=== PATIENT | male | born 1940 | race Caucasian/White ===

== ENCOUNTER 2018-01-28 12:47 | Observation (INO) | payer MEDICARE, SELFPAY ==
[2018-01-28] VITALS (12 sets, daily range): BP systolic 104–139; BP diastolic 50–86; PULSE 34–127; RESP 14–20; TEMP 36.3–36.7; O2SAT 97–100; BMI 20.7; BMI 21.7; BMI 21.8
--- NOTE | 2018-01-28 12:59 | EKG12_ITS ---
Test Reason : CP Blood Pressure : / mmHG Vent. Rate : 122 BPM Atrial Rate : 133 BPM P-R Int : 000 ms QRS Dur : 140 ms QT Int : 362 ms P-R-T Axes : 000 -76 066 degrees QTc Int : 515 ms Atrial fibrillation Right bundle branch block Left anterior fascicular block Bifascicular block Abnormal ECG Confirmed by WILLIE ISRAEL, VINAY ([id number]), editor sound MARVA CHUN ([id number]) on 01/29/2018 2:22:51 PM Referred By: NATIVIDAD/DOMINGO Confirmed By:VINAY TAIPA MD
--- NOTE | 2018-01-28 12:59 | RAD_ITS ---
STUDY: X-RAY CHEST REASON FOR EXAM: Male, 77 years old. Increasing shortness of breath. TECHNIQUE: Single AP portable view of the chest. COMPARISON: Comparison is made with prior study dated December 08, 2016. FINDINGS: EKG electrodes are seen. Hyperinflation. The lungs are clear. There is no demonstrated pleural abnormality. Normal size heart. Normal mediastinum and maykel. Normal visualized pulmonary arteries. There is atherosclerotic tortuosity of the aortic arch and descending thoracic aorta. There are degenerative changes of the visualized thoracic spine. Normal visualized ribs, clavicles, and shoulders. There is no demonstrated abnormality of the visualized soft tissue structures of the upper abdomen. RAD/Chest 1 View (Portable) IMPRESSION: Hyperinflation. The lungs are clear. Electronically Signed: Binu Chaidez MD at 13:36 EST Tel [phone], Service support ,
--- NOTE | 2018-01-28 13:00 | ED.VISSUMM ---
- ER Visit Summary Date of Service: 01/28/18 Chief Complaint: Chest pain History of Present Illness: The patient is a 77 M presenting with chest pain that started last night. He has had intermittent chest pain since last night. He states last night it lasted several hours. Complains of a heaviness in his mid chest with no radiation. Associated with nausea, diaphoresis, shortness of breath. Today he states he had a near syncopal episode. He is a previous smoker. He has a history of leukemia currently on chemotherapy. He is on Coumadin for history of A. fib. Physical Examination: Vitals are stable. Patient is afebrile. Alert no acute distress. HEENT exam is unremarkable. Neck is supple. Lungs are clear and equal bilaterally. Heart is irregularly irregular Abdomen is soft nontender nondistended. Extremities are unremarkable. Skin is warm and dry. No focal neurologic deficit. Remainder of exam is unremarkable. Emergency Department Course and Treatment: EKG is A. fib rate of 122. Patient was given aspirin, Cardizem. Repeat heart rate is 79. CBC normal except for hemoglobin 11.8, platelets 148. Chemistries were unremarkable. INR is 2.7. Troponin is negative. Chest x-ray shows hyperinflation. On reevaluation, patient is chest pain-free. Discussed with Dr. Villalba for observation. Disposition: Observation Impression: Chest pain, A. fib with RVR This note was generated with [employer] dictation software. It may contain incorrect words, spelling, and punctuation that were not noted in review of the chart prior to signing ED Disposition - Plan for ED Patient: Chief Complaint: Chest Pain Referrals: Jay Junior MD [Primary Care Provider] -
[2018-01-28 13:23] LABS: Absolute Lymphocyte Count 1.43 X10^3/ul (0.83-4.51); Absolute Neutrophil Count 3.6 X10^3/uL (2.0-7.7); Basophil# 0.03 X10^3/uL; Basophil% 0.5 % (0-1); Eosinophil# 0.02 X10^3/uL; Eosinophils% 0.3 % (0-5); Hemoglobin 11.8 g/dl (13.0-16.5); Lymphocyte # 1.43 X10^3/ul (4.0); Lymphocyte % 23.3 % (19-41); Mean Corp Hgb Conc 31.9 g/gl (32-36); Mean Corpuscular Hgb 26.5 pg (27.0-32.0); Mean Corpuscular Volume 83.1 fL (80-94); Mean Platelet Vol. 11.4 fl (6.2-12.0); Monocyte# 0.99 X10^3/uL; Monocyte% 16.2 % (0-10); Neutrophil # 3.57 X10^3/uL (2.7-7.7); Neutrophil % 58.2 % (47-70); POSITIVE COUNT NO; POSITIVE DIFFERENTIAL NO; POSITIVE MORPHOLOGY NO; Platelet Count 148 K/mm3 (150-450); RBC Distribution Width CV 16.3 % (11.6-14.6); RBC Distribution Width SD 49.1 fl (35.1-43.9); Red Blood Count 4.45 M/mm3 (4.6-6.2); White Blood Count 6.1 K/mm3 (4.4-11.0)
[2018-01-28 13:29] LABS: International Normalized Ratio 2.7; Prothrombin Time (Protime)PT. 29.1 SECONDS (11.7-14.9)
[2018-01-28] MEDS: dilTIAZem 25 MG/5 ML Vial 10 MG IV BOLUS (13:30)
[2018-01-28] MEDS: Aspirin 81 MG TAB.CHEW 324 MG PO (13:30)
[2018-01-28 13:39] LABS: Anion Gap 6 (5-15); BUN 21 mg/dL (7-18); BUN/Creat Ratio 17.5 RATIO (10-20); Calcium,Total 8.4 mg/dL (8.5-10.1); Chloride 103 mmol/L (98-107); EST Glomerular Filtration Rate 63 mL/min (>60); Est Glom Filt Rate - Afr Amer 76 mL/min (>60); Estimated Creatinine Clearance 45.85 ml/min; Glucose 91 mg/dL (74-106); Potassium 3.5 mmol/L (3.5-5.1); Sodium Level 137 mmol/L (136-145)
--- NOTE | 2018-01-28 14:16 | NURSING ---
120 OBS ABHIJEET MCFADDEN
--- NOTE | 2018-01-28 14:27 | PCM.HP.STD ---
Problem List (1) Chronic atrial fibrillation Status: Chronic (2) Anxiety Status: Chronic (3) Benign prostatic hypertrophy Status: Chronic (4) Chronic lymphocytic leukemia Status: Chronic (5) Hypertension Status: Chronic History of Present Illness Date of Admission: 01/28/18 Chief Complaint: Chest pain, shortness of breath. The patient is a 77 year old M with past medical history as mentioned above presented to the emergency room because of chest pain or shortness of breath. Her symptoms started last night with chest pain, retrosternal chest pain, dull aching pain, 6-7 out of 10 in severity, not radiating, lasted for about a couple of hours, relieved by heating pad, no associated symptoms and without aggravating factors. This morning, he started complaining of shortness of breath at rest, associated with dizziness and palpitation as well as irregular heartbeats and he was about to pass out. This morning, he had no more chest pain. He mentioned that his heart was beating fast and irregular and he was about to pass out but he did not. In the emergency room, he was in A. fib with RVR with heart rate of around 127, received 1 dose of IV Cardizem and his heart rate came down to 80s, blood pressure was stable. His routine blood work was remarkable for hemoglobin of 11.8 g/dL, platelet count of 148,000. BMP was unremarkable. INR was 2.7. Troponin was 0.02. EKG revealed A. fib with RVR and right bundle branch block, no acute ischemic changes. Chest x-ray showed no acute infiltrate, effusion or consolidation. He is being admitted for chest pain for evaluation as well as A. fib with RVR and near syncope. Past Medical History Past Medical History (Chronic Problems): Chronic Problems Chronic atrial fibrillation (Chronic) Anxiety (Chronic) Benign prostatic hypertrophy (Chronic) Chronic lymphocytic leukemia (Chronic) Hypertension (Chronic) Allergies ondansetron [From Zofran (as hydrochloride)] Allergy (Verified 12/08/16 13:19) Unknown Home Medications: Ambulatory Orders Medication Instructions Recorded Finasteride [Proscar] 5 mg PO DAILY 12/08/16 Ibrutinib [Imbruvica] 420 mg PO DAILY 12/08/16 Sertraline HCl [Zoloft] 50 mg PO DAILY 12/08/16 Tamsulosin HCl [Flomax] 0.4 mg PO DAILY 12/08/16 Trazodone HCl 100 mg PO QHS 12/08/16 Zolpidem Tartrate [Ambien] 2.5 mg PO QHS 12/08/16 Metoprolol Tartrate [Lopressor 25 mg PO BID 01/28/18 (Beta Kiana)] Omeprazole 40 mg PO DAILY 01/28/18 Warfarin Sodium [Warfarin Sodium] 8 mg PO DAILY 01/28/18 Surgical History: no surgical history Psychiatric History: No pertinent psych hx Lives: Spouse/ Significant Other Smoking Status: Never smoker Alcohol: None Drugs: None - *Family History Maternal History Items: No pertinent history Paternal History Items: No pertinent history Review of Systems Constitutional: Reports: Weakness. Denies: Anorexia, Chills, Fever Eyes: Denies: Blurred vision, Double vision, Drainage, Redness HEENT: Reports: Head Aches. Denies: Difficulty Hearing, Ear Pain, Eye Pain, Nasal Congestion, Sore Throat Cardiovascular: Reports: Chest Pain, Light Headedness, Palpitations, - - Near syncope.. Denies: Edema, Heaviness, Orthopnea, Paroxysmal Noc. Dyspnea Respiratory: Reports: Shortness of Breath, Shortness of breath at rest. Denies: Cough, Pleuritic Pain, Sputum production, Wheezing Gastrointestinal: Denies: Abdominal Pain, Constipation, Diarrhea, Nausea, Vomiting Genitourinary: Denies: Dysuria, Frequency, Hematuria Musculoskeletal: Denies: Arm Pain, Back Pain, Foot Pain Skin: Denies: Dryness, Rash Neurological: Denies: Balance problems, Double vision, Change in Speech, Slurred speech, Headaches, Incoordination, Numbness Psychiatric: Reports: Anxiety, Depression Endocrine: Denies: Change in Body Habitus, Polydipsia VTE Information - Inpt Only VTE Present on Admission: No VTE Mechan Device Prophylaxis: None VTE Pharm Prophylaxis ordered?: No - Physical Exam General: Alert, Oriented x3, Cooperative, No apparent distress HEENT: Atraumatic, PERRLA, EOMI Oral: Moist Mucosa, No Gingival or Mucosal Lesions/ Ulcerations Neck: Supple, No JVD, Negative Carotid Bruits, Trachea Midline, Thyroid Normal Size and Texture Lungs: Clear to auscultation, No rhonchi, No wheeze, No rales, Diminished Cardiovascular: Regular rate, Normal S1, Normal S2, No murmurs, PMI Normal, Irregular Rate Abdomen: Bowel Sounds Present, Soft, Non Tender, Non-Distended, No Hepato-splenomegaly Extremities: No clubbing, No cyanosis, No edema Skin: No rashes, No breakdown Lymphatic: No Cervical, Supraclavicular, or Inguinal Adenopathy Neurological: Cranial nerves II-XII grossly intact, Motor Exam 5/5 strength throughout Psych/Mental Status: Normal Affect, Appropriate, Alert and oriented to time, place, person, mood and affect Vital Signs Temp Pulse Resp BP Pulse Ox 98 F 84 18 113/84 H 100 01/28/18 12:48 01/28/18 14:16 01/28/18 14:16 01/28/18 14:16 01/28/18 14:16 Oxygen Delivery Method Room Air Weight: 136 lb 7.458 oz Body Mass Index (BMI) 20.7 Laboratory Tests Past 24 Hrs 01/28/18 01/28/18 01/28/18 13:10 13:10 13:10 WBC 6.1 RBC 4.45 L Hgb 11.8 L Hct 37.0 L MCV 83.1 MCH 26.5 L MCHC 31.9 L RDW 16.3 H RDW Differential 49.1 H Plt Count 148 L MPV 11.4 Immature Gran % (Auto) 1.500 H Neut % (Auto) 58.2 Lymph % (Auto) 23.3 [place] % (Auto) 16.2 H Eos % (Auto) 0.3 Baso % (Auto) 0.5 Absolute Neuts (auto) 3.6 Absolute Lymphs (auto) 1.43 Total Counted Not Reportable PT 29.1 H INR 2.7 Sodium 137 Potassium 3.5 Chloride 103 Carbon Dioxide 28.0 Anion Gap 6 BUN 21 H Creatinine 1.20 Estim Creat Clear Calc 45.85 Est GFR (MDRD) Af Amer 76 Est GFR (MDRD) Non-Af 63 BUN/Creatinine Ratio 17.5 Glucose 91 Calcium 8.4 L Troponin I 0.02 Clinical Impression(s) from Imaging Studies Chest X-Ray 01/28/18 12:59 IMPRESSION: Hyperinflation. The lungs are clear. Electronically Signed: Binu Chaidez MD at 13:36 EST Tel [phone], Service support , Assessment/Plan This is a 77 years old male patient presented to the medicine because of chest pain, shortness of breath and near syncope, found to have A. fib with RVR and he is being admitted for evaluation. #1 chest pain: Atypical presentation. First troponin is negative. EKG revealed A. fib with RVR, RBBB, no acute ischemic changes. At this time, patient has no chest pain. Vital signs are stable. Chest x-ray showed no acute findings. Plan: Admit to PCU, cardiac monitoring, serial cardiac enzymes, repeat EKG tomorrow morning, nuclear stress test tomorrow morning if cardiac enzymes are negative. #2 A. fib with RVR: Upon arrival to ER, patient was in A. fib with RVR, heart rate was in 120s. He received 1 dose of IV Cardizem bolus. At this time, heart rate has been in the 80s, blood pressure stable. Plan: Continue metoprolol for rate control, continue Coumadin for anticoagulation, TSH, serum magnesium, 2D echocardiogram. #3 near syncope: Probably due to A. fib with RVR. At this time, patient is improving, no more symptoms. Plan: Cardiac enzymes, repeat EKG tomorrow morning, 2D echocardiogram, orthostatic vitals. #4 Hypertension: Blood pressure stable, continue metoprolol. #5 chronic lymphocytic leukemia: Stable, continue Imbruvica. #6 benign prostatic hypertrophy: 10 oh Proscar and Flomax. #7 anxiety/depression: Continue Zoloft, trazodone and Ambien. #8 DVT prophylaxis: INR is 2.7. This note was generated with [employer] dictation software. It may contain incorrect words, spelling, and punctuation that were not noted in checking the note before signing. Code Visit Inpatient E&M: 22325 Init Hosp L3
[2018-01-28] MEDS: 0.9% Normal Saline 1,000 ML 75 ML IV (14:30)
--- NOTE | 2018-01-28 14:36 | HP.PCM_ITS ---
Problem List (1) Chronic atrial fibrillation Status: Chronic (2) Anxiety Status: Chronic (3) Benign prostatic hypertrophy Status: Chronic (4) Chronic lymphocytic leukemia Status: Chronic (5) Hypertension Status: Chronic History of Present Illness Date of Admission: 01/28/18 Chief Complaint: Chest pain, shortness of breath. The patient is a 77 year old M with past medical history as mentioned above presented to the emergency room because of chest pain or shortness of breath. Her symptoms started last night with chest pain, retrosternal chest pain, dull aching pain, 6-7 out of 10 in severity, not radiating, lasted for about a couple of hours, relieved by heating pad, no associated symptoms and without aggravating factors. This morning, he started complaining of shortness of breath at rest, associated with dizziness and palpitation as well as irregular heartbeats and he was about to pass out. This morning, he had no more chest pain. He mentioned that his heart was beating fast and irregular and he was about to pass out but he did not. In the emergency room, he was in A. fib with RVR with heart rate of around 127, received 1 dose of IV Cardizem and his heart rate came down to 80s, blood pressure was stable. His routine blood work was remarkable for hemoglobin of 11.8 g/dL, platelet count of 148,000. BMP was unremarkable. INR was 2.7. Troponin was 0.02. EKG revealed A. fib with RVR and right bundle branch block, no acute ischemic changes. Chest x-ray showed no acute infiltrate, effusion or consolidation. He is being admitted for chest pain for evaluation as well as A. fib with RVR and near syncope. Past Medical History Past Medical History (Chronic Problems): Chronic Problems Chronic atrial fibrillation (Chronic) Anxiety (Chronic) Benign prostatic hypertrophy (Chronic) Chronic lymphocytic leukemia (Chronic) Hypertension (Chronic) Allergies ondansetron [From Zofran (as hydrochloride)] Allergy (Verified 12/08/16 13:19) Unknown Home Medications: Ambulatory Orders Medication Instructions Recorded Finasteride [Proscar] 5 mg PO DAILY 12/08/16 Ibrutinib [Imbruvica] 420 mg PO DAILY 12/08/16 Sertraline HCl [Zoloft] 50 mg PO DAILY 12/08/16 Tamsulosin HCl [Flomax] 0.4 mg PO DAILY 12/08/16 Trazodone HCl 100 mg PO QHS 12/08/16 Zolpidem Tartrate [Ambien] 2.5 mg PO QHS 12/08/16 Metoprolol Tartrate [Lopressor 25 mg PO BID 01/28/18 (Beta Kiana)] Omeprazole 40 mg PO DAILY 01/28/18 Warfarin Sodium [Warfarin Sodium] 8 mg PO DAILY 01/28/18 Surgical History: no surgical history Psychiatric History: No pertinent psych hx Lives: Spouse/ Significant Other Smoking Status: Never smoker Alcohol: None Drugs: None - *Family History Maternal History Items: No pertinent history Paternal History Items: No pertinent history Review of Systems Constitutional: Reports: Weakness. Denies: Anorexia, Chills, Fever Eyes: Denies: Blurred vision, Double vision, Drainage, Redness HEENT: Reports: Head Aches. Denies: Difficulty Hearing, Ear Pain, Eye Pain, Nasal Congestion, Sore Throat Cardiovascular: Reports: Chest Pain, Light Headedness, Palpitations, - - Near syncope.. Denies: Edema, Heaviness, Orthopnea, Paroxysmal Noc. Dyspnea Respiratory: Reports: Shortness of Breath, Shortness of breath at rest. Denies : Cough, Pleuritic Pain, Sputum production, Wheezing Gastrointestinal: Denies: Abdominal Pain, Constipation, Diarrhea, Nausea, Vomiting Genitourinary: Denies: Dysuria, Frequency, Hematuria Musculoskeletal: Denies: Arm Pain, Back Pain, Foot Pain Skin: Denies: Dryness, Rash Neurological: Denies: Balance problems, Double vision, Change in Speech, Slurred speech, Headaches, Incoordination, Numbness Psychiatric: Reports: Anxiety, Depression Endocrine: Denies: Change in Body Habitus, Polydipsia VTE Information - Inpt Only VTE Present on Admission: No VTE Mechan Device Prophylaxis: None VTE Pharm Prophylaxis ordered?: No - Physical Exam General: Alert, Oriented x3, Cooperative, No apparent distress HEENT: Atraumatic, PERRLA, EOMI Oral: Moist Mucosa, No Gingival or Mucosal Lesions/ Ulcerations Neck: Supple, No JVD, Negative Carotid Bruits, Trachea Midline, Thyroid Normal Size and Texture Lungs: Clear to auscultation, No rhonchi, No wheeze, No rales, Diminished Cardiovascular: Regular rate, Normal S1, Normal S2, No murmurs, PMI Normal, Irregular Rate Abdomen: Bowel Sounds Present, Soft, Non Tender, Non-Distended, No Hepato- splenomegaly Extremities: No clubbing, No cyanosis, No edema Skin: No rashes, No breakdown Lymphatic: No Cervical, Supraclavicular, or Inguinal Adenopathy Neurological: Cranial nerves II-XII grossly intact, Motor Exam 5/5 strength throughout Psych/Mental Status: Normal Affect, Appropriate, Alert and oriented to time, place, person, mood and affect Vital Signs Temp Pulse Resp BP Pulse Ox 98 F 84 18 113/84 H 100 01/28/18 12:48 01/28/18 14:16 01/28/18 14:16 01/28/18 14:16 01/28/18 14:16 Oxygen Delivery Method Room Air Weight: 136 lb 7.458 oz Body Mass Index (BMI) 20.7 Laboratory Tests Past 24 Hrs 01/28/18 01/28/18 01/28/18 13:10 13:10 13:10 WBC 6.1 RBC 4.45 L Hgb 11.8 L Hct 37.0 L MCV 83.1 MCH 26.5 L MCHC 31.9 L RDW 16.3 H RDW Differential 49.1 H Plt Count 148 L MPV 11.4 Immature Gran % (Auto) 1.500 H Neut % (Auto) 58.2 Lymph % (Auto) 23.3 [place] % (Auto) 16.2 H Eos % (Auto) 0.3 Baso % (Auto) 0.5 Absolute Neuts (auto) 3.6 Absolute Lymphs (auto) 1.43 Total Counted Not Reportable PT 29.1 H INR 2.7 Sodium 137 Potassium 3.5 Chloride 103 Carbon Dioxide 28.0 Anion Gap 6 BUN 21 H Creatinine 1.20 Estim Creat Clear Calc 45.85 Est GFR (MDRD) Af Amer 76 Est GFR (MDRD) Non-Af 63 BUN/Creatinine Ratio 17.5 Glucose 91 Calcium 8.4 L Troponin I 0.02 Clinical Impression(s) from Imaging Studies Chest X-Ray 01/28/18 12:59 IMPRESSION: Hyperinflation. The lungs are clear. Electronically Signed: Binu Chaidez MD at 13:36 EST Tel [phone], Service support , Assessment/Plan This is a 77 years old male patient presented to the medicine because of chest pain, shortness of breath and near syncope, found to have A. fib with RVR and he is being admitted for evaluation. #1 chest pain: Atypical presentation. First troponin is negative. EKG revealed A. fib with RVR, RBBB, no acute ischemic changes. At this time, patient has no chest pain. Vital signs are stable. Chest x-ray showed no acute findings. Plan: Admit to PCU, cardiac monitoring, serial cardiac enzymes , repeat EKG tomorrow morning, nuclear stress test tomorrow morning if cardiac enzymes are negative. #2 A. fib with RVR: Upon arrival to ER, patient was in A. fib with RVR, heart rate was in 120s. He received 1 dose of IV Cardizem bolus. At this time, heart rate has been in the 80s, blood pressure stable. Plan: Continue metoprolol for rate control, continue Coumadin for anticoagulation, TSH, serum magnesium, 2D echocardiogram. #3 near syncope: Probably due to A. fib with RVR. At this time, patient is improving, no more symptoms. Plan: Cardiac enzymes, repeat EKG tomorrow morning , 2D echocardiogram, orthostatic vitals. #4 Hypertension: Blood pressure stable, continue metoprolol. #5 chronic lymphocytic leukemia: Stable, continue Imbruvica. #6 benign prostatic hypertrophy: 10 oh Proscar and Flomax. #7 anxiety/depression: Continue Zoloft, trazodone and Ambien. #8 DVT prophylaxis: INR is 2.7. This note was generated with [employer] dictation software. It may contain incorrect words, spelling, and punctuation that were not noted in checking the note before signing. Code Visit Inpatient E&M: 22509 Init Hosp L3
--- NOTE | 2018-01-28 14:37 | ECHOD_ITS ---
Reason For Study: AFIB Procedure This was a 2D Doppler, Color Flow transthoracic echocardiogram. Exam performed portable in patient room. Left Ventricle Normal size and thickness. The estimated ejection fraction is 55 %. Stage 2 diastolic dysfunction. There is borderline global hypokinesis of the left ventricle. Right Ventricle Normal size and thickness. Normal systolic function. Atria The left atrium is moderately enlarged. Normal right atrium. Normal atrial septum. Mitral Valve Mild diffuse mitral valve thickening. Mild mitral valve prolapse, posterior leaflet. Moderate (2+) anteriorly directed mitral valve insufficiency. Tricuspid Valve Normal tricuspid valve. Trivial tricuspid valve insufficiency. Right ventricular systolic pressure estimated to be 31 mmHg. Aortic Valve Trisinus/trileaflet aortic valve. Mild diffuse aortic valve thickening. Mild (1+) aortic valve insufficiency. Pulmonic Valve Normal pulmonic valve. Great Vessels Normal aortic root. Normal arch. Normal inferior vena cava. Inferior vena cava collapse with sniff. Pericardium/Pleural No pericardial effusion. MMode/2D Measurements & Calculations LVIDd: 5.0 cm IVSd: 1.1 cm Ao root diam: 3.6 cm LVIDs: 3.4 cm LVPWd: 1.3 cm LA dimension: 3.4 cm RVDd: 3.6 cm FS: 30.7 % LAV(MOD-bp): 69.6 ml EDV(MOD-sp4): 155.6 ml EDV(MOD-sp2): 196.7 ml LAV(MOD-bp) Indexed: 39.3 ml/m2 ESV(MOD-sp4): 68.0 ml EF(MOD-sp2): 52.4 % LAV(MOD-sp2): 55.1 ml EF(MOD-sp4): 56.3 % LAV(MOD-sp4): 80.4 ml SV(MOD-sp4): 87.6 ml SV(MOD-sp2): 103.0 ml LA A4 area: 24.8 cm2 RA A4 area: 19.5 cm2 Doppler Measurements & Calculations MV E max dannie: 125.7 cm/sec Ao V2 max: 134.9 cm/sec AI max dannie: 358.1 cm/sec MV A max dannie: 86.9 cm/sec Ao max P.3 mmHg AI max P.4 mmHg MV E/A: 1.4 AI dec slope: 207.1 cm/sec2 AI P1/2t: 506.3 msec LV V1 max: 114.2 cm/sec PA V2 max: 100.9 cm/sec PI end-d dannie: 71.4 cm/sec LV V1 max P.2 mmHg TR max dannie: 220.7 cm/sec TR max P.7 mmHg Interpretation Summary The estimated ejection fraction is 55 %. There is borderline global hypokinesis of the left ventricle. Stage 2 diastolic dysfunction. The left atrium is moderately enlarged. Mild mitral valve prolapse, posterior leaflet Moderate (2+) anteriorly directed mitral valve insufficiency. Trivial tricuspid valve insufficiency. Right ventricular systolic pressure estimated to be 31 mmHg. Mild (1+) aortic valve insufficiency. Pt appears to be in NSR. There is no comparison study available. Ordering Physician: Everton Villalba Referring Physician: RUKHSANA JOYA Performed By: Kiley Witt, MORGAN, RVT
[2018-01-28 15:43] LABS: Magnesium 2.3 mg/dL (1.6-2.6); Thyroid Stim Hormone (TSH) 2.44 uIU/mL (0.358-3.74)
[2018-01-28] MEDS: Finasteride 5 MG Tablet PO (16:54)
[2018-01-28] MEDS: Tamsulosin HCl 0.4 MG Capsule PO (17:48)
[2018-01-28] MEDS: Metoprolol Tartrate 25 MG Tablet PO (21:49)
[2018-01-28] MEDS: Zolpidem Tartrate 5 MG Tablet 2.5 MG PO (22:02)
--- NOTE | 2018-01-29 00:34 | EKG12_ITS ---
Test Reason : CONVT NSR Blood Pressure : / mmHG Vent. Rate : 056 BPM Atrial Rate : 056 BPM P-R Int : 154 ms QRS Dur : 150 ms QT Int : 508 ms P-R-T Axes : 075 -69 -43 degrees QTc Int : 490 ms Sinus bradycardia Right bundle branch block Left anterior fascicular block Bifascicular block Abnormal ECG When compared with ECG of 28-JAN-2018 12:48, MANUAL COMPARISON REQUIRED, DATA IS UNCONFIRMED Confirmed by WILLIE ISRAEL, VINAY ([id number]), newspaper copy editor MARVA CHUN ([id number]) on 02/01/2018 3:24:26 PM Referred By: DR ALVAREZ Confirmed By:VINAY TAPIA MD
[2018-01-29 03:01] VITALS: PULSE 55
[2018-01-29 04:00] VITALS: BP 101/47; PULSE 56; RESP 20; TEMP 36.4; O2SAT 98
[2018-01-29 04:12] LABS: Hematocrit 33.6 % (40-54); Hemoglobin 10.7 g/dl (13.0-16.5); Mean Corp Hgb Conc 31.8 g/gl (32-36); Mean Corpuscular Hgb 26.8 pg (27.0-32.0); Mean Corpuscular Volume 84.2 fL (80-94); Mean Platelet Vol. 11.5 fl (6.2-12.0); Platelet Count 146 K/mm3 (150-450); RBC Distribution Width CV 16.2 % (11.6-14.6); RBC Distribution Width SD 49.9 fl (35.1-43.9); Red Blood Count 3.99 M/mm3 (4.6-6.2); White Blood Count 4.4 K/mm3 (4.4-11.0)
[2018-01-29 04:17] LABS: Prothrombin Time (Protime)PT. 36.2 SECONDS (11.7-14.9)
[2018-01-29 04:18] LABS: Partial Thromboplast Time 76.6 Seconds (24.1-36.2)
[2018-01-29 04:19] LABS: Scan Indicated on CBC? Y/N NO
[2018-01-29 04:21] LABS: International Normalized Ratio 3.6
[2018-01-29 05:12] LABS: Anion Gap 7 (5-15); BUN 18 mg/dL (7-18); BUN/Creat Ratio 19.5 RATIO (10-20); Calcium,Total 7.8 mg/dL (8.5-10.1); Chloride 109 mmol/L (98-107); Creatinine, Serum 0.92 mg/dL (0.70-1.30); EST Glomerular Filtration Rate 85 mL/min (>60); Est Glom Filt Rate - Afr Amer 102 mL/min (>60); Glucose 78 mg/dL (74-106); Potassium 3.7 mmol/L (3.5-5.1); Sodium Level 143 mmol/L (136-145)
[2018-01-29 07:07] VITALS: PULSE 55
[2018-01-29 09:21] VITALS: BP 105/57; PULSE 55; RESP 16; TEMP 36.4; O2SAT 96
[2018-01-29 11:05] VITALS: PULSE 51
[2018-01-29] MEDS: Finasteride 5 MG Tablet PO (11:05)
[2018-01-29] MEDS: Sertraline 50 MG Tablet PO (11:06)
[2018-01-29] MEDS: Pantoprazole Sodium 40 MG Tablet PO (11:06)
[2018-01-29 11:14] VITALS: PULSE 64
--- NOTE | 2018-01-29 11:24 | STRESSREP ---
Stress Test Report Pharmacologic myocardial perfusion stress test. 77-year-old man with a history of chest pain. Stress protocol: Resting EKG demonstrates sinus bradycardia with a rate of 54 bpm. Resting blood pressure is 130/54 mmHg. 0.4 mg regadenoson was infused per usual protocol followed by Intravenous saline flush injection. Continuous EKG monitoring was performed. Patient maintained sinus rhythm throughout the recording with occasional premature ventricular complexes noted. The maximum heart rate was 80 bpm which was 55% of the maximum predicted heart rate maximum workload was 1 metabolic equivalent. The resting blood pressure was 130/54 mmHg with a final blood pressure 110/50 mmHg. At rest and during peak infusion there were no ST or T-wave changes just abnormal flow reserve. Myocardial perfusion protocol. 11.8 mCi of technetium 99m sestamibi was injected at rest. 0.4 mg of regadenoson was infused per usual protocol peak infusion 33.3 mCi of technetium 99m sestamibi was injected. Stress images were obtained. Stress and rest images were reconstructed and compared in the short axis vertical long and horizontal long axis. Gated images were also obtained Perfusion SPECT analysis. Review of the images demonstrate normal uptake of tracer noted in all areas of the myocardium except for the diaphragmatic attenuation. There is mild motion artifact also noted. No obvious areas of reversibility are noted suggest ischemia no previous infarct is noted. Gated SPECT analysis: The gated ejection fraction is noted to be 61%. Conclusion: Normal pharmacologic myocardial perfusion stress test. preserved ejection fraction.
--- NOTE | 2018-01-29 12:00 | PCM.DC ---
- Discharge Diagnoses Current Active Problems: Current Active and Chronic Problems Chronic atrial fibrillation (Chronic) You will use the following diet at home:: Cardiac Your food should be the consistency of: Regular Your liquids should be the consistency of: Regular/Thin Discharge Activity: Return to Normal Activity Call your doctor if you observe: Chest pain, Increased palpitations (irregular heartbeat) Allergies/Adverse Reactions: Allergies ondansetron [From Zofran (as hydrochloride)] Allergy (Verified 12/08/16 13:19) Unknown Medications to take at Discharge Finasteride [Proscar] 5 mg PO DAILY 12/08/16 Ibrutinib [Imbruvica] 420 mg PO DAILY 12/08/16 Sertraline HCl [Zoloft] 50 mg PO DAILY 12/08/16 Tamsulosin HCl [Flomax] 0.4 mg PO DAILY 12/08/16 Trazodone HCl 100 mg PO QHS 12/08/16 Zolpidem Tartrate [Ambien] 2.5 mg PO QHS 12/08/16 Metoprolol Tartrate [Lopressor (beta zak)] 25 mg PO BID 01/28/18 Omeprazole 40 mg PO DAILY 01/28/18 Warfarin Sodium 8 mg PO DAILY #0 01/29/18 Primary Care Physician: Jay Junior MD [Primary Care Provider] - 01/31/18 Please Follow Up With: Erich Rodriges MD When: 01/31/2018 Please Follow Up With: Kel Chao DO When: 1-2 weeks Please Follow Up With: Chemotherapy When: 02/01/2018 Proposed Discharge Date: 01/29/18
--- NOTE | 2018-01-29 12:02 | PCM.DC.SUM ---
Discharge Date and Diagnosis - Problem List Patient Problems: Active and Suspected Problems Atrial fibrillation with RVR (Acute) Chest pain (Acute) Date of Admission: 01/28/18 Date of Discharge: 01/29/18 - Secondary Discharge Diagnosis Chronic Problems Chronic atrial fibrillation (Chronic) Anxiety (Chronic) Benign prostatic hypertrophy (Chronic) Chronic lymphocytic leukemia (Chronic) Hypertension (Chronic) Hospital Course and Treatment Imaging Results: 01/29/18 05:55 Nuclear Stress Test - Chemical [NM] AM (NON MEDS) Operations: None Procedures: 2-D Echocardiogram, Stress test Summary of Care Provided: The patient is a 77 year old M presents with palpitations and chest pain. Patient was just doing some light duty around his house and then started expressing palpitations and left-sided chest pain. Patient was concerned and was brought to the emergency room. In the emergency room, patient was found to be in atrial fibrillation with RVR. Received a dose of IV Cardizem which did improve his heart rate. At roughly midnight today, patient converted to normal sinus rhythm which is where he has maintained. Patient's heart rate has ranged from the 40s-50s. Patient did undergo a stress test today that was normal. Echocardiogram showed an ejection fraction of 55% with mild mitral valve prolapse of the posterior leaflet, and trivial tricuspid valve insufficiency, mild aortic valve insufficiency. Patient is otherwise doing well. Patient has an appointment scheduled with his electric detector operator, Dr. Perdue, for the . Patient will keep that and will discuss with Dr. Perdue about any changes to his medications such as increasing his beta-zak adding other agents if necessary. Addition of the patient about if another anticoagulation would be a viable option for his atrial for ablation rather than Coumadin being that he has a very labile INRs. One possibility could be adding a low-dose of vitamin K to ensure that that would be more stable given the wide variabilities of his INR. I have instructed the patient to hold his Coumadin today given his INR 3.6. Patient did miss his chemotherapy today. That is to be resumed on the . Patient is to follow-up with Dr. Chao in the coming weeks. Vital Signs Height 1.73 m Weight: 65 kg Weight in Pounds 143.3 lbs Pulse Ox 96 Temperature 36.4 C Pulse Rate 64 Respiratory Rate 16 Blood Pressure 105/57 Blood Pressure Position Semi-Fowlers No acute distress and afebrile. Nontoxic per. Head is atraumatic and normocephalic. [] Discharge Diet: Low fat/ Low Cholesterol Discharge Activity: Return to Normal Activity Call your doctor if you observe: Chest pain, Increased palpitations (irregular heartbeat) Home Medications: Medications to take at Discharge Finasteride [Proscar] 5 mg PO DAILY 12/08/16 Ibrutinib [Imbruvica] 420 mg PO DAILY 12/08/16 Sertraline HCl [Zoloft] 50 mg PO DAILY 12/08/16 Tamsulosin HCl [Flomax] 0.4 mg PO DAILY 12/08/16 Trazodone HCl 100 mg PO QHS 12/08/16 Zolpidem Tartrate [Ambien] 2.5 mg PO QHS 12/08/16 Metoprolol Tartrate [Lopressor (beta zak)] 25 mg PO BID 01/28/18 Omeprazole 40 mg PO DAILY 01/28/18 Warfarin Sodium 8 mg PO DAILY #0 01/29/18 Primary Care Physician: Jay Junior MD [Primary Care Provider] - 01/31/18 Please Follow Up With: Erich Rodriges MD When: 01/31/2018 Please Follow Up With: Kel Chao DO When: 1-2 weeks Please Follow Up With: Chemotherapy When: 02/01/2018 Disposition: Home Minutes spent on discharge:: 28 Patient Condition:: Good Meaningful Use Info Meaningful Use Diagnoses (Choose all that apply): None applicable Code Visit OBSV E&M: 76870 Observation care discharge
== END 2018-01-29 13:12 | disposition home or self-care (01) ==
LOC: ED 13:22 → PCU 18:20
PROVIDERS: Admitting Provider Hospitalist; Emergency Provider Emergency Medicine; Family Provider Family Medicine; PCP Family Medicine
DX: R07.89 Other chest pain (principal); R06.02 Shortness of breath; R55 Syncope and collapse; N40.0 Benign prostatic hyperplasia without lower urinary tract symptoms; I48.2 Chronic atrial fibrillation; C91.10 Chronic lymphocytic leukemia of B-cell type not having achieved remission; I10 Essential (primary) hypertension; F41.9 Anxiety disorder, unspecified; Z87.891 Personal history of nicotine dependence; Z79.01 Long term (current) use of anticoagulants; Z79.899 Other long term (current) drug therapy; I45.10 Unspecified right bundle-branch block; F32.9 Major depressive disorder, single episode, unspecified; I08.2 Rheumatic disorders of both aortic and tricuspid valves
CPT/HCPCS: 36415; 71045; 78452; 80048; 83735; 84443; 84484; 85025; 85027; 85610; 85730; 93005; 93017; 93306; 96361; 96374; 97161; 99218; 99285; A9500; J7030; A4216; G0378; G8978; G8979; G8980; J2785

== ENCOUNTER 2018-02-18 16:46 | Emergency (ER) | payer MEDICARE, SELFPAY ==
[2018-02-18 16:47] VITALS: BP 120/60; PULSE 69; RESP 18; TEMP 36.6; O2SAT 97; BMI 21.7
--- NOTE | 2018-02-18 17:17 | NURSING ---
NO LW OR POA
--- NOTE | 2018-02-18 17:49 | ED.RN ---
SOME BLOOD NOTED ON NASAL PACKING IN LEFT NARES PRIOR TO AMBULATION. PT AMBULATED AROUND DEPARTMENT. NO INCREASE IN AMOUNT OF DRAINAGE ON PACKING AFTER AMBULATION.
--- NOTE | 2018-02-18 18:07 | ED.VISSUMM ---
- ER Visit Summary Date of Service: 02/18/18 Chief Complaint: Nosebleed History of Present Illness: The patient is a 77 M who noted blood from his left nostril yesterday that lasted for hours. Today's had a continuous oozing bleeding from his left nostril. Patient denies any recent injury. He was recently switched from Coumadin to Xarelto. Physical Examination: Vital signs are unremarkable. Blood pressure is 120/60. Head and neck examination reveals no active bleeding at this time. He has mild irritation to the septal wall the left nostril. There is no focal area of prior bleeding noted. Heart is irregular. Lung sounds are clear. Abdomen is soft nontender. Test Results: [] Emergency Department Course and Treatment: Packing was placed in the left nostril. Bleeding is well controlled. He was ambulated in the ER without difficulty. Patient is to have the foam packing removed in 3 days. Treatment Plan: [] Disposition: Discharge Impression: 1. Left anterior epistaxis 2. Nasal packing by ED physician This note was generated with [employer] dictation software. It may contain incorrect words, spelling, and punctuation that were not noted in review of the chart prior to signing ED Disposition - Plan for ED Patient: Disposition: Home or Assisted Living Chief Complaint: Nosebleed Instructions: Nosebleed Referrals: Jay Junior MD [Primary Care Provider] - Aleksey Pierce MD [STAFF PHYSICIAN] - 3-5 Days
[2018-02-18 18:46] VITALS: RESP 16
== END 2018-02-18 18:46 | disposition home or self-care (01) ==
PROVIDERS: Emergency Provider Emergency Medicine; Family Provider Family Medicine; PCP Family Medicine
DX: R04.0 Epistaxis (principal); I48.91 Unspecified atrial fibrillation; Z79.02 Long term (current) use of antithrombotics/antiplatelets
CPT/HCPCS: 30901; 99282

== ENCOUNTER 2019-01-29 07:00 | Emergency (ER) | payer MEDICARE, SELFPAY ==
[2019-01-29 07:02] VITALS: BP 132/65; PULSE 59; RESP 16; TEMP 36.6; O2SAT 98; BMI 21.4
--- NOTE | 2019-01-29 07:17 | ED.VISSUMM ---
- ER Visit Summary Date of Service: 01/29/19 Chief Complaint: Blood in stool History of Present Illness: The patient is a [address] Perdue, Dr. Chao, and Dr. Junior. He reports that he began having blood in his stool approximately midnight. States that he has had 4 episodes altogether. There is maroon colored blood with loose stool. Describes an aching lower abdominal pain that is 2 out of 10 at worst and 1 out of 10 currently. Nothing makes this better or worse. No nausea or vomiting. No dysuria or frequency. Patient on January 16 had a 3 inch tubular adenoma removed by Dr. Al[facility]. He had a colonoscopy in November by Dr. Negro. He is on Xarelto for atrial fibrillation. He states that he begin this again January 17. His last dose was at 7 PM yesterday. Review of systems: General: No fever, chills, cold sweats. Cardiovascular: No chest pain, palpitations. Respiratory: No cough, shortness of breath, dyspnea on exertion. Gastrointestinal: No abdominal pain, diarrhea. Genitourinary: No dysuria, frequency, hematuria. Skin: No rash. Neuro: No headache, numbness, weakness. Physical Examination: Vitals: Stable. Afebrile. General: Well-nourished and well-developed. Head: Normocephalic atraumatic. Neck: Supple, no lymphadenopathy. No JVD. Nontender. Cardiovascular: Regular rate and rhythm. No murmurs. Respiratory: No respiratory distress. Clear to auscultation bilaterally. Abdominal: Soft, nontender, nondistended, normal bowel sounds. No guarding, rebound, or peritoneal signs. Back: Nontender. Extremities: Nontender, no edema. Skin: Normal color, no rash. Neurologic: Alert and oriented ?3. Cranial nerves II through XII are intact. Normal strength and sensation. Psych: Normal affect. Test Results: CBC shows an H&H of 10.5 and 33.6, 7 neutrophils 71, monocytes 14, monocytes of 11. Hemoglobin was 10.7 January 29, 2018. Chem-7 more for chloride of 109, BUN of 19, calcium 8.1. LFTs show a total protein of 5.8 and albumin 3.0. INR is 2.2. PTT is 39.4. Emergency Department Course and Treatment: Patient had very positive orthostatic vital signs. His systolic blood pressure dropped in the 60s when he stood. He was given a liter of normal saline and his systolic blood pressure has remained stable while here. He was typed and screened. Patient has had 3 small maroon colored stools while here. Treatment Plan: Patient was discussed with Dr. Shelley who asked that he be transferred back to [facility] as he recently had surgery there. He was discussed with the colorectal surgeon there as well as the hospitalist. He will be transferred there for further evaluation and treatment. Disposition: Transferred in serious condition. Impression: Good 1. Lower GI bleed. 2. 13 days status post tubular adenoma removal. 3. Coagulopathy on Xarelto. 4. Critical care time 30 minutes. This note was generated with [employer] dictation software. It may contain incorrect words, spelling, and punctuation that were not noted in review of the chart prior to signing ED Disposition - Plan for ED Patient: Referrals: Jay Junior MD [Primary Care Provider] -
[2019-01-29 07:25] VITALS: BP 105/56; BP 63/53; BP 98/58; PULSE 59; PULSE 60; PULSE 61
[2019-01-29 07:45] LABS: Absolute Lymphocyte Count 1.21 X10^3/ul (0.83-4.51); Absolute Neutrophil Count 6.4 X10^3/uL (2.0-7.7); Basophil# 0.07 X10^3/uL; Basophil% 0.8 % (0-1); Eosinophil# 0.19 X10^3/uL; Eosinophils% 2.1 % (0-5); Hematocrit 33.6 % (40-54); Hemoglobin 10.5 g/dl (13.0-16.5); Lymphocyte # 1.21 X10^3/ul (4.0); Lymphocyte % 13.5 % (19-41); Mean Corp Hgb Conc 31.3 g/gl (32-36); Mean Corpuscular Volume 89.6 fL (80-94); Mean Platelet Vol. 12.2 fl (6.2-12.0); Monocyte# 0.98 X10^3/uL; Monocyte% 10.9 % (0-10); Neutrophil # 6.38 X10^3/uL (2.7-7.7); Neutrophil % 70.9 % (47-70); Platelet Count 167 K/mm3 (150-450); RBC Distribution Width CV 15.4 % (11.6-14.6); RBC Distribution Width SD 49.8 fl (35.1-43.9); Red Blood Count 3.75 M/mm3 (4.6-6.2)
[2019-01-29 07:46] LABS: POSITIVE COUNT NO; POSITIVE DIFFERENTIAL NO; POSITIVE MORPHOLOGY NO
[2019-01-29 07:50] LABS: Anion Gap 7 (5-15); BUN 19 mg/dL (7-18); BUN/Creat Ratio 17.3 RATIO (10-20); Calcium,Total 8.1 mg/dL (8.5-10.1); Chloride 109 mmol/L (98-107); EST Glomerular Filtration Rate 69 mL/min (>60); Est Glom Filt Rate - Afr Amer 83 mL/min (>60); Estimated Creatinine Clearance 50.91 ml/min; Glucose 92 mg/dL (74-106); Potassium 4.6 mmol/L (3.5-5.1); Sodium Level 143 mmol/L (136-145)
[2019-01-29 08:41] LABS: International Normalized Ratio 2.2; Prothrombin Time (Protime)PT. 24.3 SECONDS (11.7-14.9)
[2019-01-29 08:46] LABS: Partial Thromboplast Time 39.4 Seconds (24.1-36.2)
--- NOTE | 2019-01-29 09:09 | NURSING ---
CALLING [facility] FOR TRANSFER
[2019-01-29 09:27] VITALS: BP 114/55; PULSE 67; RESP 19; O2SAT 98
[2019-01-29 10:41] LABS: AST(SGOT) 31 U/L (15-37); Alanine Aminotransfer ALT/SGPT 18 U/L (16-61); Alkaline Phosphatase 72 U/L (45-117); Bilirubin, Direct 0.06 mg/dL (0.00-0.30); Globulin 2.8 g/dL (2.2-4.2); Protein, Total 5.8 g/dL (6.4-8.2)
[2019-01-29 11:36] VITALS: BP 92/73; PULSE 56; RESP 17; O2SAT 99
[2019-01-29] MEDS: 0.9% Normal Saline 1,000 ML 999 ML IV (11:42)
--- NOTE | 2019-01-29 11:52 | NURSING ---
CALLED [facility], TALKED TO BOBBY. NO MICU BEDS, BUT 2 PATIENTS WILL BE LEAVING
[2019-01-29 11:55] LABS: Hemoglobin 9.5 g/dl (13.0-16.5)
--- NOTE | 2019-01-29 12:33 | NURSING ---
[facility] G51 BED 7 REPORT [phone]
--- NOTE | 2019-01-29 12:34 | NURSING ---
CALLED [facility] FOR TRANSPORT
[2019-01-29 12:48] VITALS: BP 131/61; PULSE 57; RESP 17; TEMP 36.6; O2SAT 99
== END 2019-01-29 13:11 | disposition short-term general hospital (02) ==
LOC: ED 07:22
PROVIDERS: Emergency Provider Emergency Medicine; Family Provider Family Medicine; PCP Family Medicine
DX: K92.1 Melena (principal); D12.6 Benign neoplasm of colon, unspecified; I48.91 Unspecified atrial fibrillation; I10 Essential (primary) hypertension; N40.0 Benign prostatic hyperplasia without lower urinary tract symptoms; F41.9 Anxiety disorder, unspecified; C91.10 Chronic lymphocytic leukemia of B-cell type not having achieved remission; Z98.890 Other specified postprocedural states; Z79.02 Long term (current) use of antithrombotics/antiplatelets; Z79.899 Other long term (current) drug therapy
CPT/HCPCS: 80048; 80076; 85018; 85025; 85610; 85730; 86850; 86900; 96360; 96361; 99285; J7030; J7040; A4216

== ENCOUNTER 2021-05-31 11:55 | Emergency (ER) | payer MEDICARE, SELFPAY ==
[2021-04-21 13:02] VITALS: BMI 22.5
[2021-05-31 11:56] VITALS: BP 110/75; PULSE 74; RESP 14; TEMP 36.8; O2SAT 99; BMI 21.8
--- NOTE | 2021-05-31 12:17 | EDS_ITS ---
HPI History of Present Illness Chief Complaint: GI Bleed Narrative Narrative: 80-year-old male with history of CLL, A. fib presenting with history of black tarry stools. Apparently patient was on a lower dose of Xarelto until his last visit with his religious activities director Dr. Mclaughlin who ordered an outpatient CTA to evaluate the patient's aneurysm and noted that he had a small left lower lobe PE without change in thoracic aortic aneurysm. Patient was started on Xarelto 20 mg. He was following up with his primary care physician and states stated he had some fatigue and was noting black diarrhea. Patient also complaining of some crampy abdominal pain. He was ambulated around the office which was estimated to be about 60 yards and did not desat. His orthostatic vitals were lying 126/66 standing 102/55 heart rate changed from 64-72. His last reported hemoglobin was 11.3 on 05/16/2021 [facility] Medical History Anxiety Atrial fibrillation with RVR (01/29/18) Benign prostatic hypertrophy Chronic lymphocytic leukemia Essential (primary) hypertension Hyperlipidemia Iron deficiency anemia Lung nodule Nonrheumatic aortic (valve) insufficiency Nonrheumatic mitral (valve) insufficiency Nonrheumatic mitral (valve) prolapse Paroxysmal atrial fibrillation Persistent atrial fibrillation Right bundle branch block (RBBB) Thoracic aortic aneurysm Home Medications finasteride 5 mg PO DAILY 12/08/16 [History Last Taken 01/27/18] sertraline 50 mg PO DAILY 12/08/16 [History Last Taken 01/28/18] tamsulosin 0.4 mg PO DAILY 12/08/16 [History Last Taken 01/27/18] metoprolol tartrate 25 mg PO BID 01/28/18 [History Last Taken 01/28/18] omeprazole 40 mg PO DAILY 01/28/18 [History Last Taken 01/27/18] ferrous sulfate 325 mg (65 mg iron) tablet 325 mg PO DAILY 08/25/19 [History Last Taken Unknown] rivaroxaban 20 mg tablet 20 mg PO QPM tab 08/25/19 [History Last Taken Unknown] zolpidem 5 mg tablet 5 mg PO QHS tab 08/27/19 [History Last Taken Unknown] lisinopril 10 mg tablet 10 mg PO DAILY #90 tab 04/15/20 [Rx Last Taken Unknown] melatonin 5 mg chewable tablet 5 mg PO HS PRN 04/15/20 [History Last Taken Unknown] allopurinol 300 mg tablet 300 mg PO DAILY tab 04/21/21 [History Last Taken Unknown] fluticasone propionate 50 mcg/actuation nasal spray,suspension 1 spray INTRANASAL BID g 04/21/21 [History Last Taken Unknown] trazodone 50 mg tablet 50 mg PO DAILY tab 04/21/21 [History Last Taken Unknown] venetoclax 100 mg tablet 400 mg PO DAILY tab 04/21/21 [History Last Taken Unknown] rivaroxaban 15 mg tablet 15 mg PO BID #42 tab 05/12/21 [Rx Last Taken Unknown] Allergy/AdvReac Type Severity Reaction Status Date / Time ondansetron Allergy Unknown Verified 05/31/21 11:55 [From Zofran (as hydrochloride)] Family History Brother Heart disease CVA (cerebral vascular accident) Cancer Brother Heart disease Sister Cancer Surgical History H/O colonoscopy with polypectomy Social History Smoking Status: Smoker, status unknown tobacco type: cigars Smokeless tobacco user: snuff alcohol intake: current Alcohol type: beer ROS ROS ED Constitutional Constitutional ED: Reports other Details: Fatigue ; Denies chills or fever(s) Eyes Eyes: Denies blurry vision or change in vision ENT ENT ED: Denies rhinorrhea or sore throat Cardiovascular Cardiovascular: Denies chest pain or palpitations Respiratory/Chest Respiratory/Chest: Reports dyspnea on exertion; Denies cough or sputum Gastrointestinal Gastrointestinal: Reports abdominal pain and melena Genitourinary Genitourinary ED: Denies dysuria or hematuria Musculoskeletal Musculoskeletal: Denies arthralgias or myalgias Integumentary Denies abscess or rash Neurologic Neurologic: Denies headache(s) or paresthesias EXAM Physical Exam Const Vital Signs: 05/31/21 11:56 05/31/21 13:16 05/31/21 15:06 Temperature 98.2 F Temperature Source Temporal Pulse Rate 74 70 Pulse Rate [Lying] 64 Pulse Rate [Sitting] 69 Pulse Rate [Standing] 72 Respiratory Rate 14 18 Blood Pressure 110/75 120/72 Blood Pressure [Lying] 115/86 H Blood Pressure [Sitting] 130/69 H Blood Pressure [Standing] 112/51 L Blood Pressure Mean 86 88 Blood Pressure Mean [Lying] 95 Blood Pressure Mean [Sitting] 89 Blood Pressure Mean [Standing] 71 Pulse Ox 99 98 Oxygen Delivery Method Room Air Room Air Positive well nourished General Appearance ED: NAD HEENT Reports moist mucous membranes Negative for trauma Eyes PERRL General Eye ED: Yes pale conjunctiva Resp normal respiratory effort and clear to auscultation bilaterally Cardio regular rate and regular rhythm GI non-distended GI Narrative: Mild generalized abdominal pain on exam Palpation: soft Extremity normal to inspection General Extremety ED: Negative for edema General Extremity: Negative for edema Neuro oriented x3 and CN's II-XII intact bilaterally Sensorium / Orientation: alert Psych mental status grossly normal Skin no rashes or lesions noted and no wounds MDM MDM MDM Narrative Medical decision making narrative: Patient presenting with concern for GI bleed as well as some mild abdominal pain. Patient is anticoagulated on Xarelto which was recently increased due to left lower lobe pulmonary emboli. He is complaining of black tarry stools. His Hemoccult stool was positive. His hemoglobin is dropped to 9.4. He is not orthostatic in the ED. PT is slightly increased at 24.5 INR is 2.3 renal function and electrolytes are normal. LFTs are normal. Patient was typed and screened however I do not believe he needs blood currently. I did obtain a CT of the abdomen pelvis Which showed Mural thrombus is seen along the posterior aspect of the proximal superior mesenteric artery just proximal to the intestinal branches. Patient discussed with Dr. Boss felt the patient should be admitted at another facility with vascular surgery just in case they do want to stent this. Is unclear why he developed a PE as well as a mural thrombus while he is anticoagulated. This was discussed with [facility] Dr. Acosta who after discussion with vascular surgery was amenable to the transfer. Patient was consented for transfer. He has remained stable here in the ED. He is transferred in stable condition. Impression: 1. GI bleed 2. Blood loss anemia 3. 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 Labs: Laboratory Results - last 24 hr 05/31/21 05/31/21 05/31/21 12:20 12:20 12:20 WBC 4.1 L RBC 3.04 L Hgb 9.4 L Hct 28.1 L MCV 92.4 MCH 30.9 MCHC 33.5 RDW Std Deviation 51.3 H RDW Coeff of Terell 15.2 H Plt Count 158 MPV 9.8 Immature Gran % (Auto) 1.200 H Neut % (Auto) 66.1 Lymph % (Auto) 18.4 L [place] % (Auto) 14.1 H Eos % (Auto) 0.0 Baso % (Auto) 0.2 Absolute Neuts (auto) 2.7 Absolute Lymphs (auto) 0.76 L Nucleated RBC % 0 PT 24.5 H INR 2.3 Sodium 141 Potassium 3.8 Chloride 107 Carbon Dioxide 28.0 Anion Gap 6 BUN 24 H Creatinine 1.10 Estim Creat Clear Calc 50.22 Est GFR (MDRD) Af Amer 83 Est GFR (MDRD) Non-Af 69 BUN/Creatinine Ratio 21.8 H Glucose 104 Calcium 8.7 Total Bilirubin 0.40 AST 26 ALT 25 Alkaline Phosphatase 102 Total Protein 6.5 Albumin 3.3 Globulin 3.2 Albumin/Globulin Ratio 1.0 Blood Type Antibody Screen 05/31/21 12:20 WBC RBC Hgb Hct MCV MCH MCHC RDW Std Deviation RDW Coeff of Terell Plt Count MPV Immature Gran % (Auto) Neut % (Auto) Lymph % (Auto) [place] % (Auto) Eos % (Auto) Baso % (Auto) Absolute Neuts (auto) Absolute Lymphs (auto) Nucleated RBC % PT INR Sodium Potassium Chloride Carbon Dioxide Anion Gap BUN Creatinine Estim Creat Clear Calc Est GFR (MDRD) Af Amer Est GFR (MDRD) Non-Af BUN/Creatinine Ratio Glucose Calcium Total Bilirubin AST ALT Alkaline Phosphatase Total Protein Albumin Globulin Albumin/Globulin Ratio Blood Type A POSITIVE Antibody Screen NEGATIVE Radiography Diagnostic Testing: Radiology Impression Abdomen/Pelvis CT 05/31/21 12:26 IMPRESSION: Sigmoid diverticulosis. Findings suggestive of a adenomyomatosis of the gallbladder wall or small gallbladder polyps. Atherosclerotic calcification of the abdominal aorta and the major visceral branches. Mural thrombus is seen along the posterior aspect of the proximal superior mesenteric artery just proximal to the intestinal branches. Mild splenomegaly. Electronically Signed: Binu Chaidez MD at 13:34 EDT , Service support , Discharge Plan Triage Chief Complaint: GI Bleed ED Provider: Robbie Valladares Dx/Rx/DC Orders Prescriptions: No Action rivaroxaban 20 mg tablet 20 mg PO QPM RF: 0 Hold Instructions: Order Changed ferrous sulfate 325 mg (65 mg iron) tablet 325 mg PO DAILY RF: 0 melatonin 5 mg tablet,chewable 5 mg PO HS PRN (Reason: Sleep) RF: 0 lisinopril 10 mg tablet 10 mg PO DAILY Qty: 90 RF: 3 allopurinol 300 mg tablet 300 mg PO DAILY RF: 0 fluticasone propionate 50 mcg/actuation spray,suspension 1 spray intranasal BID RF: 0 trazodone 50 mg tablet 50 mg PO DAILY RF: 0 Venclexta 100 mg tablet 400 mg PO DAILY RF: 0 tamsulosin 0.4 MG capsule 0.4 mg PO DAILY RF: 0 sertraline 50 MG tablet 50 mg PO DAILY RF: 0 finasteride 5 MG tablet 5 mg PO DAILY RF: 0 zolpidem 5 mg tablet 5 mg PO QHS RF: 0 metoprolol tartrate 25 MG tablet 25 mg PO BID RF: 0 omeprazole 40 MG capsule,delayed release(DR/EC) 40 mg PO DAILY RF: 0 rivaroxaban 15 mg tablet 15 mg PO BID Qty: 42 RF: 0 Primary Care Provider: Jay Junior
--- NOTE | 2021-05-31 12:26 | CT_ITS ---
STUDY: CT ABDOMEN AND PELVIS WITH CONTRAST REASON FOR EXAM: Male, 80 years old. Abdominal pain. Patient has a history of CLL. Black stools. RADIATION DOSAGE (If Supplied By Facility): CTDIvol = ( 11.87 ) mGy, DLP = ( 653.78 ) mGycm TECHNIQUE: Transaxial images were obtained from the dome of the diaphragm to the symphysis pubis without oral contrast. IV 100mL Isovue-300 was administered. Sagittal and coronal images were reconstructed. Individualized dose optimization techniques were used for this CT. COMPARISON: None. FINDINGS: The visualized lung bases are unremarkable. The visualized portions of the heart are within normal limits. Normal liver. Tiny nodular density seen along the anterior gallbladder wall suggestive of possible adenomyomatosis or small gallbladder polyps. There is mild splenomegaly. Normal pancreas. Normal bilateral adrenal glands. Normal right kidney. There is a 3.5 mm nonobstructive calculus in the central portion of the left kidney. Normal visualized stomach. Normal small intestine. There are scattered colonic diverticula consistent with diverticulosis. The appendix is visualized and appears normal. There is diffuse atherosclerotic calcification of the abdominal aorta and its major visceral branches, without a demonstrated aneurysm. There is evidence of atherosclerotic calcific plaque in the distal portion of the superior mesenteric artery just proximal to the intestinal branches. Small amount of mural thrombus is seen along the posterior aspect of the proximal superior mesenteric artery. Normal inferior vena cava. Normal retroperitoneum. Diffuse thickening of the bladder wall although the bladder is not completely distended. Central prostatic calcification. Normal abdominal wall. There are diffuse degenerative changes of the visualized lumbar spine. CT/Abdomen/Pelvis W IV Cont ONLY IMPRESSION: Sigmoid diverticulosis. Findings suggestive of a adenomyomatosis of the gallbladder wall or small gallbladder polyps. Atherosclerotic calcification of the abdominal aorta and the major visceral branches. Mural thrombus is seen along the posterior aspect of the proximal superior mesenteric artery just proximal to the intestinal branches. Mild splenomegaly. Electronically Signed: Binu Chaidez MD at 13:34 EDT , Service support ,
[2021-05-31 12:37] LABS: Absolute Lymphocyte Count 0.76 X10^3/uL (0.83-4.51); Absolute Neutrophil Count 2.7 X10^3/uL (2.0-7.7); Basophil# 0.01 X10^3/uL; Basophil% 0.2 % (0-1); Hematocrit 28.1 % (40-54); Hemoglobin 9.4 g/dL (13.0-16.5); Lymphocyte # 0.76 X10^3/ul (0.83-4.51); Lymphocyte % 18.4 % (19-41); Mean Corp Hgb Conc 33.5 g/dL (32-36); Mean Corpuscular Hgb 30.9 pg (27.0-32.0); Mean Corpuscular Volume 92.4 fL (80-94); Mean Platelet Vol. 9.8 fl (6.2-12.0); Monocyte# 0.58 X10^3/uL; Monocyte% 14.1 % (0-10); NRBC Flagged by Analyzer 0 % (0-5); Neutrophil # 2.72 X10^3/uL (2.7-7.7); Neutrophil % 66.1 % (47-70); Platelet Count 158 K/mm3 (150-450); RBC Distribution Width CV 15.2 % (11.6-14.6); RBC Distribution Width SD 51.3 fl (35.1-43.9); Red Blood Count 3.04 M/mm3 (4.6-6.2); White Blood Count 4.1 K/mm3 (4.4-11.0)
[2021-05-31 12:48] LABS: AST(SGOT) 26 U/L (15-37); Alanine Aminotransfer ALT/SGPT 25 U/L (16-61); Albumin, Serum 3.3 g/dL (3.2-5.0); Alkaline Phosphatase 102 U/L (45-117); Anion Gap 6 (5-15); BUN 24 mg/dL (7-18); BUN/Creat Ratio 21.8 RATIO (10-20); Calcium,Total 8.7 mg/dL (8.5-10.1); Chloride 107 mmol/L (98-107); EST Glomerular Filtration Rate 69 mL/min (>60); Est Glom Filt Rate - Afr Amer 83 mL/min (>60); Estimated Creatinine Clearance 50.22 ml/min; Globulin 3.2 g/dL (2.2-4.2); Glucose 104 mg/dL (74-106); International Normalized Ratio 2.3; Potassium 3.8 mmol/L (3.5-5.1); Protein, Total 6.5 g/dL (6.4-8.2); Prothrombin Time (Protime)PT. 24.5 SECONDS (11.7-14.9); Sodium Level 141 mmol/L (136-145)
[2021-05-31 13:16] VITALS: BP 112/51; BP 115/86; BP 130/69; PULSE 64; PULSE 69; PULSE 72
[2021-05-31 15:06] VITALS: BP 120/72; PULSE 70; RESP 18; O2SAT 98
--- NOTE | 2021-05-31 16:18 | NURSING ---
TK 791 BED 2 NURSE TO NURSE [phone]
--- NOTE | 2021-05-31 16:36 | NURSING ---
CALLED [facility], ETA IS 90 MIN
[2021-05-31 16:38] VITALS: BP 134/70; PULSE 68; RESP 16; TEMP 37.1; O2SAT 98
[2021-05-31 17:00] VITALS: O2SAT 16
== END 2021-05-31 18:29 | disposition short-term general hospital (02) ==
LOC: ED 12:36
PROVIDERS: Emergency Provider Student in an Organized Health Care Education/Training Program; PCP Family Medicine
DX: K92.2 Gastrointestinal hemorrhage, unspecified (principal); D50.0 Iron deficiency anemia secondary to blood loss (chronic); I51.3 Intracardiac thrombosis, not elsewhere classified; I10 Essential (primary) hypertension; I48.0 Paroxysmal atrial fibrillation; N40.0 Benign prostatic hyperplasia without lower urinary tract symptoms; Z79.899 Other long term (current) drug therapy; Z79.01 Long term (current) use of anticoagulants
CPT/HCPCS: 36591; 74177; 80053; 82274; 85025; 85610; 86850; 86900; 86901; 87426; 99285; Q9967; A4216

== ENCOUNTER 2022-01-22 12:09 | Emergency (ER) | payer MEDICARE, SELFPAY ==
[2022-01-22 12:10] VITALS: BP 116/74; PULSE 67; RESP 16; TEMP 36.7; O2SAT 100; BMI 22.6
--- NOTE | 2022-01-22 12:41 | EDS_ITS ---
HPI History of Present Illness Chief Complaint: Wound Informant: patient Occured/Mechanism Mechanism/Context: Yes injury Onset/Context/Timing Onset: Days Context: Sudden Onset Timing: Continuous Current Severity: Mild Maximum Severity: Mild Narrative Narrative: 81-year-old male history of A. fib and leukemia on Xarelto. Slipped and fell on the ice on Sunday afternoon. Has a small tissue avulsion of skin on his right elbow medial aspect. Is just been unable to get oozing to stop. He denies any other complaints. He did not hit his head. No LOC. Denies any elbow pain. He is right-hand dominant he has full flexion-extension of that arm. Prior similar symptoms: No Recent Illness/Hospitalization: No [facility] Medical History (Updated 01/22/22 @ 13:[address] Carlos Christianson MD) Anxiety Atrial fibrillation with RVR (01/29/18) Benign prostatic hypertrophy Chronic lymphocytic leukemia Essential (primary) hypertension Hyperlipidemia Iron deficiency anemia Lung nodule Nonrheumatic aortic (valve) insufficiency Nonrheumatic mitral (valve) insufficiency Nonrheumatic mitral (valve) prolapse Paroxysmal atrial fibrillation Persistent atrial fibrillation Right bundle branch block (RBBB) Thoracic aortic aneurysm Home Medications finasteride 5 mg PO DAILY 12/08/16 [History Last Taken 01/27/18] sertraline 50 mg PO DAILY 12/08/16 [History Last Taken 01/28/18] tamsulosin 0.4 mg PO DAILY 12/08/16 [History Last Taken 01/27/18] metoprolol tartrate 25 mg PO BID 01/28/18 [History Last Taken 01/28/18] omeprazole 40 mg PO DAILY 01/28/18 [History Last Taken 01/27/18] ferrous sulfate 325 mg (65 mg iron) tablet 325 mg PO DAILY 08/25/19 [History Last Taken Unknown] rivaroxaban 20 mg tablet 20 mg PO QPM tab 08/25/19 [History Last Taken Unknown] zolpidem 5 mg tablet 5 mg PO QHS tab 08/27/19 [History Last Taken Unknown] lisinopril 10 mg tablet 10 mg PO DAILY #90 tab 04/15/20 [Rx Last Taken Unknown] melatonin 5 mg chewable tablet 5 mg PO HS PRN 04/15/20 [History Last Taken Unknown] allopurinol 300 mg tablet 300 mg PO DAILY tab 04/21/21 [History Last Taken Unknown] fluticasone propionate 50 mcg/actuation nasal spray,suspension 1 spray INTRANASAL BID g 04/21/21 [History Last Taken Unknown] trazodone 50 mg tablet 50 mg PO DAILY tab 04/21/21 [History Last Taken Unknown] venetoclax 100 mg tablet 400 mg PO DAILY tab 04/21/21 [History Last Taken Unknown] rivaroxaban 15 mg tablet 15 mg PO BID #42 tab 05/12/21 [Rx Last Taken Unknown] Allergy/AdvReac Type Severity Reaction Status Date / Time ondansetron Allergy Unknown Verified 05/31/21 11:55 [From Zofran (as hydrochloride)] Family History Brother Heart disease CVA (cerebral vascular accident) Cancer Brother Heart disease Sister Cancer Surgical History H/O colonoscopy with polypectomy Social History Smoking Status: Smoker, status unknown tobacco type: cigars Smokeless tobacco user: snuff alcohol intake: current Alcohol type: beer ROS ROS ED ROS Narrative Denies recent illness. Review of Systems ROS Unobtainable: Denies due to encephalopathy Constitutional Constitutional ED: Denies fever(s) Eyes Eyes: Denies change in vision ENT ENT ED: Denies ear pain Cardiovascular Cardiovascular: Denies chest pain Respiratory/Chest Respiratory/Chest: Denies dyspnea Gastrointestinal Gastrointestinal: Denies abdominal pain Genitourinary Genitourinary ED: Denies dysuria Musculoskeletal Musculoskeletal: Denies myalgias Integumentary Denies rash Neurologic Neurologic: Denies headache(s) Psychiatric Psychiatric: Denies depression Endocrine Endocrinology: Denies polyuria Hematologic/Lymphatic Hematologic/Lymphatic: Denies easy bruising Allergic/Immunologic Allergic/Immunologic ED: Denies urticaria EXAM Physical Exam Narrative Exam Narrative: 81-year-old male no acute distress vital signs stable afebrile. Exam normal except he is in A. fib rate controlled rate about 70. He has a small tissue avulsion medial aspect right elbow. It is oozing of blood. There is no pulsatile bleeding. There is no large hematoma. He has full range of motion of his right shoulder, elbow wrist and hand with normal route jumper strength. There is no bony deformity or tenderness. There is no signs of trauma to his head, nor his chest nor his abdomen or back. Const Vital Signs: 01/22/22 12:10 Temperature 98.1 F Temperature Source Temporal Pulse Rate 67 Respiratory Rate 16 Blood Pressure 116/74 Blood Pressure Mean 88 Pulse Ox 100 Oxygen Delivery Method Room Air Positive well nourished and well developed; Negative for obese, cachectic, c ontractures or unkempt General Appearance ED: well developed and NAD; Negative for unkempt, cachectic, contractures, cyanotic or diaphoretic Nutritional Appearance: Negative for cachectic or obese HEENT Reports moist mucous membranes normocephalic and atraumatic; Negative for trauma or tenderness Eyes PERRL and EOMs intact bilaterally Neck full ROM and supple General: Negative for tenderness Chest Wall inspection of chest normal and palpation of chest normal Resp normal respiratory effort and clear to auscultation bilaterally Effort and Inspection: Negative for pain with movement Auscultation: Negative for rales or rhonchi Cardio regular rate, S1 normal heart sound, S2 normal heart sound and no murmurs; Negative for regular rhythm Cardio Narrative: A. fib rate about 70. GI non-tender, non-distended and no masses Auscultation: normoactive bowel sounds Palpation: soft; Negative for tender, guarding or rebound tenderness present Back/Spine no CVA tenderness General Back: Negative for CVA tenderness Cervical Spine: Negative for cervical spine tenderness Thoracic Spine / Upper Back: Negative for thoracic spinal tenderness Lumbar Spine / Lower Back: Negative for lumbar spinal tenderness Extremity normal to inspection and full ROM Extremity Narrative: Small tissue avulsion right elbow. Oozing of blood. No infection. No bony deformity. Nontender. General Extremety ED: Negative for edema General Extremity: Negative for edema Neuro oriented x3, moves all extremities and no focal motor deficits Sensorium / Orientation: alert, oriented to person, oriented to place and oriented to time; Negative for orientation impaired, lethargic or stuporous Motor Exam: strength 5/5 throughout Psych mental status grossly normal Appearance: Negative for unkempt Mood & Affect: Negative for depressed or tearful Skin Skin Narrative: Tissue avulsion 2 inches right elbow. Small oozing of blood. Lesions: no lesions Rashes: no rashes Trauma: laceration; Negative for no lacerations or abrasions MDM MDM MDM Narrative Medical decision making narrative: Right elbow tissue avulsion about 2 inches in length and about half an inch in width. Oozing blood. Clean. I applied Dermabond. Let it sit for 20 minutes. Bleeding is resolved. Patient is doing well. He will be discharged home. Procedures Lacerations Right elbow tissue avulsion 2 inches in length.: Length: 2 in Depth: Skin Shape: Tissue avulsion Comment: Dermabond applied to the wound. Bleeding stopped. Discharge Plan Triage Chief Complaint: Wound ED Provider: Carlos Christianson Dx/Rx/DC Orders Clinical Impression: Fall, Avulsion of skin of right elbow Instructions: ED Skin Avulsion Prescriptions: No Action rivaroxaban 20 mg tablet 20 mg PO QPM RF: 0 Hold Instructions: Order Changed ferrous sulfate 325 mg (65 mg iron) tablet 325 mg PO DAILY RF: 0 melatonin 5 mg tablet,chewable 5 mg PO HS PRN (Reason: Sleep) RF: 0 lisinopril 10 mg tablet 10 mg PO DAILY Qty: 90 RF: 3 allopurinol 300 mg tablet 300 mg PO DAILY RF: 0 fluticasone propionate 50 mcg/actuation spray,suspension 1 spray intranasal BID RF: 0 trazodone 50 mg tablet 50 mg PO DAILY RF: 0 Venclexta 100 mg tablet 400 mg PO DAILY RF: 0 tamsulosin 0.4 MG capsule 0.4 mg PO DAILY RF: 0 sertraline 50 MG tablet 50 mg PO DAILY RF: 0 finasteride 5 MG tablet 5 mg PO DAILY RF: 0 zolpidem 5 mg tablet 5 mg PO QHS RF: 0 metoprolol tartrate 25 MG tablet 25 mg PO BID RF: 0 omeprazole 40 MG capsule,delayed release(DR/EC) 40 mg PO DAILY RF: 0 rivaroxaban 15 mg tablet 15 mg PO BID Qty: 42 RF: 0 Primary Care Provider: Jay Junior Referrals: Jay Junior MD [Primary Care Provider] - As Needed Activity Restrictions/Additional Instructions: Leave the area alone. If it rebleeds direct pressure. Follow-up if not improving. Disposition Disposition: Home, Self Care
== END 2022-01-22 13:22 | disposition home or self-care (01) ==
PROVIDERS: Emergency Provider Emergency Medicine; PCP Family Medicine; Visit Provider Emergency Medicine
DX: S51.011A Laceration without foreign body of right elbow, initial encounter (principal); F17.290 Nicotine dependence, other tobacco product, uncomplicated; W00.9XXA Unspecified fall due to ice and snow, initial encounter
CPT/HCPCS: 12001; 99282

== ENCOUNTER → 2022-05-15 | Outpatient (CLI) | payer MEDICARE, SELFPAY ==
[2022-05-15 14:00] LABS: AST(SGOT) 25 U/L (15-37); Alanine Aminotransfer ALT/SGPT 24 U/L (16-61); Albumin, Serum 3.2 g/dL (3.2-5.0); Alkaline Phosphatase 101 U/L (45-117); Anion Gap 9 (5-15); BUN 15 mg/dL (7-18); BUN/Creat Ratio 11.8 RATIO (10-20); Bilirubin, Direct 0.12 mg/dL (0.00-0.30); Chloride 108 mmol/L (98-107); Creatinine, Serum 1.27 mg/dL (0.70-1.30); EST Glomerular Filtration Rate 58 mL/min (>60); Est Glom Filt Rate - Afr Amer 70 mL/min (>60); Globulin 3.5 g/dL (2.2-4.2); Glucose 132 mg/dL (74-106); LDH 200 U/L (87-241); Potassium 3.6 mmol/L (3.5-5.1); Protein, Total 6.7 g/dL (6.4-8.2); Sodium Level 142 mmol/L (136-145); Uric Acid 4.1 mg/dL (3.5-7.2)
== END | disposition home or self-care (01) ==
LOC: LABSPEC 12:22
PROVIDERS: PCP Family Medicine; Visit Provider Internal Medicine Hematology & Oncology
DX: C91.12 Chronic lymphocytic leukemia of B-cell type in relapse (principal); D80.1 Nonfamilial hypogammaglobulinemia
CPT/HCPCS: 80048; 80076; 83615; 84550

== ENCOUNTER → 2022-05-16 | Outpatient (CLI) | payer MEDICARE, SELFPAY ==
--- NOTE | 2022-05-16 13:59 | ECHOD_ITS ---
Reason For Study: MVP Procedure This was a 2D Doppler, Color Flow transthoracic echocardiogram. Patient scanned in supimne position due to left shoulder pain. Exam performed in department. Left Ventricle Normal LV size. Mild concentric left ventricular hypertrophy. Left ventricular systolic function is normal. The estimated ejection fraction is 60 %. Stage 1 diastolic dysfunction. No regional wall motion abnormalities noted. Right Ventricle Normal RV size. Normal systolic function. Atria Normal left atrium. Normal right atrium. Mitral Valve Bileaflet diffuse mitral valve thickening. Posterior leaflet mitral valve prolapse. Moderate (2+) eccentric mitral valve insufficiency. Tricuspid Valve Normal tricuspid valve. Mild tricuspid valve insufficiency. Pulmonary artery systolic pressure is 26 mmHg. Aortic Valve Trisinus/trileaflet aortic valve. Pulmonic Valve Normal pulmonic valve. Great Vessels Normal aortic root. The pulmonary artery is normal size. Normal inferior vena cava. Pericardium/Pleural No pericardial effusion. MMode/2D Measurements & Calculations LVIDd: 4.7 cm IVSd: 1.2 cm Ao root diam: 3.7 cm LVIDs: 3.5 cm LVPWd: 1.2 cm RVDd: 3.5 cm FS: 26.0 % LAV(MOD-bp): 70.3 ml LVAd ap4: 41.5 cm2 LVAd ap2: 38.0 cm2 LAV(MOD-bp) Indexed: 39.5 ml/m2 LVLd ap4: 8.9 cm LVLd ap2: 8.6 cm LAV(MOD-sp2): 61.8 ml EDV(MOD-sp4): 157.8 ml EDV(MOD-sp2): 141.2 ml LAV(MOD-sp4): 71.8 ml EDV(sp4-el): 164.5 ml EDV(sp2-el): 142.5 ml LVAs ap4: 21.8 cm2 LVAs ap2: 22.8 cm2 LVLs ap4: 6.8 cm LVLs ap2: 7.5 cm ESV(MOD-sp4): 59.5 ml ESV(MOD-sp2): 60.8 ml ESV(sp4-el): 59.6 ml ESV(sp2-el): 59.3 ml EF(MOD-sp4): 62.3 % EF(MOD-sp2): 56.9 % EF(sp4-el): 63.8 % SV(MOD-sp4): 98.3 ml SV(MOD-sp2): 80.3 ml SV(sp4-el): 104.9 ml LA dimension(2D): 3.4 cm LA A4 area: 22.2 cm2 RA A4 area: 18.8 cm2 Doppler Measurements & Calculations MV E max sharan: 96.5 cm/sec Lat Peak E' Sharan: 11.9 cm/sec Med Peak E' Sharan: 6.8 cm/sec MV A max sharan: 117.0 cm/sec E/E' lat: 8.1 E/E' med: 14.1 MV E/A: 0.82 MV V2 max: 127.2 cm/sec MV P1/2t max sharan: 121.3 cm/sec Ao V2 max: 145.7 cm/sec MV max P.5 mmHg MV P1/2t: 69.6 msec Ao max P.5 mmHg MV V2 mean: 64.5 cm/sec MV dec slope: 510.5 cm/sec2 Ao V2 mean: 102.9 cm/sec MV mean P.1 mmHg Ao mean P.6 mmHg MV V2 VTI: 39.0 cm MVA(P1/2t): 3.2 cm2 Ao V2 VTI: 28.6 cm AI max sharan: 399.0 cm/sec LV V1 max: 157.1 cm/sec MR max sharan: 612.6 cm/sec AI max P.7 mmHg LV V1 max P.9 mmHg MR max P.1 mmHg AI dec slope: 248.3 cm/sec2 LV V1 mean P.9 mmHg AI P1/2t: 470.8 msec LV V1 mean: 89.1 cm/sec LV V1 VTI: 29.9 cm PA V2 max: 98.2 cm/sec TR max sharan: 237.3 cm/sec TR max P.5 mmHg ECHO/Echo Complete Interpretation Summary Normal LV size. Left ventricular systolic function is normal. The estimated ejection fraction is 60 %. Stage 1 diastolic dysfunction. Mild concentric left ventricular hypertrophy. Bileaflet diffuse mitral valve thickening. Posterior leaflet mitral valve prolapse. Moderate (2+) eccentric mitral valve insufficiency. Compared to the previous no significant changes noted. Ordering Physician: Rajni Petty Referring Physician: Rajni Petty Performed By: Cathryn Lane RCS
== END | disposition home or self-care (01) ==
LOC: CVS 13:58
PROVIDERS: PCP Family Medicine; Referring Provider Physician Assistant Medical; Visit Provider Physician Assistant Medical
DX: I34.0 Nonrheumatic mitral (valve) insufficiency (principal)
CPT/HCPCS: 93306

== ENCOUNTER 2024-03-26 12:06 | Emergency (ER) | payer MEDICARE, SELFPAY ==
[2024-03-26 12:06] VITALS: BP 135/59; PULSE 70; RESP 16; TEMP 36.3; O2SAT 96; BMI 21.7
--- NOTE | 2024-03-26 13:26 | CT_ITS ---
STUDY: CT ABDOMEN AND PELVIS WITH CONTRAST REASON FOR EXAM: Male, 83 years old. Constipation and abdominal cramping. History of chronic lymphocytic leukemia. RADIATION DOSAGE (If Supplied By Facility): CTDIvol = ( 13.62 ) mGy, DLP = ( 515.63 ) mGycm TECHNIQUE: Transaxial images were obtained from the dome of the diaphragm to the symphysis pubis without oral contrast. IV 100mL Isovue-300 was administered. Sagittal and coronal images were reconstructed. Individualized dose optimization techniques were used for this CT. COMPARISON: Comparison is made with prior study dated May 31, 2021. FINDINGS: Minimal increased linear markings at the lung bases suggestive linear scarring. Coronary artery calcification. There is decreased attenuation of the liver consistent with steatosis. Normal gallbladder and extrahepatic biliary system. Borderline splenomegaly. Normal pancreas. Normal bilateral adrenal glands. Normal right kidney. There is a nonobstructive 3 mm calculus in the anterior midpole calyx of the left kidney. A punctate calcification is also seen in the medial mid pole calyces of the left kidney. Normal visualized stomach. Normal small intestine. There is diverticulosis, with thickening of the colon wall, and pericolonic inflammation changes consistent with acute diverticulitis. The appendix is visualized and appears normal. There is diffuse atherosclerotic calcification of the abdominal aorta and its major visceral branches, without a demonstrated aneurysm. Normal inferior vena cava. Normal retroperitoneum. Diffuse bladder wall thickening more prominent along the left lateral wall most likely secondary to the adjacent inflammatory changes within the sigmoid colon. Heterogeneous appearance of the prostate with central calcification. Normal abdominal wall. There are mild degenerative changes of the visualized lumbar spine. CT/Abdomen/Pelvis W IV Cont ONLY IMPRESSION: Minimal increase in markings at the lung bases. Fatty infiltration of the liver. Borderline spinal megaly. Nonobstructing left intrarenal calculi. Sigmoid diverticulitis with increased markings in the surrounding peritoneal fat and thickening of the colonic wall. Diffuse bladder wall thickening more prominent on the left lateral wall most likely secondary to the adjacent acute sigmoid diverticulitis. Heterogeneous prostate with calcifications. Electronically Signed: Binu Chaidez MD at 14:50 EDT ,
--- NOTE | 2024-03-26 13:27 | EDS_ITS ---
HPI HPI - GI History of Present Illness Chief Complaint: Abd Pain Informant: patient Abdominal Pain/Flank Pain Onset: Yesterday Context: Gradual Onset Timing: Continuous Quality: Sharp Location: RLQ and LLQ Worsened by: Movement (Bending forward) Relieved by: Nothing Nausea/Vomiting/Emesis GI Symptom: Negative for Nausea or Vomiting Diarrhea/Melena/Hematochezia GI Symptom: Negative for Diarrhea, Melena or Hematochezia Associated Symptoms Associated Symptoms: Positive for Frequency; Negative for Dysuria or Hematuria Narrative Narrative: Patient presents with abdominal pain that began yesterday. Patient states it is gradually gotten worse. Patient describes it as sharp. Patient states it has been constant. Patient states it is mainly over the lower abdomen. Patient states it is worse with bending forward. Patient states nothing makes it better. Patient denies any nausea or vomiting. Patient denies any diarrhea, melena, or hematochezia. Patient admits to some urinary frequency but denies any dysuria or hematuria. Patient denies any fevers or chills. Patient states his pain does radiate into his back. [facility] Medical History (Updated 03/26/24 @ 16:[address] Jimmie Sanchez, ) Anxiety Atrial fibrillation with RVR (01/29/18) Benign prostatic hypertrophy Chronic lymphocytic leukemia Essential (primary) hypertension Hyperlipidemia Iron deficiency anemia Lung nodule Nonrheumatic aortic (valve) insufficiency Nonrheumatic mitral (valve) insufficiency Nonrheumatic mitral (valve) prolapse Paroxysmal atrial fibrillation Persistent atrial fibrillation Right bundle branch block (RBBB) Thoracic aortic aneurysm Home Medications finasteride 5 mg tablet 5 mg PO DAILY PROSTATE 12/08/16 [History Last Taken 01/27/18] sertraline 50 mg tablet 50 mg PO DAILY MENTAL HEALTH 12/08/16 [History Last Taken 01/28/18] tamsulosin 0.4 mg capsule 0.4 mg PO DAILY PROSTATE 12/08/16 [History Last Taken 01/27/18] metoprolol tartrate 25 mg tablet 25 mg PO BID HEART, BLOOD PRESSURE 01/28/18 [History Last Taken 01/28/18] omeprazole 40 mg capsule,delayed release 40 mg PO DAILY ACID REFLUX 01/28/18 [History Last Taken 01/27/18] ferrous sulfate 325 mg (65 mg iron) tablet 325 mg PO DAILY 08/25/19 [History Last Taken Unknown] zolpidem 5 mg tablet 5 mg PO QHS SLEEP 08/27/19 [History Last Taken Unknown] trazodone 50 mg tablet 50 mg PO DAILY 04/21/21 [History Last Taken Unknown] cyanocobalamin (vitamin B-12) 1,000 mcg capsule 1,000 mcg PO DAILY 04/19/22 [History Last Taken Unknown] rivaroxaban 20 mg tablet (Xarelto) 20 mg PO DAILY 04/19/22 [History Last Taken U nknown] ammonium lactate 12 % lotion 1 applic topical DAILY PRN dry skin 05/10/23 [History Last Taken Unknown] ciprofloxacin HCl 500 mg tablet 500 mg PO BID #20 TABLETS 03/26/24 [Rx Last Taken Unknown] levothyroxine 50 mcg tablet 50 mcg PO DAILY disorder of thyroid gland 03/26/24 [History Last Taken Unknown] metronidazole 500 mg tablet 500 mg PO Q6H #40 tabs 03/26/24 [Rx Last Taken Unknown] zolpidem 10 mg tablet 5 - 10 mg PO QHS 03/26/24 [History Last Taken Unknown] Allergy/AdvReac Type Severity Reaction Status Date / Time codeine Allergy Rash Verified 03/26/24 12:08 ondansetron Allergy Unknown Verified 03/26/24 12:08 [From Zofran (as hydrochloride)] Family History Brother Heart disease CVA (cerebral vascular accident) Cancer Brother Heart disease Sister Cancer Surgical History H/O colonoscopy with polypectomy Social History housing: house Smoking Status: Former smoker Smokeless tobacco user: snuff alcohol intake: current Alcohol type: beer ROS ROS ED Constitutional Constitutional ED: Denies chills or fever(s) Eyes Eyes: Denies blurry vision or change in vision ENT ENT ED: Denies rhinorrhea or sore throat Cardiovascular Cardiovascular: Denies chest pain or palpitations Respiratory/Chest Respiratory/Chest: Denies cough or dyspnea Gastrointestinal Gastrointestinal: Reports abdominal pain; Denies nausea or vomiting Genitourinary Genitourinary ED: Denies dysuria or hematuria Musculoskeletal Musculoskeletal: Reports back pain; Denies neck pain Integumentary Denies abscess or rash Neurologic Neurologic: Denies headache(s) or weakness Allergic/Immunologic Allergic/Immunologic ED: Denies mouth swelling or urticaria EXAM Physical Exam Const Vital Signs: 03/26/24 12:06 03/26/24 16:00 Temperature 97.4 F L 98.6 F Temperature Source Temporal Pulse Rate 70 69 Respiratory Rate 16 16 Blood Pressure 135/59 H 102/89 H Blood Pressure Mean 84 93 Pulse Ox 96 94 Oxygen Delivery Method Room Air Positive well nourished and well developed General Appearance ED: well developed and NAD HEENT Reports moist mucous membranes Neck supple and no JVD Resp normal respiratory effort and clear to auscultation bilaterally Cardio regular rate and regular rhythm GI non-distended Palpation: soft and tender LLQ, RLQ and suprapubic; Negative for guarding or rebound tenderness present Neuro CN's II-XII intact bilaterally, moves all extremities and no sensory deficits noted Sensorium / Orientation: alert Motor Exam: strength 5/5 throughout Psych mental status grossly normal and thought process normal MDM MDM MDM Narrative Medical decision making narrative: Differential diagnosis includes urinary tract infection, diverticulitis, abscess, ureteral calculus, pyelonephritis, gastroenteritis, pancreatitis, and irritable bowel syndrome. CBC will be obtained to assess for leukocytosis and anemia. Comprehensive metabolic profile will be obtained to assess for hepatic function, renal function, and electrolyte abnormality. Lipase will be obtained to assess for pancreatitis. Urinalysis will be obtained to assess for urinary tract infection. CT scan of the abdomen pelvis will be obtained to assess for diverticulitis, abscess, bowel obstruction, and perforation. Lab Data Attestation: I reviewed the patient's lab results. Lab results narrative: CBC was reviewed. There is a mild anemia with a hemoglobin of 10.8 and hematocrit 33.4. White blood cell count was normal. Platelets were slightly low at 145. Comprehensive metabolic profile was reviewed and was essentially within normal limits. Lipase was reviewed and was normal at 33. Urinalysis was reviewed. There is no evidence of urinary tract infection or hematuria. Labs: Laboratory Results - last 24 hr 03/26/24 03/26/24 13:59 14:46 WBC 9.5 RBC 3.80 L Hgb 10.8 L Hct 33.4 L MCV 87.9 MCH 28.4 MCHC 32.3 RDW Std Deviation 46.8 H RDW Coeff of Terell 14.6 Plt Count 145 L MPV 9.7 Immature Gran % (Auto) 1.300 H Neut % (Auto) 70.8 H Lymph % (Auto) 15.8 L [place] % (Auto) 10.4 H Eos % (Auto) 1.3 Baso % (Auto) 0.4 Absolute Neuts (auto) 6.8 Absolute Lymphs (auto) 1.51 Nucleated RBC % 0 Sodium 138 Potassium 3.8 Chloride 105 Carbon Dioxide 30.0 Anion Gap 3 L BUN 12 Creatinine 1.04 Estim Creat Clear Calc 50.29 Est GFR (MDRD) Af Amer 88 Est GFR (MDRD) Non-Af 73 BUN/Creatinine Ratio 11.5 Glucose 106 Calcium 8.7 Total Bilirubin 0.70 AST 22 ALT 19 Alkaline Phosphatase 81 Total Protein 6.1 L Albumin 3.3 Globulin 2.8 Albumin/Globulin Ratio 1.2 Lipase 33 Urine Color Yellow Urine Clarity Clear Urine pH 6.5 Ur Specific [place] 1.005 Urine Protein Negative Urine Glucose (UA) Normal Urine Ketones Negative Urine Occult Blood Negative Urine Nitrite Negative Urine Bilirubin Negative Urine Urobilinogen Normal Ur Leukocyte Esterase Negative Urine RBC 0 SEEN Urine WBC 0 SEEN Ur Squamous Epith Cells 0 SEEN Urine Bacteria 0 SEEN Urine Mucus 0 SEEN Radiography Diagnostic Testing: Clinical Impression(s) from Imaging Studies Abdomen/Pelvis CT 03/26/24 13:26 IMPRESSION: Minimal increase in markings at the lung bases. Fatty infiltration of the liver. Borderline spinal megaly. Nonobstructing left intrarenal calculi. Sigmoid diverticulitis with increased markings in the surrounding peritoneal fat and thickening of the colonic wall. Diffuse bladder wall thickening more prominent on the left lateral wall most likely secondary to the adjacent acute sigmoid diverticulitis. Heterogeneous prostate with calcifications. Electronically Signed: Binu Chaidez MD at 14:50 EDT , Treatment and Re-Evaluation :: Patient was advised of his findings here. Patient was started on Cipro and Flagyl. Patient was given prescriptions for the same. Patient was instructed to follow-up with his primary care physician in 5 to 7 days for further evaluation. Patient understood and was agreeable with the plan. All questions were answered. Discharge Plan Triage Chief Complaint: Abd Pain ED Provider: Jimmie Sanchez Dx/Rx/DC Orders Clinical Impression: Acute diverticulitis, Essential (primary) hypertension Instructions: ED Diverticulitis Prescriptions: New metronidazole [metronidazole] 500 mg tablet 500 mg PO Q6H Qty: 40 0RF ciprofloxacin HCl [ciprofloxacin HCl] 500 mg tablet 500 mg PO BID Qty: 20 0RF No Action ferrous sulfate 325 mg (65 mg iron) tablet 325 mg PO DAILY trazodone 50 mg tablet 50 mg PO DAILY cyanocobalamin (vitamin B-12) 1,000 mcg capsule 1,000 mcg PO DAILY Xarelto 20 mg tablet 20 mg PO DAILY Rx Instructions: must administer with evening meal ammonium lactate 12 % lotion 1 applic topical DAILY PRN (Reason: dry skin) tamsulosin 0.4 MG capsule 0.4 mg PO DAILY Patient Comments: SLEEP sertraline 50 MG tablet 50 mg PO DAILY Patient Comments: DEPRESSION finasteride 5 MG tablet 5 mg PO DAILY Patient Comments: PROSTATE zolpidem 5 mg tablet 5 mg PO QHS Patient Comments: SLEEP metoprolol tartrate 25 MG tablet 25 mg PO BID omeprazole 40 MG capsule,delayed release(DR/EC) 40 mg PO DAILY levothyroxine 50 mcg tablet 50 mcg PO DAILY zolpidem 10 mg tablet 5 - 10 mg PO QHS Primary Care Provider: Jay Junior Referrals: Jay Junior MD [Primary Care Provider] - 5-7 Days Disposition Disposition: Home, Self Care
[2024-03-26 14:13] LABS: Absolute Lymphocyte Count 1.51 X10^3/uL (0.83-4.51); Absolute Neutrophil Count 6.8 X10^3/uL (2.0-7.7); Basophil# 0.04 X10^3/uL; Basophil% 0.4 % (0-1); Eosinophil# 0.12 X10^3/uL; Eosinophils% 1.3 % (0-5); Hematocrit 33.4 % (40-54); Hemoglobin 10.8 g/dL (13.0-16.5); Lymphocyte # 1.51 X10^3/ul (0.83-4.51); Lymphocyte % 15.8 % (19-41); Mean Corp Hgb Conc 32.3 g/dL (32-36); Mean Corpuscular Hgb 28.4 pg (27.0-32.0); Mean Corpuscular Volume 87.9 fL (80-94); Mean Platelet Vol. 9.7 fl (6.2-12.0); Monocyte# 0.99 X10^3/uL; Monocyte% 10.4 % (0-10); NRBC Flagged by Analyzer 0 % (0-5); Neutrophil # 6.75 X10^3/uL (2.7-7.7); Neutrophil % 70.8 % (47-70); Platelet Count 145 K/mm3 (150-450); RBC Distribution Width CV 14.6 % (11.6-14.6); RBC Distribution Width SD 46.8 fl (35.1-43.9); White Blood Count 9.5 K/mm3 (4.4-11.0)
[2024-03-26 14:22] LABS: ALB/GLOB Ratio 1.2 RATIO (0.9-2.4); AST(SGOT) 22 U/L (15-37); Alanine Aminotransfer ALT/SGPT 19 U/L (16-61); Albumin, Serum 3.3 g/dL (3.2-5.0); Alkaline Phosphatase 81 U/L (45-117); Anion Gap 3 (5-15); BUN 12 mg/dL (7-18); BUN/Creat Ratio 11.5 RATIO (10-20); Calcium,Total 8.7 mg/dL (8.5-10.1); Chloride 105 mmol/L (98-107); Creatinine, Serum 1.04 mg/dL (0.70-1.30); EST Glomerular Filtration Rate 73 mL/min (>60); Est Glom Filt Rate - Afr Amer 88 mL/min (>60); Estimated Creatinine Clearance 50.29 ml/min; Globulin 2.8 g/dL (2.2-4.2); Glucose 106 mg/dL (74-106); Lipase 33 U/L (13-75); Potassium 3.8 mmol/L (3.5-5.1); Protein, Total 6.1 g/dL (6.4-8.2); Sodium Level 138 mmol/L (136-145)
[2024-03-26] MEDS: 0.9% Normal Saline (1000mL) 1,000 ML 1000 ML IV (14:44)
[2024-03-26 14:52] LABS: Bacteria 0 SEEN /hpf (None Seen); Mucous, Urine 0 SEEN /hpf (<or=2+); Red Blood Cells-Urine 0 SEEN /hpf (0-5); Squamous Epithelial Cells - UA 0 SEEN /hpf (0-5); White Blood Cells 0 SEEN /hpf (0-5)
[2024-03-26 14:58] LABS: Color, Urine Yellow (Yellow); Glucose, Dipstick Normal (Normal); Ketone-Dipstick Negative (Negative); Leukocyte Esterase-Dipstick Negative /ul (Negative); Nitrite-Dipstick Negative (Negative); Occult Blood-Urine Negative /ul (Negative); Protein-Dipstick Negative (Negative); Specific Gravity, Urine 1.005 (1.002-1.030); Urine Bilirubin Dipstick Negative (Negative); Urine Clarity Clear (Clear); Urine Urobilinogen Normal (Normal); Urine pH 6.5 (5.0 - 8.0)
[2024-03-26 16:00] VITALS: BP 102/89; PULSE 69; RESP 16; TEMP 37; O2SAT 94
[2024-03-26] MEDS: metroNIDAZOLE 500 MG Tablet PO (16:37)
[2024-03-26] MEDS: Ciprofloxacin 500 MG Tablet PO (16:37)
== END 2024-03-26 16:42 | disposition home or self-care (01) ==
PROVIDERS: Emergency Provider Emergency Medicine; PCP Family Medicine; Visit Provider Emergency Medicine
DX: K57.32 Diverticulitis of large intestine without perforation or abscess without bleeding (principal); I10 Essential (primary) hypertension; Z79.899 Other long term (current) drug therapy; Z79.01 Long term (current) use of anticoagulants; Z87.891 Personal history of nicotine dependence
CPT/HCPCS: 36591; 74177; 80053; 81001; 83690; 85025; 96360; 96361; 99282; J7030; Q9967; A4216

== ENCOUNTER 2024-11-03 18:20 | Emergency (ER) | payer MEDICARE, SELFPAY ==
[2024-11-03 18:23] VITALS: BP 144/70; PULSE 72; RESP 16; TEMP 36.6; O2SAT 100; BMI 22.0
[2024-11-03 18:57] LABS: Bacteria 0 SEEN /hpf (None Seen); Mucous, Urine 0 SEEN /hpf (<or=2+); Red Blood Cells-Urine 0 SEEN /hpf (0-5); Squamous Epithelial Cells - UA 0 SEEN /hpf (0-5); White Blood Cells 0 SEEN /hpf (0-5)
[2024-11-03 18:57] LABS: Absolute Lymphocyte Count 2.32 X10^3/uL (0.83-4.51); Absolute Neutrophil Count 2.9 X10^3/uL (2.0-7.7); Basophil# 0.04 X10^3/uL; Basophil% 0.7 % (0-1); Eosinophil# 0.14 X10^3/uL; Eosinophils% 2.3 % (0-5); Hematocrit 31.2 % (40-54); Hemoglobin 10.3 g/dL (13.0-16.5); Lymphocyte # 2.32 X10^3/ul (0.83-4.51); Mean Corpuscular Hgb 29.9 pg (27.0-32.0); Mean Corpuscular Volume 90.4 fL (80-94); Mean Platelet Vol. 9.4 fl (6.2-12.0); Monocyte# 0.59 X10^3/uL; Monocyte% 9.7 % (0-10); NRBC Flagged by Analyzer 0 % (0-5); Neutrophil # 2.88 X10^3/uL (2.7-7.7); Neutrophil % 47.2 % (47-70); POSITIVE MORPHOLOGY YES; Platelet Count 154 K/mm3 (150-450); RBC Distribution Width CV 14.9 % (11.6-14.6); RBC Distribution Width SD 49.4 fl (35.1-43.9); Red Blood Count 3.45 M/mm3 (4.6-6.2); White Blood Count 6.1 K/mm3 (4.4-11.0)
[2024-11-03 18:58] LABS: Differential Indicated SCAN CRITERIA MET
[2024-11-03 19:05] LABS: Color, Urine Yellow (Yellow); Glucose, Dipstick Normal (Normal); Ketone-Dipstick Negative (Negative); Leukocyte Esterase-Dipstick Negative /ul (Negative); Nitrite-Dipstick Negative (Negative); Occult Blood-Urine Negative /ul (Negative); Protein-Dipstick 15 mg/dl (Negative); Specific Gravity, Urine 1.015 (1.002-1.030); Urine Bilirubin Dipstick Negative (Negative); Urine Clarity Clear (Clear); Urine Urobilinogen Normal (Normal)
--- NOTE | 2024-11-03 19:20 | CT_ITS ---
We are attempting to reach an attending provider to discuss findings. An addendum with communication details will be sent when the communication is complete. EXAM: CT ANGIOGRAPHY CHEST, ABDOMEN AND PELVIS WITH INTRAVENOUS CONTRAST CLINICAL INDICATION: left back pain/ribs, history of thoracic aneurysm . History of chronic lymphocytic leukemia according to prior reports in 2020. TECHNIQUE: Helically acquired angiography images were obtained of the chest, abdomen and pelvis with intravenous contrast. This CT exam was performed using one or more of the following dose reduction techniques: automated exposure control, adjustment of the mA and/or kV according to patient size, and/or use of iterative reconstruction technique. MIP reconstructed images were created and reviewed. CONTRAST: IV 100mL [id number] RADIATION DOSE: CTDIvol = 7.38 mGy, DLP = 514.46 mGy-cm COMPARISON: Abdomen and pelvis CT March 26, 2024 showing focal colitis or diverticulitis of the sigmoid colon. Chest radiograph January 28, 2018. FINDINGS: VASCULATURE: AORTA: There are moderate atherosclerotic calcifications of infrarenal aorta and mild circumferential calcifications of common and external iliac and femoral arteries without significant narrowing. There is no aortic aneurysm or dissection. Ascending aorta is 4 cm, descending thoracic aorta is 3.1 cm. PULMONARY ARTERIES: Unremarkable. Normal in caliber. No obvious central pulmonary embolism although this study was not performed with the pulmonary embolism protocol. GREAT VESSELS OF AORTIC ARCH: Unremarkable. Normal in caliber. No dissection. CELIAC TRUNK AND MESENTERIC ARTERIES: Slight calcification without significant narrowing at the origin of the SMA. No dissection. RENAL ARTERIES: No acute findings. No occlusion or significant stenosis. No dissection. ILIAC ARTERIES: No acute findings. No occlusion or significant stenosis. No dissection. CHEST: LUNGS AND PLEURAL SPACES: There are at least mild cystic-emphysematous changes of the upper lung cueto with peripheral blebs or bullae. Multiple mildly thick-walled cystic spaces in the posterior right lung base. Small left pleural effusion. There is plaque-like irregular thickening of the left lateral posterior lateral pleura, up to 1 cm maximum thickness and over 5.8 cm maximum craniocaudal extent. No mass. No pneumothorax. HEART: Slight coronary artery calcifications in proximal left anterior descending and mid right coronary artery. No intracardiac filling defects. Heart size is normal. No pericardial effusion. MEDIASTINUM: There is irregular cavitary mass or masslike infiltrate left upper lobe anteriorly, with soft tissue stranding and density extending to the anterior pleura and to the adjacent left mediastinal margin overlying the main pulmonary artery. The bulk of the irregular mass or cavitary inflammatory lesion measures at least 5.2 cm AP by 4.1 cm transverse and at least 2.6 cm craniocaudal with very spiculated margins. This has to be considered very suspicious for neoplasm. Possibly trace internal fluid in the cavitary air but it is not a typical appearance of abscess. No mediastinal or hilar adenopathy. Esophagus is unremarkable. No hiatal hernia. THYROID: Unremarkable. No thyroid lesions. ABDOMEN: LIVER: Unremarkable. Homogeneous. No focal mass. GALLBLADDER AND BILE DUCTS: Unremarkable. No calcified gallstones. No gallbladder distention or wall edema. No intra- or extrahepatic biliary ductal dilation. PANCREAS: Unremarkable. No focal cystic or solid mass. SPLEEN: The spleen is 12.9 cm x 5.3 cm x 11.4 cm, it was 12.4 cm x 5.6 cm x 11.6 cm, not significantly changed. ADRENALS: Unremarkable. No nodules. KIDNEYS AND URETERS: Unremarkable. Normal renal size and position. No hydronephrosis. STOMACH AND BOWEL: Moderate fluid and mild gas in the stomach. Mild scattered fluid in the small bowel. Moderate stool in most of the proximal half of the colon, mild stool in the descending colon, minimal gas in the rectosigmoid. Moderate diverticulosis of the sigmoid with minimal if any adjacent soft tissue stranding. No stomach or bowel distention. No focal inflammatory change. PELVIS: APPENDIX: Normal appendix is seen. BLADDER: Unremarkable. REPRODUCTIVE: Unremarkable as visualized. No mass. CHEST, ABDOMEN and PELVIS: INTRAPERITONEAL SPACE: The bones appear mildly demineralized. There are mild narrowing of L3-4 and L4-5 disc spaces and mild endplate changes. No significant spinal stenosis or intraspinous visible fluid collection. No free air. BONES/JOINTS: Mild calcification and mild narrowing at the origin of the celiac axis, up to 50% stenosis. No suspicious lytic or blastic abnormality. SOFT TISSUES: Unremarkable. No discrete abdominal or pelvic wall hernia. LYMPH NODES: Mild left suprahilar adenopathy, at least 1.6 cm x 1.2 cm x 1.5 cm suspected left suprahilar node or mass, with mild narrowing of the adjacent left superior pulmonary vein. A few mildly prominent periportal nodes appear similar, a node anterior to the main portal vein and hepatic artery is 2.1 cm x 1.3 cm, it was 1.7 cm x 0.8 cm. A few small retroperitoneal lymph nodes appear similar. TUBES, LINES AND DEVICES: Left subclavian [id number] catheter, tip in the distal SVC. CT/CTA Chst, Abd, Pel W and/or WO IMPRESSION: 1. No aortic aneurysm or dissection. Atherosclerotic changes of the aorta. No PE. 3. Cavitary mass in the medial right upper lobe with very thick, irregular and spiculated margins. Radiating bands of soft tissue density extending into adjacent the anterior and medial pleural-diaphragmatic surfaces are suspicious for neoplasm. The primary considerations are neoplasm and infection. 4. Mild left hilar adenopathy. 5. Small left effusion. 6. Indeterminate plaque-like thickening along the left posterior- lateral pleura predominantly adjacent to the lower lobe. New from 2020. This may be early neoplasm versus unusual focal pleural inflammation. 7. Diverticulosis with minimal inflammation around the sigmoid, improved from March 26, 2024. No free air, free fluid or abscess in the abdomen or pelvis. Electronically Signed: Aruna Hendricks MD at 21:28 EST ,
[2024-11-03 19:21] LABS: Anisocytosis RARE; Atypical Lymphocyte 2+ %; Macrocytosis RARE; Platelet Estimate ADEQUATE (ADEQ); Red Cell Morphology N CHROM NORMAL (NORM C&C)
--- NOTE | 2024-11-03 19:21 | EDS_ITS ---
HPI History of Present Illness Chief Complaint: Flank Pain Detail of Chief Complaint: Left back pain Informant: patient Narrative Narrative: Patient presents with left mid to upper back pain that started 2 weeks ago. Denies injury other than he was cutting firewood initially started with some pain in his right shoulder that then moved to his left back. Patient has a history of a thoracic aneurysm that is being followed. He has not had any surgery for his aneurysm. Patient denies urinary symptoms. No history of kidney stones. He denies recent illness or cough. Currently rates pain a 7 out of 10. Pain made worse by movement and breathing. [facility] Medical History (Updated 11/03/24 @ 22:[address] Cristy Gruber, DO) Paroxysmal atrial fibrillation Nonrheumatic mitral (valve) prolapse Persistent atrial fibrillation Right bundle branch block (RBBB) Lung nodule Iron deficiency anemia Thoracic aortic aneurysm Nonrheumatic aortic (valve) insufficiency Nonrheumatic mitral (valve) insufficiency Hyperlipidemia Essential (primary) hypertension Atrial fibrillation with RVR (01/29/18) Anxiety Benign prostatic hypertrophy Chronic lymphocytic leukemia Home Medications ?Medication ?Instructions ?Recorded ?Last Taken ?Type finasteride 5 mg tablet 5 mg PO DAILY PROSTATE 12/08/16 01/27/18 History sertraline 50 mg tablet 50 mg PO DAILY MENTAL HEALTH 12/08/16 01/28/18 History tamsulosin 0.4 mg capsule 0.4 mg PO DAILY PROSTATE 12/08/16 01/27/18 History metoprolol tartrate 25 mg tablet 25 mg PO BID HEART, BLOOD PRESSURE 01/28/18 01/28/18 History omeprazole 40 mg capsule,delayed 40 mg PO DAILY ACID REFLUX 01/28/18 01/27/18 History release ferrous sulfate 325 mg (65 mg 325 mg PO DAILY 08/25/19 Unknown History iron) tablet trazodone 50 mg tablet 50 mg PO DAILY 04/21/21 Unknown History rivaroxaban 20 mg tablet (Xarelto) 20 mg PO DAILY 04/19/22 Unknown History ammonium lactate 12 % lotion 1 applic topical DAILY PRN dry skin 05/10/23 Unknown History levothyroxine 50 mcg tablet 50 mcg PO DAILY disorder of 03/26/24 Unknown History thyroid gland zolpidem 10 mg tablet 5 - 10 mg PO QHS 03/26/24 Unknown History hydrocodone-acetaminophen 5-325mg 1 tab PO Q4H PRN PRN Pain 3 days 12/09/24 Unknown Rx 5mg-325mg #15 TABLETS Allergy/AdvReac Type Severity Reaction Status Date / Time codeine Allergy Rash Verified 11/03/24 18:23 [email or web address] (From Zofran (as Allergy Unknown Verified 11/03/24 18:23 hydrochloride)) Family History Brother Heart disease CVA (cerebral vascular accident) Cancer Brother Heart disease Sister Cancer Surgical History H/O colonoscopy with polypectomy Social History housing: house Smoking Status: Former smoker Smokeless tobacco user: snuff alcohol intake: current Alcohol type: beer ROS ROS ED Review of Systems ROS Unobtainable: other Constitutional Constitutional ED: Reports lethargy; Denies chills, fever(s), sweats or weight loss Eyes Eyes: Denies blurry vision, change in vision or diplopia ENT ENT ED: Denies rhinorrhea or sore throat Cardiovascular Cardiovascular: Denies chest pain, orthopnea or racing heartbeat Respiratory/Chest Respiratory/Chest: Denies cough, dyspnea, dyspnea on exertion, orthopnea or sputum Gastrointestinal Gastrointestinal: Denies abdominal pain, diarrhea, nausea or vomiting Genitourinary Genitourinary ED: Denies dysuria, hematuria or urinary frequency Musculoskeletal Musculoskeletal: Reports back pain; Denies arthralgias, myalgias or neck pain Integumentary Denies abscess, Abrasions or rash Neurologic Neurologic: Denies headache(s) or weakness Psychiatric Psychiatric: Denies anxiety, depression or suicidal thoughts Endocrine Endocrinology: Denies polydipsia, polyphagia or polyuria Hematologic/Lymphatic Hematologic/Lymphatic: Denies easy bleeding, easy bruising or lymphadenopathy Allergic/Immunologic Allergic/Immunologic ED: Denies mouth swelling, tongue swelling or urticaria EXAM Physical Exam Const Vital Signs: 11/03/24 18:23 11/03/24 20:21 11/03/24 22:00 Temperature 97.8 F Temperature Source Oral Pulse Rate 72 Respiratory Rate 16 Blood Pressure 144/70 H 116/58 L 114/78 Blood Pressure Mean 94 77 90 Pulse Ox 100 Oxygen Delivery Method Room Air 11/03/24 22:08 Temperature 97.6 F L Temperature Source Pulse Rate 68 Respiratory Rate 18 Blood Pressure 114/78 Blood Pressure Mean 90 Pulse Ox 99 Oxygen Delivery Method Positive well nourished and well developed General Appearance ED: well developed and NAD HEENT Reports TM's clear and moist mucous membranes normocephalic and atraumatic; Negative for trauma or tenderness Tympanic Membrane ED: Yes TM's clear Eyes PERRL and EOMs intact bilaterally General Eye ED: Negative for pale conjunctiva or scleral icterus Neck no lymphadenopathy, supple and no JVD General: Negative for tenderness Chest Wall inspection of chest normal and palpation of chest normal Chest: Negative for tenderness Resp normal respiratory effort and clear to auscultation bilaterally Effort and Inspection: Negative for respiratory distress or pain with movement Auscultation: Negative for rhonchi, wheezes or diminished lung sounds Cardio regular rate, regular rhythm, S1 normal heart sound, S2 normal heart sound and no murmurs Peripheral Pulses: pulses 2+ throughout GI normal to inspection, nondistended, normoactive bowel sounds, soft to palpation, non-tender, non-distended and no masses Back/Spine no CVA tenderness and no thoracic nor lumbar tenderness Back/Spine Narrative: Tenderness to palpation diffusely over the left lower ribs. No rashes noted. There there is no crepitus or subcu eczema. Extremity normal to inspection General Extremety ED: Negative for edema General Extremity: Negative for edema Neuro oriented x3, CN's II-XII intact bilaterally, no sensory deficits noted and gait normal Sensorium / Orientation: awake, alert, oriented to person, oriented to place and oriented to time Motor Exam: strength 5/5 throughout and strength abnormal Psych mental status grossly normal Skin no rashes or lesions noted and no wounds MDM MDM MDM Narrative Medical decision making narrative: Patient presents with left mid upper back pain that he has had for several weeks. Patient with history of CLL that is states he has been cancer free for years. Patient had URI symptoms 3 weeks ago but recovered uneventfully. IV line established on arrival. Patient was medicated with morphine and Zofran. CBC with differential obtained showed a normal white count of 6.1 with hemoglobin 10.3 and platelet count of 154. Chemistries were unremarkable. Urinalysis was normal. I did obtain a CTA of the chest and abdomen and pelvis with IV contrast to evaluate further as he does have history of thoracic aneurysm and history of CLL. In the differential was pain related to aneurysm or dissection or also concern for lytic bony lesions to the ribs. CTA was read by radiology as large cavitary lesion in the left upper lobe with pleural thickening posteriorly left lower lobes concerning for neoplasm. Patient has a remote smoking history and smoked mostly a pipe. At this point discussed results with patient and his son. We discussed admission for pain control versus outpatient follow-up with his oncologist and also pain medication for pain control. Patient would like to go home and follow-up with his oncologist. I will write him a prescription for Dale for pain. Advised to return if worsening pain, increasing shortness of breath, or condition worsening way. Lab Data Attestation: I reviewed the patient's lab results. Labs: Laboratory Results - last 24 hr 11/03/24 11/03/24 11/03/24 18:28 18:48 18:51 WBC 6.1 RBC 3.45 L Hgb 10.3 L Hct 31.2 L MCV 90.4 MCH 29.9 MCHC 33.0 RDW Std Deviation 49.4 H RDW Coeff of Terell 14.9 H Plt Count 154 MPV 9.4 Immature Gran % (Auto) 2.100 H Neut % (Auto) 47.2 Lymph % (Auto) 38.0 Gem % (Auto) 9.7 Eos % (Auto) 2.3 Baso % (Auto) 0.7 Absolute Neuts (auto) 2.9 Absolute Lymphs (auto) 2.32 Nucleated RBC % 0 Atypical Lymphocytes 2+ Platelet Estimate ADEQUATE RBC Morphology N CHROM Anisocytosis RARE Macrocytosis RARE Sodium 140 Potassium 4.0 Chloride 108 H Carbon Dioxide 29.0 Anion Gap 3 L BUN 23 H Creatinine 1.33 H Estim Creat Clear Calc 39.15 Est GFR (MDRD) Af Amer 66 Est GFR (MDRD) Non-Af 55 L BUN/Creatinine Ratio 17.3 Glucose 130 H Calcium 9.4 Total Bilirubin 0.50 AST 23 ALT 30 Alkaline Phosphatase 109 Total Protein 6.5 Albumin 3.6 Globulin 2.9 Albumin/Globulin Ratio 1.2 Urine Color Yellow Urine Clarity Clear Urine pH 6.0 Ur Specific [place] 1.015 Urine Protein 15 H Urine Glucose (UA) Normal Urine Ketones Negative Urine Occult Blood Negative Urine Nitrite Negative Urine Bilirubin Negative Urine Urobilinogen Normal Ur Leukocyte Esterase Negative Urine RBC 0 SEEN Urine WBC 0 SEEN Ur Squamous Epith Cells 0 SEEN Urine Bacteria 0 SEEN Urine Mucus 0 SEEN Radiography Diagnostic Testing: Clinical Impression(s) from Imaging Studies Chest/Abdomen/Pelvis CTA 11/03/24 19:20 IMPRESSION: 1. No aortic aneurysm or dissection. Atherosclerotic changes of the aorta. No PE. 3. Cavitary mass in the medial right upper lobe with very thick, irregular and spiculated margins. Radiating bands of soft tissue density extending into adjacent the anterior and medial pleural-diaphragmatic surfaces are suspicious for neoplasm. The primary considerations are neoplasm and infection. 4. Mild left hilar adenopathy. 5. Small left effusion. 6. Indeterminate plaque-like thickening along the left posterior- lateral pleura predominantly adjacent to the lower lobe. New from 2020. This may be early neoplasm versus unusual focal pleural inflammation. 7. Diverticulosis with minimal inflammation around the sigmoid, improved from March 26, 2024. No free air, free fluid or abscess in the abdomen or pelvis. Electronically Signed: Aruna Hendricks MD at 21:28 EST , Discharge Plan Triage Chief Complaint: Flank Pain ED Provider: Cristy Gruber Dx/Rx/DC Orders Clinical Impression: Back pain, Lung mass Instructions: What Is Lung Cancer?, ED Back and Neck Pain, General, ED Pain, Acute, Uncertain Cause Prescriptions: New hydrocodone-acetaminophen 5-325 mg tablet 1 tab PO Q4H PRN PRN (Reason: Pain) 3 Days Qty: 15 0RF No Action ferrous sulfate 325 mg (65 mg iron) tablet 325 mg PO DAILY trazodone 50 mg tablet 50 mg PO DAILY Xarelto 20 mg tablet 20 mg PO DAILY Rx Instructions: must administer with evening meal ammonium lactate 12 % lotion 1 applic topical DAILY PRN (Reason: dry skin) tamsulosin 0.4 MG capsule 0.4 mg PO DAILY Patient Comments: SLEEP sertraline 50 MG tablet 50 mg PO DAILY Patient Comments: DEPRESSION finasteride 5 MG tablet 5 mg PO DAILY Patient Comments: PROSTATE metoprolol tartrate 25 MG tablet 25 mg PO BID omeprazole 40 MG capsule,delayed release(DR/EC) 40 mg PO DAILY levothyroxine 50 mcg tablet 50 mcg PO DAILY zolpidem 10 mg tablet 5 - 10 mg PO QHS Primary Care Provider: Jay Junior Referrals: Jay Junior MD [Primary Care Provider] - Kel Chao DO [Med Staff - Active Staff] - 3-5 Days Print Language: Kinyarwanda Disposition Disposition: Home, Self Care
[2024-11-03 19:23] LABS: ALB/GLOB Ratio 1.2 RATIO (0.9-2.4); AST(SGOT) 23 U/L (15-37); Alanine Aminotransfer ALT/SGPT 30 U/L (16-61); Albumin, Serum 3.6 g/dL (3.2-5.0); Alkaline Phosphatase 109 U/L (45-117); Anion Gap 3 (5-15); BUN 23 mg/dL (7-18); BUN/Creat Ratio 17.3 RATIO (10-20); Calcium,Total 9.4 mg/dL (8.5-10.1); Chloride 108 mmol/L (98-107); Creatinine, Serum 1.33 mg/dL (0.70-1.30); EST Glomerular Filtration Rate 55 mL/min (>60); Est Glom Filt Rate - Afr Amer 66 mL/min (>60); Estimated Creatinine Clearance 39.15 ml/min; Globulin 2.9 g/dL (2.2-4.2); Glucose 130 mg/dL (74-106); Protein, Total 6.5 g/dL (6.4-8.2); Sodium Level 140 mmol/L (136-145)
[2024-11-03] MEDS: Morphine 4 MG/ML Syringe IV ×2 (19:48→21:42)
[2024-11-03 20:21] VITALS: BP 116/58
[2024-11-03 22:00] VITALS: BP 114/78
[2024-11-03 22:08] VITALS: BP 114/78; PULSE 68; RESP 18; TEMP 36.4; O2SAT 99
== END 2024-11-03 22:43 | disposition home or self-care (01) ==
PROVIDERS: Emergency Provider Emergency Medicine; PCP Family Medicine; Visit Provider Emergency Medicine
DX: M54.9 Dorsalgia, unspecified (principal); I48.19 Other persistent atrial fibrillation; R91.8 Other nonspecific abnormal finding of lung field; I34.0 Nonrheumatic mitral (valve) insufficiency; D50.9 Iron deficiency anemia, unspecified; I35.1 Nonrheumatic aortic (valve) insufficiency; E78.5 Hyperlipidemia, unspecified; I10 Essential (primary) hypertension; F41.9 Anxiety disorder, unspecified; N40.0 Benign prostatic hyperplasia without lower urinary tract symptoms; Z85.6 Personal history of leukemia; Z86.79 Personal history of other diseases of the circulatory system; Z79.899 Other long term (current) drug therapy; Z79.01 Long term (current) use of anticoagulants; Z87.891 Personal history of nicotine dependence
CPT/HCPCS: 36591; 71275; 74174; 80053; 81001; 85025; 96374; 96376; 99284; Q9967; A4216

== ENCOUNTER 2024-11-07 20:01 | Emergency (ER) | payer MEDICARE, SELFPAY ==
[2024-11-07 20:04] VITALS: BP 127/96; PULSE 73; RESP 20; TEMP 36.2; O2SAT 97; O2SAT 99; BMI 23.1
--- NOTE | 2024-11-07 20:12 | EKG12_ITS ---
Test Reason : DYSRHYTHMIA Blood Pressure : */* mmHG Vent. Rate : 65 BPM Atrial Rate : 65 BPM P-R Int : 126 ms QRS Dur : 130 ms QT Int : 430 ms P-R-T Axes : 10 -73 7 degrees QTcB Int : 447 ms Normal sinus rhythm Right bundle branch block Left anterior fascicular block Bifascicular block Abnormal ECG Confirmed by ISAIAS ISRAEL, BRIAN ([id number]), continuity editor TERE ALMONTE ([id number]) on 11/12/2024 1:35:38 P M Referred By: Confirmed By: BRIAN ESPARZA MD
[2024-11-07 20:15] VITALS: O2SAT 99
--- NOTE | 2024-11-07 20:18 | ED.VIS.DYS ---
HPI History of Present Illness Chief Complaint: Shortness of Breath Informant: patient and family Narrative Narrative: Brought in by EMS sudden dyspnea this evening felt like there is a bubble in his left lower chest. He was seen this past Sunday per son chest and back pain found to have a lung mass. He is followed by Dr. Chao For history of CLL in remission. They have followed up since Sunday and has had MRI studies of his chest. He has a pending PET scan beginning of next week. Since being seen on Sunday increasing mild productive cough. No fever chills. He has sweats. Denies myalgias. Denies vomiting diarrhea. Denies any urinary symptoms. History of paroxysmal A-fib on Xarelto followed by Dr. Mclaughlin. He is taking his medications. He is on hydrocodone for pain since Sunday took at 4 PM. Denies any chest pain at this time. Does not wear home oxygen. He is placed on O2 by EMS empirically. He 99% on room air on arrival. [facility] Medical History (Updated 11/07/24 @ 23:[address] Seth Curry DO) Paroxysmal atrial fibrillation Nonrheumatic mitral (valve) prolapse Persistent atrial fibrillation Right bundle branch block (RBBB) Lung nodule Iron deficiency anemia Thoracic aortic aneurysm Nonrheumatic aortic (valve) insufficiency Nonrheumatic mitral (valve) insufficiency Hyperlipidemia Essential (primary) hypertension Atrial fibrillation with RVR (01/29/18) Anxiety Benign prostatic hypertrophy Chronic lymphocytic leukemia Home Medications ?Medication ?Instructions ?Recorded ?Last Taken ?Type finasteride 5 mg tablet 5 mg PO DAILY PROSTATE 12/08/16 01/27/18 History sertraline 50 mg tablet 50 mg PO DAILY MENTAL HEALTH 12/08/16 01/28/18 History tamsulosin 0.4 mg capsule 0.4 mg PO DAILY PROSTATE 12/08/16 01/27/18 History metoprolol tartrate 25 mg tablet 25 mg PO BID HEART, BLOOD PRESSURE 01/28/18 01/28/18 History omeprazole 40 mg capsule,delayed 40 mg PO DAILY ACID REFLUX 01/28/18 01/27/18 History release ferrous sulfate 325 mg (65 mg 325 mg PO DAILY 08/25/19 Unknown History iron) tablet trazodone 50 mg tablet 50 mg PO DAILY 04/21/21 Unknown History rivaroxaban 20 mg tablet (Xarelto) 20 mg PO DAILY 04/19/22 Unknown History levothyroxine 50 mcg tablet 50 mcg PO DAILY disorder of 03/26/24 Unknown History thyroid gland zolpidem 10 mg tablet 5 - 10 mg PO QHS 03/26/24 Unknown History hydrocodone-acetaminophen 5-325mg 1 tab PO Q4H PRN PRN Pain 3 days 11/03/24 Unknown Rx 5mg-325mg #15 TABLETS sertraline 100 mg tablet 100 mg PO DAILY 11/07/24 Unknown History Allergy/AdvReac Type Severity Reaction Status Date / Time codeine Allergy Rash Verified 11/07/24 20:03 ondansetron (From Zofran (as Allergy Unknown Verified 11/07/24 20:03 hydrochloride)) Family History Brother Heart disease CVA (cerebral vascular accident) Cancer Brother Heart disease Sister Cancer Surgical History H/O colonoscopy with polypectomy Social History housing: house Smoking Status: Former smoker Smokeless tobacco user: snuff alcohol intake: current Alcohol type: beer ROS ROS ED Constitutional Constitutional ED: Reports sweats; Denies chills or fever(s) Eyes Eyes: Denies change in vision ENT ENT ED: Denies dysphagia or sore throat Cardiovascular Cardiovascular: Denies chest pain, leg edema, palpitations or racing heartbeat Respiratory/Chest Respiratory/Chest: Reports cough and dyspnea; Denies dyspnea on exertion Gastrointestinal Gastrointestinal: Denies abdominal pain, diarrhea, nausea or vomiting Genitourinary Genitourinary ED: Denies dysuria, hematuria or urinary frequency Musculoskeletal Musculoskeletal: Denies back pain, extremity pain or neck pain Integumentary Denies rash or wounds Neurologic Neurologic: Denies headache(s), paresthesias or weakness EXAM Physical Exam Const Vital Signs: 11/07/24 20:04 11/07/24 20:15 11/07/24 22:00 Temperature 97.1 F L Temperature Source Oral Pulse Rate 73 61 Respiratory Rate 20 H 18 Respiratory Effort Short of Breath Labored Respiratory Depth Shallow Respiratory Pattern Tachypnea Blood Pressure 127/96 H 122/54 H Blood Pressure Mean 106 76 Pulse Ox 99 98 Oxygen Delivery Method Room Air Room Air Room Air Positive well nourished and well developed General Appearance ED: well developed and NAD HEENT Reports moist mucous membranes normocephalic and atraumatic Eyes EOMs intact bilaterally and conjunctivae normal General Eye ED: Yes normal appearance of both eyes Neck no lymphadenopathy and supple General: Negative for tenderness Chest Wall Chest: Negative for tenderness Resp normal respiratory effort and normal air movement Resp Narrative: Symmetric breath sounds. Effort and Inspection: symmetric chest movement; Negative for respiratory distress Cardio regular rate, regular rhythm and no murmurs Peripheral Pulses: pulses 2+ throughout GI normal to inspection, nondistended, normoactive bowel sounds and non-tender Palpation: Negative for guarding or rebound tenderness present Back/Spine no CVA tenderness and no thoracic nor lumbar tenderness Extremity normal to inspection General Extremety ED: Negative for edema or tenderness General Extremity: Negative for edema Neuro oriented x3 and no sensory deficits noted Sensorium / Orientation: awake and alert Skin no rashes or lesions noted and no wounds MDM MDM MDM Narrative Medical decision making narrative: Interventions / MDM: Differential diagnosis: Dyspnea, history of lung mass, chronic anticoagulation Diagnosis considered but do not suspect: PE however on chronic anticoagulation medicine, ACS however EKG normal with negative cardiac enzymes. Pneumothorax however chest x-ray negative. My EKG interpretation: Sinus rate of 65, no ST or T wave changes. Right bundle branch block. Similar findings from 2019. Imaging independently reviewed and interpreted by myself: 2 view chest x-ray: No pneumothorax, no pleural effusion. External documents reviewed: ED visit from few days ago with lung mass left upper 5.1 cm. Test considered but not ordered:N/A ED course: Vital stable afebrile on arrival. No respiratory distress. Pulse ox 99% room air. Symmetric breath sounds. Increasing productive cough since being seen this past Sunday. Infectious concerns. No PE concerns as he is on Xarelto. Will check labs EKG cardiac enzymes. Will obtain nasal swabs. Chest x-ray negative cardiac workup negative. Given hydrocodone for his back pain. Vitals are stable. Reassured on findings. He will keep his follow-up as an outpatient with his doctors. All questions answered. Re-evaluation: stable Disposition discussed with patient/family/significant other: Patient and family Case discussed with consulting clinician: N/A This note was generated with [employer] software. It may contain incorrect words, spelling, and punctuation that were not noted in checking the note before signing. Lab Data Attestation: I reviewed the patient's lab results. Labs: Laboratory Results - last 24 hr 11/07/24 11/07/24 20:53 23:00 WBC 6.9 RBC 3.57 L Hgb 10.5 L Hct 31.5 L MCV 88.2 MCH 29.4 MCHC 33.3 RDW Std Deviation 47.1 H RDW Coeff of Terell 14.6 Plt Count 201 MPV 9.3 Immature Gran % (Auto) 1.700 H Neut % (Auto) 66.0 Lymph % (Auto) 26.1 [place] % (Auto) 5.7 Eos % (Auto) 0.1 Baso % (Auto) 0.4 Absolute Neuts (auto) 4.5 Absolute Lymphs (auto) 1.79 Nucleated RBC % 0 Sodium 139 Potassium 4.1 Chloride 107 Carbon Dioxide 28.0 Anion Gap 4 L BUN 31 H Creatinine 1.20 Estim Creat Clear Calc 45.13 Est GFR (MDRD) Af Amer 74 Est GFR (MDRD) Non-Af 61 BUN/Creatinine Ratio 25.8 H Glucose 117 H Calcium 9.2 Troponin I High Sens 11 12 Radiography Diagnostic Testing: Clinical Impression(s) from Imaging Studies Chest X-Ray 11/07/24 21:05 IMPRESSION: New left IJ catheter 6 cm below the atrial caval junction. No acute disease. Electronically Signed: Aleksey Razo MD at 22:02 EST Reading Location ID and State: [address] [place] [address] Tel , Service support , Discharge Plan Triage Chief Complaint: Shortness of Breath ED Provider: Seth Curry Dx/Rx/DC Orders Clinical Impression: Acute dyspnea, Lung mass, Chronic anticoagulation Instructions: ED Dyspnea Prescriptions: No Action ferrous sulfate 325 mg (65 mg iron) tablet 325 mg PO DAILY trazodone 50 mg tablet 50 mg PO DAILY Xarelto 20 mg tablet 20 mg PO DAILY Rx Instructions: must administer with evening meal tamsulosin 0.4 MG capsule 0.4 mg PO DAILY Patient Comments: SLEEP sertraline 50 MG tablet 50 mg PO DAILY Patient Comments: DEPRESSION finasteride 5 MG tablet 5 mg PO DAILY Patient Comments: PROSTATE metoprolol tartrate 25 MG tablet 25 mg PO BID omeprazole 40 MG capsule,delayed release(DR/EC) 40 mg PO DAILY sertraline 100 mg tablet 100 mg PO DAILY levothyroxine 50 mcg tablet 50 mcg PO DAILY zolpidem 10 mg tablet 5 - 10 mg PO QHS hydrocodone-acetaminophen 5-325 mg tablet 1 tab PO Q4H PRN PRN (Reason: Pain) 3 Days Qty: 15 0RF Primary Care Provider: Jay Junior Referrals: Jay Junior MD [Primary Care Provider] - 3-5 Days Kel Chao DO [Med Staff - Active Staff] - Keep Corey appointment Activity Restrictions/Additional Instructions: Cardiac workup negative. Your chest x-ray no pleural effusion noted. Keep your follow-up with your doctors. Continue home medications including your Xarelto. Print Language: Polish Disposition Disposition: Home, Self Care
[2024-11-07 20:59] LABS: Absolute Lymphocyte Count 1.79 X10^3/uL (0.83-4.51); Absolute Neutrophil Count 4.5 X10^3/uL (2.0-7.7); Basophil# 0.03 X10^3/uL; Basophil% 0.4 % (0-1); Eosinophil# 0.01 X10^3/uL; Eosinophils% 0.1 % (0-5); Hematocrit 31.5 % (40-54); Hemoglobin 10.5 g/dL (13.0-16.5); Lymphocyte # 1.79 X10^3/ul (0.83-4.51); Lymphocyte % 26.1 % (19-41); Mean Corp Hgb Conc 33.3 g/dL (32-36); Mean Corpuscular Hgb 29.4 pg (27.0-32.0); Mean Corpuscular Volume 88.2 fL (80-94); Mean Platelet Vol. 9.3 fl (6.2-12.0); Monocyte# 0.39 X10^3/uL; Monocyte% 5.7 % (0-10); NRBC Flagged by Analyzer 0 % (0-5); Neutrophil # 4.53 X10^3/uL (2.7-7.7); Platelet Count 201 K/mm3 (150-450); RBC Distribution Width CV 14.6 % (11.6-14.6); RBC Distribution Width SD 47.1 fl (35.1-43.9); Red Blood Count 3.57 M/mm3 (4.6-6.2); White Blood Count 6.9 K/mm3 (4.4-11.0)
[2024-11-07 21:03] LABS: POSITIVE COUNT NO; POSITIVE DIFFERENTIAL NO; POSITIVE MORPHOLOGY NO
--- NOTE | 2024-11-07 21:05 | RAD_ITS ---
STUDY: X-RAY CHEST REASON FOR EXAM: Male, 84 years old. sob TECHNIQUE: Frontal and lateral views of the chest. COMPARISON: January 28, 2018 FINDINGS: Lungs are hyperaerated. New left IJ MediPort terminates 6 cm below the atrial caval junction. No pneumothorax. The lungs are clear and expanded. There is no demonstrated pleural abnormality. Normal size heart. Normal mediastinum and maykel. Normal visualized pulmonary arteries. Normal visualized aortic arch and descending thoracic aorta. Normal visualized thoracic spine. Normal visualized ribs, clavicles, and shoulders. There is no demonstrated abnormality of the visualized soft tissue structures of the upper abdomen. RAD/Chest PA and Lateral IMPRESSION: New left IJ catheter 6 cm below the atrial caval junction. No acute disease. Electronically Signed: Aleksey Razo MD at 22:02 EST ,
[2024-11-07 21:15] LABS: Anion Gap 4 (5-15); BUN 31 mg/dL (7-18); BUN/Creat Ratio 25.8 RATIO (10-20); Calcium,Total 9.2 mg/dL (8.5-10.1); Chloride 107 mmol/L (98-107); EST Glomerular Filtration Rate 61 mL/min (>60); Est Glom Filt Rate - Afr Amer 74 mL/min (>60); Estimated Creatinine Clearance 45.13 ml/min; Glucose 117 mg/dL (74-106); Potassium 4.1 mmol/L (3.5-5.1); Sodium Level 139 mmol/L (136-145); Troponin-I HS (w/2H Reflex) 11 pg/mL (3.0-78.0)
[2024-11-07 22:00] VITALS: BP 122/54; PULSE 61; RESP 18; O2SAT 98
[2024-11-07] MEDS: HYDROcodone Bitartrate/Apap 5/325 Tablet PO (22:11)
[2024-11-07 22:56] LABS: Reflex Troponin-HS? (from REC) Y
[2024-11-07 23:35] LABS: Troponin-I HS 12 pg/mL (3.0-78.0)
[2024-11-07 23:51] VITALS: BP 133/63; PULSE 61; RESP 18; TEMP 36.6; O2SAT 98
== END 2024-11-07 23:58 | disposition home or self-care (01) ==
PROVIDERS: Emergency Provider Emergency Medicine; PCP Family Medicine; Visit Provider Emergency Medicine
DX: R06.00 Dyspnea, unspecified (principal); I48.0 Paroxysmal atrial fibrillation; M54.9 Dorsalgia, unspecified; R05.9 Cough, unspecified; I34.1 Nonrheumatic mitral (valve) prolapse; I35.1 Nonrheumatic aortic (valve) insufficiency; I10 Essential (primary) hypertension; E78.5 Hyperlipidemia, unspecified; F41.9 Anxiety disorder, unspecified; N40.0 Benign prostatic hyperplasia without lower urinary tract symptoms; I71.20 Thoracic aortic aneurysm, without rupture, unspecified; I45.10 Unspecified right bundle-branch block; R91.8 Other nonspecific abnormal finding of lung field; Z85.6 Personal history of leukemia; Z79.01 Long term (current) use of anticoagulants; Z79.899 Other long term (current) drug therapy; Z87.891 Personal history of nicotine dependence
CPT/HCPCS: 36591; 71046; 80048; 84484; 85025; 87631; 93005; 99285; A4216

== ENCOUNTER 2025-01-01 12:09 | Outpatient (CLI) | payer MEDICARE, SELFPAY ==
[2025-01-01] MEDS: 0.9 % NaCl (Sterile) Posiflush 10 mL IV (12:52)
[2025-01-01 13:05] VITALS: BP 114/62; PULSE 62; RESP 16; TEMP 36.4; O2SAT 96; BMI 21.6
[2025-01-01 13:31] VITALS: BP 111/64; PULSE 61; RESP 16; TEMP 36.3; O2SAT 99
[2025-01-01 14:30] VITALS: BP 119/54; PULSE 60; RESP 16; TEMP 36.2; O2SAT 95
[2025-01-01] MEDS: 0.9% NaCl VAD Flush IV (15:12)
[2025-01-01 15:25] VITALS: BP 129/63; PULSE 62; RESP 16; TEMP 36.2; O2SAT 92
== END 2025-01-01 23:59 | disposition home or self-care (01) ==
LOC: MEDOUTP 12:12
PROVIDERS: PCP Family Medicine; Referring Provider Internal Medicine Hematology & Oncology; Visit Provider Internal Medicine Hematology & Oncology
DX: D64.81 Anemia due to antineoplastic chemotherapy (principal); T45.1X5A Adverse effect of antineoplastic and immunosuppressive drugs, initial encounter
CPT/HCPCS: 36430; 86850; 86900; 86901; P9016; A4216

== ENCOUNTER 2025-01-03 15:04 | Emergency (ER) | payer MEDICARE, SELFPAY ==
[2025-01-03 15:04] VITALS: BP 116/52; PULSE 73; RESP 18; TEMP 36.4; O2SAT 98; BMI 21.6
--- NOTE | 2025-01-03 15:21 | CT_ITS ---
PROCEDURE: ABDOMEN/PELVIS W IV CONT ONLY REASON FOR EXAM: Abdominal pain, constipation TECHNIQUE: Abdomen and pelvis CT with intravenous contrast. Multiplanar reconstructions performed COMPARISON: 11/03/2024 FINDINGS: Lung bases: Moderate sized left pleural effusion with diffuse pleural thickening. There is a partially visualized area of consolidation and volume loss in the left lower and left upper lobes. Small right pleural effusion. Emphysematous disease is present. Liver: Unremarkable. Gallbladder: Unremarkable. Spleen: The spleen is enlarged measuring 14 cm. Pancreas: Unremarkable. Adrenals: Unremarkable. Kidneys: A couple of small nonobstructing calculi are present in the kidneys bilaterally. Bladder: Unremarkable. Reproductive Organs: Unremarkable. Bowel: Mild colonic diverticulosis is present. There is fluid throughout the colon, possibly due to diarrheal illness. Appendix: The appendix is not discretely visualized, possibly due to prior appendectomy. Lymph nodes: No suspicious lymph node enlargement. Vasculature: Moderate scattered atherosclerotic calcifications are present. Peritoneum / Retroperitoneum: No ascites. No free air. Bones: Left lateral rib fractures are partially visualized at the 6th and 7th ribs. CT/Abdomen/Pelvis W IV Cont ONLY IMPRESSION: 1. Fluid throughout the colon, suggesting diarrheal illness. 2. Splenomegaly. 3. Fractures of the left lateral 6th and 7th ribs are partially visualized. 4. Moderate-sized left pleural effusion with diffuse pleural thickening, possib ly due to empyema. 5. Consolidation in the visualized left lower and left upper lobes, which would be better assessed with a dedicated CT of the chest. The patient had a known cavitary lesion in the left upper lobe on the p revious exam. 6. Small right pleural effusion. Reading Location: [facility]
--- NOTE | 2025-01-03 15:21 | EDS_ITS ---
HPI HPI - GI History of Present Illness Chief Complaint: Constipation Narrative Narrative: 84-year-old male past medical history of lung carcinoma, currently on chemotherapy presents with his son for 5 days of constipation. He complains of diffuse abdominal pain but denies fevers or chills, no nausea or vomiting. He states his abdomen feels bloated. Tried Gatorade mixed with MiraLAX on a daily basis and taking Dulcolax without relief of his symptoms. He states that he feels blocked up. They also relate history where he had a small amount of liquid stool pass and he feels as if he has to have a bowel movement but cannot. He is on Keytruda as chemotherapy and had 1 round of it previously and recently got a chemotherapy infusion approximately 4 days ago. He is also on hydrocodone for analgesia as well. [facility] Medical History (Updated 01/03/25 @ 17:39 by Preston Daily MD) Paroxysmal atrial fibrillation Nonrheumatic mitral (valve) prolapse Persistent atrial fibrillation Right bundle branch block (RBBB) Lung nodule Iron deficiency anemia Thoracic aortic aneurysm Nonrheumatic aortic (valve) insufficiency Nonrheumatic mitral (valve) insufficiency Hyperlipidemia Essential (primary) hypertension Atrial fibrillation with RVR (01/29/18) Anxiety Benign prostatic hypertrophy Chronic lymphocytic leukemia Home Medications ?Medication ?Instructions ?Recorded ?Last Taken ?Type finasteride 5 mg tablet 5 mg PO DAILY PROSTATE 12/0801/27/18 History sertraline 50 mg tablet 50 mg PO DAILY MENTAL HEALTH 12/08/16 01/28/18 History tamsulosin 0.4 mg capsule 0.4 mg PO DAILY PROSTATE 01/27/18 History metoprolol tartrate 25 mg tablet 25 mg PO BID HEART, B LOOD PRESSURE 01/28/18 01/28/18 History omeprazole 40 mg capsule,delayed 40 mg PO DAILY ACID R EFLUX 01/28/18 01/27/18 History release ferrous sulfate 325 mg (65 mg 325 mg PO DAILY 08/25/19 Unknown History iron) tablet trazodone 50 mg tablet 50 mg PO DAILY 04/21/21 Unkn own History rivaroxaban 20 mg tablet (Xarelto) 20 mg PO DAILY 03/27 04/16 Unknown History levothyroxine 50 mcg tablet 50 mcg PO DAILY disorder o f 03/26/24 Unknown History thyroid gland zolpidem 10 mg tablet 5 - 10 mg PO QHS 03/26/24 Un known History hydrocodone-acetaminophen 5-325mg 1 tab PO Q4H PRN PRN Pain 3 days 11/03/24 Unknown Rx 5mg-325mg #15 TABLETS sertraline 100 mg tablet 100 mg PO DAILY 11/07/24 Unk nown History atorvastatin 10 mg tablet 10 mg PO QHS 01/01/25 Unknow n History Allergy/AdvReac Type Severity Reaction Status Date / Time codeine Allergy Rash Verified 01/03/25 15:07 ondansetron (From Zofran (as Allergy Unknown Verified 01/03/25 15:07 hydrochloride)) Family History Brother Heart disease CVA (cerebral vascular accident) Cancer Brother Heart disease Sister Cancer Surgical History H/O colonoscopy with polypectomy Social History housing: house Smoking Status: Former smoker Smokeless tobacco user: snuff alcohol intake: current Alcohol type: beer ROS ROS ED ROS Narrative Systems positive for diffuse abdominal pain no bowel changes. Denies fevers or chills, Meding. Abdomen feels bloated and tense. Denies other symptoms. EXAM Physical Exam Narrative Exam Narrative: Afebrile. Vital signs noted. Nontoxic-appearing. Cardiovascular examination reveals regular rate and rhythm. Lungs are clear to auscultation bilaterally. Abdomen soft with minimal tenderness to palpation and hypoactive bowel sounds, but they are present. No guarding or rebound. Neurological examination is nonfocal and nonlateralizing. He is awake, alert, and oriented. Const Vital Signs: 01/03/25 15:04 01/03/25 17:03 Temperature 97.5 F L Temperature Source Temporal Pulse Rate 73 71 Respiratory Rate 18 19 H Blood Pressure 116/52 L 121/54 H Blood Pressure Mean 73 76 Pulse Ox 98 98 Oxygen Delivery Method Room Air MDM MDM MDM Narrative Medical decision making narrative: Differential diagnosis includes but not limited to diverticulitis versus fecal impaction/constipation versus bowel obstruction. Patient has not had prior abdominal surgeries. While I have lower suspicion for bowel obstruction, do feel that laboratory work and CT imaging is indicated. I reviewed his laboratory work and he has normal white count of 4.7 with hemoglobin stable at 8.8, hematocrit 28.0, platelet count normal at 171. He appears mildly dehydrated with a sodium of 132 but normal potassium 3.9, chloride 98. BUN of 22 with creatinine 1.0. Glucose are probably elevated at 98. LFTs show an alk phos of 119 which I think is nonspecific. Urinalysis is negative for infection, I do not feel antibiotics are indicated. I reviewed the radiology report of the CT of the abdomen and pelvis and there is fluid throughout the colon consistent with diarrheal illness. He did have a small episode of diarrhea today. There is no evidence of fecal impaction. Upon repeat examination, patient resting comfortably and his abdomen remains soft. He declined rectal examination as there is no evidence of fecal impaction on the CT scan. As there is no evidence of obstruction, there is noted pleural effusion on the left consistent with his lung carcinoma. At this point in time, his main concern was more the lack of bowel movement for 5 days and the episode of diarrhea that he had today along with his abdominal pain. He does not have any respiratory complaints related to his lung carcinoma. I feel he can be discharged safely home with follow-up. I do not feel antibiotics are currently indicated, but he was given a Bentyl tablet here of 10 mg for abdominal cramping that he was experiencing. Return instructions to the emergency department were reviewed. He will follow-up with his oncologist, Dr. Chao on Sunday. Return instructions to the emergency department were reviewed. Patient and son are comfortable with the plan. Disposition is discharged home in stable condition. History & Record Review Discussion w/independent historian: Patient and Family Lab Data Attestation: I reviewed the patient's lab results. Labs: Laboratory Results - last 24 hr 01/03/25 01/03/25 15:43 16:15 WBC 4.7 RBC 3.37 L Hgb 8.8 L Hct 28.0 L MCV 83.1 MCH 26.1 L MCHC 31.4 L RDW Std Deviation 48.9 H RDW Coeff of Terell 16.0 H Plt Count 171 MPV 10.3 Immature Gran % (Auto) 1.100 H Neut % (Auto) 83.2 H Lymph % (Auto) 14.0 L [place] % (Auto) 1.3 Eos % (Auto) 0.4 Baso % (Auto) 0.0 Absolute Neuts (auto) 3.9 Absolute Lymphs (auto) 0.65 L Nucleated RBC % 0 Sodium 132 L Potassium 3.9 Chloride 98 Carbon Dioxide 27.0 Anion Gap 8 BUN 22 H Creatinine 1.00 Estim Creat Clear Calc 50.99 Est GFR (MDRD) Af Amer 92 Est GFR (MDRD) Non-Af 76 BUN/Creatinine Ratio 22.0 H Glucose 98 Calcium 8.6 Total Bilirubin 0.80 AST 28 ALT 46 Alkaline Phosphatase 119 H Total Protein 5.8 L Albumin 2.4 L Globulin 3.4 Albumin/Globulin Ratio 0.7 L Urine Color Yellow Urine Clarity Clear Urine pH 8.0 Ur Specific [place] 1.010 Urine Protein Negative Urine Glucose (UA) Normal Urine Ketones Negative Urine Occult Blood Negative Urine Nitrite Negative Urine Bilirubin Negative Urine Urobilinogen Normal Ur Leukocyte Esterase Negative Urine RBC 0-5 SEEN Urine WBC 0-5 SEEN Ur Squamous Epith Cells 0 SEEN Urine Bacteria 0 SEEN Urine Mucus 0 SEEN Radiography Diagnostic Testing: Clinical Impression(s) from Imaging Studies Abdomen/Pelvis CT 01/03/25 15:21 IMPRESSION: 1. Fluid throughout the colon, suggesting diarrheal illness. 2. Splenomegaly. 3. Fractures of the left lateral 6th and 7th ribs are partially visualized. 4. Moderate-sized left pleural effusion with diffuse pleural thickening, possibly due to empyema. 5. Consolidation in the visualized left lower and left upper lobes, which would be better assessed with a dedicated CT of the chest. The patient had a known cavitary lesion in the left upper lobe on the previous exam. 6. Small right pleural effusion. Reading Location: [facility] Discharge Plan Triage Chief Complaint: Constipation ED Provider: Preston Daily Dx/Rx/DC Orders Clinical Impression: Enteritis, Abdominal pain, Carcinoma, lung Instructions: ED Gastroenteritis, Noninfectious, ED Abdominal Pain Unkn Cause Male... Prescriptions: No Action ferrous sulfate 325 mg (65 mg iron) tablet 325 mg PO DAILY trazodone 50 mg tablet 50 mg PO DAILY Xarelto 20 mg tablet 20 mg PO DAILY Rx Instructions: must administer with evening meal tamsulosin 0.4 MG capsule 0.4 mg PO DAILY Patient Comments: SLEEP sertraline 50 MG tablet 50 mg PO DAILY Patient Comments: DEPRESSION finasteride 5 MG tablet 5 mg PO DAILY Patient Comments: PROSTATE metoprolol tartrate 25 MG tablet 25 mg PO BID omeprazole 40 MG capsule,delayed release(DR/EC) 40 mg PO DAILY sertraline 100 mg tablet 100 mg PO DAILY atorvastatin 10 mg tablet 10 mg PO QHS levothyroxine 50 mcg tablet 50 mcg PO DAILY zolpidem 10 mg tablet 5 - 10 mg PO QHS hydrocodone-acetaminophen 5-325 mg tablet 1 tab PO Q4H PRN PRN (Reason: Pain) 3 Days Qty: 15 0RF Primary Care Provider: Jay Junior Referrals: Jay Junior MD [Primary Care Provider] - 3-5 Days if not improving Activity Restrictions/Additional Instructions: Return with increasing pain, fever, nausea and vomiting, new or worsening symptoms. Print Language: Egyptian Disposition Disposition: Home, Self Care
[2025-01-03] MEDS: 0.9% Normal Saline (1000mL) 1,000 ML 999 ML IV (15:53)
[2025-01-03 15:56] LABS: Absolute Lymphocyte Count 0.65 X10^3/uL (0.83-4.51); Absolute Neutrophil Count 3.9 X10^3/uL (2.0-7.7); Eosinophil# 0.02 X10^3/uL; Eosinophils% 0.4 % (0-5); Hemoglobin 8.8 g/dL (13.0-16.5); Lymphocyte # 0.65 X10^3/ul (0.83-4.51); Mean Corp Hgb Conc 31.4 g/dL (32-36); Mean Corpuscular Hgb 26.1 pg (27.0-32.0); Mean Corpuscular Volume 83.1 fL (80-94); Mean Platelet Vol. 10.3 fl (6.2-12.0); Monocyte# 0.06 X10^3/uL; Monocyte% 1.3 % (0-10); NRBC Flagged by Analyzer 0 % (0-5); Neutrophil # 3.87 X10^3/uL (2.7-7.7); Neutrophil % 83.2 % (47-70); Platelet Count 171 K/mm3 (150-450); RBC Distribution Width SD 48.9 fl (35.1-43.9); Red Blood Count 3.37 M/mm3 (4.6-6.2); White Blood Count 4.7 K/mm3 (4.4-11.0)
[2025-01-03 16:13] LABS: ALB/GLOB Ratio 0.7 RATIO (0.9-2.4); AST(SGOT) 28 U/L (15-37); Alanine Aminotransfer ALT/SGPT 46 U/L (16-61); Albumin, Serum 2.4 g/dL (3.2-5.0); Alkaline Phosphatase 119 U/L (45-117); Anion Gap 8 (5-15); BUN 22 mg/dL (7-18); Calcium,Total 8.6 mg/dL (8.5-10.1); Chloride 98 mmol/L (98-107); EST Glomerular Filtration Rate 76 mL/min (>60); Est Glom Filt Rate - Afr Amer 92 mL/min (>60); Estimated Creatinine Clearance 50.99 ml/min; Globulin 3.4 g/dL (2.2-4.2); Glucose 98 mg/dL (74-106); Potassium 3.9 mmol/L (3.5-5.1); Protein, Total 5.8 g/dL (6.4-8.2); Sodium Level 132 mmol/L (136-145)
[2025-01-03 16:32] LABS: Bacteria 0 SEEN /hpf (None Seen); Mucous, Urine 0 SEEN /hpf (<or=2+); Squamous Epithelial Cells - UA 0 SEEN /hpf (0-5)
[2025-01-03 16:40] LABS: Color, Urine Yellow (Yellow); Glucose, Dipstick Normal (Normal); Ketone-Dipstick Negative (Negative); Leukocyte Esterase-Dipstick Negative /ul (Negative); Nitrite-Dipstick Negative (Negative); Occult Blood-Urine Negative /ul (Negative); Protein-Dipstick Negative (Negative); Urine Bilirubin Dipstick Negative (Negative); Urine Clarity Clear (Clear); Urine Urobilinogen Normal (Normal)
[2025-01-03 17:03] VITALS: BP 121/54; PULSE 71; RESP 19; O2SAT 98
[2025-01-03 17:24] LABS: Red Blood Cells-Urine 0-5 SEEN /hpf (0-5); White Blood Cells 0-5 SEEN /hpf (0-5)
[2025-01-03] MEDS: Dicyclomine 10 MG Capsule PO (17:42)
[2025-01-03 17:44] VITALS: BP 124/63; PULSE 65; RESP 16; TEMP 36.4; O2SAT 94
[2025-01-03] MEDS: 0.9% Saline Lock 10 ML Syringe IV (17:56)
== END 2025-01-03 17:57 | disposition home or self-care (01) ==
PROVIDERS: Emergency Provider Emergency Medicine; PCP Family Medicine; Visit Provider Emergency Medicine
DX: K52.9 Noninfective gastroenteritis and colitis, unspecified (principal); C34.92 Malignant neoplasm of unspecified part of left bronchus or lung; I48.0 Paroxysmal atrial fibrillation; K59.00 Constipation, unspecified; E86.0 Dehydration; I10 Essential (primary) hypertension; E78.5 Hyperlipidemia, unspecified; I34.1 Nonrheumatic mitral (valve) prolapse; I71.20 Thoracic aortic aneurysm, without rupture, unspecified; I35.1 Nonrheumatic aortic (valve) insufficiency; I34.0 Nonrheumatic mitral (valve) insufficiency; F41.9 Anxiety disorder, unspecified; D50.9 Iron deficiency anemia, unspecified; N40.0 Benign prostatic hyperplasia without lower urinary tract symptoms; Z85.6 Personal history of leukemia; Z79.01 Long term (current) use of anticoagulants; Z79.899 Other long term (current) drug therapy; Z87.891 Personal history of nicotine dependence
CPT/HCPCS: 74177; 80053; 81001; 85025; 96360; 96361; 99282; Q9967; A4216

== ENCOUNTER 2025-01-16 09:02 | Outpatient (CLI) | payer MEDICARE, SELFPAY ==
[2025-01-16 09:30] VITALS: BP 109/54; PULSE 65; RESP 16; TEMP 37.4; O2SAT 100; BMI 20.5
[2025-01-16 10:10] VITALS: BP 97/51; PULSE 60; RESP 16; TEMP 37.2; O2SAT 99
[2025-01-16 11:08] VITALS: BP 87/54; PULSE 69; RESP 16; TEMP 37.1; O2SAT 93
[2025-01-16 12:09] VITALS: BP 99/48; PULSE 69; RESP 16; TEMP 37.1; O2SAT 99
[2025-01-16 13:09] VITALS: BP 118/59; PULSE 72; RESP 16; TEMP 37.2; O2SAT 94
[2025-01-16 13:58] VITALS: BP 108/55; PULSE 70; RESP 16; TEMP 37.2; O2SAT 98
== END 2025-01-16 23:59 | disposition home or self-care (01) ==
LOC: MEDOUTP 09:03
PROVIDERS: PCP Family Medicine; Referring Provider Internal Medicine Hematology & Oncology; Visit Provider Internal Medicine Hematology & Oncology
DX: D64.81 Anemia due to antineoplastic chemotherapy (principal)
CPT/HCPCS: 36430; 86850; 86900; 86901; P9016; A4216

== ENCOUNTER 2025-01-20 07:25 | Emergency (ER) | payer MEDICARE, SELFPAY ==
[2025-01-20 07:27] VITALS: BP 107/45; PULSE 69; RESP 14; TEMP 36.1; O2SAT 98
[2025-01-20 07:34] VITALS: BMI 20.3
--- NOTE | 2025-01-20 07:55 | EX.ED.DYSGE1 ---
HPI History of Present Illness Chief Complaint: Nosebleed Narrative Narrative: 84-year-old male past medical history of atrial fibrillation on Xarelto, CLL, presents with epistaxis mainly from his right nares over the last 4 days. He states over the last 4 days it starts in the morning and usually stops by the afternoon. It is mainly on the right side of his nose that drips more, but occasionally comes out the left side as well. Of note, he had recent blood transfusion on of last week, approximately 5 to 6 days ago. States at times he feels weak and short of breath, but seems to be more of a chronic problem for him. He denies any other bleeding diathesis. His son and his family decided to hold his Xarelto since yesterday because of continued bleeding. He denies any other bleeding diathesis. [facility] Medical History (Updated 01/20/25 @ 09:07 by Preston Daily MD) Paroxysmal atrial fibrillation Nonrheumatic mitral (valve) prolapse Persistent atrial fibrillation Right bundle branch block (RBBB) Lung nodule Iron deficiency anemia Thoracic aortic aneurysm Nonrheumatic aortic (valve) insufficiency Nonrheumatic mitral (valve) insufficiency Hyperlipidemia Essential (primary) hypertension Atrial fibrillation with RVR (01/29/18) Anxiety Benign prostatic hypertrophy Chronic lymphocytic leukemia Home Medications ?Medication ?Instructions ?Recorded ?Last Taken ?Type finasteride 5 mg tablet 5 mg PO DAILY PROSTATE 12/08/16 01/27/18 History sertraline 50 mg tablet 50 mg PO DAILY MENTAL HEALTH 12/08/16 01/28/18 History tamsulosin 0.4 mg capsule 0.4 mg PO DAILY PROSTATE 12/08/16 01/27/18 History metoprolol tartrate 25 mg tablet 25 mg PO BID HEART, BLOOD PRESSURE 01/28/18 01/28/18 History omeprazole 40 mg capsule,delayed 40 mg PO DAILY ACID REFLUX 01/28/18 01/27/18 History release ferrous sulfate 325 mg (65 mg 325 mg PO DAILY 08/25/19 Unknown History iron) tablet trazodone 50 mg tablet 50 mg PO DAILY 04/21/21 Unknown History rivaroxaban 20 mg tablet (Xarelto) 20 mg PO DAILY 04/19/22 Unknown History levothyroxine 50 mcg tablet 50 mcg PO DAILY disorder of 03/26/24 Unknown History thyroid gland zolpidem 10 mg tablet 5 - 10 mg PO QHS 03/26/24 Unknown History hydrocodone-acetaminophen 5-325mg 1 tab PO Q4H PRN PRN Pain 3 days 11/03/24 Unknown Rx 5mg-325mg #15 TABLETS sertraline 100 mg tablet 100 mg PO DAILY 11/07/24 Unknown History atorvastatin 10 mg tablet 10 mg PO QHS 01/01/25 Unknown History Allergy/AdvReac Type Severity Reaction Status Date / Time codeine Allergy Rash Verified 01/20/25 07:26 ondansetron (From Zofran (as Allergy Unknown Verified 01/20/25 07:26 hydrochloride)) Family History Brother Heart disease CVA (cerebral vascular accident) Cancer Brother Heart disease Sister Cancer Surgical History H/O colonoscopy with polypectomy Social History housing: house Smoking Status: Former smoker Smokeless tobacco user: snuff alcohol intake: current Alcohol type: beer ROS ROS ED ROS Narrative Focused review of systems from patient is positive for epistaxis mainly out of right nares, occasionally out of the left. Denies other bleeding diathesis. Positive generalized weakness and shortness of breath on occasion. Recent blood transfusion. No fevers or chills. EXAM Physical Exam Narrative Exam Narrative: Afebrile. Vital signs noted. Nontoxic-appearing. Mild pallor of skin. Cardiovascular examination regular rate and rhythm. Lungs clear to auscultation bilaterally. Abdomen soft nontender. Patient currently has nasal clamp in place. Inspection of the posterior pharynx does not reveal any acute, active hemorrhage. No breast posterior pharynx bleeding. Const Vital Signs: 01/20/25 07:27 Temperature 96.9 F L Temperature Source Temporal Pulse Rate 69 Respiratory Rate 14 Blood Pressure 107/45 L Blood Pressure Mean 65 Pulse Ox 98 Oxygen Delivery Method Room Air MDM MDM MDM Narrative Medical decision making narrative: Differential diagnosis includes but not limited to anterior epistaxis versus posterior epistaxis mainly on the right. I reviewed his laboratory work and he is neutropenic at 2.1 which she has been in the past, his hemoglobin is stable at 8.3 when compared to previous laboratories. He does have thrombocytopenia today at 83,000, but I do not feel that he requires platelet transfusion currently. Removal of the nasal clamp revealed small clots in the right nares, no active bleeding in the left or in the posterior pharynx. His clots were cleared by patient blowing. Cottonball saturated with Afrin and lidocaine 4% was inserted and left for approximately 10 to 15 minutes. This was removed. There is no active bleeding. Merisel was inserted and moistened with saline. There is no current bleeding. At this point in time, I do feel that he can be discharged to follow-up with otolaryngology. They were told to hold his Xarelto for the next few days and have otolaryngology remove the packing in 3 to 5 days. Return instructions to the emergency department were reviewed. Patient is motivated for discharge. Return instructions reviewed. Disposition is discharged home in stable condition. History & Record Review Discussion w/independent historian: Patient and Family Lab Data Attestation: I reviewed the patient's lab results. Labs: Laboratory Results - last 24 hr 01/20/25 08:15 WBC 2.1 L RBC 3.22 L Hgb 8.3 L Hct 27.2 L MCV 84.5 MCH 25.8 L MCHC 30.5 L RDW Std Deviation 50.4 H RDW Coeff of Terell 16.6 H Plt Count 83 L MPV 10.3 Immature Gran % (Auto) 3.400 H Neut % (Auto) 63.9 Lymph % (Auto) 26.3 Lewis % (Auto) 5.4 Eos % (Auto) 0.5 Baso % (Auto) 0.5 Absolute Neuts (auto) 1.3 L Absolute Lymphs (auto) 0.54 L Nucleated RBC % 0 Differential Comment COMMENT Diff Path Review May foll Platelet Estimate MOD DEC Discharge Plan Triage Chief Complaint: Nosebleed ED Provider: Preston Daily Dx/Rx/DC Orders Clinical Impression: Epistaxis, Thrombocytopenia, Chronic lymphocytic leukemia Instructions: Thrombocytopenia, ED Epistaxis (Adult) Prescriptions: No Action ferrous sulfate 325 mg (65 mg iron) tablet 325 mg PO DAILY trazodone 50 mg tablet 50 mg PO DAILY Xarelto 20 mg tablet 20 mg PO DAILY Rx Instructions: must administer with evening meal tamsulosin 0.4 MG capsule 0.4 mg PO DAILY Patient Comments: SLEEP sertraline 50 MG tablet 50 mg PO DAILY Patient Comments: DEPRESSION finasteride 5 MG tablet 5 mg PO DAILY Patient Comments: PROSTATE metoprolol tartrate 25 MG tablet 25 mg PO BID omeprazole 40 MG capsule,delayed release(DR/EC) 40 mg PO DAILY sertraline 100 mg tablet 100 mg PO DAILY atorvastatin 10 mg tablet 10 mg PO QHS levothyroxine 50 mcg tablet 50 mcg PO DAILY zolpidem 10 mg tablet 5 - 10 mg PO QHS hydrocodone-acetaminophen 5-325 mg tablet 1 tab PO Q4H PRN PRN (Reason: Pain) 3 Days Qty: 15 0RF Primary Care Provider: Jay Junior Referrals: Ric Musa MD [Med Staff - Active Staff] - 3-5 Days (Packing removal) Jay Junior MD [Primary Care Provider] - Activity Restrictions/Additional Instructions: Leave packing in place and have removed by otolaryngology in 3 to 5 days. Return to the emergency department with increased bleeding, new or worsening symptoms. Print Language: Armenian Disposition Disposition: Home, Self Care
[2025-01-20] MEDS: Oxymetazoline 0.05% 1 SPRAY SPRAY.BTL NASAL (08:02)
[2025-01-20] MEDS: Lidocaine 4% 50 ML Bottle TOPICAL (08:05)
[2025-01-20 08:26] LABS: Absolute Lymphocyte Count 0.54 X10^3/uL (0.83-4.51); Absolute Neutrophil Count 1.3 X10^3/uL (2.0-7.7); Basophil# 0.01 X10^3/uL; Basophil% 0.5 % (0-1); Eosinophil# 0.01 X10^3/uL; Eosinophils% 0.5 % (0-5); Hematocrit 27.2 % (40-54); Hemoglobin 8.3 g/dL (13.0-16.5); Lymphocyte # 0.54 X10^3/ul (0.83-4.51); Lymphocyte % 26.3 % (19-41); Mean Corp Hgb Conc 30.5 g/dL (32-36); Mean Corpuscular Hgb 25.8 pg (27.0-32.0); Mean Corpuscular Volume 84.5 fL (80-94); Mean Platelet Vol. 10.3 fl (6.2-12.0); Monocyte# 0.11 X10^3/uL; Monocyte% 5.4 % (0-10); NRBC Flagged by Analyzer 0 % (0-5); Neutrophil # 1.31 X10^3/uL (2.7-7.7); Neutrophil % 63.9 % (47-70); POSITIVE COUNT YES; POSITIVE DIFFERENTIAL YES; Platelet Count 83 K/mm3 (150-450); RBC Distribution Width CV 16.6 % (11.6-14.6); RBC Distribution Width SD 50.4 fl (35.1-43.9); Red Blood Count 3.22 M/mm3 (4.6-6.2); White Blood Count 2.1 K/mm3 (4.4-11.0)
[2025-01-20 08:27] LABS: Differential Indicated SCAN CRITERIA MET
[2025-01-20 09:09] LABS: Platelet Estimate MOD DEC (ADEQ)
[2025-01-20 09:44] VITALS: BP 110/42; PULSE 64; RESP 16; TEMP 36.6; O2SAT 99
[2025-01-20 11:54] LABS: Pathologist Review Reviewed
== END 2025-01-20 09:46 | disposition home or self-care (01) ==
PROVIDERS: Emergency Provider Emergency Medicine; PCP Family Medicine; Visit Provider Emergency Medicine
DX: R04.0 Epistaxis (principal); C91.10 Chronic lymphocytic leukemia of B-cell type not having achieved remission; I48.0 Paroxysmal atrial fibrillation; I10 Essential (primary) hypertension; D69.6 Thrombocytopenia, unspecified; D50.9 Iron deficiency anemia, unspecified; E78.5 Hyperlipidemia, unspecified; F41.9 Anxiety disorder, unspecified; N40.0 Benign prostatic hyperplasia without lower urinary tract symptoms; Z79.01 Long term (current) use of anticoagulants; Z79.899 Other long term (current) drug therapy; Z87.891 Personal history of nicotine dependence
CPT/HCPCS: 30901; 36415; 85025; 99282; A4216

== ENCOUNTER 2025-02-12 11:07 | Inpatient (IN) | payer MEDICARE, SELFPAY ==
[2025-02-12] VITALS (10 sets, daily range): BP systolic 103–115; BP diastolic 47–63; PULSE 63–82; RESP 16–20; TEMP 36.8–37.4; O2SAT 90–96; BMI 21.2; BMI 20.2
--- NOTE | 2025-02-12 11:26 | EKG12_ITS ---
Test Reason : Blood Pressure : */* mmHG Vent. Rate : 79 BPM Atrial Rate : 79 BPM P-R Int : 152 ms QRS Dur : 132 ms QT Int : 440 ms P-R-T Axes : 65 -68 55 degrees QTcB Int : 504 ms Sinus rhythm with Premature atrial complexes Right bundle branch block Left anterior fascicular block Bifascicular block Abnormal ECG When compared with ECG of 07-Nov-2024 20:22, Premature atrial complexes are now Present T wave inversion no longer evident in Inferior leads QT has lengthened Confirmed by WILLIE ISRAEL, VINAY ([id number]), video tape editor TERE ALMONTE ([id number]) on 02/16/2025 7:32:46 AM Referred By: Confirmed By: VINAY TAPIA MD
[2025-02-12] MEDS: 0.9% Normal Saline (1000mL) 1,000 ML 999 ML IV ×2 (11:30→12:47)
--- NOTE | 2025-02-12 11:41 | EX.ED.DYSGE1 ---
HPI History of Present Illness Chief Complaint: Shortness of Breath Narrative Narrative: Patient is a 84-year-old male with a past medical history of non-small cell carcinoma of the lung, history of CLL had been in remission for 8 years, anxiety, atrial fibrillation chronically anticoagulated on Xarelto, hypertension, hyperlipidemia, thoracic aortic aneurysm who presented to the emergency department the chief complaint of abnormal blood work and fever. According to patient's family member at bedside he noted that they try to limit people coming over to the house however noted that his grandkids were visiting him over the past few days. They noted that recently he started coughing and yesterday he was complaining of sore throat. They also noted that he had been complaining of generalized fatigue as well. A states that they took him for his chemo treatment today however had blood work obtained and noted that his counts were low and noted that he had a fever of 100.8 therefore he was sent here for further evaluation management. When questioned how they obtained his temperature they state that this was via forehead probe multiple times. They state that when they arrived here they checked his temperature again with a forehead probe and according to documentation was normal. They state that he was not given any medication for his fever at the outside facility. According to triage note he has had complaint shortness of breath but this has been going on for a significant mount of time he states that some days are worse than others. [facility] Medical History (Updated 02/12/25 @ 13:[address] Milton Hugo, DO) Paroxysmal atrial fibrillation Nonrheumatic mitral (valve) prolapse Persistent atrial fibrillation Right bundle branch block (RBBB) Lung nodule Iron deficiency anemia Thoracic aortic aneurysm Nonrheumatic aortic (valve) insufficiency Nonrheumatic mitral (valve) insufficiency Hyperlipidemia Essential (primary) hypertension Atrial fibrillation with RVR (01/29/18) Anxiety Benign prostatic hypertrophy Chronic lymphocytic leukemia Home Medications ?Medication ?Instructions ?Recorded ?Last Taken ?Type finasteride 5 mg tablet 5 mg PO DAILY PROSTATE 12/08/16 02/12/25 History tamsulosin 0.4 mg capsule 0.4 mg PO DAILY PROSTATE 12/08/16 02/11/25 History metoprolol tartrate 25 mg tablet 25 mg PO BID HEART, BLOOD PRESSURE 01/28/18 02/12/25 History omeprazole 40 mg capsule,delayed 40 mg PO DAILY ACID REFLUX 01/28/18 02/12/25 History release ferrous sulfate 325 mg (65 mg 325 mg PO BID 08/25/19 02/12/25 History iron) tablet trazodone 50 mg tablet 50 mg PO QHS 04/21/21 02/11/25 History rivaroxaban 20 mg tablet (Xarelto) 20 mg PO DAILY 04/19/22 02/12/25 History levothyroxine 50 mcg tablet 50 mcg PO DAILY disorder of 03/26/24 02/12/25 History thyroid gland sertraline 100 mg tablet 100 mg PO BID 11/07/24 02/12/25 History atorvastatin 10 mg tablet 10 mg PO DAILY 01/01/25 02/12/25 History alprazolam 0.25 mg tablet 0.25 mg PO TID PRN anxiety 02/12/25 02/12/25 History Allergy/AdvReac Type Severity Reaction Status Date / Time codeine Allergy Rash Verified 02/12/25 11:13 ondansetron (From Zofran (as Allergy Unknown Verified 02/12/25 11:13 hydrochloride)) Family History Brother Heart disease CVA (cerebral vascular accident) Cancer Brother Heart disease Sister Cancer Surgical History H/O colonoscopy with polypectomy Social History housing: house Smoking Status: Former smoker Smokeless tobacco user: snuff alcohol intake: current Alcohol type: beer ROS ROS ED ROS Narrative Constitutional: Complains of fever as noted above denies any lightheadedness dizziness headaches Cardiovascular: Denies chest pain or palpitations Respiratory: Complains of cough as noted above denies shortness of breath Abdomen: Denies abdominal pain nausea vomit diarrhea : Denies any urinary symptoms Neurological: Denies numbness, weakness, tingling Musculoskeletal: Denies back pain Skin: Denies rashes or lesions EXAM Physical Exam Narrative Exam Narrative: General: Patient lying in bed rest comfortably did not appear to be in acute distress Head: Atraumatic, normocephalic Eyes: PERRL bilaterally, EOMI bilateral, no conjunctival injection noted Neck: Soft, supple, trachea midline Cardiovascular: Regular rate and rhythm no murmurs gallops rubs are noted Respiratory: Clear to auscultation bilaterally no rales rhonchi or wheezes noted Abdomen: Soft, nondistended, nontender to palpation Extremities: +4/5 strength noted in the bilateral upper and lower extremities Neurological: Patient following commands knew that he was at [facility] year is 2024 Skin: Warm, dry, intact no rashes or lesions noted Const Vital Signs: 02/12/25 11:09 02/12/25 11:26 02/12/25 11:32 Temperature 98.2 F 98.8 F Temperature Source Temporal Oral Pulse Rate 63 Respiratory Rate 19 H Respiratory Effort Respiratory Depth Respiratory Pattern Blood Pressure 106/50 L Blood Pressure Mean 68 Pulse Ox 90 Oxygen Delivery Method Room Air Room Air 02/12/25 11:38 02/12/25 12:52 02/12/25 12:54 Temperature 98.5 F 98.5 F Temperature Source Oral Pulse Rate 79 82 Respiratory Rate 17 20 H Respiratory Effort Normal Respiratory Depth Shallow Respiratory Pattern Tachypnea Blood Pressure 109/47 L 109/47 L Blood Pressure Mean 67 67 Pulse Ox 94 95 Oxygen Delivery Method Room Air Room Air MDM MDM MDM Narrative Medical decision making narrative: Patient is a 84-year-old male who presented to the emergency department chief complaint of neutropenic fever in the outpatient setting. On the differential diagnose includes Melamin to COVID, flu, upper respiratory infection secondary viral etiology, pneumonia, hypothyroidism, UTI. Once workup is obtained and reviewed he will be reevaluated. Patient will be given 30 cc/kg bolus of IV fluids this was ordered at 11:30 AM. Patient's oral temperature was obtained here in the emergency department was normal at 98.8. Patient CBC was reviewed showed a white blood count of 3.3, hemoglobin was noted be low at 7.4 baseline is around 8-9, plate count noted to be 162, CMP pending. Patient chest x-ray was reviewed by myself and by radiology which showed a new lower lobe infiltrate on the left side and a small left pleural effusion. Patient was ordered vancomycin and cefepime at 1206 this afternoon. Patient's INR was 1.2, PT of 15.3 chronically anticoagulant Xarelto, sodium normal 133, potassium normal 4.3, creatinine is 1.03. Patient's AST and ALT are 15 and 20 respectively. Patient proBNP normal at 774. Patient TSH normal at 1.68, free T4 and T3 were 1 and 2.2 respectively. I did discuss the case with hospitalist Dr. Vega who will accept the patient for admission. I updated the patient's family member and patient himself at bedside they are agreeable to plan all question concerns answered. Lab Data Labs: Laboratory Results - last 24 hr 02/12/25 11:30 WBC 3.3 L RBC 2.73 L Hgb 7.4 L Hct 23.2 L MCV 85.0 MCH 27.1 MCHC 31.9 L RDW Std Deviation 59.0 H RDW Coeff of Terell 20.6 H Plt Count 162 MPV 10.0 Immature Gran % (Auto) 0.900 Neut % (Auto) 29.3 L Lymph % (Auto) 50.2 H [place] % (Auto) 18.7 H Eos % (Auto) 0.6 Baso % (Auto) 0.3 Absolute Neuts (auto) 1.0 L Absolute Lymphs (auto) 1.66 Nucleated RBC % 0 Differential Comment COMMENT Atypical Lymphocytes 1+ Anisocytosis 1+ PT 15.3 H INR 1.2 APTT 26.5 Sodium 133 Potassium 4.3 Chloride 100 Carbon Dioxide 22.6 Anion Gap 10 BUN 23 H Creatinine 1.03 Estim Creat Clear Calc 48.81 L Est GFR (MDRD) Non-Af 72 BUN/Creatinine Ratio 22.1 H Glucose 110 H Lactic Acid < 1.0 Calcium 9.0 Total Bilirubin 0.49 AST 15 ALT 20 Alkaline Phosphatase 121 NT pro BNP II 774 Total Protein 5.7 L Albumin 3.5 Globulin 2.2 Albumin/Globulin Ratio 1.6 TSH 1.680 Free T4 1.00 Free T3 pg/dL 2.2 Radiography Diagnostic Testing: Clinical Impression(s) from Imaging Studies Chest X-Ray 02/12/25 11:45 IMPRESSION: New left lower lobe infiltrate and small left pleural effusion. Reading Location: [facility] Discharge Plan Triage Chief Complaint: Shortness of Breath ED Provider: Milton Hugo Dx/Rx/DC Orders Clinical Impression: Pleural effusion, left, Pneumonia, Fatigue, Non-small cell lung cancer (NSCLC) Prescriptions: No Action ferrous sulfate 325 mg (65 mg iron) tablet 325 mg PO BID trazodone 50 mg tablet 50 mg PO QHS Xarelto 20 mg tablet 20 mg PO DAILY Rx Instructions: must administer with evening meal tamsulosin 0.4 MG capsule 0.4 mg PO DAILY finasteride 5 MG tablet 5 mg PO DAILY metoprolol tartrate 25 MG tablet 25 mg PO BID omeprazole 40 MG capsule,delayed release(DR/EC) 40 mg PO DAILY sertraline 100 mg tablet 100 mg PO BID atorvastatin 10 mg tablet 10 mg PO DAILY alprazolam 0.25 mg tablet 0.25 mg PO TID PRN (Reason: anxiety) Rx Instructions: TAKE 2-3 TIMES DAILY NEEDED levothyroxine 50 mcg tablet 50 mcg PO DAILY Primary Care Provider: Jay Junior Referrals: Jay Junior MD [Primary Care Provider] - Print Language: Swazi Disposition Disposition: Acute Care Hospital [facility]
--- NOTE | 2025-02-12 11:45 | RAD_ITS ---
PROCEDURE: CHEST PA AND LATERAL 02/12/2025 REASON FOR EXAM: SOB, COUGH, HX OF LUNG CANCER TECHNIQUE: Frontal and lateral views of the chest. COMPARISON: Comparison is made with prior study dated November 07, 2024. FINDINGS: A left-sided port a catheter is seen with the tip at the junction of the superior vena cava and right atrium. EKG electrodes are seen. There now is evidence of left lower lobe infiltrate with a small left pleural effusion. The right lung is clear. The mediastinal contour is unremarkable. Degenerative changes are identified within the thoracic spine. RAD/Chest PA and Lateral IMPRESSION: New left lower lobe infiltrate and small left pleural effusion. Reading Location: [place] [id number]
[2025-02-12 12:04] LABS: Absolute Lymphocyte Count 1.66 X10^3/uL (0.83-4.51); Basophil# 0.01 X10^3/uL; Basophil% 0.3 % (0-1); Eosinophil# 0.02 X10^3/uL; Eosinophils% 0.6 % (0-5); Hematocrit 23.2 % (40-54); Hemoglobin 7.4 g/dL (13.0-16.5); Lymphocyte # 1.66 X10^3/ul (0.83-4.51); Lymphocyte % 50.2 % (19-41); Mean Corp Hgb Conc 31.9 g/dL (32-36); Mean Corpuscular Hgb 27.1 pg (27.0-32.0); Monocyte# 0.62 X10^3/uL; Monocyte% 18.7 % (0-10); NRBC Flagged by Analyzer 0 % (0-5); Neutrophil # 0.97 X10^3/uL (2.7-7.7); Neutrophil % 29.3 % (47-70); POSITIVE DIFFERENTIAL YES; POSITIVE MORPHOLOGY YES; Platelet Count 162 K/mm3 (150-450); RBC Distribution Width CV 20.6 % (11.6-14.6); Red Blood Count 2.73 M/mm3 (4.6-6.2); White Blood Count 3.3 K/mm3 (4.4-11.0)
[2025-02-12 12:09] LABS: Differential Indicated SCAN CRITERIA MET
[2025-02-12 12:19] LABS: Partial Thromboplast Time 26.5 Seconds (24.1-36.2)
[2025-02-12 12:22] LABS: International Normalized Ratio 1.2; Prothrombin Time (Protime)PT. 15.3 SECONDS (11.7-14.9)
[2025-02-12 12:36] LABS: ALB/GLOB Ratio 1.6 RATIO (0.9-2.4); AST(SGOT) 15 U/L (<=37); Alanine Aminotransfer ALT/SGPT 20 U/L (<=46); Albumin, Serum 3.5 g/dL (3.4-4.8); Alkaline Phosphatase 121 U/L (40-129); Anion Gap 10 (5-15); BUN 23 mg/dL (4-19); BUN/Creat Ratio 22.1 RATIO (10-20); Carbon Dioxide 22.6 mmol/L (21.0-32.0); Chloride 100 mmol/L (98-108); Creatinine, Serum 1.03 mg/dL (0.70-1.20); EST Glomerular Filtration Rate 72 (>60); Estimated Creatinine Clearance 48.81 ml/min (50-250); Free T3 2.2 pg/mL (2.18-3.98); Globulin 2.2 g/dL (2.2-4.2); Glucose 110 mg/dL (70-99); Potassium 4.3 mmol/L (3.3-5.1); Pro- Brain NATRIURETIC PEPTIDE 774 pg/mL (<=1800); Protein, Total 5.7 g/dL (5.9-8.4); Sodium Level 133 mmol/L (133-145); Total Bilirubin 0.49 mg/dL (0.00-1.30)
[2025-02-12] MEDS: Cefepime HCl 2 GM in 0.9% Normal Saline (100mL MB+) 100 ML IV (12:47)
[2025-02-12 12:51] LABS: Lactic Acid < 1.0 mmol/L (0.0-2.0)
[2025-02-12 13:01] LABS: Anisocytosis 1+; Atypical Lymphocyte 1+ %
[2025-02-12 13:12] LABS: Bacteria 0 SEEN /hpf (None Seen); Mucous, Urine 0 SEEN /hpf (<or=2+); Squamous Epithelial Cells - UA 0 SEEN /hpf (0-5); White Blood Cells 0 SEEN /hpf (0-5)
[2025-02-12 13:14] LABS: Color, Urine Yellow (Yellow); Glucose, Dipstick Normal (Normal); Ketone-Dipstick Negative (Negative); Leukocyte Esterase-Dipstick 25 /ul (Negative); Nitrite-Dipstick Negative (Negative); Occult Blood-Urine Negative /ul (Negative); Protein-Dipstick 30 mg/dl (Negative); Specific Gravity, Urine 1.005 (1.002-1.030); Urine Bilirubin Dipstick Negative (Negative); Urine Clarity Clear (Clear); Urine Urobilinogen Normal (Normal)
[2025-02-12] MEDS: Vancomycin HCl 1,500 MG in 0.9% Normal Saline (500mL Bag) 500 ML 250 MG IV (13:40)
[2025-02-12 13:49] LABS: Red Blood Cells-Urine 0 SEEN /hpf (0-5)
--- NOTE | 2025-02-12 14:22 | PCM.HP.STD ---
HPI - General General Date of Admission: 02/12/25 Date of Service: 02/12/25 Chief Complaint: Abnormal labs, fever HPI Narrative KANG GREEN, is a 84 M who presents to the emergency room at [facility] after being sent in by his oncologist due to a fever of 100.8 and low white blood cell count today. Patient is being treated for lung cancer with chemotherapy and immunotherapy. He occasionally has to have a thoracentesis performed due to recurrent pleural effusion around the left lung. Patient also has a history of chronic lymphocytic leukemia. Workup in the emergency room included a CBC-total white blood cell count of 3.3, hemoglobin was 7.4, and absolute neutrophil count was 960. UA was unremarkable, chemistry panel was remarkable for a BUN of 23. Patient's chest x-ray showed a left lower lobe pneumonia and a pleural effusion. Patient was given cefepime and vancomycin in the emergency room, after my exam I talked with the patient's oncologist and he recommended giving the patient Granix during his hospitalization. Patient will be admitted to [place] [address] for neutropenic fever with left lower lobe pneumonia, patient may have to undergo a left thoracentesis during his hospitalization. [facility] Medical History (Updated 02/12/25 @ 13:[address] Milton Hugo, DO) Paroxysmal atrial fibrillation Nonrheumatic mitral (valve) prolapse Persistent atrial fibrillation Right bundle branch block (RBBB) Lung nodule Iron deficiency anemia Thoracic aortic aneurysm Nonrheumatic aortic (valve) insufficiency Nonrheumatic mitral (valve) insufficiency Hyperlipidemia Essential (primary) hypertension Atrial fibrillation with RVR (01/29/18) Anxiety Benign prostatic hypertrophy Chronic lymphocytic leukemia Home Medications ?Medication ?Instructions ?Recorded ?Last Taken ?Type finasteride 5 mg tablet 5 mg PO DAILY PROSTATE 12/08/16 02/12/25 History tamsulosin 0.4 mg capsule 0.4 mg PO DAILY PROSTATE 12/08/16 02/11/25 History metoprolol tartrate 25 mg tablet 25 mg PO BID HEART, BLOOD PRESSURE 01/28/18 02/12/25 History omeprazole 40 mg capsule,delayed 40 mg PO DAILY ACID REFLUX 01/28/18 02/12/25 History release ferrous sulfate 325 mg (65 mg 325 mg PO BID 08/25/19 02/12/25 History iron) tablet trazodone 50 mg tablet 50 mg PO QHS 04/21/21 02/11/25 History rivaroxaban 20 mg tablet (Xarelto) 20 mg PO DAILY 04/19/22 02/12/25 History levothyroxine 50 mcg tablet 50 mcg PO DAILY disorder of 03/26/24 02/12/25 History thyroid gland sertraline 100 mg tablet 100 mg PO BID 11/07/24 02/12/25 History atorvastatin 10 mg tablet 10 mg PO DAILY 01/01/25 02/12/25 History alprazolam 0.25 mg tablet 0.25 mg PO TID PRN anxiety 02/12/25 02/12/25 History Allergy/AdvReac Type Severity Reaction Status Date / Time codeine Allergy Rash Verified 02/12/25 11:13 ondansetron (From Zofran (as Allergy Unknown Verified 02/12/25 11:13 hydrochloride)) Family History Brother Heart disease CVA (cerebral vascular accident) Cancer Brother Heart disease Sister Cancer Surgical History H/O colonoscopy with polypectomy Social History housing: house Smoking Status: Former smoker Smokeless tobacco user: snuff alcohol intake: current Alcohol type: beer ROS Constitutional Constitutional: Reports chills, fever(s) and malaise; Denies anorexia, change in weight, night sweats or weakness Eyes Eyes: Denies blurry vision, change in vision, discharge from eye(s) or eye pain Cardiovascular Cardiovascular: Denies chest pain, claudication, dyspnea on exertion, edema or palpitations Respiratory/Chest Respiratory/Chest: Denies cough, excessive phlegm production, hemoptysis, productive cough, shortness of breath at rest or shortness of breath with exertion Gastrointestinal Gastrointestinal: Denies abdominal pain, constipation, diarrhea, hematemesis, hematochezia, melena, nausea or vomiting Genitourinary Genitourinary: Denies burning urination, difficulty urinating, dysuria, hematuria, urinary frequency, urinary hesitancy, urinary incontinence or urinary urgency Musculoskeletal Musculoskeletal: Denies back pain, joint pain, joint stiffness, joint swelling, myalgias or neck pain Neurologic Neurologic: Denies abnormal gait, abnormal speech, dizziness, focal weakness, headache(s), loss of vision, numbness, other visual disturbances, paresthesias, syncope or tingling Psychiatric Psychiatric: Denies anxiety, cognitive impairment, depression, irritability, mood swings or suicidal ideation Endocrine Endocrinology: Denies change in body appearance, cold intolerance, excessive sweating, heat intolerance, polydipsia or polyuria Hematologic/Lymphatic Hematologic/Lymphatic: Denies none, anemia, easy bleeding, easy bruising or lymphadenopathy Allergic/Immunologic Allergic/Immunologic: Denies rhinitis, urticaria, eczemia or asthma Vital Signs Vital Signs Vital Signs: 02/12/25 11:09 02/12/25 11:26 02/12/25 11:32 Temperature 98.2 F 98.8 F Temperature Source Temporal Oral Pulse Rate 63 Respiratory Rate 19 H Respiratory Effort Respiratory Depth Respiratory Pattern Blood Pressure 106/50 L Blood Pressure Mean 68 Blood Pressure Source Blood Pressure Position Blood Pressure Location Pulse Ox 90 Oxygen Delivery Method Room Air Room Air 02/12/25 11:38 02/12/25 12:52 02/12/25 12:54 Temperature 98.5 F 98.5 F Temperature Source Oral Pulse Rate 79 82 Respiratory Rate 17 20 H Respiratory Effort Normal Respiratory Depth Shallow Respiratory Pattern Tachypnea Blood Pressure 109/47 L 109/47 L Blood Pressure Mean 67 67 Blood Pressure Source Blood Pressure Position Blood Pressure Location Pulse Ox 94 95 Oxygen Delivery Method Room Air Room Air 02/12/25 14:10 Temperature 99.1 F Temperature Source Oral Pulse Rate 75 Respiratory Rate 16 Respiratory Effort Respiratory Depth Respiratory Pattern Blood Pressure 115/55 L Blood Pressure Mean 75 Blood Pressure Source Monitor Blood Pressure Position Semi-Fowlers Blood Pressure Location Right Arm Pulse Ox 96 Oxygen Delivery Method Room Air Weight Weight: 63.5 kg Body Mass Index (BMI) 21.2 Physical Exam Const alert, oriented x3 and no apparent distress Constitutional Narrative: Patient appears his stated age General Appearance: cooperative, well kempt and well developed Orientation / Consciousness: awake, oriented to person, oriented to place and oriented to time HEENT normocephalic, head/scalp atraumatic, hearing grossly normal bilaterally and moist oral mucous membranes Eyes PERRL, EOMs intact bilaterally and conjunctivae normal Neck supple, no JVD, thyroid normal and no carotid bruits General: trachea midline Resp normal respiratory effort, no retractions and no use of accessory muscles Resp Narrative: Diminished breath sounds are noted over the left lower lung field Auscultation: Negative for rales, rhonchi or wheezes Cardio regular rate, regular rhythm, S1 normal heart sound, S2 normal heart sound, no murmurs, no rub and no gallops GI normal to inspection, nondistended, normoactive bowel sounds, soft to palpation, non-tender and non-distended Extremity no clubbing, cyanosis or edema Skin no rashes or lesions noted General Skin Exam: no breakdown Neuro oriented x3, CN's II-XII intact bilaterally, moves all extremities, no focal motor deficits and no sensory deficits noted Sensorium / Orientation: awake and alert Speech: speech normal Psych affect normal Results Lab / Micro Data 02/12/25 11:30 02/12/25 11:30 Labs: Laboratory Results - last 24 hr 02/12/25 11:30: WBC 3.3 L, RBC 2.73 L, Hgb 7.4 L, Hct 23.2 L, MCV 85.0, MCH 27.1, MCHC 31.9 L, RDW Std Deviation 59.0 H, RDW Coeff of Terell 20.6 H, Plt Count 162, MPV 10.0, Immature Gran % (Auto) 0.900, Neut % (Auto) 29.3 L, Lymph % (Auto) 50.2 H, Pitt % (Auto) 18.7 H, Eos % (Auto) 0.6, Baso % (Auto) 0.3, Absolute Neuts (auto) 1.0 L, Absolute Lymphs (auto) 1.66, Nucleated RBC % 0, Differential Comment COMMENT, Atypical Lymphocytes 1+, Anisocytosis 1+, PT 15.3 H, INR 1.2, APTT 26.5, Sodium 133, Potassium 4.3, Chloride 100, Carbon Dioxide 22.6, Anion Gap 10, BUN 23 H, Creatinine 1.03, Estim Creat Clear Calc 48.81 L, Est GFR (MDRD) Non-Af 72, BUN/Creatinine Ratio 22.1 H, Glucose 110 H, Lactic Acid < 1.0, Calcium 9.0, Total Bilirubin 0.49, AST 15, ALT 20, Alkaline Phosphatase 121, NT pro BNP II 774, Total Protein 5.7 L, Albumin 3.5, Globulin 2.2, Albumin/Globulin Ratio 1.6, TSH 1.680, Free T4 1.00, Free T3 pg/dL 2.2 02/12/25 13:05: Urine Color Yellow, Urine Clarity Clear, Urine pH 7.0, Ur Specific [place] 1.005, Urine Protein 30 H, Urine Glucose (UA) Normal, Urine Ketones Negative, Urine Occult Blood Negative, Urine Nitrite Negative, Urine Bilirubin Negative, Urine Urobilinogen Normal, Ur Leukocyte Esterase 25 H, Urine RBC 0 SEEN, Urine WBC 0 SEEN, Ur Squamous Epith Cells 0 SEEN, Urine Bacteria 0 SEEN, Urine Mucus 0 SEEN Micro: Microbiology 02/12/25 11:35 Mucosa - Nose SARS-CoV-2, Influenza & RSV (PCR) - Final Imaging Radiology Impression Chest X-Ray 02/12/25 11:45 IMPRESSION: New left lower lobe infiltrate and small left pleural effusion. Reading Location: [place] [address] Assessment & Plan Assessment/Plan (1) Non-small cell lung cancer (NSCLC): PLAN: Plan 1. Neutropenic fever from left lower lobe pneumonia-patient will be admitted to [facility] 3, he will be maintained on cefepime for antibiotic coverage, urine for Legionella and strep pneumonia and sputum culture will be obtained if possible. Blood culture was obtained in the emergency room. #2 community-acquired pneumonia left lower lobe-again patient will be treated with cefepime, await blood culture results and urine for Legionella and strep pneumoniae, sputum culture will be obtained if possible #3 non-small cell lung cancer currently being treated with chemotherapy and immunotherapy-complicates care, management, recovery, and prognosis #4 CLL-complicates care, management, recovery, and prognosis #5 neutropenia-patient will be given Granix 480 mg daily until neutropenia is resolved #6 paroxysmal atrial FaBB-patient is on Xarelto and metoprolol #7 hypothyroidism--patient is on Synthroid #8 chronic depression-patient is on Zoloft Total clinical time spent by myself addressing the patient's medical issues, reviewing all of his data, and collaborating with patient's care team: 75 minutes Charges/Coding Visit Charges Inpatient E&M: 76438 Init Hosp L3
[2025-02-12] MEDS: TBO-FILGRASTIM 480 MCG/0.8 ML ML SC (15:09)
--- NOTE | 2025-02-12 15:18 | US_ITS ---
PROCEDURE: THORACENTESIS W US REASON FOR EXAM: LEFT PLEURAL EFFUSION TECHNIQUE: The procedure as well as the benefits and possible complications including infection and bleeding as well as pneumothorax were explained to the patient. Informed consent was obtained. The overlying skin was prepped and draped in the usual sterile fashion. Following local anesthetic application, puncture of the left pleural cavity was performed with a 5 [place] catheter. Fluid was drained. 140 cc of lubna colored fluid was removed. The patient tolerated the procedure well. COMPARISON: None. FINDINGS: Successful left thoracentesis. US/Thoracentesis W US IMPRESSION: Successful left thoracentesis. The patient tolerated the procedure well. No immediate postprocedure complication noted. Reading Location: [facility]
[2025-02-12] MEDS: Rivaroxaban 15 MG Tablet PO (17:00)
[2025-02-12] MEDS: Ferrous Sulfate 325 MG Tablet PO (17:00)
[2025-02-12] MEDS: Acetaminophen 325 MG Tablet 650 MG PO (17:01)
[2025-02-12] MEDS: guaiFENesin Dm 10 ML UDC PO (17:50)
[2025-02-12] MEDS: ALPRAZolam 0.25 MG Tablet PO (17:52)
[2025-02-12] MEDS: Cefepime HCl 1 GM in 0.9% Normal Saline (50mL MB+) 50 ML IV (21:01)
[2025-02-12] MEDS: Sertraline 100 MG Tablet PO (21:02)
[2025-02-12] MEDS: Metoprolol Tartrate 25 MG Tablet PO (21:02)
[2025-02-12] MEDS: traZODone 50 MG Tablet PO (21:02)
[2025-02-13] VITALS (10 sets, daily range): BP systolic 110–129; BP diastolic 41–60; PULSE 59–88; RESP 16–18; TEMP 36.6–36.7; O2SAT 93–98
[2025-02-13] MEDS: ALPRAZolam 0.25 MG Tablet PO ×2 (02:11→09:36)
[2025-02-13 04:42] LABS: Hematocrit 22.6 % (40-54); Hemoglobin 7.2 g/dL (13.0-16.5); Mean Corp Hgb Conc 31.9 g/dL (32-36); Mean Corpuscular Hgb 27.6 pg (27.0-32.0); Mean Corpuscular Volume 86.6 fL (80-94); POSITIVE MORPHOLOGY YES; Platelet Count 142 K/mm3 (150-450); RBC Distribution Width SD 61.8 fl (35.1-43.9); Red Blood Count 2.61 M/mm3 (4.6-6.2); White Blood Count 2.4 K/mm3 (4.4-11.0)
[2025-02-13 05:40] LABS: Differential Indicated MANUAL DIFF
[2025-02-13] MEDS: Levothyroxine 50 MCG Tablet PO (05:49)
[2025-02-13 05:51] LABS: Anisocytosis 1+; Atypical Lymphocyte 1+ %; Basophil 1 % (0-1); Blast 4 % (0-0); Eosinophil 1 % (0-5); Lymphocyte 35 % (19-41); Monocyte 2 % (0-10); Neutrophil-Band 22 % (0-5); Neutrophil-Segmented 35 % (47-70); Scan Smear per Review Criteria MANUAL DIFF; Total Cells Counted 100 (MANUAL DIFF)
[2025-02-13 05:52] LABS: Absolute Neutrophil Count 1.4 X10^3/uL (2.0-7.7); Pathologist Review May foll
[2025-02-13] MEDS: TBO-FILGRASTIM 480 MCG/0.8 ML ML SC (09:36)
[2025-02-13] MEDS: Tamsulosin HCl 0.4 MG Capsule PO (09:36)
[2025-02-13] MEDS: Cefepime HCl 1 GM in 0.9% Normal Saline (50mL MB+) 50 ML IV (09:37)
[2025-02-13] MEDS: Pantoprazole Sodium 40 MG Tablet PO (09:37)
[2025-02-13] MEDS: Finasteride 5 MG Tablet PO (09:37)
[2025-02-13] MEDS: Metoprolol Tartrate 25 MG Tablet PO (09:37)
[2025-02-13] MEDS: Atorvastatin Calcium 10 MG Tablet PO (09:38)
[2025-02-13] MEDS: Sertraline 100 MG Tablet PO (09:38)
[2025-02-13] MEDS: Ferrous Sulfate 325 MG Tablet PO (09:38)
[2025-02-13] MEDS: 0.9% Saline Lock 10 ML Syringe IV ×2 (09:39→15:38)
--- NOTE | 2025-02-13 12:20 | CASEMGMT ---
RN CM MACHINE BANDER AND CELLOPHANER HELPER CM?to room to meet with patient for initial transition planning/care coordination assessment. RN CM?introduced self and role at [facility]. Pt voices understanding and consents to assessment?at this time. Pt resting in bed in no distress at this time. 2 sons @ bedside and pt agreeable to them being present during assessment. Pt is A/O at this time and answers all questions appropriately. Care providers, pharmacy, and demographics verified/updated at this time. Strata:?3 PCP: Dr Junior Specialists: Dr Chao-oncology, Dr Mclaughlin-cardiology Preferred Pharmacy: [facility] [place] Otherwise, goes to [facility]. Insurance: [employer] [facility] Prescription Benefit: yes Living Will/HPOA: Has both LW and HCPOA, both are on file @ [facility]. is listed as HCPOA, but per pt and sons, she has dementia. Son, Carlos, is listed as 1st alternative. LNOK: , Deborah (has dementia). 3 sons, Carlos, Pal, and Melvin. Living Arrangements: Lives w/ in one-story home w/basement where the laundry is. Pt and both able to navigate to the basement where the laundry is, they take the stairs carefully. Pt is indep w/ADL's. Son, Pal, does medication mgnt. Pt helps to take care of , is able to navigate around the home and does home mgnt tasks, w/ d/t dementia, pt looks after her. They help each other per pt. Sons stop in pt's home daily to check on pt and and assist, as needed. Transportation:?sons provide most transportation. Pt can still drive, but has not been doing so. DME: States has the following DME: shower chair available, but does not use. Has a cane, pulse ox, and O2 thru [employer]. Pt has a concentrator and POC. Son can bring in POC @ dc, if needed. Pt is currently on RA. He states he only uses the O2 @ home @ 2 L/m w/exertion, PRN. Per Terell, current home O2 orders are 2 L/M contin. Pt and sons deny need for further DME at this time. HHC/SNF: No hx of SNF. Has not had HHC in the past. Discussed HHC and [facility]'s homebound criteria. Per pt and family, pt is not currently homebound, but they voiced being thankful to know about possible HHC in the future if pt would need this. They have looked into getting private-pay HH aide for home mgnt tasks, but pt's will not allow this. Pt wishes to return home and states has no concerns with going home at time of discharge. CM?to follow for any increase in home oxygen needs and any further discharge planning/needs. Pt and sons voice no further concerns/needs at this time. Advised them to ask for CM?if any further questions/concerns/needs arise. They voice understanding. PLAN: Home w/family support and discharge plans in place. Armando GRAJEDA RN CM
[2025-02-13] MEDS: Lidocaine 2% (20 ml mdv) 20 ML Vial INFILT (13:58)
--- NOTE | 2025-02-13 14:00 | RAD_ITS ---
EXAM: XR Chest, 2 Views CLINICAL INDICATION: POST THORACENTESIS TECHNIQUE: Frontal view with expiration and inspiration of the chest. COMPARISON: XR Chest dated 02/12/2025 FINDINGS: LUNGS AND PLEURAL SPACES: Persistent left pleural effusion without significant change from the prior exam. No pneumothorax. HEART: Unremarkable. No cardiomegaly. MEDIASTINUM: Unremarkable. Normal mediastinal contour. BONES/JOINTS: Unremarkable. No acute fracture. TUBES, LINES AND DEVICES: Left-sided cardiac pacemaker. RAD/Chest Insp/Exp 2 View IMPRESSION: Persistent left pleural effusion without significant change from the prior exam . No pneumothorax. Reading Location[facility]
--- NOTE | 2025-02-13 15:02 | NURSING ---
pt returned from Radiology-small bandaid on back left flank area w/1mm dark red drainage-no subq emphysema felt pt a&o3 pt wishes to go home tonight walking pox is 94% on room air-tolerated fair pt natalia anxiety at times which is why he uses his 02 at home prn when he feels SOB see vitals
--- NOTE | 2025-02-13 15:04 | DCINST_ITS ---
Discharge Instructions Diet Discharge Diet: No restrictions DC O2, CPAP, BIPAP needs Home O2 Discharge instructions: Yes Type of respiratory needs?: Oxygen Oxygen frequency: Other (prn) Other oxygen liters per minute: 2 L Other oxygen frequency: 2 L Dressing / Incision Discharge Activity: Return to Normal Activity Weight Bearing Status: Full weight bearing Follow Up Care Test Results: Test results from this visit will be discussed in further detail at your follow- up appointment, if applicable. Discharge Plan Admission Admit Date/Time: 02/12/25 13:02 Primary Reason for Your Visit: Pneumonia, neutropenic fever Attending Provider: Melvin Vega Primary Care Provider: Jya Junior Discharge Orders/Prescriptions Prescriptions: New levofloxacin 750 mg tablet 750 mg PO DAILY Qty: 7 0RF Rx Instructions: Start on 02/13/2025 Continued ferrous sulfate 325 mg (65 mg iron) tablet 325 mg PO BID trazodone 50 mg tablet 50 mg PO QHS Xarelto 20 mg tablet 20 mg PO DAILY Rx Instructions: must administer with evening meal tamsulosin 0.4 MG capsule 0.4 mg PO DAILY finasteride 5 MG tablet 5 mg PO DAILY metoprolol tartrate 25 MG tablet 25 mg PO BID omeprazole 40 MG capsule,delayed release(DR/EC) 40 mg PO DAILY sertraline 100 mg tablet 100 mg PO BID atorvastatin 10 mg tablet 10 mg PO DAILY alprazolam 0.25 mg tablet 0.25 mg PO TID PRN (Reason: anxiety) Rx Instructions: TAKE 2-3 TIMES DAILY NEEDED levothyroxine 50 mcg tablet 50 mcg PO DAILY Referrals / Follow Up: Jay Junior MD [Primary Care Provider] - Kel Chao DO [Med Staff - Active Staff] - In 1 Week Disposition Disposition (needs filled in before D/C Order can be placed): Home, Self Care
--- NOTE | 2025-02-13 15:09 | PCM.DC.SUM ---
Providers Date of Admission: 02/12/25 Date of Discharge: 02/13/25 Primary Care Physician: Dr. Jay Junior MD Reason For Visit: LEFT LOWER LOBE PNEUMONIA Diagnosis Discharge Diagnosis (1) Non-small cell lung cancer (NSCLC): Status: Acute Code(s): C34.90 - Malignant neoplasm of unspecified part of unspecified bronchus or lung Plan 1. Neutropenic fever from left lower lobe pneumonia-patient will be admitted to [place] [address], he will be maintained on cefepime for antibiotic coverage, urine for Legionella and strep pneumonia and sputum culture will be obtained if possible. Blood culture was obtained in the emergency room. #2 community-acquired pneumonia left lower lobe-again patient will be treated with cefepime, await blood culture results and urine for Legionella and strep pneumoniae, sputum culture will be obtained if possible #3 non-small cell lung cancer currently being treated with chemotherapy and immunotherapy-complicates care, management, recovery, and prognosis #4 CLL-complicates care, management, recovery, and prognosis #5 neutropenia-patient will be given Granix 480 mg daily until neutropenia is resolved #6 paroxysmal atrial FaBB-patient is on Xarelto and metoprolol #7 hypothyroidism--patient is on Synthroid #8 chronic depression-patient is on Zoloft Total clinical time spent by myself addressing the patient's medical issues, reviewing all of his data, and collaborating with patient's care team: 75 minutes Medications at Discharge Home Medications finasteride 5 mg tablet 5 mg PO DAILY PROSTATE 12/08/16 tamsulosin 0.4 mg capsule 0.4 mg PO DAILY PROSTATE 12/08/16 metoprolol tartrate 25 mg tablet 25 mg PO BID HEART, BLOOD PRESSURE 01/28/18 omeprazole 40 mg capsule,delayed release 40 mg PO DAILY ACID REFLUX 01/28/18 ferrous sulfate 325 mg (65 mg iron) tablet 325 mg PO BID 08/25/19 trazodone 50 mg tablet 50 mg PO QHS 04/21/21 rivaroxaban 20 mg tablet (Xarelto) 20 mg PO DAILY 04/19/22 levothyroxine 50 mcg tablet 50 mcg PO DAILY disorder of thyroid gland 03/26/24 sertraline 100 mg tablet 100 mg PO BID 11/07/24 atorvastatin 10 mg tablet 10 mg PO DAILY 01/01/25 alprazolam 0.25 mg tablet 0.25 mg PO TID PRN anxiety 02/12/25 levofloxacin 750 mg tablet 750 mg PO DAILY #7 tabs 02/13/25 Hospital Course Operations None Procedures Thoracentesis Summary of Care Provided Minutes Spent on Discharge: 32 Hospital Course: This 84-year-old white male was seen in the emergency room at [facility] after being directed to go there by his oncologist due to labs showing a neutropenia and the fact the patient was running a fever and his physician's office. Workup in the emergency room included a CBC which showed bicytopenia with anemia and low white blood cell count, chemistry profile was unremarkable, patient had a chest x-ray which showed a left lower lobe effusion and infiltrate indicating pneumonia. Patient was admitted to [place] [address], placed on IV antibiotics and given Granix subcu, patient underwent a thoracentesis with removal of 144 mL of loculated fluid from the left pleural space. On 02/13/2025, patient requested discharge home, at that point he was not neutropenic and this examiner felt he was stable for discharge home. On that date he was seen and examined: On examination he appeared in good health and spirits. Patient appeared in no distress. Vital signs as documented. Skin warm and dry and without overt rashes. Neck without JVD, neck was supple, trachea midline, thyroid was normal. Lungs clear bilaterally, normal air movement was noted. Heart exam notable for regular rhythm, normal sounds and absence of murmurs, rubs or gallops. Abdomen unremarkable and without evidence of organomegaly, masses, or abdominal aortic enlargement. Bowel sounds are present, abdomen is not distended. Extremities nonedematous, no cyanosis was noted, no clubbing was noted. Neuro: Cranial nerves II through XII are grossly intact, no focal motor deficits were noted, sensation to light touch and pinprick intact, motor exam 5/5 throughout. Psych: Patient is alert and oriented x3, he does not appear anxious or depressed, he does not appear agitated. Patient was discharged home in stable condition on 02/13/2025, he did not require oxygen during ambulation or at rest on that date. Medical Records Data Medical Nutrition Assessment Dietitian: Malnutrition Criteria Met Start: 02/13/25 10:11 Freq: Status: Active Protocol: Document 02/13/25 13:55 SB (Rec: 02/13/25 13:55 SB [id number]) Nutrition Malnutrition Evidence of Yes Malnutrition Exists Malnutrition (severe Chronic ): Evidenced By Weight Loss (Severe),Physical Changes (Severe) Clinical Problem Chronic Disease or Condition Related Malnutrition Etiology severe related to increased energy expenditure due to lung cancer Signs/Symptoms as evidenced by 12% unintentional weight loss x 4 months and severe muscle/fat wasting in clavicle and rastafari region. Status Active Problem Recommendation Dietitian Adjust to regular, neutropenic diet. Recommendations/ Will order 120ml chocolate EPHP TID with meals. Changes Will monitor weight trends. Weight / BMI Weight Weight: 60.5 kg Body Mass Index (BMI) 20.2 ABG / Lab / Microbiology Data 02/13/25 04:05 02/12/25 11:30 Laboratory: Laboratory Results - last 24 hr 02/13/25 04:05: WBC 2.4 L, RBC 2.61 L, Hgb 7.2 L, Hct 22.6 L, MCV 86.6, MCH 27.6, MCHC 31.9 L, RDW Std Deviation 61.8 H, RDW Coeff of Terell 21.0 H, Plt Count 142 L, MPV 10.0, Immature Gran % (Auto) LITHOGRAPH OPERATOR, Neut % (Auto) LITHOGRAPH OPERATOR, Lymph % (Auto) LITHOGRAPH OPERATOR, [place] % (Auto) LITHOGRAPH OPERATOR, Eos % (Auto) LITHOGRAPH OPERATOR, Baso % (Auto) LITHOGRAPH OPERATOR, Absolute Neuts (auto) 1.4 L, Absolute Lymphs (auto) 0.80 L, Total Counted 100, Neutrophils % (Manual) 35 L, Band Neutrophils % 22 H, Lymphocytes % (Manual) 35, Monocytes % (Manual) 2, Eosinophils % (Manual) 1, Basophils % (Manual) 1, Blast Cells % 4 H*, Nucleated RBC % LITHOGRAPH OPERATOR, Diff Path Review May foll, Atypical Lymphocytes 1+, Anisocytosis 1+ Microbiology: Microbiology 02/12/25 11:45 Blood Culture (Wb) - Port Blood Culture - Preliminary No growth in 48 hours. 02/12/25 11:30 Blood Culture (Wb) - Port Blood Culture - Preliminary No growth in 48 hours. 02/12/25 16:00 Sputum, Expectorated/Coughed Gram Stain - Final 02/12/25 16:00 Sputum, Expectorated/Coughed Respiratory Culture - Preliminary 02/12/25 13:05 Urine, Clean Catch Urine Culture - Final Culture exhibits no growth. 02/12/25 13:05 Urine, Random Legionella Antigen - Final 02/12/25 13:05 Urine, Random Streptococcus pneumoniae Antigen (M - Final 02/12/25 11:35 Mucosa - Nose SARS-CoV-2, Influenza & RSV (PCR) - Final Radiography Diagnostic Testing: Radiology Impression Chest X-Ray 02/13/25 14:00 IMPRESSION: Persistent left pleural effusion without significant change from the prior exam. No pneumothorax. Reading Location: [facility] D/C Instructions Discharge Diet: No restrictions Weight Bearing Status: Full weight bearing DC O2, CPAP, BIPAP Needs Home O2 Discharge instructions: Yes Type of respiratory needs?: Oxygen Oxygen frequency: Other (prn) Other oxygen liters per minute: 2 L Other oxygen frequency: 2 L DC home with Oxygen: Yes Home O2 MD Review: I have reviewed the oxygen testing, and the patient qualifies for home oxygen equipment and portability. The patient is mobile in the home and the community. Meaningful Use Info Meaningful Use Meaningful Use Diagnoses (Choose all that apply): None applicable Ischemic Stroke Statin Dosing Therapy Reference: STATIN DOSE THERAPY REFERENCE: * Patients > 75 years receive moderate or high dose statin therapy. * Patients 75 years or YOUNGER should receive HIGH intensity statin dose unless contraindicated. You will be required to document reason for non-treatment if statin daily dose does not meet guidelines. HIGH DOSE STATIN THERAPY DAILY Atorvastatin > than or = to 40 mg Rosuvastatin > than or = to 20 mg Amlodipine + Atorvastatin > than or = to 2.5/40 mg Ezetimibe + Simvastatin 10/80 mg Simvastatin 80mg Discharge Plan Admission Admit Date/Time: 02/12/25 13:02 Primary Reason for Your Visit: Pneumonia, neutropenic fever Attending Provider: Melvin Vega Primary Care Provider: Jay Junior Discharge Orders/Prescriptions Prescriptions: New levofloxacin 750 mg tablet 750 mg PO DAILY Qty: 7 0RF Rx Instructions: Start on 02/13/2025 Continued ferrous sulfate 325 mg (65 mg iron) tablet 325 mg PO BID trazodone 50 mg tablet 50 mg PO QHS Xarelto 20 mg tablet 20 mg PO DAILY Rx Instructions: must administer with evening meal tamsulosin 0.4 MG capsule 0.4 mg PO DAILY finasteride 5 MG tablet 5 mg PO DAILY metoprolol tartrate 25 MG tablet 25 mg PO BID omeprazole 40 MG capsule,delayed release(DR/EC) 40 mg PO DAILY sertraline 100 mg tablet 100 mg PO BID atorvastatin 10 mg tablet 10 mg PO DAILY alprazolam 0.25 mg tablet 0.25 mg PO TID PRN (Reason: anxiety) Rx Instructions: TAKE 2-3 TIMES DAILY NEEDED levothyroxine 50 mcg tablet 50 mcg PO DAILY Referrals / Follow Up: Jay Junior MD [Primary Care Provider] - Kel Chao DO [Med Staff - Active Staff] - In 1 Week Disposition Disposition (needs filled in before D/C Order can be placed): Home, Self Care Charges/Coding Visit Charges Inpatient E&M: 15591 Disch Hosp >30min
--- NOTE | 2025-02-13 15:10 | NURSING ---
dietary updated pt leaving at 4:30 to [facility] and will need his dinner by 4:00 so he gets an evening meals
== END 2025-02-13 16:27 | disposition home or self-care (01) | DRG 180 ==
LOC: ED 13:05 → MS3 13:18
PROVIDERS: Admitting Provider Internal Medicine; Emergency Provider Emergency Medicine; PCP Family Medicine; Visit Provider Internal Medicine
DX: C34.90 Malignant neoplasm of unspecified part of unspecified bronchus or lung (principal); J18.9 Pneumonia, unspecified organism; E43 Unspecified severe protein-calorie malnutrition; J90 Pleural effusion, not elsewhere classified; C91.11 Chronic lymphocytic leukemia of B-cell type in remission; D70.3 Neutropenia due to infection; I48.0 Paroxysmal atrial fibrillation; E03.9 Hypothyroidism, unspecified; D50.9 Iron deficiency anemia, unspecified; I10 Essential (primary) hypertension; I71.20 Thoracic aortic aneurysm, without rupture, unspecified; F32.A Depression, unspecified; E78.5 Hyperlipidemia, unspecified; F41.9 Anxiety disorder, unspecified; F10.90 Alcohol use, unspecified, uncomplicated; B97.89 Other viral agents as the cause of diseases classified elsewhere; Z87.891 Personal history of nicotine dependence; Z79.01 Long term (current) use of anticoagulants; Z82.3 Family history of stroke; Z92.21 Personal history of antineoplastic chemotherapy; R50.81 Fever presenting with conditions classified elsewhere; Z79.02 Long term (current) use of antithrombotics/antiplatelets; Z79.899 Other long term (current) drug therapy; Z68.20 Body mass index [BMI] 20.0-20.9, adult
CPT/HCPCS: 32555; 36415; 36591; 71046; 80053; 81001; 83605; 83880; 84439; 84443; 84481; 85025; 85610; 85730; 87040; 87070; 87086; 87205; 87449; 87631; 93005; 97802; 99284; A4216; J1447

== ENCOUNTER 2025-02-20 10:32 | Outpatient (CLI) | payer MEDICARE, SELFPAY ==
[2025-02-20 11:00] VITALS: BP 114/53; PULSE 62; RESP 16; TEMP 36.2; O2SAT 97
[2025-02-20 11:20] VITALS: BP 110/66; PULSE 66; RESP 14; TEMP 36.1; O2SAT 96
[2025-02-20 12:55] VITALS: BP 127/57; PULSE 62; RESP 16; TEMP 36.1; O2SAT 99
== END 2025-02-20 23:59 | disposition home or self-care (01) ==
LOC: MEDOUTP 10:33
PROVIDERS: PCP Family Medicine; Referring Provider Internal Medicine Hematology & Oncology; Visit Provider Internal Medicine Hematology & Oncology
DX: C91.12 Chronic lymphocytic leukemia of B-cell type in relapse (principal); D63.1 Anemia in chronic kidney disease; N18.9 Chronic kidney disease, unspecified
CPT/HCPCS: 36430; 86850; 86900; 86901; P9016; A4216

== ENCOUNTER 2025-03-06 09:55 | Outpatient (CLI) | payer MEDICARE, SELFPAY ==
[2025-03-06 10:14] VITALS: BP 118/41; PULSE 62; RESP 16; TEMP 35.8; O2SAT 95; BMI 19.9
[2025-03-06 10:40] VITALS: BP 100/48; PULSE 78; RESP 16; TEMP 35.5; O2SAT 98
[2025-03-06 11:44] VITALS: BP 107/52; PULSE 74; RESP 16; TEMP 35.5; O2SAT 100
[2025-03-06 12:11] VITALS: BP 109/50; PULSE 62; RESP 16; TEMP 35.5; O2SAT 98
== END 2025-03-06 23:59 | disposition home or self-care (01) ==
LOC: MEDOUTP 09:55
PROVIDERS: PCP Family Medicine; Referring Provider Internal Medicine Hematology & Oncology; Visit Provider Internal Medicine Hematology & Oncology
DX: C91.12 Chronic lymphocytic leukemia of B-cell type in relapse (principal); N18.9 Chronic kidney disease, unspecified; D63.1 Anemia in chronic kidney disease
CPT/HCPCS: 36430; 86850; 86900; 86901; P9016; A4216

== ENCOUNTER 2025-03-12 11:09 | Inpatient (IN) | payer MEDICARE, SELFPAY ==
[2025-03-12] VITALS (24 sets, daily range): BP systolic 90–136; BP diastolic 43–88; PULSE 62–137; RESP 14–33; TEMP 36.3–37.4; O2SAT 88–98; BMI 21.3; BMI 20.2
--- NOTE | 2025-03-12 11:32 | EKG12_ITS ---
Test Reason : Blood Pressure : */* mmHG Vent. Rate : 71 BPM Atrial Rate : 71 BPM P-R Int : 144 ms QRS Dur : 138 ms QT Int : 514 ms P-R-T Axes : 45 -65 15 degrees QTcB Int : 558 ms Sinus rhythm with Premature atrial complexes Right bundle branch block Left anterior fascicular block Bifascicular block Abnormal ECG Confirmed by Rock Jovel ([id number]), editor producer TERE ALMONTE ([id number]) on 03/13/2025 12:42:30 PM Referred By: Cristy Gruber Confirmed By: Rock Jovel
--- NOTE | 2025-03-12 11:33 | EX.ED.DYSGE1 ---
HPI History of Present Illness Chief Complaint: Abn Labs Detail of Chief Complaint: Weakness, shortness of breath, low hemoglobin Informant: patient Narrative Narrative: Patient presents to the emergency department with complaint of generalized weakness and some shortness of breath. Patient states that he was at his oncologist office today as he was to receive chemotherapy for his non-small cell lung cancer. He had blood work that showed him to be anemic and he was hypotensive in the office therefore sent to the emergency department for evaluation. Patient complains of exertional dyspnea and normally wears home O2 when he is active. Patient denies chest pain or abdominal pain. He has required transfusions in the past. He states his stool is somewhat dark. He is on a blood thinner called Xarelto. [facility] Medical History (Updated 03/12/25 @ 13:[address] Cristy Gruber, ) Non-small cell lung cancer (NSCLC) Fatigue Pneumonia Pleural effusion, left Paroxysmal atrial fibrillation Nonrheumatic mitral (valve) prolapse Persistent atrial fibrillation Right bundle branch block (RBBB) Lung nodule Iron deficiency anemia Thoracic aortic aneurysm Nonrheumatic aortic (valve) insufficiency Nonrheumatic mitral (valve) insufficiency Hyperlipidemia Essential (primary) hypertension Atrial fibrillation with RVR (01/29/18) Anxiety Benign prostatic hypertrophy Chronic lymphocytic leukemia Home Medications ?Medication ?Instructions ?Recorded ?Last Taken ?Type finasteride 5 mg tablet 5 mg PO DAILY PROSTATE 12/08/16 02/12/25 History tamsulosin 0.4 mg capsule 0.4 mg PO DAILY PROSTATE 12/08/16 02/11/25 History metoprolol tartrate 25 mg tablet 25 mg PO BID HEART, BLOOD PRESSURE 01/28/18 02/12/25 History omeprazole 40 mg capsule,delayed 40 mg PO DAILY ACID REFLUX 01/28/18 02/12/25 History release ferrous sulfate 325 mg (65 mg 325 mg PO BID 08/25/19 02/12/25 History iron) tablet trazodone 50 mg tablet 50 mg PO QHS 04/21/21 02/11/25 History rivaroxaban 20 mg tablet (Xarelto) 20 mg PO DAILY 04/19/22 02/12/25 History levothyroxine 50 mcg tablet 50 mcg PO DAILY disorder of 03/26/24 02/12/25 History thyroid gland sertraline 100 mg tablet 100 mg PO BID 11/07/24 02/12/25 History atorvastatin 10 mg tablet 10 mg PO DAILY 01/01/25 02/12/25 History alprazolam 0.25 mg tablet 0.25 mg PO TID PRN anxiety 02/12/25 02/12/25 History zolpidem 10 mg tablet (Ambien) 10 mg PO QHS 03/06/25 Unknown History Allergy/AdvReac Type Severity Reaction Status Date / Time codeine Allergy Rash Verified 03/12/25 11:14 ondansetron (From Zofran (as Allergy Unknown Verified 03/12/25 11:14 hydrochloride)) Family History Brother Heart disease CVA (cerebral vascular accident) Cancer Brother Heart disease Sister Cancer Surgical History H/O colonoscopy with polypectomy Social History housing: house Smoking Status: Former smoker Smokeless tobacco user: snuff alcohol intake: current Alcohol type: beer ROS ROS ED Review of Systems ROS Unobtainable: other Constitutional Constitutional ED: Reports lethargy; Denies chills, fever(s), sweats or weight loss Eyes Eyes: Denies blurry vision, change in vision or diplopia ENT ENT ED: Denies rhinorrhea or sore throat Cardiovascular Cardiovascular: Denies chest pain, orthopnea or racing heartbeat Respiratory/Chest Respiratory/Chest: Reports dyspnea and dyspnea on exertion; Denies cough, orthopnea or sputum Gastrointestinal Gastrointestinal: Reports other Details: Dark stool ; Denies abdominal pain, diarrhea, nausea or vomiting Genitourinary Genitourinary ED: Denies dysuria, hematuria or urinary frequency Musculoskeletal Musculoskeletal: Denies arthralgias, back pain, myalgias or neck pain Integumentary Denies abscess, Abrasions or rash Neurologic Neurologic: Denies headache(s) or weakness Psychiatric Psychiatric: Denies anxiety, depression or suicidal thoughts Endocrine Endocrinology: Denies polydipsia, polyphagia or polyuria Hematologic/Lymphatic Hematologic/Lymphatic: Denies easy bleeding, easy bruising or lymphadenopathy Allergic/Immunologic Allergic/Immunologic ED: Denies mouth swelling, tongue swelling or urticaria EXAM Physical Exam Narrative Exam Narrative: Pallor Const Vital Signs: 03/12/25 11:15 03/12/25 12:24 03/12/25 12:25 Temperature 97.6 F L Temperature Source Oral Pulse Rate 70 62 Respiratory Rate 20 H 17 Respiratory Effort Normal Non-Labored Respiratory Pattern Normal Blood Pressure 90/53 L 96/58 L Blood Pressure Mean 65 70 Pulse Ox 91 94 Oxygen Delivery Method Room Air Nasal Cannula Oxygen Flow Rate (L/min) 2 Positive well nourished and well developed General Appearance ED: well developed and NAD HEENT Reports TM's clear and moist mucous membranes normocephalic and atraumatic; Negative for trauma or tenderness Tympanic Membrane ED: Yes TM's clear Eyes PERRL and EOMs intact bilaterally General Eye ED: Negative for pale conjunctiva or scleral icterus Neck no lymphadenopathy, supple and no JVD General: Negative for tenderness Chest Wall inspection of chest normal and palpation of chest normal Chest: Negative for tenderness Resp normal respiratory effort and clear to auscultation bilaterally Effort and Inspection: Negative for respiratory distress or pain with movement Auscultation: Negative for rhonchi, wheezes or diminished lung sounds Cardio regular rate, regular rhythm, S1 normal heart sound, S2 normal heart sound and no murmurs Peripheral Pulses: pulses 2+ throughout GI normal to inspection, nondistended, normoactive bowel sounds, soft to palpation, non-tender, non-distended and no masses GI Narrative: Few rales in bases bilaterally. No significant tachypnea. No accessory muscle use or retractions. Rectal exam performed had small amount of dark-colored stool. Back/Spine no CVA tenderness and no thoracic nor lumbar tenderness Extremity normal to inspection General Extremety ED: Negative for edema General Extremity: Negative for edema Neuro oriented x3, CN's II-XII intact bilaterally, no sensory deficits noted and gait normal Sensorium / Orientation: awake, alert, oriented to person, oriented to place and oriented to time Motor Exam: strength 5/5 throughout and strength abnormal Psych mental status grossly normal Skin no rashes or lesions noted and no wounds MDM MDM MDM Narrative Medical decision making narrative: Patient presents with weakness and anemia. Being treated for non-small cell lung cancer. He was hypotensive and oncologist office and referred to the ER. He has received blood transfusions in the past. Patient does describe some dark stools. He is on Xarelto. IV line established. Type and screen ordered. Rectal exam performed showed dark stool that was Hemoccult positive. CBC with differential obtained showed 4.2 with hemoglobin 6.6 and platelet count of 144. Chemistries unremarkable. BUN 25 and creatinine 1.28. Patient was typed and crossed 1 unit of packed red cells. He was given a 500 cc fluid bolus on arrival. Most recent blood pressure 106 over 80s. Case discussed with hospitalist to evaluate patient for admission. Will discuss with gastroenterology. Lab Data Attestation: I reviewed the patient's lab results. Labs: Laboratory Results - last 24 hr 03/12/25 11:48 WBC 4.2 L RBC 2.30 L Hgb 6.6 L Hct 20.4 L MCV 88.7 MCH 28.7 MCHC 32.4 RDW Std Deviation 70.6 H RDW Coeff of Terell 21.9 H Plt Count 144 L MPV 10.1 Immature Gran % (Auto) 3.100 H Neut % (Auto) 60.0 Lymph % (Auto) 34.1 [place] % (Auto) 2.1 Eos % (Auto) 0.5 Baso % (Auto) 0.2 Absolute Neuts (auto) 2.5 Absolute Lymphs (auto) 1.43 Nucleated RBC % 0 Anisocytosis 1+ Sodium 130 L Potassium 4.0 Chloride 97 L Carbon Dioxide 22.3 Anion Gap 11 BUN 25 H Creatinine 1.28 H Estim Creat Clear Calc 38.16 L Est GFR (MDRD) Non-Af 56 L BUN/Creatinine Ratio 19.8 Glucose 117 H Calcium 8.5 Total Bilirubin 0.53 AST 89 H ALT 99 H Alkaline Phosphatase 110 Total Protein 5.4 L Albumin 3.0 L Globulin 2.4 Albumin/Globulin Ratio 1.3 Blood Type A POSITIVE Antibody Screen NEGATIVE Crossmatch See Detail Radiography Diagnostic Testing: Clinical Impression(s) from Imaging Studies Chest X-Ray 03/12/25 11:50 IMPRESSION: Pleural-parenchymal changes at the left lung base in keeping with a small left pleural effusion with underlying atelectasis and/or infiltrate. Reading Location: [facility]-1 1 view chest x-ray obtained interpreted by myself a small bilateral pleural effusions without evidence of infiltrate or pneumothorax or acute disease process. Radiology in agreement. EKG Initial EKG: Attestation: I personally reviewed and interpreted this EKG as follows: Comments: Sinus rhythm with ventricular rate of 71 bpm with right bundle branch block and left anterior fascicular block Discharge Plan Triage Chief Complaint: Abn Labs ED Provider: Cristy Gruber Dx/Rx/DC Orders Clinical Impression: Anemia, GI bleed, Acute hypotension, Non-small cell lung cancer Prescriptions: No Action ferrous sulfate 325 mg (65 mg iron) tablet 325 mg PO BID trazodone 50 mg tablet 50 mg PO QHS Xarelto 20 mg tablet 20 mg PO DAILY Rx Instructions: must administer with evening meal tamsulosin 0.4 MG capsule 0.4 mg PO DAILY finasteride 5 MG tablet 5 mg PO DAILY metoprolol tartrate 25 MG tablet 25 mg PO BID omeprazole 40 MG capsule,delayed release(DR/EC) 40 mg PO DAILY sertraline 100 mg tablet 100 mg PO BID atorvastatin 10 mg tablet 10 mg PO DAILY alprazolam 0.25 mg tablet 0.25 mg PO TID PRN (Reason: anxiety) Rx Instructions: TAKE 2-3 TIMES DAILY NEEDED levothyroxine 50 mcg tablet 50 mcg PO DAILY zolpidem [Ambien] 10 mg tablet 10 mg PO QHS Primary Care Provider: Jay Junior Referrals: Jay Junior MD [Primary Care Provider] - Print Language: Belarusian Disposition Disposition: Acute Care Hospital [facility]
--- NOTE | 2025-03-12 11:50 | RAD_ITS ---
PROCEDURE: CHEST 1 VIEW (PORTABLE) 03/12/2025 REASON FOR EXAM: DYSPNEA TECHNIQUE: Frontal view of the chest. COMPARISON: Comparison is made with prior study dated February 13, 2025. FINDINGS: Hardware: A left-sided port a catheter is seen with the tip in the right atrium. Heart: Borderline cardiomegaly. Atherosclerotic calcification of the aortic arch. Lungs: Persistent pleural-parenchymal changes at the left lung base suggestive of infiltration and small left pleural effusion. The right lung is clear. Bones: Degenerative changes are identified within the thoracic spine. Other: RAD/Chest 1 View (Portable) IMPRESSION: Pleural-parenchymal changes at the left lung base in keeping with a small left pleural effusion with underlying atelectasis and/or infiltrate. Reading Location: [place] [address]
[2025-03-12 12:01] LABS: Absolute Lymphocyte Count 1.43 X10^3/uL (0.83-4.51); Absolute Neutrophil Count 2.5 X10^3/uL (2.0-7.7); Basophil# 0.01 X10^3/uL; Basophil% 0.2 % (0-1); Eosinophil# 0.02 X10^3/uL; Eosinophils% 0.5 % (0-5); Hematocrit 20.4 % (40-54); Hemoglobin 6.6 g/dL (13.0-16.5); Lymphocyte # 1.43 X10^3/ul (0.83-4.51); Lymphocyte % 34.1 % (19-41); Mean Corp Hgb Conc 32.4 g/dL (32-36); Mean Corpuscular Hgb 28.7 pg (27.0-32.0); Mean Corpuscular Volume 88.7 fL (80-94); Mean Platelet Vol. 10.1 fl (6.2-12.0); Monocyte# 0.09 X10^3/uL; Monocyte% 2.1 % (0-10); NRBC Flagged by Analyzer 0 % (0-5); Neutrophil # 2.51 X10^3/uL (2.7-7.7); POSITIVE MORPHOLOGY YES; Platelet Count 144 K/mm3 (150-450); RBC Distribution Width CV 21.9 % (11.6-14.6); RBC Distribution Width SD 70.6 fl (35.1-43.9); White Blood Count 4.2 K/mm3 (4.4-11.0)
[2025-03-12 12:02] LABS: Differential Indicated SCAN CRITERIA MET
[2025-03-12] MEDS: 0.9% Normal Saline (500mL Bag) 500 ML 1000 ML IV (12:19)
[2025-03-12 12:47] LABS: Anisocytosis 1+
[2025-03-12 12:54] LABS: ALB/GLOB Ratio 1.3 RATIO (0.9-2.4); AST(SGOT) 89 U/L (<=37); Alanine Aminotransfer ALT/SGPT 99 U/L (<=46); Alkaline Phosphatase 110 U/L (40-129); Anion Gap 11 (5-15); BUN 25 mg/dL (4-19); BUN/Creat Ratio 19.8 RATIO (10-20); Calcium,Total 8.5 mg/dL (7.6-11.0); Carbon Dioxide 22.3 mmol/L (21.0-32.0); Chloride 97 mmol/L (98-108); Creatinine, Serum 1.28 mg/dL (0.70-1.20); EST Glomerular Filtration Rate 56 (>60); Estimated Creatinine Clearance 38.16 ml/min (50-250); Globulin 2.4 g/dL (2.2-4.2); Glucose 117 mg/dL (70-99); Protein, Total 5.4 g/dL (5.9-8.4); Sodium Level 130 mmol/L (133-145); Total Bilirubin 0.53 mg/dL (0.00-1.30)
--- NOTE | 2025-03-12 12:58 | HP.PCM.HOS_ITS ---
HPI - General HPI Narrative KANG GREEN, is a 84 M who presents [facility] Medical History Non-small cell lung cancer (NSCLC) Fatigue Pneumonia Pleural effusion, left Paroxysmal atrial fibrillation Nonrheumatic mitral (valve) prolapse Persistent atrial fibrillation Right bundle branch block (RBBB) Lung nodule Iron deficiency anemia Thoracic aortic aneurysm Nonrheumatic aortic (valve) insufficiency Nonrheumatic mitral (valve) insufficiency Hyperlipidemia Essential (primary) hypertension Atrial fibrillation with RVR (01/29/18) Anxiety Benign prostatic hypertrophy Chronic lymphocytic leukemia Home Medications ?Medication ?Instructions ?Recorded ?Last Taken ?Type finasteride 5 mg tablet 5 mg PO DAILY PROSTATE 12/0802/12/25 History tamsulosin 0.4 mg capsule 0.4 mg PO DAILY PROSTATE 02/11/25 History metoprolol tartrate 25 mg tablet 25 mg PO BID HEART, B LOOD PRESSURE 01/28/18 02/12/25 History omeprazole 40 mg capsule,delayed 40 mg PO DAILY ACID R EFLUX 01/28/18 02/12/25 History release ferrous sulfate 325 mg (65 mg 325 mg PO BID 08/25/19 0 02/12/25 History iron) tablet trazodone 50 mg tablet 50 mg PO QHS 04/21/21 History rivaroxaban 20 mg tablet (Xarelto) 20 mg PO DAILY 03/2702/12/25 History levothyroxine 50 mcg tablet 50 mcg PO DAILY disorder o f 03/26/24 02/12/25 History thyroid gland sertraline 100 mg tablet 100 mg PO BID 11/07/2402/12 History atorvastatin 10 mg tablet 10 mg PO DAILY 01/01/2501/25 History alprazolam 0.25 mg tablet 0.25 mg PO TID PRN anxiety 0 02/12/25 02/12/25 History zolpidem 10 mg tablet (Ambien) 10 mg PO QHS 03/06/25 U nknown History Allergy/AdvReac Type Severity Reaction Status Date / Time codeine Allergy Rash Verified 03/12/25 11:14 ondansetron (From Zofran (as Allergy Unknown Verified 03/12/25 11:14 hydrochloride)) Family History Brother Heart disease CVA (cerebral vascular accident) Cancer Brother Heart disease Sister Cancer Surgical History H/O colonoscopy with polypectomy Social History housing: house Smoking Status: Former smoker Smokeless tobacco user: snuff alcohol intake: current Alcohol type: beer Vital Signs Vital Signs Vital Signs: 03/12/25 11:15 03/12/25 12:24 03/12/25 12:25 Temperature 97.6 F L Temperature Source Oral Pulse Rate 70 62 Respiratory Rate 20 H 17 Respiratory Effort Normal Non-Labored Respiratory Pattern Normal Blood Pressure 90/53 L 96/58 L Blood Pressure Mean 65 70 Pulse Ox 91 94 Oxygen Delivery Method Room Air Nasal Cannula Oxygen Flow Rate (L/min) 2 Weight Weight: 61.7 kg Body Mass Index (BMI) 21.3 Results Lab / Micro Data 03/12/25 11:48 03/12/25 11:48 Labs: Laboratory Results - last 24 hr 03/12/25 11:48: WBC 4.2 L, RBC 2.30 L, Hgb 6.6 L, Hct 20.4 L, MCV 88.7, MCH 28.7, MCHC 32.4, RDW Std Deviation 70.6 H, RDW Coeff of Terell 21.9 H, Plt Count 144 L, MPV 10.1, Immature Gran % (Auto) 3.100 H, Neut % (Auto) 60.0, Lymph % (Auto) 34.1, [place] % (Auto) 2.1, Eos % (Auto) 0.5, Baso % (Auto) 0.2, Absolute Neuts (auto) 2.5, Absolute Lymphs (auto) 1.43, Nucleated RBC % 0, Anisocytosis 1+, Sodium 130 L, Potassium 4.0, Chloride 97 L, Carbon Dioxide 22.3, Anion Gap 11, BUN 25 H, Creatinine 1.28 H, Estim Creat Clear Calc 38.16 L, Est GFR (MDRD) Non-Af 56 L, BUN/Creatinine Ratio 19.8, Glucose 117 H, Calcium 8.5, Total Bilirubin 0.53, AST 89 H, ALT 99 H, Alkaline Phosphatase 110, Total Protein 5.4 L, Albumin 3.0 L, Globulin 2.4, Albumin/Globulin Ratio 1.3, Blood Type A POSITIVE, Antibody Screen NEGATIVE, Crossmatch See Detail Micro: Microbiology 03/12/25 11:44 Stool Stool Occult Blood (ZARA) - Final Occult Blood Positive Imaging Radiology Impression Chest X-Ray 03/12/25 11:50 IMPRESSION: Pleural-parenchymal changes at the left lung base in keeping with a small left pleural effusion with underlying atelectasis and/or infiltrate. Reading Location: [place] [address]
--- NOTE | 2025-03-12 12:58 | PCM.HP.STD ---
HPI - General General Date of Admission: 03/12/25 Date of Service: 03/12/25 Chief Complaint: Generalized weakness HPI Narrative KANG GREEN, is a 84 M with past medical history significant for non-small cell lung CA currently on chemo, paroxysmal atrial fibrillation on systemic anticoagulation with Xarelto 2 who was sent from his oncologist office with profound generalized weakness. Patient states he has not been himself since he started chemo 3 months prior. He did notice increasing weakness and lightheadedness over the past couple of days. Lab work obtained in his oncologist office revealed hemoglobin of 7.2 patient was sent to the emergency department for subsequent eval. Repeat hemoglobin came back at 6.6. On further questioning patient denied any COVID ground emesis. Did admit to having dark stools but no bright red per rectum. Patient was noted to be guaiac positive in the ED GI was notified prior to patient being admitted. [facility] Medical History (Updated 03/12/25 @ 13:[address] Cristy Gruber, DO) Non-small cell lung cancer (NSCLC) Fatigue Pneumonia Pleural effusion, left Paroxysmal atrial fibrillation Nonrheumatic mitral (valve) prolapse Persistent atrial fibrillation Right bundle branch block (RBBB) Lung nodule Iron deficiency anemia Thoracic aortic aneurysm Nonrheumatic aortic (valve) insufficiency Nonrheumatic mitral (valve) insufficiency Hyperlipidemia Essential (primary) hypertension Atrial fibrillation with RVR (01/29/18) Anxiety Benign prostatic hypertrophy Chronic lymphocytic leukemia Home Medications ?Medication ?Instructions ?Recorded ?Last Taken ?Type finasteride 5 mg tablet 5 mg PO DAILY PROSTATE 12/08/16 02/12/25 History tamsulosin 0.4 mg capsule 0.4 mg PO DAILY PROSTATE 12/08/16 02/11/25 History metoprolol tartrate 25 mg tablet 25 mg PO BID HEART, BLOOD PRESSURE 01/28/18 02/12/25 History omeprazole 40 mg capsule,delayed 40 mg PO DAILY ACID REFLUX 01/28/18 02/12/25 History release ferrous sulfate 325 mg (65 mg 325 mg PO BID 08/25/19 02/12/25 History iron) tablet trazodone 50 mg tablet 50 mg PO QHS 04/21/21 02/11/25 History rivaroxaban 20 mg tablet (Xarelto) 20 mg PO DAILY 04/19/22 02/12/25 History levothyroxine 50 mcg tablet 50 mcg PO DAILY disorder of 03/26/24 02/12/25 History thyroid gland sertraline 100 mg tablet 100 mg PO BID 11/07/24 02/12/25 History atorvastatin 10 mg tablet 10 mg PO DAILY 01/01/25 02/12/25 History alprazolam 0.25 mg tablet 0.25 mg PO TID PRN anxiety 02/12/25 02/12/25 History zolpidem 10 mg tablet (Ambien) 10 mg PO QHS 03/06/25 Unknown History Allergy/AdvReac Type Severity Reaction Status Date / Time codeine Allergy Rash Verified 03/12/25 11:14 ondansetron (From Zofran (as Allergy Unknown Verified 03/12/25 11:14 hydrochloride)) Family History Brother Heart disease CVA (cerebral vascular accident) Cancer Brother Heart disease Sister Cancer Surgical History H/O colonoscopy with polypectomy Social History housing: house Smoking Status: Former smoker Smokeless tobacco user: snuff alcohol intake: current Alcohol type: beer ROS ROS Narrative GENERAL: Weakness, anorexia HEENT: denies headache, sinus congestion, or drainage, dysphagia RESPIRATORY: shortness of breath, dyspnea on exertion CARDIAC: denies chest pain, palpitations, orthopnea, PND GASTROINTESTINAL: denies abdominal pain, nausea, vomiting, melena, GENITOURINARY: denies dysuria, urgency, frequency, heamaturia EXTREMITY: denies swelling MUSCULOSKELETAL: denies current joint pain or tenderness NEUROLOGIC: denies focal numbness, weakness, tingling HEMATOLOGIC: denies easy bruising and/or hemorrhage INTEGUMENT: denies rashes PSYCHIATRIC: denies suicidal or homicidal ideation Vital Signs Vital Signs Vital Signs: 03/12/25 11:15 03/12/25 12:24 03/12/25 12:25 Temperature 97.6 F L Temperature Source Oral Pulse Rate 70 62 Respiratory Rate 20 H 17 Respiratory Effort Normal Non-Labored Respiratory Pattern Normal Blood Pressure 90/53 L 96/58 L Blood Pressure Mean 65 70 Pulse Ox 91 94 Oxygen Delivery Method Room Air Nasal Cannula Oxygen Flow Rate (L/min) 2 Weight Weight: 61.7 kg Body Mass Index (BMI) 21.3 Physical Exam Narrative GENERAL: cooperative HEENT: Atraumatic; normocephalic EYES; Anicteric, pallor of the conjunctiva NECK; supple, normal thyroid, RESPIRATORY: Diminished to auscultation CARDIOVASCULAR: Regular S1 S2, GI: soft, normoactive bowel sounds, : No Renal angle tenderness; EXTREMITIES: No edema, no clubbing, MUSCULOSKELETAL: no muscle wasting NEURO: Awake; no lateralizing signs. SKIN: No Rash PSYCH; Flat affect Results Lab / Micro Data 03/12/25 11:48 03/12/25 11:48 Labs: Laboratory Results - last 24 hr 03/12/25 11:48: WBC 4.2 L, RBC 2.30 L, Hgb 6.6 L, Hct 20.4 L, MCV 88.7, MCH 28.7, MCHC 32.4, RDW Std Deviation 70.6 H, RDW Coeff of Terell 21.9 H, Plt Count 144 L, MPV 10.1, Immature Gran % (Auto) 3.100 H, Neut % (Auto) 60.0, Lymph % (Auto) 34.1, [place] % (Auto) 2.1, Eos % (Auto) 0.5, Baso % (Auto) 0.2, Absolute Neuts (auto) 2.5, Absolute Lymphs (auto) 1.43, Nucleated RBC % 0, Anisocytosis 1+, Sodium 130 L, Potassium 4.0, Chloride 97 L, Carbon Dioxide 22.3, Anion Gap 11, BUN 25 H, Creatinine 1.28 H, Estim Creat Clear Calc 38.16 L, Est GFR (MDRD) Non-Af 56 L, BUN/Creatinine Ratio 19.8, Glucose 117 H, Calcium 8.5, Total Bilirubin 0.53, AST 89 H, ALT 99 H, Alkaline Phosphatase 110, Total Protein 5.4 L, Albumin 3.0 L, Globulin 2.4, Albumin/Globulin Ratio 1.3, Blood Type A POSITIVE, Antibody Screen NEGATIVE, Crossmatch See Detail Micro: Microbiology 03/12/25 11:44 Stool Stool Occult Blood (ZARA) - Final Occult Blood Positive Imaging Radiology Impression Chest X-Ray 03/12/25 11:50 IMPRESSION: Pleural-parenchymal changes at the left lung base in keeping with a small left pleural effusion with underlying atelectasis and/or infiltrate. [facility] Assessment & Plan Assessment/Plan (1) GI bleed: (2) Anemia: PLAN: Plan Patient is an 84-year-old gentleman with history of non-small cell lung cancer, paroxysmal A-fib as well as history of pulmonary embolism on systemic anticoagulation with Xarelto presented with profound generalized weakness found to have hemoglobin of 6.6 with a guaiac positive stools 1. Severe anemia ? Secondary to acute blood loss anemia superimposed on probable chronic anemia exacerbated by the use of systemic anticoagulation. Patient hemoglobin on admission was 6.6. Patient was typed and crossmatched, and order was given for patient to be transfused 1 unit PRBC. Did request for iron studies prior to patient's transfusion. Patient was started on Protonix GI consulted and admitted to monitored bed subsequent evaluation with every 6 H&H ordered 2. Hyponatremia ? 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 Acute renal insufficiency ? Baseline creatinine 1.0 creatinine on admission was 1.28 patient was started on IV hydration from the ED. Repeat CBC ordered for a.m. 4. Hypotension ? Patient systolic blood pressures were in the 90s did receive IV fluid resuscitation; patient is on tamsulosin and finasteride as well as metoprolol held plan is to resume once blood pressure stabilizes 5. Non-small cell lung CA ? Currently undergoing chemotherapy as outpatient patient is followed by Dr. Martinez with [facility] 6. Paroxysmal atrial fibrillation ? Rate controlled on metoprolol systemic anticoagulation with Xarelto which is currently being held given patient presentation 7. History of previous pulmonary embolism ? Patient is on Xarelto held given above reasons 8. Chronic lymphocytic leukemia ? Currently stable 9. Dyslipidemia ?Patient is on statin therapy, continued at home dose 10. BPH with lower urinary obstructive symptoms - Patient treated with tamsulosin as well as finasteride currently being held given patient relatively low blood pressure 11. Depression with anxiety ? Patient is on sertraline as well as alprazolam plan is to resume once home meds have been reconciled 12. GERD ? Patient is on omeprazole, currently receiving Protonix 13 Known AAA ? Outpatient follow-up by primary care 14. DVT prophylaxis ? Patient is on Xarelto which is currently being held given above reasons Advance planning; did discuss with the patient and family (patient's son) regarding advanced directives as well as CODE STATUS. Did explain the various scenarios involved ( FULL CODE, DNR CCA, DNR CCA with no intubation, and DNR CC and what each meant) patient elected to remain full code with CPR and intubation if warranted. Order was placed. Time spent on discussion 16 minutes. Charges/Coding Multi Select Codes Visit Charges Visit Charges: 73390 Init Hosp Hospitalists' Procedures Procedures: 25029 Advncd Care Plan 30 Min
[2025-03-12 14:19] LABS: Ferritin 1070 ng/mL (37-417); Iron 13 ug/dL (65-175); Iron Binding Capacity,Unsat 170 ug/dL (228-428); Vitamin B12 910 pg/mL (180-914)
[2025-03-12 14:20] LABS: Iron Binding Capacity,Total 183 ug/dL (250-450); PERCENT IRON SATURATION 7.1 % (9-55)
[2025-03-12 14:23] LABS: Platelet Count 151 K/mm3 (150-450); RET-HE 30.1 pg (30-35)
[2025-03-12] MEDS: Pantoprazole Sodium 40 MG in 0.9% Normal Saline (100mL MB+) 100 ML 330 MG IV ×2 (17:52→23:23)
[2025-03-12] MEDS: Ferrous Sulfate 325 MG Tablet PO (17:54)
[2025-03-12 18:03] LABS: Hematocrit 27.4 % (40-54); Hemoglobin 9.1 g/dL (13.0-16.5)
--- NOTE | 2025-03-12 20:08 | EKG12_ITS ---
Test Reason : RHYTHM CHANGE Blood Pressure : */* mmHG Vent. Rate : 88 BPM Atrial Rate : 88 BPM P-R Int : 132 ms QRS Dur : 134 ms QT Int : 434 ms P-R-T Axes : 64 -69 54 degrees QTcB Int : 525 ms Sinus rhythm with Premature atrial complexes Right bundle branch block Left anterior fascicular block Bifascicular block Abnormal ECG When compared with ECG of 12-Mar-2025 20:30, MANUAL COMPARISON REQUIRED DATA IS UNCONFIRMED Confirmed by Rock Jovel ([id number]), editor at large SUDHIR MOREAU ([id number]) on 03/16/2025 8:46:27 AM Referred By: Cristy Gruber Confirmed By: Rock Jovel
[2025-03-12] MEDS: traZODone 50 MG Tablet PO (21:21)
[2025-03-12] MEDS: Metoprolol Tartrate 5 MG/5 ML Vial IV (21:21)
[2025-03-12] MEDS: Sertraline 100 MG Tablet PO (21:28)
[2025-03-12] MEDS: Lorazepam 2 MG/ML WCH Syringe 0.5 MG IV (21:29)
[2025-03-12] MEDS: 0.9% Saline Lock 10 ML Syringe IV (21:32)
--- NOTE | 2025-03-12 22:07 | EKG12_ITS ---
Test Reason : RHYTHM CHANGE Blood Pressure : */* mmHG Vent. Rate : 132 BPM Atrial Rate : * BPM P-R Int : * ms QRS Dur : 132 ms QT Int : 376 ms P-R-T Axes : * -72 75 degrees QTcB Int : 557 ms Atrial fibrillation with rapid ventricular response with premature ventricular or aberrantly conducted complexes Right bundle branch block Left anterior fascicular block Bifascicular block Abnormal ECG When compared with ECG of 12-Mar-2025 11:45, MANUAL COMPARISON REQUIRED DATA IS UNCONFIRMED Confirmed by Rock Jovel ([id number]), telegraph editor SUDHIR MOREAU ([id number]) on 03/16/2025 8:46:37 AM Referred By: Cristy Gruber Confirmed By: Rock Jovel
[2025-03-12] MEDS: Metoprolol Tartrate 25 MG Tablet PO (23:30)
[2025-03-13] VITALS (33 sets, daily range): BP systolic 90–126; BP diastolic 44–79; PULSE 69–129; RESP 16–29; TEMP 36.3–37.4; O2SAT 91–98
[2025-03-13 00:17] LABS: Hematocrit 24.6 % (40-54); Hemoglobin 8.3 g/dL (13.0-16.5)
[2025-03-13] MEDS: Furosemide 20 MG/2 ML VIAL IV (01:17)
[2025-03-13] MEDS: Levothyroxine 50 MCG Tablet PO (04:47)
[2025-03-13] MEDS: 0.9% Normal Saline (100mL Bag) 100 ML 15 ML IV (04:47)
[2025-03-13 06:20] LABS: Absolute Lymphocyte Count 1.36 X10^3/uL (0.83-4.51); Absolute Neutrophil Count 2.8 X10^3/uL (2.0-7.7); Eosinophil# 0.03 X10^3/uL; Eosinophils% 0.7 % (0-5); Hematocrit 25.5 % (40-54); Hemoglobin 8.7 g/dL (13.0-16.5); Lymphocyte # 1.36 X10^3/ul (0.83-4.51); Lymphocyte % 31.9 % (19-41); Mean Corp Hgb Conc 34.1 g/dL (32-36); Mean Corpuscular Hgb 28.9 pg (27.0-32.0); Mean Corpuscular Volume 84.7 fL (80-94); Mean Platelet Vol. 9.8 fl (6.2-12.0); Monocyte# 0.03 X10^3/uL; Monocyte% 0.7 % (0-10); NRBC Flagged by Analyzer 0 % (0-5); Neutrophil # 2.76 X10^3/uL (2.7-7.7); Neutrophil % 64.8 % (47-70); POSITIVE MORPHOLOGY YES; Platelet Count 156 K/mm3 (150-450); RBC Distribution Width CV 20.8 % (11.6-14.6); RBC Distribution Width SD 61.8 fl (35.1-43.9); Red Blood Count 3.01 M/mm3 (4.6-6.2); White Blood Count 4.3 K/mm3 (4.4-11.0)
[2025-03-13 06:26] LABS: Differential Indicated SCAN CRITERIA MET
[2025-03-13 06:54] LABS: Anion Gap 12 (5-15); BUN 16 mg/dL (4-19); BUN/Creat Ratio 16.2 RATIO (10-20); Calcium,Total 8.6 mg/dL (7.6-11.0); Chloride 96 mmol/L (98-108); Creatinine, Serum 0.97 mg/dL (0.70-1.20); EST Glomerular Filtration Rate 77 (>60); Estimated Creatinine Clearance 47.99 ml/min (50-250); Glucose 109 mg/dL (70-99); Phosphorus 2.6 mg/dL (2.7-4.5); Potassium 3.8 mmol/L (3.3-5.1); Sodium Level 131 mmol/L (133-145)
[2025-03-13 07:01] LABS: Anisocytosis 2+; Atypical Lymphocyte RARE %; Differential Comment SCANNED
--- NOTE | 2025-03-13 09:07 | PCM.PN.HOSP ---
Reason for Visit Reason for Visit: Diagnoses Anemia, unspecified (03/12/25) Gastrointestinal hemorrhage, unspecified (03/12/25) Objective Data Objective Data Vital Signs: Vital Signs Temp Pulse Resp BP Pulse Ox O2 Del Method O2 Flow Rate 99.4 F H 86 24 H 121/60 H 96 Nasal Cannula 6 03/13/25 06:00 03/13/25 06:00 03/13/25 06:00 03/13/25 06:00 03/13/25 06:00 03/13/25 06:00 03/13/25 06:00 Oxygen Flow Rate (L/min) 6 Oxygen Delivery Method Nasal Cannula Weight: 129 lb 10.109 oz Body Mass Index (BMI) 20.2 Intake & Output: Intake and Output for Last 24 Hours 03/11/25 03/12/25 03/13/25 23:59 23:59 23:59 Intake Total 840 / 840 Output Total 400 / 450 1550 / 1550 Balance 440 / 390 -1550 / -1550 Medical Nutrition Assessment Dietitian: Malnutrition Criteria Met Start: 03/12/25 15:45 Freq: Status: Active Protocol: Document 03/12/25 15:46 SB (Rec: 03/12/25 15:46 SB [id number]) Nutrition Malnutrition Evidence of Yes Malnutrition Exists Malnutrition (severe Chronic ): Evidenced By Weight Loss (Severe),Physical Changes (Severe) Clinical Problem Chronic Disease or Condition Related Malnutrition Etiology severe related to increased energy expenditure due to lung cancer Signs/Symptoms as evidenced by 15% unintentional weight loss x 4 month and muscle/fat wasting in clavicle and anabaptism region Status Active Problem Recommendation Dietitian Continue regular diet. Recommendations/ Will order 120ml chocolate EPHP 4x daily with medpass. Changes Will monitor weight trends. Lab / Micro Data 03/13/25 13:00 03/13/25 05:55 Labs: Laboratory Results - last 24 hr 03/12/25 11:48: WBC 4.2 L, RBC 2.30 L, Hgb 6.6 L, Hct 20.4 L, MCV 88.7, MCH 28.7, MCHC 32.4, RDW Std Deviation 70.6 H, RDW Coeff of Terell 21.9 H, Plt Count 144 L, MPV 10.1, Immature Gran % (Auto) 3.100 H, Neut % (Auto) 60.0, Lymph % (Auto) 34.1, [place] % (Auto) 2.1, Eos % (Auto) 0.5, Baso % (Auto) 0.2, Absolute Neuts (auto) 2.5, Absolute Lymphs (auto) 1.43, Nucleated RBC % 0, Anisocytosis 1+, Retic Count 1.60 H, Immature Retic Fraction 25.80 H, Retic Hgb Equivalent 30.1, Sodium 130 L, Potassium 4.0, Chloride 97 L, Carbon Dioxide 22.3, Anion Gap 11, BUN 25 H, Creatinine 1.28 H, Estim Creat Clear Calc 38.16 L, Est GFR (MDRD) Non-Af 56 L, BUN/Creatinine Ratio 19.8, Glucose 117 H, Calcium 8.5, Iron 13 L, TIBC 183 L, Iron Saturation 7.1 L, Unsaturated IBC 170 L, Ferritin 1070 H, Total Bilirubin 0.53, AST 89 H, ALT 99 H, Alkaline Phosphatase 110, Total Protein 5.4 L, Albumin 3.0 L, Globulin 2.4, Albumin/Globulin Ratio 1.3, Vitamin B12 910, Blood Type A POSITIVE, Antibody Screen NEGATIVE, Crossmatch See Detail 03/12/25 17:55: Hgb 9.1 L, Hct 27.4 L 03/12/25 23:50: Hgb 8.3 L, Hct 24.6 L 03/13/25 05:55: WBC 4.3 L, RBC 3.01 L, Hgb 8.7 L, Hct 25.5 L, MCV 84.7, MCH 28.9, MCHC 34.1 D, RDW Std Deviation 61.8 H, RDW Coeff of Terell 20.8 H, Plt Count 156, MPV 9.8, Immature Gran % (Auto) 1.900 H, Neut % (Auto) 64.8, Lymph % (Auto) 31.9, [place] % (Auto) 0.7, Eos % (Auto) 0.7, Baso % (Auto) 0.0, Absolute Neuts (auto) 2.8, Absolute Lymphs (auto) 1.36, Nucleated RBC % 0, Differential Comment SCANNED, Atypical Lymphocytes RARE, Anisocytosis 2+, Sodium 131 L, Potassium 3.8, Chloride 96 L, Carbon Dioxide 23.0, Anion Gap 12, BUN 16, Creatinine 0.97, Estim Creat Clear Calc 47.99 L, Est GFR (MDRD) Non-Af 77, BUN/Creatinine Ratio 16.2, Glucose 109 H, Calcium 8.6, Phosphorus 2.6 L, Magnesium 2.0 Micro: Microbiology 03/12/25 11:44 Stool Stool Occult Blood (ZARA) - Final Occult Blood Positive Radiography Diagnostic Testing: Radiology Impression Chest X-Ray 03/12/25 11:50 IMPRESSION: Pleural-parenchymal changes at the left lung base in keeping with a small left pleural effusion with underlying atelectasis and/or infiltrate. Reading Location: [facility] Physical Exam Narrative Seen and examined. Patient has generalized weakness with profound anemia. History of non-small cell lung cancer went for scheduled weekly chemotherapy and was sent to ED for severe anemia. Patient follows Dr. Kel Chao. On 2 L of home oxygen only on walking/exertion. Physical exam General: Alert, Oriented x3, Cooperative HEENT: Atraumatic, PERRLA, EOMI, Normocephalic Oral: No Gingival or Mucosal Lesions/ Ulcerations Neck: Supple, No JVD, Negative Carotid Bruits Chest wall/Lungs: Mediport at left upper chest wall. Air entry diminished in bilateral lung bases. No crepitation/rhonchi Cardiovascular: Regular rate, Regular Rhythm, Normal S1, Normal S2, No M/G/R Abdomen: Bowel Sounds Present, Soft, Non Tender, Non-Distended : No dysuria. No renal angle tenderness. No suprapubic tenderness. Extremities: No edema, Capillary Refill Less than 3 Seconds Skin: No rashes, No breakdown Musculoskeletal: No Tenderness to Palpation of Joints or Extremities Neurological: Cranial nerves II-XII grossly intact, DTR 2+/4. No acute focal neurological deficit. Psych/Mental Status: Normal Affect, Appropriate. Assessment & Plan Assessment/Plan (1) GI bleed: (2) Anemia: PLAN: Plan Patient is an 84-year-old gentleman with history of non-small cell lung cancer, paroxysmal A-fib as well as history of pulmonary embolism on systemic anticoagulation with Xarelto presented with profound generalized weakness found to have hemoglobin of 6.6 with a guaiac positive stools 1. Severe anemia ? Secondary to acute blood loss anemia superimposed on probable chronic anemia exacerbated by the use of systemic anticoagulation. Patient hemoglobin on admission was 6.6. Patient was typed and crossmatched, and order was given for patient to be transfused 1 unit PRBC. Did request for iron studies prior to patient's transfusion. Patient was started on Protonix GI consulted and admitted to monitored bed subsequent evaluation with every 6 H&H ordered 03/13: H&H 8.5/25%. Platelet count 1 56K. EGD today. Impressions : - No gross lesions in the entire stomach. - No gross lesions in the entire examined duodenum. - No specimens collected. Recommendations : - [facility]. - Clear liquid diet. - Continue present medications. - Consider Colonoscopy 2. Hyponatremia ? 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 Acute renal insufficiency ? Baseline creatinine 1.0 creatinine on admission was 1.28 patient was started on IV hydration from the ED. Repeat CBC ordered for a.m. 4. Hypotension ? Patient systolic blood pressures were in the 90s did receive IV fluid resuscitation; patient is on tamsulosin and finasteride as well as metoprolol held plan is to resume once blood pressure stabilizes 5. Non-small cell lung CA ? Currently undergoing chemotherapy as outpatient patient is followed by Dr. Martinez with [facility] 6. Paroxysmal atrial fibrillation ? Rate controlled on metoprolol systemic anticoagulation with Xarelto which is currently being held given patient presentation 7. History of previous pulmonary embolism ? Patient is on Xarelto held given above reasons 8. Chronic lymphocytic leukemia ? Currently stable 9. Dyslipidemia ?Patient is on statin therapy, continued at home dose 10. BPH with lower urinary obstructive symptoms - Patient treated with tamsulosin as well as finasteride currently being held given patient relatively low blood pressure 11. Depression with anxiety ? Patient is on sertraline as well as alprazolam plan is to resume once home meds have been reconciled 12. GERD ? Patient is on omeprazole, currently receiving Protonix 13 Known AAA ? Outpatient follow-up by primary care 14. DVT prophylaxis ? Patient is on Xarelto which is currently being held given above reasons Advance planning; did discuss with the patient and family (patient's son) regarding advanced directives as well as CODE STATUS. Did explain the various scenarios involved ( FULL CODE, DNR CCA, DNR CCA with no intubation, and DNR CC and what each meant) patient elected to remain full code with CPR and intubation if warranted. Full code Charges/Coding Visit Charges Inpatient E&M: 95501 Subs Hosp L2
[2025-03-13] MEDS: 0.9% Saline Lock 10 ML Syringe IV (10:41)
[2025-03-13] MEDS: Metoclopramide 10 MG/2 ML Vial IV (10:41)
[2025-03-13] MEDS: Pantoprazole Sodium 40 MG in 0.9% Normal Saline (100mL MB+) 100 ML 330 MG IV ×2 (10:46→22:41)
--- NOTE | 2025-03-13 11:06 | PCM.PRE.AN2 ---
ASA Classification* ASA Classification ASA Classification: 3 and E Assessment & Plan Anesthesia* Anesthesia Assessment Anesthesia Assessment: Discussed sedation and/or anesthesia options, risks, benefits, and alternatives with patient/parents/legal guardian/POA. Questions invited. The patient/parents/legal guardian/POA seems to understand and agrees to proceed with anesthesia plan. Reviewed the physical assessment, medical history, allergy history and patient home medications list prior to surgery/procedure/anesthetic and documented any changes. Performed airway and anesthesia risk assessments. Anesthesia Type Anesthesia Type: MAC Anesthesia Focused Assessment* Temperature: 99 F Pulse Rate: 91 Blood Pressure: 119/55 Respiratory Rate: 16 Pulse Ox: 98 Oxygen Flow Rate (L/min): 5 Airway Assessment Mouth opens: >3 cm Mallampati Score: II Focused Labs Anesthesia Preop lab: CBC WBC 4.3 K/mm3 (4.4-11.0) L 03/13/25 05:55 03/13/25 RBC 3.01 M/mm3 (4.6-6.2) L 03/13/25 05:55 03/13/25 Hgb 8.7 g/dL (13.0-16.5) L 03/13/25 05:55 03/13/25 Hct 25.5 % (40-54) L 03/13/25 05:55 03/13/25 Plt Count 156 K/mm3 (150-450) 03/13/25 05:55 03/13/25 CHEMISTRY Potassium 3.8 mmol/L (3.3-5.1) 03/13/25 05:55 03/13/25 Sodium 131 mmol/L (133-145) L 03/13/25 05:55 03/13/25 Magnesium 2.0 mg/dL (1.5-2.2) 03/13/25 05:55 03/13/25 Phosphorus 2.6 mg/dL (2.7-4.5) L 03/13/25 05:55 03/13/25 BUN 16 mg/dL (4-19) 03/13/25 05:55 03/13/25 Creatinine 0.97 mg/dL (0.70-1.20) 03/13/25 05:55 03/13/25 Glucose 109 mg/dL (70-99) H 03/13/25 05:55 03/13/25 TSH 1.680 uIU/mL (0.300-4.200) 02/12/25 11:30 02/12/25 COAG PT 15.3 SECONDS (11.7-14.9) H 02/12/25 11:30 02/12/25 Pre-Assessment Diagnosis/Proposed Procedure Planned Operative Procedure(s): EGD Anesthesia History Anesthesia History - administration professional: Anesthesia History - administration professional Hx Hospitalization Any Problems With Anesthesia Cholinesterase deficiency You/Your Family Experience fever (hyperthermia) with Relationship Recent Exposure to Contagious Disease Does patient have nerve stimulator Patient instructed to have device shut off --Does patient have Pacemaker or ICD? When Was Last Pacemaker Check QUESTION #4 FULL TEXT: You/Your Family Experience fever (hyperthermia) with Anesthesia Last Oral Intake Last Oral intake: Last Oral Intake NPO since Meds taken in AM with sips of water? Meds patient instructed to take am of surgery PONV PONV - administration professional: PONV - administration professional Female HX of Motion Sickness HX of N/V After Surgery Non-Smoker Duration of Surgery greater than 60 minutes Number of Risk Factors PONV Score Height & Weight Height & Weight: Anesthesia: Height & Weight Height 5 ft 7 in 03/12/25 15:35 Weight: 58.8 kg 03/12/25 15:35 Body Mass Index (BMI) 20.2 03/12/25 14:16 Respiratory Assessment Respiratory Assessment - administration professional: Respiratory Tract Infection Hx - administration professional Hx Respiratory Tract Infection STOP Sleep Apnea STOP Sleep Apnea - administration professional: STOP Sleep Apnea - administration professional Hx Hypertension Yes 03/12/25 14:16 Hx Sleep Apnea No 03/12/25 14:16 CPAP BIPAP Do you snore loudly (louder No 03/12/25 14:16 than talking or can be heard Do you often feel tired/ No 03/12/25 14:16 fatigued/ sleepy during daytime? Has anyone observed you stop No 03/12/25 14:16 breathing during sleep? STOP Results Negative 03/12/25 14:16 QUESTION #5 FULL TEXT : Do you snore loudly (louder than talking or can be heard through closed doors)? Tobacco Use History Tobacco Use History - administration professional: Tobacco Use History - administration professional Tobacco Use Smoking Status Former smoker 03/12/25 14:16 Hx Tobacco Use No 03/12/25 14:16 Years Smoking Packs Smoked per Day Smoking Cessation Date was No - quit smoking greater 03/12/25 14:16 within the last 15 years than 15 years ago Hx Smoking Cessation Date Hx Smoking Cessation No 03/12/25 14:16 Counseling Hematologic Medial History Hematologic Hx - administration professional: Hematologic Medical Hx - advertising designer Hx of Blood Transfusion Yes 03/12/25 14:16 Hx of Transfusion in last 3 Yes 03/12/25 14:16 Months Date of Last Transfusion (if 02/21/25 03/12/25 14:16 within last 3 months) Ever experience any problems No 03/12/25 14:16 with transfusion(s)? Specify any problems Hx of Preganancy in last 3 N/A 03/12/25 14:16 Months Nurse Filling Out Transfusion [email or web address] 03/12/25 14:16 & Questions: Date: 03/12/25 03/12/25 14:16 Time: 14:21 03/12/25 14:16 Patient unable to answer at this time (ie. confused, unrespo /Reproduction History /Reproductive History - administration professional: /Reproductive Hx- administration professional Hx Now Gestational Age (in weeks): EDC: Hx Hx Para Hx Section SAB Active Medications Active Medications: Current Medications Generic Name Dose Route Start Last Admin Trade Name Freq PRN Reason Stop Dose Admin Acetaminophen 650 mg 03/12/25 14:15 Acetaminophen 325 Mg Tablet PO Q6H PRN PRN Pain 1-10 Or Fever>100.7 Al Hydroxide/Mg Hydroxide 30 ml 03/12/25 14:15 Mag Hydrox/Al Hydrox/Simeth 30 Ml Udc PO Q6H PRN PRN Gastric Burning Albuterol Sulfate 2.5 mg 03/12/25 14:15 Albuterol 2.5 Mg/3 Ml Vial.Neb. INHALATION Q2H PRN PRN SOB &/OR WHEEZING Alprazolam 0.25 mg 03/12/25 16:52 Alprazolam 0.25 Mg Tablet PO TID PRN anxiety Atorvastatin Calcium 10 mg 03/13/25 10:00 Atorvastatin Calcium 10 Mg Tablet PO DAILY HOLDEN Ferrous Sulfate 325 mg 03/12/25 17:00 03/12/25 17:54 Ferrous Sulfate 325 Mg Tablet PO 325 mg 1200,1700 HOLDEN Administration Guaifenesin 20 ml 03/12/25 14:15 Guaifenesin 10 Ml Udc (200mg/10ml) PO Q4H PRN PRN COUGH Pantoprazole Sodium 40 mg/ 110 mls @ 330 mls/hr 03/12/25 14:15 03/13/25 10:46 Sodium Chloride IV 330 mls/hr Q12 HOLDEN Administration Sodium Chloride 100 mls @ 15 mls/hr 03/12/25 17:25 03/13/25 04:47 IV 15 mls/hr .Q6H40M PRN Administration Saline Flush Sodium Chloride 100 mls @ 15 mls/hr 03/12/25 17:25 IV .Q6H40M PRN Additional IVPB Infusion Levothyroxine Sodium 50 mcg 03/13/25 06:00 03/13/25 04:47 Levothyroxine 50 Mcg Tablet PO 50 mcg DAILY@0600 HOLDEN Administration Metoprolol Tartrate 25 mg 03/12/25 22:00 03/12/25 23:30 Metoprolol Tartrate 25 Mg Tablet PO 25 mg BID HOLDEN Administration Protocol Metoprolol Tartrate 5 mg 03/12/25 20:51 03/12/25 21:21 Metoprolol Tartrate 5 Mg/5 Ml Vial IV 5 mg Q6H PRN PRN Administration tachycardia Protocol Nutritional Formula (Lactose Free) 120 ml 03/12/25 18:00 03/13/25 10:23 Ensure Plus High Protein 120 Ml Liquid PO Not Given 4X/DAY HOLDEN Prochlorperazine Edisylate 5 mg 03/12/25 14:15 Prochlorperazine 10 Mg/2 Ml Vial IV Q4H PRN PRN Breakthrough Nausea/Vomiting Sertraline HCl 100 mg 03/12/25 22:00 03/12/25 21:28 Sertraline 100 Mg Tablet PO 100 mg BID HOLDEN Administration Sodium Chloride 10 - 40 ml 03/12/25 17:25 03/13/25 10:41 0.9% Saline Lock 10 Ml Syringe IV 10 ml UD PRN Administration SALINE FLUSH Trazodone HCl 50 mg 03/12/25 22:00 03/12/25 21:21 Trazodone 50 Mg Tablet PO 50 mg QHS HOLDEN Administration Zolpidem Tartrate 5 mg 03/12/25 14:15 Zolpidem Tartrate 5 Mg Tablet PO QHS PRN PRN INSOMNIA PFSH Medical History Non-small cell lung cancer (NSCLC) Fatigue Pneumonia Pleural effusion, left Paroxysmal atrial fibrillation Nonrheumatic mitral (valve) prolapse Persistent atrial fibrillation Right bundle branch block (RBBB) Lung nodule Iron deficiency anemia Thoracic aortic aneurysm Nonrheumatic aortic (valve) insufficiency Nonrheumatic mitral (valve) insufficiency Hyperlipidemia Essential (primary) hypertension Atrial fibrillation with RVR (01/29/18) Anxiety Benign prostatic hypertrophy Chronic lymphocytic leukemia Home Medications ?Medication ?Instructions ?Recorded ?Last Taken ?Type finasteride 5 mg tablet 5 mg PO DAILY PROSTATE 12/08/16 03/12/25 History tamsulosin 0.4 mg capsule 0.4 mg PO DAILY PROSTATE 12/08/16 03/12/25 History metoprolol tartrate 25 mg tablet 25 mg PO BID HEART, BLOOD PRESSURE 01/28/18 03/12/25 History omeprazole 40 mg capsule,delayed 40 mg PO DAILY ACID REFLUX 01/28/18 03/12/25 History release ferrous sulfate 325 mg (65 mg 325 mg PO BID 08/25/19 03/12/25 History iron) tablet trazodone 50 mg tablet 50 mg PO QHS 04/21/21 03/11/25 History rivaroxaban 20 mg tablet (Xarelto) 20 mg PO DAILY 04/19/22 03/12/25 History levothyroxine 50 mcg tablet 50 mcg PO DAILY disorder of 03/26/24 03/12/25 History thyroid gland sertraline 100 mg tablet 100 mg PO BID 11/07/24 03/12/25 History atorvastatin 10 mg tablet 10 mg PO DAILY 01/01/25 03/12/25 History alprazolam 0.25 mg tablet 0.25 mg PO TID PRN anxiety 02/12/25 02/12/25 History zolpidem 10 mg tablet (Ambien) 10 mg PO QHS 03/06/25 03/11/25 History Allergy/AdvReac Type Severity Reaction Status Date / Time codeine Allergy Rash Verified 03/12/25 11:14 ondansetron (From Zofran (as Allergy Unknown Verified 03/12/25 11:14 hydrochloride)) Family History Brother Heart disease CVA (cerebral vascular accident) Cancer Brother Heart disease Sister Cancer Surgical History H/O colonoscopy with polypectomy Social History housing: house Smoking Status: Former smoker Smokeless tobacco user: snuff alcohol intake: current Alcohol type: beer Review of Systems (Anesthesia) ROS Narrative System reviewed and no additional complaints, except as documented.
--- NOTE | 2025-03-13 11:42 | EX.PCM.CON.G ---
HPI Consult Data Date of Consult: 03/13/25 HPI Narrative Reason for Consultation: GI bleed HPI Narrative: KANG GREEN, is a 84 M with past medical history significant for non-small cell lung CA currently on chemo, paroxysmal atrial fibrillation on systemic anticoagulation with Xarelto 2 who was sent from his oncologist office with profound generalized weakness. Patient states he has not been himself since he started chemo 3 months prior. He did notice increasing weakness and lightheadedness over the past couple of days. Lab work obtained in his oncologist office revealed hemoglobin of 7.2 patient was sent to the emergency department for subsequent eval. Repeat hemoglobin came back at 6.6. On further questioning patient denied any COVID ground emesis. Did admit to having dark stools but no bright red per rectum. Patient was noted to be guaiac positive in the ED [facility] Medical History Non-small cell lung cancer (NSCLC) Fatigue Pneumonia Pleural effusion, left Paroxysmal atrial fibrillation Nonrheumatic mitral (valve) prolapse Persistent atrial fibrillation Right bundle branch block (RBBB) Lung nodule Iron deficiency anemia Thoracic aortic aneurysm Nonrheumatic aortic (valve) insufficiency Nonrheumatic mitral (valve) insufficiency Hyperlipidemia Essential (primary) hypertension Atrial fibrillation with RVR (01/29/18) Anxiety Benign prostatic hypertrophy Chronic lymphocytic leukemia Home Medications ?Medication ?Instructions ?Recorded ?Last Taken ?Type finasteride 5 mg tablet 5 mg PO DAILY PROSTATE 12/08/16 03/12/25 History tamsulosin 0.4 mg capsule 0.4 mg PO DAILY PROSTATE 12/08/16 03/12/25 History metoprolol tartrate 25 mg tablet 25 mg PO BID HEART, BLOOD PRESSURE 01/28/18 03/12/25 History omeprazole 40 mg capsule,delayed 40 mg PO DAILY ACID REFLUX 01/28/18 03/12/25 History release ferrous sulfate 325 mg (65 mg 325 mg PO BID 08/25/19 03/12/25 History iron) tablet trazodone 50 mg tablet 50 mg PO QHS 04/21/21 03/11/25 History rivaroxaban 20 mg tablet (Xarelto) 20 mg PO DAILY 04/19/22 03/12/25 History levothyroxine 50 mcg tablet 50 mcg PO DAILY disorder of 03/26/24 03/12/25 History thyroid gland sertraline 100 mg tablet 100 mg PO BID 11/07/24 03/12/25 History atorvastatin 10 mg tablet 10 mg PO DAILY 01/01/25 03/12/25 History alprazolam 0.25 mg tablet 0.25 mg PO TID PRN anxiety 02/12/25 02/12/25 History zolpidem 10 mg tablet (Ambien) 10 mg PO QHS 03/06/25 03/11/25 History Allergy/AdvReac Type Severity Reaction Status Date / Time codeine Allergy Rash Verified 03/12/25 11:14 ondansetron (From Zofran (as Allergy Unknown Verified 03/12/25 11:14 hydrochloride)) Family History Brother Heart disease CVA (cerebral vascular accident) Cancer Brother Heart disease Sister Cancer Surgical History H/O colonoscopy with polypectomy Social History housing: house Smoking Status: Former smoker Smokeless tobacco user: snuff alcohol intake: current Alcohol type: beer ROS Constitutional Constitutional: Denies fatigue, fever(s), poor appetite, weight gain or weight loss Gastrointestinal Gastrointestinal: Denies belching, bloating, change in bowel habits, change in stool character, chewing difficulty, coffee ground emesis, constipation, cramping, diarrhea, dyspepsia, dysphagia, early satiety, excessive flatus, fecal incontinence, heartburn, hematemesis, hematochezia, hemorrhoids, loose stools, melena, nausea, odynophagia, rectal bleeding, tenesmus, vomiting or weight changes Physical Exam Narrative GENERAL: cooperative HEENT: Atraumatic; normocephalic EYES; Anicteric, pallor of the conjunctiva NECK; supple, normal thyroid, RESPIRATORY: Diminished to auscultation CARDIOVASCULAR: Regular S1 S2, GI: soft, normoactive bowel sounds, : No Renal angle tenderness; EXTREMITIES: No edema, no clubbing, MUSCULOSKELETAL: no muscle wasting NEURO: Awake; no lateralizing signs. SKIN: No Rash PSYCH; Flat affect Medical Records Data Medical Nutrition Assessment Dietitian: Malnutrition Criteria Met Start: 03/12/25 15:45 Freq: Status: Active Protocol: Document 03/12/25 15:46 SB (Rec: 03/12/25 15:46 SB [id number]) Nutrition Malnutrition Evidence of Yes Malnutrition Exists Malnutrition (severe Chronic ): Evidenced By Weight Loss (Severe),Physical Changes (Severe) Clinical Problem Chronic Disease or Condition Related Malnutrition Etiology severe related to increased energy expenditure due to lung cancer Signs/Symptoms as evidenced by 15% unintentional weight loss x 4 month and muscle/fat wasting in clavicle and islam region Status Active Problem Recommendation Dietitian Continue regular diet. Recommendations/ Will order 120ml chocolate EPHP 4x daily with medpass. Changes Will monitor weight trends. Lab / Micro Data 03/13/25 05:55 03/13/25 05:55 Labs: Laboratory Results - last 24 hr 03/12/25 11:48: WBC 4.2 L, RBC 2.30 L, Hgb 6.6 L, Hct 20.4 L, MCV 88.7, MCH 28.7, MCHC 32.4, RDW Std Deviation 70.6 H, RDW Coeff of Terell 21.9 H, Plt Count 144 L, MPV 10.1, Immature Gran % (Auto) 3.100 H, Neut % (Auto) 60.0, Lymph % (Auto) 34.1, [place] % (Auto) 2.1, Eos % (Auto) 0.5, Baso % (Auto) 0.2, Absolute Neuts (auto) 2.5, Absolute Lymphs (auto) 1.43, Nucleated RBC % 0, Anisocytosis 1+, Retic Count 1.60 H, Immature Retic Fraction 25.80 H, Retic Hgb Equivalent 30.1, Sodium 130 L, Potassium 4.0, Chloride 97 L, Carbon Dioxide 22.3, Anion Gap 11, BUN 25 H, Creatinine 1.28 H, Estim Creat Clear Calc 38.16 L, Est GFR (MDRD) Non-Af 56 L, BUN/Creatinine Ratio 19.8, Glucose 117 H, Calcium 8.5, Iron 13 L, TIBC 183 L, Iron Saturation 7.1 L, Unsaturated IBC 170 L, Ferritin 1070 H, Total Bilirubin 0.53, AST 89 H, ALT 99 H, Alkaline Phosphatase 110, Total Protein 5.4 L, Albumin 3.0 L, Globulin 2.4, Albumin/Globulin Ratio 1.3, Vitamin B12 910, Blood Type A POSITIVE, Antibody Screen NEGATIVE, Crossmatch See Detail 03/12/25 17:55: Hgb 9.1 L, Hct 27.4 L 03/12/25 23:50: Hgb 8.3 L, Hct 24.6 L 03/13/25 05:55: WBC 4.3 L, RBC 3.01 L, Hgb 8.7 L, Hct 25.5 L, MCV 84.7, MCH 28.9, MCHC 34.1 D, RDW Std Deviation 61.8 H, RDW Coeff of Terell 20.8 H, Plt Count 156, MPV 9.8, Immature Gran % (Auto) 1.900 H, Neut % (Auto) 64.8, Lymph % (Auto) 31.9, [place] % (Auto) 0.7, Eos % (Auto) 0.7, Baso % (Auto) 0.0, Absolute Neuts (auto) 2.8, Absolute Lymphs (auto) 1.36, Nucleated RBC % 0, Differential Comment SCANNED, Atypical Lymphocytes RARE, Anisocytosis 2+, Sodium 131 L, Potassium 3.8, Chloride 96 L, Carbon Dioxide 23.0, Anion Gap 12, BUN 16, Creatinine 0.97, Estim Creat Clear Calc 47.99 L, Est GFR (MDRD) Non-Af 77, BUN/Creatinine Ratio 16.2, Glucose 109 H, Calcium 8.6, Phosphorus 2.6 L, Magnesium 2.0 Micro: Microbiology 03/12/25 11:44 Stool Stool Occult Blood (ZARA) - Final Occult Blood Positive Imaging Radiology Impression Chest X-Ray 03/12/25 11:50 IMPRESSION: Pleural-parenchymal changes at the left lung base in keeping with a small left pleural effusion with underlying atelectasis and/or infiltrate. Reading Location: [facility] Assessment & Plan Assessment/Plan (1) GI bleed: (2) Anemia: PLAN: Plan Patient is an 84-year-old gentleman with history of non-small cell lung cancer, paroxysmal A-fib as well as history of pulmonary embolism on systemic anticoagulation with Xarelto presented with profound generalized weakness found to have hemoglobin of 6.6 with a guaiac positive stools Severe Anemia Secondary to acute blood loss anemia superimposed on probable chronic anemia exacerbated by the use of systemic anticoagulation. Patient hemoglobin on admission was 6.6. Patient was typed and crossmatched, and order was given for patient to be transfused 1 unit PRBC. Patient will undergo an upper endoscopy and possible colonoscopy. He was explained alternatives, risk and benefits clindamycin to bleed, infection, sepsis, perforation, need for incision . He will have an ASA of 3. Charges/Coding Visit Charges Inpatient E&M: 70123 Init Hosp L3
--- NOTE | 2025-03-13 12:01 | OP.EGD_ITS ---
Patient Name: Dany Hinds Procedure Date: 03/13/2025 11:27 AM Date of : 1940 Age: 84 Procedure: Upper GI endoscopy Indications: Iron deficiency anemia, Melena, Suspected upper gastrointestinal bleeding Providers: Bora Rojo DO Referring MD: Cristy Gruber Medicines: Monitored Anesthesia Care Patient Profile: This is an 84 year old male. Refer to note in patient chart for documentation of history and physical. Patient has symptoms. Complications: No immediate complications. Procedure: Pre-Anesthesia Assessment: - Prior to the procedure, a History and Physical was performed, and patient medications and allergies were reviewed. The patient is competent. The risks and benefits of the procedure and the sedation options and risks were discussed with the patient. All questions were answered and informed consent was obtained. Patient identification and proposed procedure were verified by the physician in the pre-procedure area. Mental Status Examination: alert and oriented. Airway Examination: normal oropharyngeal airway and neck mobility. Respiratory Examination: clear to auscultation. CV Examination: normal. Prophylactic Antibiotics: The patient does not require prophylactic antibiotics. Prior Anticoagulants: The patient has taken no anticoagulant or antiplatelet agents. ASA Grade Assessment: II - A patient with mild systemic disease. After reviewing the risks and benefits, the patient was deemed in satisfactory condition to undergo the procedure. The anesthesia plan was to use monitored anesthesia care (MAC). Immediately prior to administration of medications, the patient was re-assessed for adequacy to receive sedatives. The heart rate, respiratory rate, oxygen saturations, blood pressure, adequacy of pulmonary ventilation, and response to care were monitored throughout the procedure. The physical status of the patient was re-assessed after the procedure. After obtaining informed consent, the endoscope was passed under direct vision. Throughout the procedure, the patient's blood pressure, pulse, and oxygen saturations were monitored continuously. The Endoscope was introduced through the mouth, and advanced to the fourth part of the duodenum. Small bowel enteroscopy was deemed necessary. The upper GI endoscopy was accomplished without difficulty. The patient tolerated the procedure well. Scope In: 11:51:49 AM Scope Out: 11:56:09 AM Total Procedure Duration Time 0 hours 4 minutes 20 seconds Findings: 3 mm angiodysplastic lesion was seen in the proximal esophagus. It was treated with APC. Coagulation for bleeding prevention using heater probe was successful. Estimated blood loss was minimal. No gross lesions were noted in the entire examined stomach. No gross lesions were noted in the entire examined duodenum. Impression: - No gross lesions in the entire stomach. - No gross lesions in the entire examined duodenum. - No specimens collected. Recommendation: - [facility] to [facility] care. - Clear liquid diet. - Continue present medications. - Consider Colonoscopy Procedure Code(s): --- Professional --- 12241, Small intestinal endoscopy, enteroscopy beyond second portion of duodenum, not including ileum; with control of bleeding (eg, injection, bipolar cautery, unipolar cautery, laser, heater probe, stapler, plasma sales recruitment specialist) CPT copyright 2021 [employer]. All rights reserved. The codes documented in this report are preliminary and upon tobacco sampler review may be revised to meet current compliance requirements. Bora Rojo DO 03/13/2025 12:00:56 PM This report has been signed electronically. Number of Addenda: 0 Note Initiated On: 03/13/2025 11:27 AM
--- NOTE | 2025-03-13 12:01 | OP.CCLET_ITS ---
03/13/2025 Jay Junior MD Re : Upper GI endoscopy procedure for Dany Hinds Dear Dr. Junior This procedure was performed on Thursday, March 13, 2025. My impressions and recommendations are as follows: Impressions : - No gross lesions in the entire stomach. - No gross lesions in the entire examined duodenum. - No specimens collected. Recommendations : - Return patient to [facility] for [facility] care. - Clear liquid diet. - Continue present medications. - Consider Colonoscopy My findings are described in the full procedure note, which is enclosed. If I can be of further assistance, please feel free to contact me at . Sincerely, Bora Rojo, 03/13/2025 12:00:56 PM This report has been signed electronically.
--- NOTE | 2025-03-13 12:06 | PCM.POST.ANE ---
Anesthesia: Postop Eval I Current Vital Signs Temperature: 98.9 F Pulse Rate: 77 Blood Pressure: 90/48 Respiratory Rate: 16 Pulse Ox: 91 Oxygen Delivery Method: Nasal Cannula Oxygen Flow Rate (L/min): 3 Assessment Airway patent: Yes Spontaneous unlabored respirations: Yes Mental status: Awake nausea: No Vomiting: No Anesthesia Complication: No Fluid Hydration Crystalloid volume administer (ml): 30 Total IV fluid infused: 30 Progress Note Anesthesia document: Postop Eval 1 completed: Yes
--- NOTE | 2025-03-13 12:10 | NURSING ---
This Rn attempted to call report to endo multiple times.
--- NOTE | 2025-03-13 12:28 | PCM.POSTANE2 ---
Anesthesia Postop Eval I Sum Postop Eval Completion status Anesthesia document: Postop Eval 1 completed: Yes Anesthesia Postop Eval I Summary Anesthesia Postop Eval I Summary: Anesthesia Postop Eval I: Assessment Summary Airway patent Yes 03/13/25 12:07 [email or web address] Spontaneous unlabored Yes 03/13/25 12:07 [email or web address] respirations Mental status Awake 03/13/25 12:07 [email or web address] nausea No 03/13/25 12:07 [email or web address] Vomiting No 03/13/25 12:07 [email or web address] Anesthesia Postop Eval I: Fluid Summary Crystalloid volume administer 30 03/13/25 12:07 [email or web address] (ml) Colloids volume administered ( ml) Blood Product volume administered (ml) Total IV fluid infused 30 03/13/25 12:07 [email or web address] Anesthesia Postop Eval I: Summary Notes Anesthesia Complication No 03/13/25 12:07 [email or web address] Anesthesia Complication Comment: Post-operative progress note Anesthesia: Postop Eval II Evaluation Mental status: Awake Pain Level: 0 nausea: No Vomiting: No
[2025-03-13] MEDS: Metoprolol Tartrate 25 MG Tablet PO ×2 (12:59→23:51)
[2025-03-13] MEDS: Potassium Phosphate 15 MM in 0.9% Normal Saline (250mL Bag) 250 ML 125 MM IV (13:01)
[2025-03-13 13:27] LABS: Hematocrit 25.2 % (40-54); Hemoglobin 8.5 g/dL (13.0-16.5)
[2025-03-13] MEDS: Bisacodyl 5 MG Tablet 20 MG PO (13:56)
--- NOTE | 2025-03-13 15:02 | CASEMGMT ---
HANG MITCHELL chart review: Patient was admitted 02/12-02/13 for left lower lobe pneumonia. See HANG MITCHELL assessment from 02/13/25. Patient was dischaged to home on baseline oxygen, family support, and follow-up plans in place. Patient returned to [facility] ED on 03/12/25 for weakness, shortness of breath, low hemoglobin of 6.6 and was admitted for GI bleed. HANG MITCHELL in to discuss readmission with patient and needs at discharge. Patient states he was taking medications as prescribed and attended follow-up appt. Patient has baseline oxygen of 2lpm continuous. Patient denies needs or help at discharge and declined HHC or therapy at discharge. Patient wishes to return home. CM will continue to follow this patient and plan for a safe discharge.
[2025-03-13] MEDS: Electrolyte Solution/Peg's 4000 ML PO (15:04)
[2025-03-13] MEDS: Ferrous Sulfate 325 MG Tablet PO (18:35)
[2025-03-13] MEDS: Lactated Ringers 1,000 ML 999 ML IV (19:06)
[2025-03-13] MEDS: Metoprolol Tartrate 5 MG/5 ML Vial IV (22:03)
[2025-03-13] MEDS: Lactated Ringers 1,000 ML 75 ML IV (22:08)
[2025-03-13] MEDS: traZODone 50 MG Tablet PO (22:35)
[2025-03-13] MEDS: Sertraline 100 MG Tablet PO (22:36)
[2025-03-14] VITALS (14 sets, daily range): BP systolic 82–114; BP diastolic 60–78; PULSE 100–120; RESP 14–22; TEMP 36.1–36.9; O2SAT 92–98
[2025-03-14] MEDS: Levothyroxine 50 MCG Tablet PO (05:19)
[2025-03-14 05:58] LABS: Absolute Lymphocyte Count 1.22 X10^3/uL (0.83-4.51); Absolute Neutrophil Count 3.4 X10^3/uL (2.0-7.7); Hematocrit 28.9 % (40-54); Hemoglobin 9.4 g/dL (13.0-16.5); Lymphocyte # 1.22 X10^3/ul (0.83-4.51); Lymphocyte % 25.6 % (19-41); Mean Corp Hgb Conc 32.5 g/dL (32-36); Mean Corpuscular Hgb 28.5 pg (27.0-32.0); Mean Corpuscular Volume 87.6 fL (80-94); Mean Platelet Vol. 10.1 fl (6.2-12.0); Monocyte# 0.08 X10^3/uL; Monocyte% 1.7 % (0-10); NRBC Flagged by Analyzer 0 % (0-5); Neutrophil # 3.43 X10^3/uL (2.7-7.7); Neutrophil % 71.9 % (47-70); POSITIVE MORPHOLOGY YES; Platelet Count 173 K/mm3 (150-450); RBC Distribution Width CV 20.5 % (11.6-14.6); RBC Distribution Width SD 64.5 fl (35.1-43.9); White Blood Count 4.8 K/mm3 (4.4-11.0)
[2025-03-14 06:02] LABS: Differential Indicated SCAN CRITERIA MET
[2025-03-14 06:34] LABS: Anion Gap 12 (5-15); BUN 19 mg/dL (4-19); BUN/Creat Ratio 24.2 RATIO (10-20); Calcium,Total 9.3 mg/dL (7.6-11.0); Chloride 100 mmol/L (98-108); Creatinine, Serum 0.79 mg/dL (0.70-1.20); EST Glomerular Filtration Rate 88 (>60); Estimated Creatinine Clearance 58.19 ml/min (50-250); Glucose 135 mg/dL (70-99); Potassium 4.3 mmol/L (3.3-5.1); Sodium Level 136 mmol/L (133-145)
[2025-03-14 07:02] LABS: Anisocytosis 2+; Differential Comment SCANNED; Macrocytosis 1+; Microcytosis 1+
--- NOTE | 2025-03-14 07:35 | COLBX_PTH ---
PATIENT: KANG GREEN LOC: [facility] U#:[id number] AGE/SX: 84/M ROOM: [facility] RE03/12/[address]: Dr. Festus Worley MD : 1940 BED: 1 DIS: 03/14/2025 SPEC #: [id number] RECD: 03/16/25 12:05 STATUS: HANDY HOFFMAN #: [id number] AILYN: 03/14/25 07:[address]: Festus Worley DEPT: SURGICAL PATHOLOGY RECD BY: Jack Griffin ENTERED: 03/16/25 12:05 SP TYPE: COLON BX OTHR DR: MD Dr. Jay Fermin MD Dr. Remus Ungur, DO Tissues: A - Cecum, NOS B - COLON BIOPSY C - Transverse colon D - COLON BIOPSY Procedures: Surgery Specimen Level IV HEADER OPERATION: Colonoscopy with polypectomies and control of bleeding PRE-OP DIAGNOSIS: Anemia, polyps TISSUE SUBMITTED: A- Cecum, B- Hepatic flexure polyps, C- Transverse colon polyps, D- Splenic flexure polyps MICROSCOPIC DIAGNOSIS A. Colon, cecum and ascending, polyp, biopsy: * Tubular adenoma B. Colon, hepatic flexure, polyp, biopsy: * Tubular adenoma with focal high grade dysplasia C. Transverse colon, polyp, biopsy: * Tubular adenoma D. Colon, splenic flexure, polyp, biopsy: * Tubular adenoma MICROSCOPIC DESCRIPTION Slides are reviewed. GROSS DESCRIPTION A. Received in formalin in a container labeled with the patient's name, date of , and cecum, ascending colon polyps are multiple echavarria-pink fragments of mucosal tissue measuring 2.5 x 1.5 x 0.5 cm in aggregate. Submitted in toto in A1. B. Received in formalin in a container labeled with the patient's name, date of , and hepatic flexure polyps are multiple echavarria-pink fragments of mucosal tissue measuring 2.3 x 1.5 x 1.0 cm in aggregate. The largest fragment is sectioned (no margin identified). Submitted entirely in B1-3. C. Received in formalin in a container labeled with the patient's name, date of , and transverse colon polyps are multiple echavarria-pink fragments of mucosal tissue measuring 1.3 x 0.5 x 0.3 cm in aggregate. Submitted in toto in C1. D. Received in formalin in a container labeled with the patient's name, date of , and splenic flexure polyps are multiple small echavarria-pink fragments of mucosal tissue measuring 0.7 x 0.5 x 0.2 cm in aggregate. Submitted in toto in D1. SMB 03/17/2025 CPT:50702u9
--- NOTE | 2025-03-14 07:41 | PCM.PRE.AN2 ---
ASA Classification* ASA Classification ASA Classification: 4 Assessment & Plan Anesthesia* Anesthesia Assessment Anesthesia Assessment: Discussed sedation and/or anesthesia options, risks, benefits, and alternatives with patient/parents/legal guardian/POA. Questions invited. The patient/parents/legal guardian/POA seems to understand and agrees to proceed with anesthesia plan. Reviewed the physical assessment, medical history, allergy history and patient home medications list prior to surgery/procedure/anesthetic and documented any changes. Performed airway and anesthesia risk assessments. Anesthesia Type Anesthesia Type: MAC Anesthesia Focused Assessment* Temperature: 98.4 F Pulse Rate: 100 Blood Pressure: 101/78 Respiratory Rate: 14 Pulse Ox: 96 Oxygen Flow Rate (L/min): 2 Airway Assessment Mouth opens: >3 cm Mallampati Score: II Focused Labs Anesthesia Preop lab: CBC WBC 4.8 K/mm3 (4.4-11.0) 03/14/25 05:10 03/14/25 RBC 3.30 M/mm3 (4.6-6.2) L 03/14/25 05:10 03/14/25 Hgb 9.4 g/dL (13.0-16.5) L 03/14/25 05:10 03/14/25 Hct 28.9 % (40-54) L 03/14/25 05:10 03/14/25 Plt Count 173 K/mm3 (150-450) 03/14/25 05:10 03/14/25 CHEMISTRY Potassium 4.3 mmol/L (3.3-5.1) 03/14/25 05:10 03/14/25 Sodium 136 mmol/L (133-145) 03/14/25 05:10 03/14/25 Magnesium 2.0 mg/dL (1.5-2.2) 03/13/25 05:55 03/13/25 Phosphorus 2.6 mg/dL (2.7-4.5) L 03/13/25 05:55 03/13/25 BUN 19 mg/dL (4-19) 03/14/25 05:10 03/14/25 Creatinine 0.79 mg/dL (0.70-1.20) 03/14/25 05:10 03/14/25 Glucose 135 mg/dL (70-99) H 03/14/25 05:10 03/14/25 TSH 1.680 uIU/mL (0.300-4.200) 02/12/25 11:30 02/12/25 COAG PT 15.3 SECONDS (11.7-14.9) H 02/12/25 11:30 02/12/25 Pre-Assessment Diagnosis/Proposed Procedure Planned Operative Procedure(s): colonoscopy Anesthesia History Anesthesia History - post splitter: Anesthesia History - post splitter Hx Hospitalization Any Problems With Anesthesia Cholinesterase deficiency You/Your Family Experience fever (hyperthermia) with Relationship Recent Exposure to Contagious Disease Does patient have nerve stimulator Patient instructed to have device shut off --Does patient have Pacemaker or ICD? When Was Last Pacemaker Check QUESTION #4 FULL TEXT: You/Your Family Experience fever (hyperthermia) with Anesthesia Last Oral Intake Last Oral intake: Last Oral Intake NPO since Meds taken in AM with sips of water? Meds patient instructed to take am of surgery PONV PONV - post splitter: PONV - post splitter Female HX of Motion Sickness HX of N/V After Surgery Non-Smoker Duration of Surgery greater than 60 minutes Number of Risk Factors PONV Score Height & Weight Height & Weight: Anesthesia: Height & Weight Height 5 ft 7 in 03/13/25 14:32 Weight: 58.8 kg 03/13/25 14:32 Body Mass Index (BMI) 20.2 03/12/25 14:16 Respiratory Assessment Respiratory Assessment - post splitter: Respiratory Tract Infection Hx - post splitter Hx Respiratory Tract Infection STOP Sleep Apnea STOP Sleep Apnea - post splitter: STOP Sleep Apnea - post splitter Hx Hypertension Yes 03/12/25 14:16 Hx Sleep Apnea No 03/12/25 14:16 CPAP BIPAP Do you snore loudly (louder No 03/12/25 14:16 than talking or can be heard Do you often feel tired/ No 03/12/25 14:16 fatigued/ sleepy during daytime? Has anyone observed you stop No 03/12/25 14:16 breathing during sleep? STOP Results Negative 03/12/25 14:16 QUESTION #5 FULL TEXT : Do you snore loudly (louder than talking or can be heard through closed doors)? 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 Specify any problems Hx of Preganancy in last 3 N/A 03/12/25 14:16 Months Nurse Filling Out Transfusion MMORRISON 03/12/25 14:16 & Questions: Date: 03/12/25 03/12/25 14:16 Time: 14:21 03/12/25 14:16 Patient unable to answer at this time (ie. confused, unrespo /Reproduction History /Reproductive History - post splitter: /Reproductive Hx- post splitter Hx Now Gestational Age (in weeks): EDC: Hx Hx Para Hx Section SAB Active Medications Active Medications: Current Medications Generic Name Dose Route Start Last Admin Trade Name Freq PRN Reason Stop Dose Admin Acetaminophen 650 mg 03/12/25 14:15 Acetaminophen 325 Mg Tablet PO Q6H PRN PRN Pain 1-10 Or Fever>100.7 Al Hydroxide/Mg Hydroxide 30 ml 03/12/25 14:15 Mag Hydrox/Al Hydrox/Simeth 30 Ml Udc PO Q6H PRN PRN Gastric Burning Albuterol Sulfate 2.5 mg 03/12/25 14:15 Albuterol 2.5 Mg/3 Ml Vial.Neb. INHALATION Q2H PRN PRN SOB &/OR WHEEZING Alprazolam 0.25 mg 03/12/25 16:52 Alprazolam 0.25 Mg Tablet PO TID PRN anxiety Atorvastatin Calcium 10 mg 03/13/25 10:00 03/13/25 12:12 Atorvastatin Calcium 10 Mg Tablet PO Not Given DAILY HOLDEN Ferrous Sulfate 325 mg 03/12/25 17:00 03/13/25 18:35 Ferrous Sulfate 325 Mg Tablet PO 325 mg 1200,1700 HOLDEN Administration Guaifenesin 20 ml 03/12/25 14:15 Guaifenesin 10 Ml Udc (200mg/10ml) PO Q4H PRN PRN COUGH Pantoprazole Sodium 40 mg/ 110 mls @ 330 mls/hr 03/12/25 14:15 03/13/25 23:20 Sodium Chloride IV Infused Q12 HOLDEN Infusion Sodium Chloride 100 mls @ 15 mls/hr 03/12/25 17:25 03/13/25 13:16 IV Infused .Q6H40M PRN Infusion Saline Flush Sodium Chloride 100 mls @ 15 mls/hr 03/12/25 17:25 IV .Q6H40M PRN Additional IVPB Infusion Lactated Ringer's 1,000 mls @ 75 mls/hr 03/13/25 20:00 03/13/25 22:08 IV 03/14/25 09:19 75 mls/hr .[id number] HOLDEN Administration Levothyroxine Sodium 50 mcg 03/13/25 06:00 03/14/25 05:19 Levothyroxine 50 Mcg Tablet PO 50 mcg DAILY@0600 HOLDEN Administration Metoprolol Tartrate 25 mg 03/12/25 22:00 03/13/25 23:51 Metoprolol Tartrate 25 Mg Tablet PO 25 mg BID HOLDEN Administration Protocol Metoprolol Tartrate 5 mg 03/12/25 20:51 03/13/25 22:03 Metoprolol Tartrate 5 Mg/5 Ml Vial IV 5 mg Q6H PRN PRN Administration tachycardia Protocol Nutritional Formula (Lactose Free) 120 ml 03/12/25 18:00 03/13/25 22:35 Ensure Plus High Protein 120 Ml Liquid PO Not Given 4X/DAY HOLDEN Prochlorperazine Edisylate 5 mg 03/12/25 14:15 Prochlorperazine 10 Mg/2 Ml Vial IV Q4H PRN PRN Breakthrough Nausea/Vomiting Sertraline HCl 100 mg 03/12/25 22:00 03/13/25 22:36 Sertraline 100 Mg Tablet PO 100 mg BID HOLDEN Administration Sodium Chloride 10 - 40 ml 03/12/25 17:25 03/13/25 10:41 0.9% Saline Lock 10 Ml Syringe IV 10 ml UD PRN Administration SALINE FLUSH Trazodone HCl 50 mg 03/12/25 22:00 03/13/25 22:35 Trazodone 50 Mg Tablet PO 50 mg QHS HOLDEN Administration Zolpidem Tartrate 5 mg 03/12/25 14:15 Zolpidem Tartrate 5 Mg Tablet PO QHS PRN PRN INSOMNIA PFSH Medical History Non-small cell lung cancer (NSCLC) Fatigue Pneumonia Pleural effusion, left Paroxysmal atrial fibrillation Nonrheumatic mitral (valve) prolapse Persistent atrial fibrillation Right bundle branch block (RBBB) Lung nodule Iron deficiency anemia Thoracic aortic aneurysm Nonrheumatic aortic (valve) insufficiency Nonrheumatic mitral (valve) insufficiency Hyperlipidemia Essential (primary) hypertension Atrial fibrillation with RVR (01/29/18) Anxiety Benign prostatic hypertrophy Chronic lymphocytic leukemia Home Medications ?Medication ?Instructions ?Recorded ?Last Taken ?Type finasteride 5 mg tablet 5 mg PO DAILY PROSTATE 12/08/16 03/12/25 History tamsulosin 0.4 mg capsule 0.4 mg PO DAILY PROSTATE 12/08/16 03/12/25 History metoprolol tartrate 25 mg tablet 25 mg PO BID HEART, BLOOD PRESSURE 01/28/18 03/12/25 History omeprazole 40 mg capsule,delayed 40 mg PO DAILY ACID REFLUX 01/28/18 03/12/25 History release ferrous sulfate 325 mg (65 mg 325 mg PO BID 08/25/19 03/12/25 History iron) tablet trazodone 50 mg tablet 50 mg PO QHS 04/21/21 03/11/25 History rivaroxaban 20 mg tablet (Xarelto) 20 mg PO DAILY 04/19/22 03/12/25 History levothyroxine 50 mcg tablet 50 mcg PO DAILY disorder of 03/26/24 03/12/25 History thyroid gland sertraline 100 mg tablet 100 mg PO BID 11/07/24 03/12/25 History atorvastatin 10 mg tablet 10 mg PO DAILY 01/01/25 03/12/25 History alprazolam 0.25 mg tablet 0.25 mg PO TID PRN anxiety 02/12/25 02/12/25 History zolpidem 10 mg tablet (Ambien) 10 mg PO QHS 03/06/25 03/11/25 History Allergy/AdvReac Type Severity Reaction Status Date / Time codeine Allergy Rash Verified 03/12/25 11:14 ondansetron (From Zofran (as Allergy Unknown Verified 03/12/25 11:14 hydrochloride)) Family History Brother Heart disease CVA (cerebral vascular accident) Cancer Brother Heart disease Sister Cancer Surgical History H/O colonoscopy with polypectomy Social History housing: house Smoking Status: Former smoker Smokeless tobacco user: snuff alcohol intake: current Alcohol type: beer Review of Systems (Anesthesia) ROS Narrative System reviewed and no additional complaints, except as documented.
--- NOTE | 2025-03-14 07:53 | PN.HOSP_ITS ---
Reason for Visit Reason for Visit: Diagnoses Anemia, unspecified (03/12/25) Gastrointestinal hemorrhage, unspecified (03/12/25) Objective Data Objective Data Vital Signs: Vital Signs Temp Pulse Resp BP Pulse Ox O2 Del Method O2 Flow Rate 98.4 F 100 14 101/78 96 Nasal Cannula 2 03/14/25 07:42 03/14/25 07:42 03/14/25 07:42 03/14/25 07:42 03/14/25 07:42 03/14/25 03:35 03/14/25 07:42 Oxygen Flow Rate (L/min) 2 Oxygen Delivery Method Nasal Cannula Weight: 129 lb 10.109 oz Body Mass Index (BMI) 20.2 Intake & Output: Intake and Output for Last 24 Hours 03/12/25 03/13/25 03/14/25 23:59 23:59 23:59 Intake Total 840 / 840 1575 / 1575 600 / 600 Output Total 400 / 450 2350 / 2350 1175 / 1175 Balance 440 / 390 -775 / -775 -575 / -575 Medical Nutrition Assessment Dietitian: Malnutrition Criteria Met Start: 03/12/25 15:45 Freq: Status: Active Protocol: Document 03/12/25 15:46 SB (Rec: 03/12/25 15:46 SB [id number]) Nutrition Malnutrition Evidence of Yes Malnutrition Exists Malnutrition (severe Chronic ): Evidenced By Weight Loss (Severe),Physical Changes (Severe) Clinical Problem Chronic Disease or Condition Related Malnutrition Etiology severe related to increased energy expenditure due to lung cancer Signs/Symptoms as evidenced by 15% unintentional weight loss x 4 month and muscle/fat wasting in clavicle and pentecostalism region Status Active Problem Recommendation Dietitian Continue regular diet. Recommendations/ Will order 120ml chocolate EPHP 4x daily with medpass. Changes Will monitor weight trends. Lab / Micro Data 03/14/25 05:10 03/14/25 05:10 Labs: Laboratory Results - last 24 hr 03/13/25 13:00: Hgb 8.5 L, Hct 25.2 L 03/14/25 05:10: WBC 4.8, RBC 3.30 L, Hgb 9.4 L, Hct 28.9 L, MCV 87.6, MCH 28.5, MCHC 32.5, RDW Std Deviation 64.5 H, RDW Coeff of Terell 20.5 H, Plt Count 173, MPV 10.1, Immature Gran % (Auto) 0.800, Neut % (Auto) 71.9 H, Lymph % (Auto) 25.6, Bland % (Auto) 1.7, Eos % (Auto) 0.0, Baso % (Auto) 0.0, Absolute Neuts (auto) 3.4, Absolute Lymphs (auto) 1.22, Nucleated RBC % 0, Differential Comment SCANNED, Anisocytosis 2+, Microcytosis 1+, Macrocytosis 1+, Sodium 136, Potassium 4.3, Chloride 100, Carbon Dioxide 24.0, Anion Gap 12, BUN 19, Creatinine 0.79, Estim Creat Clear Calc 58.19, Est GFR (MDRD) Non-Af 88, B UN/Creatinine Ratio 24.2 H, Glucose 135 H, Calcium 9.3 Micro: Microbiology 03/12/25 11:44 Stool Stool Occult Blood (ZARA) - Final Occult Blood Positive Physical Exam Narrative Seen and examined. Patient had colonoscopy in the morning and returned in the afternoon. Patient A-fib with RVR heart rate about 125-130 per blood. Systolic blood pressure 108. Discussed with Dr. Rojo regarding colonoscopy findings. Patient wants to go home. Patient has generalized weakness with profound anemia. History of non-small cell lung cancer went for scheduled weekly chemotherapy and was sent to ED for severe anemia. Patient follows Dr. Kel Chao. On 2 L of home oxygen only on walking/exertion. Physical exam General: Alert, Oriented x3, Cooperative HEENT: Atraumatic, PERRLA, EOMI, Normocephalic Oral: No Gingival or Mucosal Lesions/ Ulcerations Neck: Supple, No JVD, Negative Carotid Bruits Chest wall/Lungs: Mediport at left upper chest wall. Air entry diminished in bilateral lung bases. No crepitation/rhonchi Cardiovascular: Regular rate, Regular Rhythm, Normal S1, Normal S2, No M/G/R Abdomen: Bowel Sounds Present, Soft, Non Tender, Non-Distended : No dysuria. No renal angle tenderness. No suprapubic tenderness. Extremities: No edema, Capillary Refill Less than 3 Seconds Skin: No rashes, No breakdown Musculoskeletal: No Tenderness to Palpation of Joints or Extremities Neurological: Cranial nerves II-XII grossly intact, DTR 2+/4. No acute focal neurological deficit. Psych/Mental Status: Normal Affect, Appropriate. Assessment & Plan Assessment/Plan (1) GI bleed: (2) Anemia: PLAN: Plan Patient is an 84-year-old gentleman with history of non-small cell lung cancer, paroxysmal A-fib as well as history of pulmonary embolism on systemic anticoagulation with Xarelto presented with profound generalized weakness found to have hemoglobin of 6.6 with a guaiac positive stools 1. Severe anemia ? Secondary to acute blood loss anemia superimposed on probable chronic anemia exacerbated by the use of systemic anticoagulation. Patient hemoglobin on admission was 6.6. Patient was typed and crossmatched, and order was given for patient to be transfused 1 unit PRBC. Did request for iron studies prior to patient's transfusion. Patient was started on Protonix GI consulted and admitted to monitored bed subsequent evaluation with every 6 H&H ordered 03/13: H&H 8.5/25%. Platelet count 1 56K. EGD today. Impressions : - No gross lesions in the entire stomach. - No gross lesions in the entire examined duodenum. - No specimens collected. Recommendations : - [facility]. - Clear liquid diet. - Continue present medications. - Consider Colonoscopy Colonoscopy 03/14/2022. H&H 9.4/29%. Impression: - Diverticulosis in the recto-sigmoid colon, in the sigmoid colon and in the descending colon. - 20; 1 to 2 mm polyps at the splenic flexure, in the transverse colon, at the hepatic flexure, in the ascending colon and in the cecum, removed using injection-lift and a hot snare. Resected and retrieved. Treated with argon plasma coagulation (APC). - One 8 mm polyp in the sigmoid colon, removed with a hot snare. Resected and retrieved. - One 2 mm polyp in the cecum, removed with a jumbo cold forceps. Resected and retrieved. - Three bleeding colonic angiodysplastic lesions. Treated with argon plasma coagulation (APC). - One 20 mm polyp at the hepatic flexure, removed with a hot snare. Incomplete resection. Resected tissue retrieved. Tattooed. Recommendation: - Repeat colonoscopy for surveillance based on pathology results. Hold Aspirin and Xarelto for 2 weeks - No aspirin, ibuprofen, naproxen, or other non-steroidal anti-inflammatory drugs for 2 weeks. - No aspirin, ibuprofen, naproxen, or other non-steroidal anti-inflammatory drugs for 2 weeks after polyp removal. - The patient is not currently taking anticoagulant or antiplatelet agents. Patient was stated to go home. Colonoscopy findings explained. Patient knows that he has a stage IV lung cancer with possible metastasis. He also knows that he has limited survival and wants to leave his last days with the family. I talked to the patient's both son and if patient wants to go home that he can sign AMA. 2. Hyponatremia ? 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 3. Acute renal insufficiency ? Baseline creatinine 1.0 creatinine on admission was 1.28 patient was started on IV hydration from the ED. Repeat CBC ordered for a.m. 4. Hypotension ? Patient systolic blood pressures were in the 90s did receive IV fluid resuscitation; patient is on tamsulosin and finasteride as well as metoprolol held plan is to resume once blood pressure stabilizes 5. Non-small cell lung CA ? Currently undergoing chemotherapy as outpatient patient is followed by Dr. Martinez with [facility] 6. Paroxysmal atrial fibrillation ? Rate controlled on metoprolol systemic anticoagulation with Xarelto which is currently being held given patient presentation 03/14: A-fib with RVR: Patient went into A-fib RVR last evening with hypotension seemingly because of dehydration from colon prep. IV fluid 1 L of Ringer's lactate bolus and then started on 75 mL per hour. Patient still tachycardic, A- fib RVR heart rate 125 to 130/min 7. History of previous pulmonary embolism ? Patient is on Xarelto held given above reasons 8. Chronic lymphocytic leukemia ? Currently stable 9. Dyslipidemia ?Patient is on statin therapy, continued at home dose 10. BPH with lower urinary obstructive symptoms - Patient treated with tamsulosin as well as finasteride currently being held given patient relatively low blood pressure 11. Depression with anxiety ? Patient is on sertraline as well as alprazolam plan is to resume once home meds have been reconciled 12. GERD ? Patient is on omeprazole, currently receiving Protonix 13 Known AAA ? Outpatient follow-up by primary care 14. DVT prophylaxis ? Patient is on Xarelto which is currently being held given above reasons Advance planning; did discuss with the patient and family (patient's son) regarding advanced directives as well as CODE STATUS. Did explain the various scenarios involved ( FULL CODE, DNR CCA, DNR CCA with no intubation, and DNR CC and what each meant) patient elected to remain full code with CPR and intubation if warranted. Full code Charges/Coding Visit Charges Inpatient E&M: 16848 Subs Hosp L2
--- NOTE | 2025-03-14 08:03 | NURSING ---
Updated family member, Melvin, on the phone. Pt off floor to endoscopy
[2025-03-14] MEDS: 0.9% Saline Lock 10 ML Syringe IV (08:43)
--- NOTE | 2025-03-14 10:02 | OP.CCLET_ITS ---
03/17/2025 Jay Junior MD Re : Colonoscopy procedure for Dany Hinds Dear Dr. Junior This procedure was performed on Friday, March 14, 2025. My impressions and recommendations are as follows: Impressions : - Diverticulosis in the recto-sigmoid colon, in the sigmoid colon and in the descending colon. - 20 1 to 2 mm polyps at the splenic flexure, in the transverse colon, at the hepatic flexure, in the ascending colon and in the cecum, removed using injection-lift and a hot snare. Resected and retrieved. Treated with argon plasma coagulation (APC). - One 8 mm polyp in the sigmoid colon, removed with a hot snare. Resected and retrieved. - One 2 mm polyp in the cecum, removed with a jumbo cold forceps. Resected and retrieved. - Three bleeding colonic angiodysplastic lesions. Treated with argon plasma coagulation (APC). - One 20 mm polyp at the hepatic flexure, removed with a hot snare. Incomplete resection. Resected tissue retrieved. Tattooed. Recommendations : - Repeat colonoscopy for surveillance based on pathology results. Hold Aspirin and Xarelto for 2 weeks - No aspirin, ibuprofen, naproxen, or other non-steroidal anti-inflammatory drugs for 2 weeks. - No aspirin, ibuprofen, naproxen, or other non-steroidal anti-inflammatory drugs for 2 weeks after polyp removal. - The patient is not currently taking anticoagulant or antiplatelet agents. My findings are described in the full procedure note, which is enclosed. If I can be of further assistance, please feel free to contact me at . Sincerely, Bora Rojo DO 03/14/2025 10:01:48 AM This report has been signed electronically.
--- NOTE | 2025-03-14 10:02 | OP.COLON_ITS ---
Patient Name: Dany Hinds Procedure Date: 03/14/2025 7:28 AM Date of : 1940 Age: 84 Procedure: Colonoscopy Indications: Iron deficiency anemia Providers: Bora Rojo DO Referring MD: Cristy Gruber Medicines: Monitored Anesthesia Care Patient Profile: This is an 84 year old male. Refer to note in patient chart for documentation of history and physical. Last Colonoscopy: 5 years ago. Complications: No immediate complications. Procedure: Pre-Anesthesia Assessment: - Prior to the procedure, a History and Physical was performed, and patient medications and allergies were reviewed. The patient is competent. The risks and benefits of the procedure and the sedation options and risks were discussed with the patient. All questions were answered and informed consent was obtained. Patient identification and proposed procedure were verified by the physician in the pre-procedure area. Mental Status Examination: alert and oriented. Airway Examination: normal oropharyngeal airway and neck mobility. Respiratory Examination: clear to auscultation. CV Examination: normal. Prophylactic Antibiotics: The patient does not require prophylactic antibiotics. Prior Anticoagulants: The patient has taken no anticoagulant or antiplatelet agents except for NSAID medication. ASA Grade Assessment: II - A patient with mild systemic disease. After reviewing the risks and benefits, the patient was deemed in satisfactory condition to undergo the procedure. The anesthesia plan was to use monitored anesthesia care (MAC). Immediately prior to administration of medications, the patient was re-assessed for adequacy to receive sedatives. The heart rate, respiratory rate, oxygen saturations, blood pressure, adequacy of pulmonary ventilation, and response to care were monitored throughout the procedure. The physical status of the patient was re-assessed after the procedure. After I obtained informed consent, the scope was passed under direct vision. Throughout the procedure, the patient's blood pressure, pulse, and oxygen saturations were monitored continuously. The Colonoscope was introduced through the anus and advanced to the terminal ileum. The colonoscopy was performed without difficulty. The patient tolerated the procedure well. The quality of the bowel preparation was adequate. The ileocecal valve, appendiceal orifice, and rectum were photographed. Scope In: 8:15:16 AM Scope Withdrawal Time 1 hour 14 minutes 31 seconds Scope Out: 9:53:13 AM Total Procedure Duration Time 1 hour 37 minutes 57 seconds Findings: The perianal and digital rectal examinations were normal. Multiple small and large-mouthed diverticula were found in the recto-sigmoid colon, sigmoid colon and descending colon. 20 sessile polyps were found in the splenic flexure, transverse colon, hepatic flexure, ascending colon and cecum. The polyps were 1 to 2 mm in size. These polyps were removed with a saline injection-lift technique using a hot snare. Resection and retrieval were complete. Verification of patient identification for the specimen was done. Coagulation for destruction of remaining portion of lesion using argon plasma at 0.3 liters/minute and 20 oakes was successful. Estimated blood loss was minimal. An 8 mm polyp was found in the sigmoid colon. The polyp was sessile. The polyp was removed with a hot snare. Resection and retrieval were complete. A 2 mm polyp was found in the cecum. The polyp was sessile. The polyp was removed with a jumbo cold forceps. Resection and retrieval were complete. Verification of patient identification for the specimen was done. Estimated blood loss was minimal. Three medium-sized localized angiodysplastic lesions with bleeding were found in the cecum. Coagulation for bleeding prevention using argon plasma at 0.3 liters/minute and 20 oakes was successful. Estimated blood loss was minimal. A 20 mm polyp was found in the hepatic flexure. The polyp was sessile. The polyp was removed with a hot snare. Polyp resection was incomplete. The resected tissue was retrieved. Area was tattooed with an injection of 1 mL of Tiera ink. Impression: - Diverticulosis in the recto-sigmoid colon, in the sigmoid colon and in the descending colon. - 20 1 to 2 mm polyps at the splenic flexure, in the transverse colon, at the hepatic flexure, in the ascending colon and in the cecum, removed using injection-lift and a hot snare. Resected and retrieved. Treated with argon plasma coagulation (APC). - One 8 mm polyp in the sigmoid colon, removed with a hot snare. Resected and retrieved. - One 2 mm polyp in the cecum, removed with a jumbo cold forceps. Resected and retrieved. - Three bleeding colonic angiodysplastic lesions. Treated with argon plasma coagulation (APC). - One 20 mm polyp at the hepatic flexure, removed with a hot snare. Incomplete resection. Resected tissue retrieved. Tattooed. Recommendation: - Repeat colonoscopy for surveillance based on pathology results. Hold Aspirin and Xarelto for 2 weeks - No aspirin, ibuprofen, naproxen, or other non-steroidal anti-inflammatory drugs for 2 weeks. - No aspirin, ibuprofen, naproxen, or other non-steroidal anti-inflammatory drugs for 2 weeks after polyp removal. - The patient is not currently taking anticoagulant or antiplatelet agents. Procedure Code(s): --- Professional --- 56765, 59, Colonoscopy, flexible; with control of bleeding, any method 87123, Colonoscopy, flexible; with removal of tumor(s), polyp(s), or other lesion(s) by snare technique 07777, 59, Colonoscopy, flexible; with biopsy, single or multiple 42454, 59, Colonoscopy, flexible; with directed submucosal injection(s), any substance CPT copyright 2021 [employer]. All rights reserved. The codes documented in this report are preliminary and upon scrap iron loader review may be revised to meet current compliance requirements. Bora Rojo DO 03/14/2025 10:01:48 AM This report has been signed electronically. Number of Addenda: 0 Note Initiated On: 03/14/2025 7:28 AM
--- NOTE | 2025-03-14 10:06 | PCM.POST.ANE ---
Anesthesia: Postop Eval I Current Vital Signs Temperature: 96.9 F Pulse Rate: 112 Blood Pressure: 82/60 Respiratory Rate: 18 Pulse Ox: 94 Assessment Airway patent: Yes Spontaneous unlabored respirations: Yes nausea: No Vomiting: No Anesthesia Complication: No Fluid Hydration Crystalloid volume administer (ml): 20 Total IV fluid infused: 20 Progress Note Anesthesia document: Postop Eval 1 completed: Yes
[2025-03-14] MEDS: Pantoprazole Sodium 40 MG in 0.9% Normal Saline (100mL MB+) 100 ML 330 MG IV (11:44)
[2025-03-14] MEDS: Sertraline 100 MG Tablet PO (11:44)
[2025-03-14] MEDS: Atorvastatin Calcium 10 MG Tablet PO (11:45)
[2025-03-14] MEDS: Ferrous Sulfate 325 MG Tablet PO (11:45)
[2025-03-14] MEDS: Metoprolol Tartrate 25 MG Tablet PO ×2 (11:45→17:05)
--- NOTE | 2025-03-14 12:58 | PCM.POSTANE2 ---
Anesthesia Postop Eval I Sum Postop Eval Completion status Anesthesia document: Postop Eval 1 completed: Yes Anesthesia Postop Eval I Summary Anesthesia Postop Eval I Summary: Anesthesia Postop Eval I: Assessment Summary Airway patent Yes 03/14/25 10:06 Spontaneous unlabored Yes 03/14/25 10:06 respirations Mental status Awake 03/13/25 12:28 nausea No 03/14/25 10:06 Vomiting No 03/14/25 10:06 Anesthesia Postop Eval I: Fluid Summary Crystalloid volume administer 20 03/14/25 10:06 (ml) Colloids volume administered ( ml) Blood Product volume administered (ml) Total IV fluid infused 20 03/14/25 10:06 Anesthesia Postop Eval I: Summary Notes Anesthesia Complication No 03/14/25 10:06 Anesthesia Complication Comment: Post-operative progress note Anesthesia: Postop Eval II Evaluation Mental status: Awake Pain Level: 0 nausea: No Vomiting: No
[2025-03-14] MEDS: Lactated Ringers 1,000 ML 250 ML IV (15:30)
--- NOTE | 2025-03-14 18:07 | NURSING ---
Thoroughly explained to the patient that he is advised to stay in the hospital and that if he leaves it is against medical advice. Patient is alert and oriented x4 and wishes to leave at this time. AMA paperwork signed and witnessed by this nurse, with one copy being given to the patient.
--- NOTE | 2025-03-14 19:10 | DS.PCM_ITS ---
Providers Date of Admission: 03/12/25 Date of Discharge: 03/15/25 Primary Care Physician: Dr. Jay Junior MD Consultations 03/12/25 14:15 Consult: Gastroenterology Routine Consulting Provider: [facility] Reason for Consult: GI bleed EMERGENT Consult: No MD Notified: Yes Date Notified: 03/12/25 Time Notified: 12:56 Method of Notification: ED Physician Initiated Reason For Visit: GI BLEED Diagnosis Discharge Diagnosis (1) GI bleed: Status: Acute Code(s): K92.2 - Gastrointestinal hemorrhage, unspecified (2) Anemia: Status: Acute Code(s): D64.9 - Anemia, unspecified Plan Patient is an 84-year-old gentleman with history of non-small cell lung cancer, paroxysmal A-fib as well as history of pulmonary embolism on systemic anticoagulation with Xarelto presented with profound generalized weakness found to have hemoglobin of 6.6 with a guaiac positive stools 1. Severe anemia ? Secondary to acute blood loss anemia superimposed on probable chronic anemia exacerbated by the use of systemic anticoagulation. Patient hemoglobin on admission was 6.6. Patient was typed and crossmatched, and order was given for patient to be transfused 1 unit PRBC. Did request for iron studies prior to patient's transfusion. Patient was started on Protonix GI consulted and admitted to monitored bed subsequent evaluation with every 6 H&H ordered 03/13: H&H 8.5/25%. Platelet count 1 56K. EGD today. Impressions : - No gross lesions in the entire stomach. - No gross lesions in the entire examined duodenum. - No specimens collected. Recommendations : - [facility] to [facility] for [facility] care. - Clear liquid diet. - Continue present medications. - Consider Colonoscopy Colonoscopy 03/14/2022. H&H 9.4/29%. Impression: - Diverticulosis in the recto-sigmoid colon, in the sigmoid colon and in the descending colon. - 20; 1 to 2 mm polyps at the splenic flexure, in the transverse colon, at the hepatic flexure, in the ascending colon and in the cecum, removed using injection-lift and a hot snare. Resected and retrieved. Treated with argon plasma coagulation (APC). - One 8 mm polyp in the sigmoid colon, removed with a hot snare. Resected and retrieved. - One 2 mm polyp in the cecum, removed with a jumbo cold forceps. Resected and retrieved. - Three bleeding colonic angiodysplastic lesions. Treated with argon plasma coagulation (APC). - One 20 mm polyp at the hepatic flexure, removed with a hot snare. Incomplete resection. Resected tissue retrieved. Tattooed. Recommendation: - Repeat colonoscopy for surveillance based on pathology results. Hold Aspirin and Xarelto for 2 weeks - No aspirin, ibuprofen, naproxen, or other non-steroidal anti-inflammatory drugs for 2 weeks. - No aspirin, ibuprofen, naproxen, or other non-steroidal anti-inflammatory drugs for 2 weeks after polyp removal. - The patient is not currently taking anticoagulant or antiplatelet agents. Patient was stated to go home. Colonoscopy findings explained. Patient knows that he has a stage IV lung cancer with possible metastasis. He also knows that he has limited survival and wants to leave his last days with the family. I talked to the patient's both son and if patient wants to go home that he can sign AMA. After my discussion with with the patient and his 2 sons in the room, the patient decided to sign AMA and his stay on the weekend with his and family. Patient stated earlier that he has to be at home on the [place]. He signed AMA. Patient is mentally intact and has autonomy to make his own decision 2. Hyponatremia ? 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 3. Acute renal insufficiency ? Baseline creatinine 1.0 creatinine on admission was 1.28 patient was started on IV hydration from the ED. Repeat CBC ordered for a.m. 4. Hypotension ? Patient systolic blood pressures were in the 90s did receive IV fluid resuscitation; patient is on tamsulosin and finasteride as well as metoprolol held plan is to resume once blood pressure stabilizes 5. Non-small cell lung CA ? Currently undergoing chemotherapy as outpatient patient is followed by Dr. Martinez with [facility] 6. Paroxysmal atrial fibrillation ? Rate controlled on metoprolol systemic anticoagulation with Xarelto which is currently being held given patient presentation 03/14: A-fib with RVR: Patient went into A-fib RVR last evening with hypotension seemingly because of dehydration from colon prep. IV fluid 1 L of Ringer's lactate bolus and then started on 75 mL per hour. Patient still tachycardic, A- fib RVR heart rate 125 to 130/min 7. History of previous pulmonary embolism ? Patient is on Xarelto held given above reasons 8. Chronic lymphocytic leukemia ? Currently stable 9. Dyslipidemia ?Patient is on statin therapy, continued at home dose 10. BPH with lower urinary obstructive symptoms - Patient treated with tamsulosin as well as finasteride currently being held given patient relatively low blood pressure 11. Depression with anxiety ? Patient is on sertraline as well as alprazolam plan is to resume once home meds have been reconciled 12. GERD ? Patient is on omeprazole, currently receiving Protonix 13 Known AAA ? Outpatient follow-up by primary care 14. DVT prophylaxis ? Patient is on Xarelto which is currently being held given above reasons Advance planning; did discuss with the patient and family (patient's son) regarding advanced directives as well as CODE STATUS. Did explain the various scenarios involved ( FULL CODE, DNR CCA, DNR CCA with no intubation, and DNR CC and what each meant) patient elected to remain full code with CPR and intubation if warranted. Full code Medications at Discharge Home Medications finasteride 5 mg tablet 5 mg PO DAILY PROSTATE 12/08/16 tamsulosin 0.4 mg capsule 0.4 mg PO DAILY PROSTATE 12/08/16 metoprolol tartrate 25 mg tablet 25 mg PO BID HEART, BLOOD PRESSURE 01/28/18 omeprazole 40 mg capsule,delayed release 40 mg PO DAILY ACID REFLUX 01/28/18 ferrous sulfate 325 mg (65 mg iron) tablet 325 mg PO BID 08/25/19 trazodone 50 mg tablet 50 mg PO QHS 04/21/21 rivaroxaban 20 mg tablet (Xarelto) 20 mg PO DAILY 04/19/22 levothyroxine 50 mcg tablet 50 mcg PO DAILY disorder of thyroid gland 03/26/24 sertraline 100 mg tablet 100 mg PO BID 11/07/24 atorvastatin 10 mg tablet 10 mg PO DAILY 01/01/25 alprazolam 0.25 mg tablet 0.25 mg PO TID PRN anxiety 02/12/25 zolpidem 10 mg tablet (Ambien) 10 mg PO QHS 03/06/25 Physical Exam Narrative Please see exam findings on the same day. Weight / BMI Weight Weight: 129 lb 10.109 oz Body Mass Index (BMI) 20.2 ABG / Lab / Microbiology Data 03/14/25 05:10 03/14/25 05:10 Microbiology: Microbiology 03/12/25 11:44 Stool Stool Occult Blood (ZARA) - Final Occult Blood Positive D/C Instructions DC O2, CPAP, BIPAP Needs Home O2 Discharge instructions: Yes Type of respiratory needs?: Oxygen Oxygen frequency: Continuous Continuous oxygen liters per minute: 2 DC home with Oxygen: Yes Home O2 MD Review: I have reviewed the oxygen testing, and the patient qualifies for home oxygen equipment and portability. The patient is mobile in the home and the community. Meaningful Use Info Meaningful Use Meaningful Use Diagnoses (Choose all that apply): None applicable Ischemic Stroke Statin Dosing Therapy Reference: STATIN DOSE THERAPY REFERENCE: * Patients > 75 years receive moderate or high dose statin therapy. * Patients 75 years or YOUNGER should receive HIGH intensity statin dose unless contraindicated. You will be required to document reason for non-treatment if statin daily dose does not meet guidelines. HIGH DOSE STATIN THERAPY DAILY Atorvastatin > than or = to 40 mg Rosuvastatin > than or = to 20 mg Amlodipine + Atorvastatin > than or = to 2.5/40 mg Ezetimibe + Simvastatin 10/80 mg Simvastatin 80mg Discharge Plan Admission Admit Date/Time: 03/12/25 12:53 Attending Provider: Festus Worley Primary Care Provider: Jay Junior Consulting Providers: Rodney Anderson Discharge Orders/Prescriptions Prescriptions: No Action ferrous sulfate 325 mg (65 mg iron) tablet 325 mg PO BID trazodone 50 mg tablet 50 mg PO QHS Xarelto 20 mg tablet 20 mg PO DAILY Rx Instructions: must administer with evening meal tamsulosin 0.4 MG capsule 0.4 mg PO DAILY finasteride 5 MG tablet 5 mg PO DAILY metoprolol tartrate 25 MG tablet 25 mg PO BID omeprazole 40 MG capsule,delayed release(DR/EC) 40 mg PO DAILY sertraline 100 mg tablet 100 mg PO BID atorvastatin 10 mg tablet 10 mg PO DAILY alprazolam 0.25 mg tablet 0.25 mg PO TID PRN (Reason: anxiety) Rx Instructions: TAKE 2-3 TIMES DAILY NEEDED levothyroxine 50 mcg tablet 50 mcg PO DAILY zolpidem [Ambien] 10 mg tablet 10 mg PO QHS Referrals / Follow Up: Jay Junior MD [Primary Care Provider] - Disposition Disposition (needs filled in before D/C Order can be placed): [facility] Charges/Coding Visit Charges Inpatient E&M: 79512 Disch Hosp >30min
== END 2025-03-14 18:26 | disposition left against medical advice (07) | DRG 377 ==
LOC: ED 13:10 → PCU 13:17
PROVIDERS: Internal Medicine Gastroenterology; Admitting Provider Internal Medicine; Emergency Provider Emergency Medicine; PCP Family Medicine; Referring Provider Emergency Medicine; Visit Provider Internal Medicine
PROC: 0DJ08ZZ Inspection of Upper Intestinal Tract, Via Natural or Artificial Opening Endoscopic (ICD-10-PCS; CPT 43235; principal; 2025-03-13 11:25)
PROC: 0DJD8ZZ Inspection of Lower Intestinal Tract, Via Natural or Artificial Opening Endoscopic (ICD-10-PCS; CPT 45378; principal; 2025-03-14 07:30)
DX: K55.21 Angiodysplasia of colon with hemorrhage (principal); E43 Unspecified severe protein-calorie malnutrition; E22.2 Syndrome of inappropriate secretion of antidiuretic hormone; D68.32 Hemorrhagic disorder due to extrinsic circulating anticoagulants; D62 Acute posthemorrhagic anemia; N13.8 Other obstructive and reflux uropathy; C34.90 Malignant neoplasm of unspecified part of unspecified bronchus or lung; C91.10 Chronic lymphocytic leukemia of B-cell type not having achieved remission; I45.2 Bifascicular block; I71.40 Abdominal aortic aneurysm, without rupture, unspecified; I10 Essential (primary) hypertension; D50.9 Iron deficiency anemia, unspecified; I34.1 Nonrheumatic mitral (valve) prolapse; E03.9 Hypothyroidism, unspecified; I48.0 Paroxysmal atrial fibrillation; I35.1 Nonrheumatic aortic (valve) insufficiency; I34.0 Nonrheumatic mitral (valve) insufficiency; E78.5 Hyperlipidemia, unspecified; F41.8 Other specified anxiety disorders; I95.9 Hypotension, unspecified; K21.9 Gastro-esophageal reflux disease without esophagitis; E86.0 Dehydration; E87.6 Hypokalemia; K57.30 Diverticulosis of large intestine without perforation or abscess without bleeding; K22.89 Other specified disease of esophagus; D12.0 Benign neoplasm of cecum; D12.3 Benign neoplasm of transverse colon; K63.5 Polyp of colon; T45.515A Adverse effect of anticoagulants, initial encounter; N40.1 Benign prostatic hyperplasia with lower urinary tract symptoms; Z53.29 Procedure and treatment not carried out because of patient's decision for other reasons; Z79.01 Long term (current) use of anticoagulants; Z79.899 Other long term (current) drug therapy; Z87.891 Personal history of nicotine dependence; Z86.711 Personal history of pulmonary embolism; Z79.890 Hormone replacement therapy; Z68.20 Body mass index [BMI] 20.0-20.9, adult
CPT/HCPCS: 36415; 36591; 71045; 80048; 80053; 82274; 82607; 82728; 83540; 83550; 83735; 84100; 85014; 85018; 85025; 85045; 86850; 86900; 86901; 88305; 93005; 94762; 97803; 99284; C1889; P9040; A4216; A4648; J1940; J2405

== ENCOUNTER 2025-03-17 13:40 | Inpatient (IN) | payer MEDICARE, SELFPAY ==
[2025-03-17] VITALS (13 sets, daily range): BP systolic 89–110; BP diastolic 54–77; PULSE 82–141; RESP 16–24; TEMP 36.1–36.8; O2SAT 2–98; BMI 21.1; BMI 20.4
--- NOTE | 2025-03-17 14:08 | CT_ITS ---
EXAM: CT Abdomen and Pelvis With Intravenous Contrast CLINICAL INDICATION: (R) ABDOMINAL PAIN TECHNIQUE: Axial computed tomography images of the abdomen and pelvis with intravenous contrast. This CT exam was performed using one or more of the following dose reduction techniques: automated exposure control, adjustment of the mA and/or kV according to patient size, and/or use of iterative reconstruction technique. COMPARISON: CT Abdomen Pelvis dated 01/03/2025 FINDINGS: LUNG BASES: Unremarkable. No mass. No consolidation. PLEURAL SPACE: Partially visualized bilateral pleural effusions, greater on the left. ABDOMEN: LIVER: Hepatomegaly with fatty infiltration. GALLBLADDER AND BILE DUCTS: Unremarkable. No calcified stones. No ductal dilation. PANCREAS: Unremarkable. No mass. No ductal dilation. SPLEEN: Unremarkable. No splenomegaly. ADRENALS: Unremarkable. No mass. KIDNEYS AND URETERS: Unremarkable. No solid mass. No hydronephrosis. STOMACH AND BOWEL: Mucosal thickening in the ascending colon consistent with colitis. Colonic diverticulosis without acute diverticulitis. No obstruction. PELVIS: APPENDIX: No findings to suggest acute appendicitis. BLADDER: Unremarkable. No mass. REPRODUCTIVE: Unremarkable as visualized. ABDOMEN and PELVIS: INTRAPERITONEAL SPACE: Unremarkable. No free air. No significant fluid collection. BONES/JOINTS: No acute fracture. No dislocation. SOFT TISSUES: Unremarkable. VASCULATURE: Scattered calcified atherosclerotic disease of aorta. No abdominal aortic aneurysm. LYMPH NODES: Unremarkable. No enlarged lymph nodes. CT/Abdomen/Pelvis W IV Cont ONLY IMPRESSION: 1. Mucosal thickening in the ascending colon consistent with colitis. 2. Partially visualized bilateral pleural effusions, greater on the left. 3. Hepatomegaly with fatty infiltration. 4. Colonic diverticulosis without acute diverticulitis. Reading Location[facility]
--- NOTE | 2025-03-17 14:10 | EX.ED.DYSGE1 ---
HPI History of Present Illness Chief Complaint: GI Bleed Informant: patient and family Narrative Narrative: 84-year-old male presenting to the emergency room with a chief complaint of abdominal pain and dark stools. Patient was reportedly admitted into the hospital with anemia and underwent colonoscopy. Family tells me they removed polyps. He received transfusion. Patient currently undergoing chemotherapy for lung cancer through [facility] (Dr. Chao). He did not receive chemotherapy last week but did receive chemotherapy the preceding . He states that since the colonoscopy he has a pain on the right side of his abdomen extending over towards the left side. He states it is worse with movement and bending over. He has had several semiformed bowel movements since and notes that they are dark. He has not seen bright red blood. He notes shortness of breath which she states is at his baseline. He occasionally wears oxygen but has been wearing it at night. Does have a history of atrial fibrillation with right bundle branch block is currently off of his anticoagulant. He denies fever. No vomiting. He notes decreased appetite but has been able to eat some food today including applesauce and fruit. [facility] Medical History Non-small cell lung cancer (NSCLC) Fatigue Pneumonia Pleural effusion, left Paroxysmal atrial fibrillation Nonrheumatic mitral (valve) prolapse Persistent atrial fibrillation Right bundle branch block (RBBB) Lung nodule Iron deficiency anemia Thoracic aortic aneurysm Nonrheumatic aortic (valve) insufficiency Nonrheumatic mitral (valve) insufficiency Hyperlipidemia Essential (primary) hypertension Atrial fibrillation with RVR (01/29/18) Anxiety Benign prostatic hypertrophy Chronic lymphocytic leukemia Home Medications ?Medication ?Instructions ?Recorded ?Last Taken ?Type finasteride 5 mg tablet 5 mg PO DAILY PROSTATE 12/08/16 03/16/25 History tamsulosin 0.4 mg capsule 0.8 mg PO DAILY PROSTATE 12/08/16 03/16/25 History metoprolol tartrate 25 mg tablet 25 mg PO BID HEART, BLOOD PRESSURE 01/28/18 03/17/25 History omeprazole 40 mg capsule,delayed 40 mg PO DAILY ACID REFLUX 01/28/18 03/16/25 History release ferrous sulfate 325 mg (65 mg 325 mg PO BID 08/25/19 03/17/25 History iron) tablet trazodone 50 mg tablet 50 mg PO QHS 04/21/21 03/16/25 History rivaroxaban 20 mg tablet (Xarelto) 20 mg PO DAILY 04/19/22 03/16/25 History levothyroxine 50 mcg tablet 50 mcg PO DAILY disorder of 03/26/24 03/16/25 History thyroid gland sertraline 100 mg tablet 100 mg PO BID 11/07/24 03/17/25 History atorvastatin 10 mg tablet 10 mg PO DAILY 01/01/25 03/17/25 History alprazolam 0.25 mg tablet 0.25 mg PO TID PRN anxiety 02/12/25 02/12/25 History zolpidem 10 mg tablet (Ambien) 10 mg PO QHS 03/06/25 03/16/25 History Allergy/AdvReac Type Severity Reaction Status Date / Time codeine Allergy Rash Verified 03/12/25 11:14 ondansetron (From Zofran (as Allergy Unknown Verified 03/12/25 11:14 hydrochloride)) Family History Brother Heart disease CVA (cerebral vascular accident) Cancer Brother Heart disease Sister Cancer Surgical History H/O colonoscopy with polypectomy Social History housing: house Smoking Status: Former smoker Smokeless tobacco user: snuff alcohol intake: current Alcohol type: beer ROS ROS ED ROS Narrative Generalized weakness Constitutional Constitutional ED: Denies chills, fever(s) or weight loss Eyes Eyes: Denies change in vision or diplopia ENT ENT ED: Denies ear pain, rhinorrhea or sore throat Cardiovascular Cardiovascular: Denies chest pain, orthopnea, palpitations or racing heartbeat Respiratory/Chest Respiratory/Chest: Reports dyspnea and dyspnea on exertion; Denies cough or orthopnea Gastrointestinal Gastrointestinal: Reports abdominal pain and other Details: Dark stools ; Denies diarrhea, nausea or vomiting Genitourinary Genitourinary ED: Denies dysuria, hematuria or urinary frequency Musculoskeletal Musculoskeletal: Denies arthralgias or myalgias Integumentary Denies abscess or rash Neurologic Neurologic: Denies headache(s) or weakness Psychiatric Psychiatric: Denies anxiety, depression, suicidal ideation or suicidal thoughts Endocrine Endocrinology: Denies polydipsia, polyphagia or polyuria Allergic/Immunologic Allergic/Immunologic ED: Denies mouth swelling, tongue swelling or urticaria EXAM Physical Exam Const Vital Signs: 03/17/25 13:41 03/17/25 14:44 03/17/25 15:00 Temperature 97 F L Temperature Source Temporal Pulse Rate 141 H 124 H 129 H Respiratory Rate 24 H 22 H 23 H Blood Pressure 89/56 L 97/65 97/63 Blood Pressure Mean 67 75 74 Pulse Ox 97 98 98 Oxygen Delivery Method Nasal Cannula Nasal Cannula Nasal Cannula Oxygen Flow Rate (L/min) 2 2 2 03/17/25 15:58 03/17/25 16:56 Temperature Temperature Source Pulse Rate 123 H 102 H Respiratory Rate 20 H 19 H Blood Pressure 105/63 94/65 Blood Pressure Mean 77 74 Pulse Ox 98 98 Oxygen Delivery Method Nasal Cannula Nasal Cannula Oxygen Flow Rate (L/min) 2 2 Positive well nourished, well developed and cachectic General Appearance ED: well developed, cachectic, NAD and pallor Nutritional Appearance: cachectic HEENT Reports normocephalic, head/scalp atraumatic and moist mucous membranes Eyes PERRL and EOMs intact bilaterally General Eye ED: Yes pale conjunctiva Neck no lymphadenopathy, supple and no JVD Resp normal respiratory effort and clear to auscultation bilaterally Resp Narrative: Patient with conversational dyspnea Cardio regular rate, regular rhythm and no murmurs Rate: tachycardic GI Auscultation: normoactive bowel sounds Palpation: soft, tender LLQ, RLQ and suprapubic and guarding; Negative for rebound tenderness present Back/Spine no CVA tenderness and normal ROM Extremity normal to inspection General Extremety ED: Negative for edema General Extremity: Negative for edema Neuro oriented x3 and CN's II-XII intact bilaterally Sensorium / Orientation: alert Motor Exam: strength 5/5 throughout Psych mental status grossly normal Mood & Affect: Negative for depressed or tearful Skin no rashes or lesions noted and no wounds General Skin Exam: pallor MDM MDM MDM Narrative Medical decision making narrative: Differential diagnosis includes but not limited to anemia GI bleed colitis bowel obstruction bowel perforation diverticulitis UTI electrolyte abnormalities dehydration cardiac dysrhythmia sepsis dehydration IV was established patient received IV fluids as well as a small dose of morphine. Repeat EKG confirms atrial fibrillation received a dose of Cardizem as well as IV fluids. Hemoglobin 8.4 with a white count of 4.2. Lactic acid is normal urinalysis no overt infection. He was typed and screened. Lipase 25 troponin is 49 slight bump in his transaminases and alk phos. Potassium noted be low at 2.9 he received [address] of the abdomen pelvis is consistent with a ascending colon colitis. My independent interpretation of the chest x-ray is continued left pleural effusion with atelectatic changes. Clinically I do not feel that this is pneumonia as he does not have a change of his breathing from baseline no change in cough and he is not hypoxic or febrile. Patient's blood pressure has had multiple readings of greater than 100 systolic. I am trying to balance his blood pressure with heart rate control as well as pain control. Case was discussed with on-call gastroenterology Dr. Rojo as well as our hospitalist plan is admission. History & Record Review Discussion w/independent historian: Patient and Family Additional record(s) reviewed:: Prior inpatient record, Prior ED visit and Prior labs Lab Data Attestation: I reviewed the patient's lab results. Labs: Laboratory Results - last 24 hr 03/17/25 03/17/25 03/17/25 14:01 14:02 15:15 WBC 4.2 L RBC 2.89 L Hgb 8.4 L Hct 25.0 L MCV 86.5 MCH 29.1 MCHC 33.6 RDW Std Deviation 61.3 H RDW Coeff of Terell 19.8 H Plt Count 174 MPV 9.9 Neut % (Auto) Not Reportable Absolute Neuts (auto) 3.4 Absolute Lymphs (auto) 0.67 L Total Counted 100 Neutrophils % (Manual) 81 H Lymphocytes % (Manual) 16 L Monocytes % (Manual) 1 Metamyelocytes % 1 Myelocytes % 1 H Diff Path Review May foll Atypical Lymphocytes 3+ Platelet Estimate ADEQUATE Anisocytosis 1+ Uriah Cells 1+ PT 16.4 H INR 1.3 APTT 28.0 Sodium 132 L Potassium 2.9 L Chloride 97 L Carbon Dioxide 23.5 Anion Gap 12 BUN 15 Creatinine 0.77 Estim Creat Clear Calc 60.56 Est GFR (MDRD) Non-Af 89 BUN/Creatinine Ratio 19.3 Glucose 120 H Lactic Acid < 1.0 Calcium 8.3 Total Bilirubin 0.69 Direct Bilirubin 0.41 H AST 74 H ALT 120 H Alkaline Phosphatase 176 H Troponin T High Sens 49 H Troponin T Hi Sens 2 Hr Total Protein 5.2 L Albumin 2.7 L Globulin 2.5 Lipase 25 Urine Color Yellow Urine Clarity Clear Urine pH 6.0 Ur Specific [place] 1.010 Urine Protein 30 H Urine Glucose (UA) Normal Urine Ketones Negative Urine Occult Blood 10 H Urine Nitrite Negative Urine Bilirubin Negative Urine Urobilinogen Normal Ur Leukocyte Esterase Negative Urine RBC 0-5 SEEN Urine WBC 0-5 SEEN Ur Squamous Epith Cells 0-5 SEEN Urine Bacteria 1+ Hyaline Casts 0-5 SEEN Urine Mucus 0 SEEN Blood Type A POSITIVE Antibody Screen NEGATIVE 03/17/25 16:00 WBC RBC Hgb Hct MCV MCH MCHC RDW Std Deviation RDW Coeff of Terell Plt Count MPV Neut % (Auto) Absolute Neuts (auto) Absolute Lymphs (auto) Total Counted Neutrophils % (Manual) Lymphocytes % (Manual) Monocytes % (Manual) Metamyelocytes % Myelocytes % Diff Path Review Atypical Lymphocytes Platelet Estimate Anisocytosis Uriah Cells PT INR APTT Sodium Potassium Chloride Carbon Dioxide Anion Gap BUN Creatinine Estim Creat Clear Calc Est GFR (MDRD) Non-Af BUN/Creatinine Ratio Glucose Lactic Acid Calcium Total Bilirubin Direct Bilirubin AST ALT Alkaline Phosphatase Troponin T High Sens Troponin T Hi Sens 2 Hr 43 H Total Protein Albumin Globulin Lipase Urine Color Urine Clarity Urine pH Ur Specific [place] Urine Protein Urine Glucose (UA) Urine Ketones Urine Occult Blood Urine Nitrite Urine Bilirubin Urine Urobilinogen Ur Leukocyte Esterase Urine RBC Urine WBC Ur Squamous Epith Cells Urine Bacteria Hyaline Casts Urine Mucus Blood Type Antibody Screen Radiography Diagnostic Testing: Clinical Impression(s) from Imaging Studies Abdomen/Pelvis CT 03/17/25 14:08 IMPRESSION: 1. Mucosal thickening in the ascending colon consistent with colitis. 2. Partially visualized bilateral pleural effusions, greater on the left. 3. Hepatomegaly with fatty infiltration. 4. Colonic diverticulosis without acute diverticulitis. Reading Location: [facility] Chest X-Ray 03/17/25 14:55 IMPRESSION: 1. Patchy airspace disease of the left lung field, likely multifocal pneumonia. 2. Left pleural effusion. Reading Location: [facility] EKG Initial EKG: Attestation: I personally reviewed and interpreted this EKG as follows: Comments: Probable atrial fibrillation tachycardia with right bundle branch block left anterior fascicular block at a ventricular rate of 132 bpm Follow-up EKG: Attestation: I personally reviewed and interpreted this EKG as follows: Comments: Atrial fibrillation with rapid ventricular sponsor ventricular rate of 112 bpm Management Discussion w/another healthcare provider: Hospitalist (Dr Guaman) and Customer Service Manager (Dr Boss (Surgery) Dr Rojo (GI)) Critical Care Time Critical Care Time: Yes Critical care time (excluding procedures): 30-74 minutes, Including time spent:, Discussing w/Patient &/or Family/Data Governance Analyst, Discussing w/Consultants, Arranging Admission or Transfer and Performing Direct Patient Care at Bedside Discharge Plan Dx/Rx/DC Orders Clinical Impression: Tachycardia, Acute hypotension Disposition Disposition: [facility] Discharge Date/Time: 03/17/25 18:34
[2025-03-17 14:38] LABS: Hemoglobin 8.4 g/dL (13.0-16.5); Mean Corp Hgb Conc 33.6 g/dL (32-36); Mean Corpuscular Hgb 29.1 pg (27.0-32.0); Mean Corpuscular Volume 86.5 fL (80-94); Mean Platelet Vol. 9.9 fl (6.2-12.0); POSITIVE MORPHOLOGY YES; Platelet Count 174 K/mm3 (150-450); RBC Distribution Width CV 19.8 % (11.6-14.6); RBC Distribution Width SD 61.3 fl (35.1-43.9); Red Blood Count 2.89 M/mm3 (4.6-6.2); White Blood Count 4.2 K/mm3 (4.4-11.0)
--- NOTE | 2025-03-17 14:38 | ED.RN ---
PER DR WYNN. MAP IS INCREASED, OKAY TO GIVE PAIN MEDICATION
[2025-03-17] MEDS: Morphine 2 MG/ML Syringe IV ×2 (14:40→16:46)
[2025-03-17] MEDS: 0.9% Normal Saline (1000mL) 1,000 ML 1000 ML IV (14:41)
[2025-03-17 14:43] LABS: International Normalized Ratio 1.3; Prothrombin Time (Protime)PT. 16.4 SECONDS (11.7-14.9)
--- NOTE | 2025-03-17 14:55 | RAD_ITS ---
EXAM: XR Chest, 1 View CLINICAL INDICATION: DYSPNEA TECHNIQUE: Frontal view of the chest. COMPARISON: No relevant prior studies available. FINDINGS: LUNGS AND PLEURAL SPACES: Patchy airspace disease of the left lung field, likely multifocal pneumonia. Left pleural effusion. HEART: Unremarkable. No cardiomegaly. MEDIASTINUM: Unremarkable. Normal mediastinal contour. BONES/JOINTS: Unremarkable. No acute fracture. TUBES, LINES AND DEVICES: Left-sided Mediport with the distal tip in the SVC. No pneumothorax. RAD/Chest 1 View (Portable) IMPRESSION: 1. Patchy airspace disease of the left lung field, likely multifocal pneumonia . 2. Left pleural effusion. [facility]
[2025-03-17] MEDS: Piperacil/Tazobactam 4.5 GM in 0.9% Normal Saline (100mL MB+) 100 ML IV (15:14)
[2025-03-17 15:23] LABS: Mucous, Urine 0 SEEN /hpf (<or=2+)
[2025-03-17 15:27] LABS: Lactic Acid < 1.0 mmol/L (0.0-2.0)
[2025-03-17 15:28] LABS: Lipase 25 U/L (13-75)
[2025-03-17 15:30] LABS: AST(SGOT) 74 U/L (<=37); Alanine Aminotransfer ALT/SGPT 120 U/L (<=46); Albumin, Serum 2.7 g/dL (3.4-4.8); Alkaline Phosphatase 176 U/L (40-129); Anion Gap 12 (5-15); BUN 15 mg/dL (4-19); BUN/Creat Ratio 19.3 RATIO (10-20); Bilirubin, Direct 0.41 mg/dL (0.00-0.30); Calcium,Total 8.3 mg/dL (7.6-11.0); Carbon Dioxide 23.5 mmol/L (21.0-32.0); Chloride 97 mmol/L (98-108); Creatinine, Serum 0.77 mg/dL (0.70-1.20); EST Glomerular Filtration Rate 89 (>60); Estimated Creatinine Clearance 60.56 ml/min (50-250); Globulin 2.5 g/dL (2.2-4.2); Glucose 120 mg/dL (70-99); Potassium 2.9 mmol/L (3.3-5.1); Protein, Total 5.2 g/dL (5.9-8.4); Sodium Level 132 mmol/L (133-145); Total Bilirubin 0.69 mg/dL (0.00-1.30)
[2025-03-17 15:42] LABS: Troponin T High Sensitivity 49 ng/L (<=22)
[2025-03-17 15:43] LABS: Color, Urine Yellow (Yellow); Glucose, Dipstick Normal (Normal); Ketone-Dipstick Negative (Negative); Leukocyte Esterase-Dipstick Negative /ul (Negative); Nitrite-Dipstick Negative (Negative); Occult Blood-Urine 10 /ul (Negative); Protein-Dipstick 30 mg/dl (Negative); Urine Bilirubin Dipstick Negative (Negative); Urine Clarity Clear (Clear); Urine Urobilinogen Normal (Normal)
[2025-03-17] MEDS: Potassium Chloride 10mEq/100mL 10 MEQ/100 ML IV.SOLN. 100 MEQ IV BOLUS ×2 (15:50→16:53)
[2025-03-17 16:03] LABS: Differential Indicated MANUAL DIFF
[2025-03-17 16:06] LABS: Lymphocyte 16 % (19-41); Metamyelocyte 1 % (0-1); Monocyte 1 % (0-10); Myelocyte 1 % (0-0); Neutrophil-Segmented 81 % (47-70); Total Cells Counted 100 (MANUAL DIFF)
[2025-03-17 16:07] LABS: Anisocytosis 1+; Atypical Lymphocyte 3+ %; Burr Cells 1+; Platelet Estimate ADEQUATE (ADEQ)
[2025-03-17 16:08] LABS: Absolute Neutrophil Count 3.4 X10^3/uL (2.0-7.7)
[2025-03-17 16:09] LABS: Absolute Lymphocyte Count 0.67 X10^3/uL (0.83-4.51)
[2025-03-17 16:20] LABS: Troponin T High Sens 2 HR 43 ng/L (<=22)
[2025-03-17 16:27] LABS: Squamous Epithelial Cells - UA 0-5 SEEN /hpf (0-5); White Blood Cells 0-5 SEEN /hpf (0-5)
[2025-03-17 16:28] LABS: Hyaline Cast 0-5 SEEN /lpf (0-5); Red Blood Cells-Urine 0-5 SEEN /hpf (0-5)
[2025-03-17 16:29] LABS: Bacteria 1+ /hpf (None Seen)
[2025-03-17] MEDS: dilTIAZem 25 MG/5 ML Vial 10 MG IV BOLUS (16:46)
--- NOTE | 2025-03-17 17:57 | PCM.HP.STD ---
HPI - General General Date of Admission: 03/17/25 Date of Service: 03/17/25 Chief Complaint: Abdominal pain, fatigue HPI Narrative KANG GREEN, is a Patient is an 84-year-old male with lung cancer undergoing chemotherapy through [facility] and follows with Dr. Chao, GERD, BPH, anxiety, A-fib who presented to [facility] ED 03/17/2025 due to abdominal pain and dark stool. Reportedly patient was admitted to the hospital with anemia and underwent colonoscopy and had polyps removed and received a transfusion. Patient undergoes chemotherapy and did not get it last week but did have at the before. Patient notes that since his colonoscopy he has had pain on the right side of his abdomen that extends to the left side and it is worse with movement and bending over, notes that his bowel movements have been dark since his colonoscopy as well without any bright red blood. Shortness of breath is at his baseline. Has history of A-fib but is presently off of his Xarelto. In the ED temperature 97 with a heart rate of 141 and blood pressure 89/56, respiratory rate 24 and patient 97% on 2 L O2. Patient found to be in A-fib with RVR and was given diltiazem, also found to have colitis on colonoscopy and given Zosyn. Due to the above hospitalist contacted for admission. Patient evaluated with family members at bedside, reports that he began to have right sided abdominal pain on Sunday, was discharged Sunday, and it is persisted over the past 2 days prompting him to come to the ED, is not necessarily significantly worsened but has not had any improvement, possibly some chills without any measured fever at home, has still had dark stools without any bright red blood, no nausea, no changes in his breathing. He is just somewhat generally fatigued and weak overall. [facility] Medical History (Updated 03/17/25 @ 18:[address] Lia Guaman MD) Anxiety Atrial fibrillation with RVR (01/29/18) Benign prostatic hypertrophy Chronic lymphocytic leukemia Essential (primary) hypertension Fatigue Hyperlipidemia Iron deficiency anemia Lung nodule Non-small cell lung cancer (NSCLC) Nonrheumatic aortic (valve) insufficiency Nonrheumatic mitral (valve) insufficiency Nonrheumatic mitral (valve) prolapse Paroxysmal atrial fibrillation Persistent atrial fibrillation Pleural effusion, left Pneumonia Right bundle branch block (RBBB) Thoracic aortic aneurysm Home Medications ?Medication ?Instructions ?Recorded ?Last Taken ?Type finasteride 5 mg tablet 5 mg PO DAILY PROSTATE 12/08/16 03/16/25 History tamsulosin 0.4 mg capsule 0.8 mg PO DAILY PROSTATE 12/08/16 03/16/25 History metoprolol tartrate 25 mg tablet 25 mg PO BID HEART, BLOOD PRESSURE 01/28/18 03/17/25 History omeprazole 40 mg capsule,delayed 40 mg PO DAILY ACID REFLUX 01/28/18 03/16/25 History release ferrous sulfate 325 mg (65 mg 325 mg PO BID 08/25/19 03/17/25 History iron) tablet trazodone 50 mg tablet 50 mg PO QHS 04/21/21 03/16/25 History rivaroxaban 20 mg tablet (Xarelto) 20 mg PO DAILY 04/19/22 03/16/25 History levothyroxine 50 mcg tablet 50 mcg PO DAILY disorder of 03/26/24 03/16/25 History thyroid gland sertraline 100 mg tablet 100 mg PO BID 11/07/24 03/17/25 History atorvastatin 10 mg tablet 10 mg PO DAILY 01/01/25 03/17/25 History alprazolam 0.25 mg tablet 0.25 mg PO TID PRN anxiety 02/12/25 02/12/25 History zolpidem 10 mg tablet (Ambien) 10 mg PO QHS 03/06/25 03/16/25 History Allergy/AdvReac Type Severity Reaction Status Date / Time codeine Allergy Rash Verified 03/12/25 11:14 ondansetron (From Zofran (as Allergy Unknown Verified 03/12/25 11:14 hydrochloride)) Family History Brother Heart disease CVA (cerebral vascular accident) Cancer Brother Heart disease Sister Cancer Surgical History H/O colonoscopy with polypectomy Social History housing: house Smoking Status: Former smoker Smokeless tobacco user: snuff alcohol intake: current Alcohol type: beer ROS ROS Narrative General: Maybe some chills with no measured fever HENT: Denies headache, denies stuffy nose, denies sore throat EYES: Denies changes in vision Resp: Denies cough, no changes in the shortness of breath Cardiac: Denies chest pain GI: Right-sided abdominal pain with dark stool, denies nausea/vomiting : Denies changes in urination Extremity: Denies swelling MSK: Generalized weakness and fatigue Neuro: Denies any numbness/tingling Heme: Denies any bleeding or bruising Skin: Denies rashes Psychiatric: No complaints voiced Vital Signs Vital Signs Vital Signs: 03/17/25 13:41 03/17/25 14:44 03/17/25 15:00 Temperature 97 F L Temperature Source Temporal Pulse Rate 141 H 124 H 129 H Respiratory Rate 24 H 22 H 23 H Blood Pressure 89/56 L 97/65 97/63 Blood Pressure Mean 67 75 74 Pulse Ox 97 98 98 Oxygen Delivery Method Nasal Cannula Nasal Cannula Nasal Cannula Oxygen Flow Rate (L/min) 2 2 2 03/17/25 15:58 03/17/25 16:56 Temperature Temperature Source Pulse Rate 123 H 102 H Respiratory Rate 20 H 19 H Blood Pressure 105/63 94/65 Blood Pressure Mean 77 74 Pulse Ox 98 98 Oxygen Delivery Method Nasal Cannula Nasal Cannula Oxygen Flow Rate (L/min) 2 2 Weight Weight: 61.2 kg Body Mass Index (BMI) 21.1 Physical Exam Narrative General: Resting comfortably, wakes up and answers questions appropriately HEENT: Atraumatic, normocephalic Eyes: Anicteric, normal conjunctiva, extraocular movements grossly intact Neck: Supple Respiratory: Normal respiratory effort without significant wheezes or rhonchi Cardiovascular: Tachycardic, irregularly irregular GI: Soft, nondistended, tenderness on right side of abdomen with voluntary guarding Extremities: No edema Musculoskeletal: Moving all extremities Neuro: No overt focal neurological deficits Skin: No rashes appreciated Psych: Cooperative Results Lab / Micro Data 03/17/25 14:01 03/17/25 14:01 Labs: Laboratory Results - last 24 hr 03/17/25 14:01: WBC 4.2 L, RBC 2.89 L, Hgb 8.4 L, Hct 25.0 L, MCV 86.5, MCH 29.1, MCHC 33.6, RDW Std Deviation 61.3 H, RDW Coeff of Terell 19.8 H, Plt Count 174, MPV 9.9, Neut % (Auto) Not Reportable, Absolute Neuts (auto) 3.4, Absolute Lymphs (auto) 0.67 L, Total Counted 100, Neutrophils % (Manual) 81 H, Lymphocytes % (Manual) 16 L, Monocytes % (Manual) 1, Metamyelocytes % 1, Myelocytes % 1 H, Diff Path Review May foll, Atypical Lymphocytes 3+, Platelet Estimate ADEQUATE, Anisocytosis 1+, Uriah Cells 1+, PT 16.4 H, INR 1.3, APTT 28.0, Sodium 132 L, Potassium 2.9 L, Chloride 97 L, Carbon Dioxide 23.5, Anion Gap 12, BUN 15, Creatinine 0.77, Estim Creat Clear Calc 60.56, Est GFR (MDRD) Non-Af 89, BUN/Creatinine Ratio 19.3, Glucose 120 H, Lactic Acid < 1.0, Calcium 8.3, Total Bilirubin 0.69, Direct Bilirubin 0.41 H, AST 74 H, ALT 120 H, Alkaline Phosphatase 176 H, Troponin T High Sens 49 H, Total Protein 5.2 L, Albumin 2.7 L, Globulin 2.5, Lipase 25 03/17/25 14:02: Blood Type A POSITIVE, Antibody Screen NEGATIVE 03/17/25 15:15: Urine Color Yellow, Urine Clarity Clear, Urine pH 6.0, Ur Specific [place] 1.010, Urine Protein 30 H, Urine Glucose (UA) Normal, Urine Ketones Negative, Urine Occult Blood 10 H, Urine Nitrite Negative, Urine Bilirubin Negative, Urine Urobilinogen Normal, Ur Leukocyte Esterase Negative, Urine RBC 0-5 SEEN, Urine WBC 0-5 SEEN, Ur Squamous Epith Cells 0-5 SEEN, Urine Bacteria 1+, Hyaline Casts 0-5 SEEN, Urine Mucus 0 SEEN 03/17/25 16:00: Troponin T Hi Sens 2 Hr 43 H Imaging Radiology Impression Abdomen/Pelvis CT 03/17/25 14:08 IMPRESSION: 1. Mucosal thickening in the ascending colon consistent with colitis. 2. Partially visualized bilateral pleural effusions, greater on the left. 3. Hepatomegaly with fatty infiltration. 4. Colonic diverticulosis without acute diverticulitis. Reading Location: [facility] Chest X-Ray 03/17/25 14:55 IMPRESSION: 1. Patchy airspace disease of the left lung field, likely multifocal pneumonia. 2. Left pleural effusion. Reading Location: [facility] Assessment & Plan Assessment/Plan (1) Atrial fibrillation with RVR: (2) Colitis: PLAN: Plan # A-fib with RVR -Patient given diltiazem in the ED, initially on exam was still low 100s to 120s however after evaluation appeared to convert on telemetry with heart rate in the 70s and did at times seem to have P waves but seems to still be in paroxysmal atrial fibrillation - Will continue patient's home metoprolol and replace electrolytes as this may have contributed, given suboptimal blood pressure patient's heart rates now in the 70s hesitant to increase his medications unless necessary -Patient's Xarelto on hold given his recent GI bleed, given current complaints and concerns we will continue to hold -Recent TSH within normal limits -No recent echo, will order # Right-sided colitis -Seen on CT scan -Given Zosyn in the ED, will continue at this time -Supportive care # Recent GI bleed -Patient with multiple polyps removed and AVMs seen on colonoscopy this past Sunday, patient with no bright red blood and hemoglobin similar to what it was on discharge, does not seem to have brisk or active bleed, low threshold for GI consult if needed -Repeat hemoglobin in the a.m. #Hypokalemia -Replace -Repeat BMP after replacement # Lung cancer -Will need to continue follow with Dr. Chao on discharge #Hypothyroidism -Continue Synthroid #GERD -Continue PPI #Chronic BPH with obstruction -Continue home medications #Depression/anxiety -Continue home medications #DVT ppx: SCDs Lia Guaman MD Charges/Coding Visit Charges Inpatient E&M: 39266 Init Hosp L2
--- NOTE | 2025-03-17 18:02 | EX.PCM.CON.G ---
HPI Consult Data Date of Consult: 03/17/25 HPI Narrative HPI Narrative: KANG GREEN, is a 84 M with past medical history significant for non-small cell lung CA currently on chemo, paroxysmal atrial fibrillation on systemic anticoagulation with Xarelto 2 who was sent from his oncologist office with profound generalized weakness. Patient states he has not been himself since he started chemo 3 months prior. He did notice increasing weakness and lightheadedness over the past couple of days. Lab work obtained in his oncologist office revealed hemoglobin of 7.2 patient was sent to the emergency department for subsequent eval. Repeat hemoglobin came back at 6.6. On further questioning patient denied any COVID ground emesis. Did admit to having dark stools but no bright red per rectum. Patient was noted to be guaiac positive in the ED. Patient was recently admitted for fatigue and discovered to have a significant iron deficiency anemia admitted into the hospital with anemia and underwent colonoscopy. Findings: The perianal and digital rectal examinations were normal. Multiple small and large-mouthed diverticula were found in the recto-sigmoid colon, sigmoid colon and descending colon. 20 sessile polyps were found in the splenic flexure, transverse colon, hepatic flexure, ascending colon and cecum. The polyps were 1 to 2 mm in size. These polyps were removed with a saline injection-lift technique using a hot snare. Resection and retrieval were complete. Verification of patient identification for the specimen was done. Coagulation for destruction of remaining portion of lesion using argon plasma at 0.3 liters/minute and 20 oakes was successful. Estimated blood loss was minimal. An 8 mm polyp was found in the sigmoid colon. The polyp was sessile. The polyp was removed with a hot snare. Resection and retrieval were complete. A 2 mm polyp was found in the cecum. The polyp was sessile. The polyp was removed with a jumbo cold forceps. Resection and retrieval were complete. Verification of patient identification for the specimen was done. Estimated blood loss was minimal. Three medium-sized localized angiodysplastic lesions with bleeding were found in the cecum. Coagulation for bleeding prevention using argon plasma at 0.3 liters/minute and 20 oakes was successful. Estimated blood loss was minimal. A 20 mm polyp was found in the hepatic flexure. The polyp was sessile. The polyp was removed with a hot snare. Polyp resection was incomplete. The resected tissue was retrieved. Area was tattooed with an injection of 1 mL of Tiera ink. Impression: - Diverticulosis in the recto-sigmoid colon, in the sigmoid colon and in the descending colon. - 20 1 to 2 mm polyps at the splenic flexure, in the transverse colon, at the hepatic flexure, in the ascending colon and in the cecum, removed using injection-lift and a hot snare. Resected and retrieved. Treated with argon plasma coagulation (APC). - One 8 mm polyp in the sigmoid colon, removed with a hot snare. Resected and retrieved. - One 2 mm polyp in the cecum, removed with a jumbo cold forceps. Resected and retrieved. - Three bleeding colonic angiodysplastic lesions. Treated with argon plasma coagulation (APC). - One 20 mm polyp at the hepatic flexure, removed with a hot snare. Incomplete resection. Resected tissue retrieved. Tattooed. MICROSCOPIC DIAGNOSIS; A. Colon, cecum and ascending, polyp, biopsy: ? Tubular adenoma B. Colon, hepatic flexure, polyp, biopsy: ? Tubular adenoma with focal high grade dysplasia C. Transverse colon, polyp, biopsy: ? Tubular adenoma D. Colon, splenic flexure, polyp, biopsy: ? Tubular adenoma Patient currently undergoing chemotherapy for lung cancer through [facility] (Dr. Chao). He states that since the colonoscopy he has a pain on the right side of his abdomen extending over towards the left side. He states it is worse with movement and bending over. He has had several semiformed bowel movements since and notes that they are dark. He has not seen bright red blood. He had a CT scan abdomen pelvis: 1. Mucosal thickening in the ascending colon consistent with colitis. 2. Partially visualized bilateral pleural effusions, greater on the left. 3. Hepatomegaly with fatty infiltration. 4. Colonic diverticulosis without acute diverticulitis. [facility] Medical History Non-small cell lung cancer (NSCLC) Fatigue Pneumonia Pleural effusion, left Paroxysmal atrial fibrillation Nonrheumatic mitral (valve) prolapse Persistent atrial fibrillation Right bundle branch block (RBBB) Lung nodule Iron deficiency anemia Thoracic aortic aneurysm Nonrheumatic aortic (valve) insufficiency Nonrheumatic mitral (valve) insufficiency Hyperlipidemia Essential (primary) hypertension Atrial fibrillation with RVR (01/29/18) Anxiety Benign prostatic hypertrophy Chronic lymphocytic leukemia Home Medications ?Medication ?Instructions ?Recorded ?Last Taken ?Type finasteride 5 mg tablet 5 mg PO DAILY PROSTATE 12/08/16 03/16/25 History tamsulosin 0.4 mg capsule 0.8 mg PO DAILY PROSTATE 12/08/16 03/16/25 History metoprolol tartrate 25 mg tablet 25 mg PO BID HEART, BLOOD PRESSURE 01/28/18 03/17/25 History omeprazole 40 mg capsule,delayed 40 mg PO DAILY ACID REFLUX 01/28/18 03/16/25 History release ferrous sulfate 325 mg (65 mg 325 mg PO BID 08/25/19 03/17/25 History iron) tablet trazodone 50 mg tablet 50 mg PO QHS 04/21/21 03/16/25 History rivaroxaban 20 mg tablet (Xarelto) 20 mg PO DAILY 04/19/22 03/16/25 History levothyroxine 50 mcg tablet 50 mcg PO DAILY disorder of 03/26/24 03/16/25 History thyroid gland sertraline 100 mg tablet 100 mg PO BID 11/07/24 03/17/25 History atorvastatin 10 mg tablet 10 mg PO DAILY 01/01/25 03/17/25 History alprazolam 0.25 mg tablet 0.25 mg PO TID PRN anxiety 02/12/25 02/12/25 History zolpidem 10 mg tablet (Ambien) 10 mg PO QHS 03/06/25 03/16/25 History Allergy/AdvReac Type Severity Reaction Status Date / Time codeine Allergy Rash Verified 03/12/25 11:14 ondansetron (From Zofran (as Allergy Unknown Verified 03/12/25 11:14 hydrochloride)) Family History Brother Heart disease CVA (cerebral vascular accident) Cancer Brother Heart disease Sister Cancer Surgical History H/O colonoscopy with polypectomy Social History housing: house Smoking Status: Former smoker Smokeless tobacco user: snuff alcohol intake: current Alcohol type: beer ROS ROS Narrative General: Maybe some chills with no measured fever HENT: Denies headache, denies stuffy nose, denies sore throat EYES: Denies changes in vision Resp: Denies cough, no changes in the shortness of breath Cardiac: Denies chest pain GI: Right-sided abdominal pain with dark stool, denies nausea/vomiting : Denies changes in urination Extremity: Denies swelling MSK: Generalized weakness and fatigue Neuro: Denies any numbness/tingling Heme: Denies any bleeding or bruising Skin: Denies rashes Psychiatric: No complaints voiced Physical Exam Narrative General: Resting comfortably, wakes up and answers questions appropriately HEENT: Atraumatic, normocephalic Eyes: Anicteric, normal conjunctiva, extraocular movements grossly intact Neck: Supple Respiratory: Normal respiratory effort without significant wheezes or rhonchi Cardiovascular: Tachycardic, irregularly irregular GI: Soft, nondistended, tenderness on right side of abdomen with voluntary guarding Extremities: No edema Musculoskeletal: Moving all extremities Neuro: No overt focal neurological deficits Skin: No rashes appreciated Psych: Cooperative Lab / Micro Data 03/17/25 14:01 03/17/25 14:01 Labs: Laboratory Results - last 24 hr 03/17/25 14:01: WBC 4.2 L, RBC 2.89 L, Hgb 8.4 L, Hct 25.0 L, MCV 86.5, MCH 29.1, MCHC 33.6, RDW Std Deviation 61.3 H, RDW Coeff of Terell 19.8 H, Plt Count 174, MPV 9.9, Neut % (Auto) Not Reportable, Absolute Neuts (auto) 3.4, Absolute Lymphs (auto) 0.67 L, Total Counted 100, Neutrophils % (Manual) 81 H, Lymphocytes % (Manual) 16 L, Monocytes % (Manual) 1, Metamyelocytes % 1, Myelocytes % 1 H, Diff Path Review May foll, Atypical Lymphocytes 3+, Platelet Estimate ADEQUATE, Anisocytosis 1+, Uriah Cells 1+, PT 16.4 H, INR 1.3, APTT 28.0, Sodium 132 L, Potassium 2.9 L, Chloride 97 L, Carbon Dioxide 23.5, Anion Gap 12, BUN 15, Creatinine 0.77, Estim Creat Clear Calc 60.56, Est GFR (MDRD) Non-Af 89, BUN/Creatinine Ratio 19.3, Glucose 120 H, Lactic Acid < 1.0, Calcium 8.3, Total Bilirubin 0.69, Direct Bilirubin 0.41 H, AST 74 H, ALT 120 H, Alkaline Phosphatase 176 H, Troponin T High Sens 49 H, Total Protein 5.2 L, Albumin 2.7 L, Globulin 2.5, Lipase 25 03/17/25 14:02: Blood Type A POSITIVE, Antibody Screen NEGATIVE 03/17/25 15:15: Urine Color Yellow, Urine Clarity Clear, Urine pH 6.0, Ur Specific Fowler 1.010, Urine Protein 30 H, Urine Glucose (UA) Normal, Urine Ketones Negative, Urine Occult Blood 10 H, Urine Nitrite Negative, Urine Bilirubin Negative, Urine Urobilinogen Normal, Ur Leukocyte Esterase Negative, Urine RBC 0-5 SEEN, Urine WBC 0-5 SEEN, Ur Squamous Epith Cells 0-5 SEEN, Urine Bacteria 1+, Hyaline Casts 0-5 SEEN, Urine Mucus 0 SEEN 03/17/25 16:00: Troponin T Hi Sens 2 Hr 43 H Imaging Radiology Impression Abdomen/Pelvis CT 03/17/25 14:08 IMPRESSION: 1. Mucosal thickening in the ascending colon consistent with colitis. 2. Partially visualized bilateral pleural effusions, greater on the left. 3. Hepatomegaly with fatty infiltration. 4. Colonic diverticulosis without acute diverticulitis. Reading Location: [facility] Chest X-Ray 03/17/25 14:55 IMPRESSION: 1. Patchy airspace disease of the left lung field, likely multifocal pneumonia. 2. Left pleural effusion. Reading Location: [facility] Assessment & Plan Assessment/Plan (1) GI bleed: (2) Anemia: PLAN: Plan Patient is an 84-year-old gentleman with history of non-small cell lung cancer, paroxysmal A-fib as well as history of pulmonary embolism on systemic anticoagulation with Xarelto presented with profound generalized weakness found to have hemoglobin of 6.6 with a guaiac positive stools 1. Severe anemia ? Secondary to acute blood loss anemia superimposed on probable chronic anemia exacerbated by the use of systemic anticoagulation. Patient hemoglobin on admission was 6.6. Patient was typed and crossmatched, and order was given for patient to be transfused 1 unit PRBC. Did request for iron studies prior to patient's transfusion. Patient was started on Protonix GI consulted and admitted to monitored bed subsequent evaluation with every 6 H&H ordered 03/13: H&H 8.5/25%. Platelet count 1 56K. Colonoscopy: - Diverticulosis in the recto-sigmoid colon, in the sigmoid colon and in the descending colon. - 20; 1 to 2 mm polyps at the splenic flexure, in the transverse colon, at the hepatic flexure, in the ascending colon and in the cecum, removed using injection-lift and a hot snare. Resected and retrieved. Treated with argon plasma coagulation (APC). - One 8 mm polyp in the sigmoid colon, removed with a hot snare. Resected and retrieved. - One 2 mm polyp in the cecum, removed with a jumbo cold forceps. Resected and retrieved. - Three bleeding colonic angiodysplastic lesions. Treated with argon plasma coagulation (APC). - One 20 mm polyp at the hepatic flexure, removed with a hot snare. Incomplete resection. Resected tissue retrieved. Tattooed. Recommendation: - Repeat colonoscopy for surveillance based on pathology results. Hold Aspirin and Xarelto for 2 weeks - No aspirin, ibuprofen, naproxen, or other non-steroidal anti-inflammatory drugs for 2 weeks. - No aspirin, ibuprofen, naproxen, or other non-steroidal anti-inflammatory drugs for 2 weeks after polyp removal. - The patient is not currently taking anticoagulant or antiplatelet agents. I suspect that he has ischemic colitis secondary to paroxysmal atrial fibrillation with RVR. He appears clinically stable at this time. Continue to monitor vitals and laboratory analysis. Charges/Coding Visit Charges Inpatient E&M: 59087 Init Hosp L3
[2025-03-17 18:28] LABS: Troponin T High Sens 4 HR 39 ng/L (<=22)
--- NOTE | 2025-03-17 18:42 | ECHOD_ITS ---
Reason For Study Reason For Study: Afib/Flutter Procedure This was a 2D Doppler, Color Flow transthoracic echocardiogram. Myocardial strain analysis was performed in this exam to aid in the assessment of cardiac function. Exam performed portable in patient room. Left Ventricle Normal LV size. The left ventricular ejection fraction is 45 %. There is mild global hypokinesis of the left ventricle. Right Ventricle Normal RV size. Normal systolic function. Atria The left atrium is moderately enlarged. Normal right atrium. Mitral Valve Bileaflet diffuse mitral valve thickening. Mild mitral valve prolapse. Mild- Moderate (1-2+) eccentric mitral valve insufficiency. Tricuspid Valve Normal tricuspid valve. Mild to moderate (1-2+) tricuspid valve insufficiency. Pulmonary artery systolic pressure is 60 mmHg. Aortic Valve Trisinus/trileaflet aortic valve. Mild (1+) eccentric aortic valve insufficiency. Pulmonic Valve Normal pulmonic valve. Great Vessels Normal sized aortic root. The pulmonary artery is normal size. Inferior vena cava collapse with respiration. Pericardium/Pleural No pericardial effusion. MMode/2D Measurements & Calculations LVIDd: 5.2 cm IVSd: 1.3 cm Ao root diam: 4.0 cm LVIDs: 3.5 cm LVPWd: 0.95 cm RVDd: 4.3 cm FS: 31.3 % asc Aorta Diam: 4.3 cm LAV(MOD-bp): 111.3 ml LVAd ap4: 42.0 cm2 LAV(MOD-bp) Indexed: 66.1 ml/m2 LVLd ap4: 8.8 cm LAV(MOD-sp2): 114.9 ml EDV(MOD-sp4): 161.0 ml LAV(MOD-sp4): 107.2 ml EDV(sp4-el): 169.2 ml LVAs ap4: 28.0 cm2 LVLs ap4: 7.6 cm ESV(MOD-sp4): 83.8 ml ESV(sp4-el): 87.5 ml EF(MOD-sp4): 47.9 % EF(sp4-el): 48.3 % SV(MOD-sp4): 77.2 ml SV(sp4-el): 81.7 ml LA A4 area: 29.8 cm2 SI(MOD-sp4): 45.9 ml/m2 LA dimension(2D): 4.4 cm RA A4 area: 20.1 cm2 TAPSE: 2.3 cm Time Measurements MV dec time: 0.13 sec Doppler Measurements & Calculations MV E max sharan: 111.4 cm/sec Lat Peak E' Sharan: 13.0 cm/sec Med Peak E' Sharan: 6.9 cm/sec MV A max sharan: 108.2 cm/sec E/E' lat: 8.6 E/E' med: 16.2 MV E/A: 1.0 MV V2 max: 133.7 cm/sec MV P1/2t max sharan: 119.7 cm/sec Ao V2 max: 196.8 cm/sec MV max P.2 mmHg MV P1/2t: 43.2 msec Ao max P.5 mmHg MV V2 mean: 77.6 cm/sec Ao V2 mean: 120.3 cm/sec MV mean P.8 mmHg MV dec slope: 811.8 cm/sec2 Ao mean P.8 mmHg MV V2 VTI: 40.7 cm MVA(P1/2t): 5.1 cm2 Ao V2 VTI: 41.5 cm AV (velocity ratio): 0.70 AI max sharan: 604.3 cm/sec LV V1 max: 142.8 cm/sec MR max sharan: 669.6 cm/sec AI max P.6 mmHg LV V1 max P.2 mmHg MR max P.4 mmHg LV V1 mean P.3 mmHg MR mean sharan: 492.9 cm/sec AI dec slope: 467.4 cm/sec2 LV V1 mean: 97.3 cm/sec MR mean P.4 mmHg AI P1/2t: 378.7 msec LV V1 VTI: 29.1 cm MR VTI: 193.4 cm PA V2 max: 90.8 cm/sec TR max sharan: 379.0 cm/sec TR max P.5 mmHg ECHO/Echo Complete Interpretation Summary Normal LV size. The left ventricular ejection fraction is 45 %. There is mild global hypokinesis of the left ventricle. Mild mitral valve prolapse. Mild-Moderate (1-2+) eccentric mitral valve insufficiency. Mild (1+) eccentric aortic valve insufficiency. The left atrium is moderately enlarged. Pulmonary artery systolic pressure is 60 mmHg. Ordering Physician: Lia Guaman Performed By: Ramin Segura RCS
[2025-03-17] MEDS: 0.9% Saline Lock 10 ML Syringe IV ×2 (19:51→23:07)
[2025-03-17 20:09] LABS: Magnesium 1.8 mg/dL (1.5-2.2)
[2025-03-17] MEDS: Metoprolol Tartrate 25 MG Tablet PO (20:34)
[2025-03-17] MEDS: traZODone 50 MG Tablet PO (20:34)
[2025-03-17] MEDS: Acetaminophen 325 MG Tablet 650 MG PO (20:35)
[2025-03-17] MEDS: Sertraline 100 MG Tablet PO (20:35)
[2025-03-17 23:05] LABS: Anion Gap 9 (5-15); BUN 13 mg/dL (4-19); BUN/Creat Ratio 16.8 RATIO (10-20); Calcium,Total 8.3 mg/dL (7.6-11.0); Carbon Dioxide 24.9 mmol/L (21.0-32.0); Chloride 100 mmol/L (98-108); Creatinine, Serum 0.76 mg/dL (0.70-1.20); EST Glomerular Filtration Rate 89 (>60); Estimated Creatinine Clearance 58.62 ml/min (50-250); Glucose 125 mg/dL (70-99); Potassium 3.1 mmol/L (3.3-5.1); Sodium Level 134 mmol/L (133-145)
[2025-03-17] MEDS: Piperacil/Tazobactam 3.375 GM in 0.9% Normal Saline (50mL MB+) 50 ML IV (23:07)
[2025-03-17] MEDS: Potassium Chloride Oral Tablet 20 MEQ 60 MEQ PO (23:20)
[2025-03-18] VITALS (13 sets, daily range): BP systolic 112–137; BP diastolic 52–66; PULSE 64–79; RESP 12–22; TEMP 36.6–38.4; O2SAT 87–95
--- NOTE | 2025-03-18 01:36 | EKG12_ITS ---
Test Reason : CONVERT TO NSR Blood Pressure : */* mmHG Vent. Rate : 64 BPM Atrial Rate : 64 BPM P-R Int : 148 ms QRS Dur : 138 ms QT Int : 506 ms P-R-T Axes : 50 -67 27 degrees QTcB Int : 522 ms Normal sinus rhythm Right bundle branch block Left anterior fascicular block Bifascicular block Abnormal ECG When compared with ECG of 17-Mar-2025 16:30, MANUAL COMPARISON REQUIRED DATA IS UNCONFIRMED Confirmed by WILLIE ISRAEL, VINAY ([id number]), online content editor SUDHIR MOREAU ([id number]) on 03/18/2025 2:06:00 PM Referred By: Confirmed By: VINAY TAPIA MD
[2025-03-18] MEDS: Levothyroxine 50 MCG Tablet PO (05:49)
[2025-03-18] MEDS: Piperacil/Tazobactam 3.375 GM in 0.9% Normal Saline (50mL MB+) 50 ML IV ×3 (05:50→21:23)
[2025-03-18 06:42] LABS: Absolute Lymphocyte Count 0.65 X10^3/uL (0.83-4.51); Absolute Neutrophil Count 2.4 X10^3/uL (2.0-7.7); Basophil# 0.01 X10^3/uL; Basophil% 0.3 % (0-1); Eosinophil# 0.05 X10^3/uL; Eosinophils% 1.5 % (0-5); Hematocrit 26.1 % (40-54); Hemoglobin 8.5 g/dL (13.0-16.5); Lymphocyte # 0.65 X10^3/ul (0.83-4.51); Lymphocyte % 19.9 % (19-41); Mean Corp Hgb Conc 32.6 g/dL (32-36); Mean Corpuscular Volume 89.1 fL (80-94); Mean Platelet Vol. 9.9 fl (6.2-12.0); Monocyte# 0.06 X10^3/uL; Monocyte% 1.8 % (0-10); NRBC Flagged by Analyzer 0 % (0-5); Neutrophil # 2.44 X10^3/uL (2.7-7.7); Neutrophil % 74.7 % (47-70); POSITIVE MORPHOLOGY YES; Platelet Count 170 K/mm3 (150-450); RBC Distribution Width CV 19.9 % (11.6-14.6); RBC Distribution Width SD 63.7 fl (35.1-43.9); Red Blood Count 2.93 M/mm3 (4.6-6.2); White Blood Count 3.3 K/mm3 (4.4-11.0)
[2025-03-18 06:51] LABS: Differential Indicated SCAN CRITERIA MET
[2025-03-18 07:11] LABS: Anion Gap 10 (5-15); BUN 12 mg/dL (4-19); BUN/Creat Ratio 16.4 RATIO (10-20); Calcium,Total 8.5 mg/dL (7.6-11.0); Carbon Dioxide 23.4 mmol/L (21.0-32.0); Chloride 102 mmol/L (98-108); Creatinine, Serum 0.75 mg/dL (0.70-1.20); EST Glomerular Filtration Rate 90 (>60); Estimated Creatinine Clearance 58.62 ml/min (50-250); Glucose 86 mg/dL (70-99); Potassium 4.1 mmol/L (3.3-5.1); Sodium Level 135 mmol/L (133-145)
--- NOTE | 2025-03-18 08:00 | PCM.PN.HOSP ---
Reason for Visit Reason for Visit: Diagnoses Unspecified atrial fibrillation (03/17/25) Noninfective gastroenteritis and colitis, unspecified (03/17/25) Objective Data Objective Data Vital Signs: Vital Signs Temp Pulse Resp BP Pulse Ox O2 Del Method O2 Flow Rate 98.0 F 78 18 115/52 L 95 Nasal Cannula 5 03/18/25 05:45 03/18/25 05:45 03/18/25 05:45 03/18/25 05:45 03/18/25 05:45 03/18/25 05:45 03/18/25 05:45 Oxygen Flow Rate (L/min) 5 Oxygen Delivery Method Nasal Cannula Weight: 130 lb 9.6 oz Body Mass Index (BMI) 20.4 Intake & Output: Intake and Output for Last 24 Hours 03/16/25 03/17/25 03/18/25 23:59 23:59 23:59 Intake Total 1520 / 1520 100 / 100 Output Total 250 / 250 200 / 200 Balance 1270 / 1270 -100 / -100 Lab / Micro Data 03/18/25 06:10 03/18/25 06:10 Labs: Laboratory Results - last 24 hr 03/17/25 14:01: WBC 4.2 L, RBC 2.89 L, Hgb 8.4 L, Hct 25.0 L, MCV 86.5, MCH 29.1, MCHC 33.6, RDW Std Deviation 61.3 H, RDW Coeff of Terell 19.8 H, Plt Count 174, MPV 9.9, Neut % (Auto) Not Reportable, Absolute Neuts (auto) 3.4, Absolute Lymphs (auto) 0.67 L, Total Counted 100, Neutrophils % (Manual) 81 H, Lymphocytes % (Manual) 16 L, Monocytes % (Manual) 1, Metamyelocytes % 1, Myelocytes % 1 H, Diff Path Review May foll, Atypical Lymphocytes 3+, Platelet Estimate ADEQUATE, Anisocytosis 1+, Uriah Cells 1+, PT 16.4 H, INR 1.3, APTT 28.0, Sodium 132 L, Potassium 2.9 L, Chloride 97 L, Carbon Dioxide 23.5, Anion Gap 12, BUN 15, Creatinine 0.77, Estim Creat Clear Calc 60.56, Est GFR (MDRD) Non-Af 89, BUN/Creatinine Ratio 19.3, Glucose 120 H, Lactic Acid < 1.0, Calcium 8.3, Total Bilirubin 0.69, Direct Bilirubin 0.41 H, AST 74 H, ALT 120 H, Alkaline Phosphatase 176 H, Troponin T High Sens 49 H, Total Protein 5.2 L, Albumin 2.7 L, Globulin 2.5, Lipase 25 03/17/25 14:02: Magnesium 1.8, Blood Type A POSITIVE, Antibody Screen NEGATIVE 03/17/25 15:15: Urine Color Yellow, Urine Clarity Clear, Urine pH 6.0, Ur Specific [place] 1.010, Urine Protein 30 H, Urine Glucose (UA) Normal, Urine Ketones Negative, Urine Occult Blood 10 H, Urine Nitrite Negative, Urine Bilirubin Negative, Urine Urobilinogen Normal, Ur Leukocyte Esterase Negative, Urine RBC 0-5 SEEN, Urine WBC 0-5 SEEN, Ur Squamous Epith Cells 0-5 SEEN, Urine Bacteria 1+, Hyaline Casts 0-5 SEEN, Urine Mucus 0 SEEN 03/17/25 16:00: Troponin T Hi Sens 2 Hr 43 H 03/17/25 17:59: Troponin T Hi Sens 4Hr 39 H 03/17/25 22:26: Sodium 134, Potassium 3.1 L, Chloride 100, Carbon Dioxide 24.9, Anion Gap 9, BUN 13, Creatinine 0.76, Estim Creat Clear Calc 58.62, Est GFR (MDRD) Non-Af 89, BUN/Creatinine Ratio 16.8, Glucose 125 H, Calcium 8.3 03/18/25 06:10: WBC 3.3 L, RBC 2.93 L, Hgb 8.5 L, Hct 26.1 L, MCV 89.1, MCH 29.0, MCHC 32.6, RDW Std Deviation 63.7 H, RDW Coeff of Terell 19.9 H, Plt Count 170, MPV 9.9, Immature Gran % (Auto) 1.800 H, Neut % (Auto) 74.7 H, Lymph % (Auto) 19.9, Centre % (Auto) 1.8, Eos % (Auto) 1.5, Baso % (Auto) 0.3, Absolute Neuts (auto) 2.4, Absolute Lymphs (auto) 0.65 L, Nucleated RBC % 0, Sodium 135, Potassium 4.1, Chloride 102, Carbon Dioxide 23.4, Anion Gap 10, BUN 12, Creatinine 0.75, Estim Creat Clear Calc 58.62, Est GFR (MDRD) Non-Af 90, BUN/Creatinine Ratio 16.4, Glucose 86, Calcium 8.5, Magnesium 2.0 Radiography Diagnostic Testing: Radiology Impression Abdomen/Pelvis CT 03/17/25 14:08 IMPRESSION: 1. Mucosal thickening in the ascending colon consistent with colitis. 2. Partially visualized bilateral pleural effusions, greater on the left. 3. Hepatomegaly with fatty infiltration. 4. Colonic diverticulosis without acute diverticulitis. Reading Location: [facility] [place] Chest X-Ray 03/17/25 14:55 IMPRESSION: 1. Patchy airspace disease of the left lung field, likely multifocal pneumonia. 2. Left pleural effusion. Reading Location: [facility] [place] Physical Exam Narrative Patient is short of breath. Denies chest pain pressure tightness he denies palpitation. Coughing up clear sputum mixed with blood. Physical exam General: Alert, Oriented x3, Cooperative HEENT: Atraumatic, PERRLA, EOMI, Normocephalic Oral: No Gingival or Mucosal Lesions/ Ulcerations Neck: Supple, No JVD, Negative Carotid Bruits Chest wall/Lungs: Mediport at left upper chest wall. Air entry diminished in left lung base. Coarse crepitation Cardiovascular: Regular rate, Regular Rhythm, Normal S1, Normal S2, systolic Abdomen: Bowel Sounds Present, Soft, Non Tender, Non-Distended : No dysuria. No renal angle tenderness. No suprapubic tenderness. Extremities: No edema, Capillary Refill Less than 3 Seconds Skin: No rashes, No breakdown Musculoskeletal: No Tenderness to Palpation of Joints or Extremities Neurological: Cranial nerves II-XII grossly intact, DTR 2+/4. No acute focal neurological deficit. Psych/Mental Status: Flat affect Assessment & Plan Assessment/Plan (1) Atrial fibrillation with RVR: (2) Colitis: PLAN: Plan 84-year-old gentleman was admitted with chief complaint of abdominal pain and dark stool with recent hospitalization for the similar indication. Patient received chemotherapy last round for 03/05. Patient is also short of breath and coughing up clearish sputum mixed with some blood. # A-fib with RVR: Initial heart rate was low 100s to 120s. Optimize electrolytes. On metoprolol. Received IV diltiazem in ED. Xarelto on hold due to recent GI bleed. TSH within normal limit. 2D echo was done. On the court recording monitor patient converted to sinus rhythm Right lung base opacity due to lung cancer and possible pneumonia/pleural effusion: Chest x-ray initially reviewed and shows left lingula and lung base patchy opacity. On the above antibiotic. Speech therapy ordered. # Right lower quadrant pain: CT abdomen/pelvis was reviewed individually. Mucosal thickening in the ascending colon consistent with colitis. Partially visualized bilateral pleural effusion more on the left with left lung base opacity. IV Zosyn converted to IV Unasyn # Recent GI bleed Patient multiple polyps removed and AVMs on colonoscopy on past Sunday. Patient did not had bright red blood but dark stool. 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 This was communicated to Dr. Rojo. Patient is very exhausted With multiple hospitalization and multiple comorbidities. If patient wants to pursue further he can follow-up with tertiary care colorectal surgeon H&H 8.4/25%. At discharge, it was 9.4/28.8% #Hypokalemia: Electrolyte corrected. Repeat 4.1 # Non-small cell lung lung cancer, CLL -Will need to continue follow with Dr. Chao on discharge #Hypothyroidism -Continue Synthroid #GERD -Continue PPI #Chronic BPH with obstruction -Continue home medications #Depression/anxiety -Continue home medications #DVT ppx: SCDs Living will/advanced directive/end of life care: Patient does have living will or advanced directive. His son is the power of microsoft solutions architect for after discussion of benefits/risks procedures involved with full code, DNR CC arrest and DNR CC, the patient opted for DNR CC arrest with no intubation or ventilator Patient doesn't want artificial life support including intubation, tube feed, ventilator and/chest compression, and DC shock if needed. Patient already has left upper chest Mediport and I think that can be utilized for vasopressor Total time spent in [id number] encounter in discussion of advanced directive 17 minutes. Laboratory Results 03/17/25 14:01: WBC 4.2 L, RBC 2.89 L, Hgb 8.4 L, Hct 25.0 L, MCV 86.5, MCH 29.1, MCHC 33.6, RDW Std Deviation 61.3 H, RDW Coeff of Terell 19.8 H, Plt Count 174, MPV 9.9, Neut % (Auto) Not Reportable, Absolute Neuts (auto) 3.4, Absolute Lymphs (auto) 0.67 L, Total Counted 100, Neutrophils % (Manual) 81 H, Lymphocytes % (Manual) 16 L, Monocytes % (Manual) 1, Metamyelocytes % 1, Myelocytes % 1 H, Diff Path Review May foll, Atypical Lymphocytes 3+, Platelet Estimate ADEQUATE, Anisocytosis 1+, Vader Cells 1+, PT 16.4 H, INR 1.3, APTT 28.0, Sodium 132 L, Potassium 2.9 L, Chloride 97 L, Carbon Dioxide 23.5, Anion Gap 12, BUN 15, Creatinine 0.77, Estim Creat Clear Calc 60.56, Est GFR (MDRD) Non-Af 89, BUN/Creatinine Ratio 19.3, Glucose 120 H, Lactic Acid < 1.0, Calcium 8.3, Total Bilirubin 0.69, Direct Bilirubin 0.41 H, AST 74 H, ALT 120 H, Alkaline Phosphatase 176 H, Troponin T High Sens 49 H, Total Protein 5.2 L, Albumin 2.7 L, Globulin 2.5, Lipase 25 03/17/25 14:02: Magnesium 1.8, Blood Type A POSITIVE, Antibody Screen NEGATIVE 03/17/25 15:15: Urine Color Yellow, Urine Clarity Clear, Urine pH 6.0, Ur Specific [place] 1.010, Urine Protein 30 H, Urine Glucose (UA) Normal, Urine Ketones Negative, Urine Occult Blood 10 H, Urine Nitrite Negative, Urine Bilirubin Negative, Urine Urobilinogen Normal, Ur Leukocyte Esterase Negative, Urine RBC 0-5 SEEN, Urine WBC 0-5 SEEN, Ur Squamous Epith Cells 0-5 SEEN, Urine Bacteria 1+, Hyaline Casts 0-5 SEEN, Urine Mucus 0 SEEN 03/17/25 16:00: Troponin T Hi Sens 2 Hr 43 H 03/17/25 17:59: Troponin T Hi Sens 4Hr 39 H 03/17/25 22:26: Sodium 134, Potassium 3.1 L, Chloride 100, Carbon Dioxide 24.9, Anion Gap 9, BUN 13, Creatinine 0.76, Estim Creat Clear Calc 58.62, Est GFR (MDRD) Non-Af 89, BUN/Creatinine Ratio 16.8, Glucose 125 H, Calcium 8.3 03/18/25 06:10: WBC 3.3 L, RBC 2.93 L, Hgb 8.5 L, Hct 26.1 L, MCV 89.1, MCH 29.0, MCHC 32.6, RDW Std Deviation 63.7 H, RDW Coeff of Terell 19.9 H, Plt Count 170, MPV 9.9, Immature Gran % (Auto) 1.800 H, Neut % (Auto) 74.7 H, Lymph % (Auto) 19.9, Centre % (Auto) 1.8, Eos % (Auto) 1.5, Baso % (Auto) 0.3, Absolute Neuts (auto) 2.4, Absolute Lymphs (auto) 0.65 L, Nucleated RBC % 0, Sodium 135, Potassium 4.1, Chloride 102, Carbon Dioxide 23.4, Anion Gap 10, BUN 12, Creatinine 0.75, Estim Creat Clear Calc 58.62, Est GFR (MDRD) Non-Af 90, BUN/Creatinine Ratio 16.4, Glucose 86, Calcium 8.5, Magnesium 2.0, Triglycerides Pending, Cholesterol Pending, LDL Cholesterol, Calc Pending, VLDL Cholesterol Pending, HDL Cholesterol Pending, Cholesterol/HDL Ratio Pending Clinical Impression(s) from Imaging Studies Abdomen/Pelvis CT 03/17/25 14:08 IMPRESSION: 1. Mucosal thickening in the ascending colon consistent with colitis. 2. Partially visualized bilateral pleural effusions, greater on the left. 3. Hepatomegaly with fatty infiltration. 4. Colonic diverticulosis without acute diverticulitis. [facility] [place] Chest X-Ray 03/17/25 14:55 IMPRESSION: 1. Patchy airspace disease of the left lung field, likely multifocal pneumonia. 2. Left pleural effusion. Reading Location: [facility] [place] Charges/Coding Visit Charges Inpatient E&M: 73585 Subs Hosp L2
[2025-03-18 08:48] LABS: Differential Comment SCANNED
[2025-03-18] MEDS: Ensure Plus High Protein 120 ML LIQUID PO ×4 (09:35→21:14)
[2025-03-18 09:57] LABS: Cholesterol 76 mg/dL (<=200); High Density Lipoprotein 20 mg/dL; Low Density Lipoprotein Calc. 37 mg/dL; Triglycerides 96 mg/dL; Very Low Density Lipoprotein 19 mg/dL (5-40); cholesterol:hdl ratio screen 3.78
[2025-03-18] MEDS: Metoprolol Tartrate 25 MG Tablet PO (10:08)
[2025-03-18] MEDS: Pantoprazole Sodium 40 MG Tablet PO (10:09)
[2025-03-18] MEDS: Finasteride 5 MG Tablet PO (10:09)
[2025-03-18] MEDS: Sertraline 100 MG Tablet PO ×2 (10:10→21:15)
[2025-03-18] MEDS: guaiFENesin/D-Methorphan TAB.SR.12H 1 TABLET PO ×2 (11:04→21:15)
[2025-03-18] MEDS: Ferrous Sulfate 325 MG Tablet PO ×2 (11:38→18:11)
--- NOTE | 2025-03-18 15:43 | CASEMGMT ---
HANG MITCHELL chart review: Patient was admitted 03/12-03/14/25 for GI bleed. See HANG MITCHELL assessment from 02/13 and readmission note from 03/13/25. Patient left AMA last admission as he wanted to get home and care for his who has dementia. Patient returned to [facility] ED on 03/17/25 for adominal pain and dark stools. Patient was admitted for Afib with RVR, colitis, and GI bleed. HANG MITCHELL in to discuss needs and readmission with patient. Patient states he was taking medications as prescribed. Patient states he called and spoke with his PCP and oncologist since last admission. Patient states that he is not sure if he wants to continue to cancer treatment and hospitalist mentioned hospice care. Patient states he wishes to speak with son prior to making hospice consult. Patient had no further questions or concerns. HANG MITCHELL updated SW regarding possible hospice consult. CM will continue to follow this patient and plan for a safe discharge.
[2025-03-18] MEDS: Acetaminophen 325 MG Tablet 650 MG PO (16:02)
[2025-03-18] MEDS: Tamsulosin HCl 0.4 MG Capsule 0.8 MG PO (18:11)
[2025-03-18] MEDS: oxyCODONE 5 MG Tablet 2.5 MG PO (18:15)
[2025-03-18] MEDS: Atorvastatin Calcium 10 MG Tablet PO (21:15)
[2025-03-18] MEDS: traZODone 50 MG Tablet PO (21:15)
[2025-03-19] VITALS (7 sets, daily range): BP systolic 112–138; BP diastolic 59–74; PULSE 82–85; RESP 14–24; TEMP 37.3–37.4; O2SAT 90–93
[2025-03-19] MEDS: Levothyroxine 50 MCG Tablet PO (06:30)
[2025-03-19] MEDS: Piperacil/Tazobactam 3.375 GM in 0.9% Normal Saline (50mL MB+) 50 ML IV (06:30)
[2025-03-19 07:04] LABS: Absolute Lymphocyte Count 0.58 X10^3/uL (0.83-4.51); Absolute Neutrophil Count 2.5 X10^3/uL (2.0-7.7); Eosinophil# 0.02 X10^3/uL; Eosinophils% 0.6 % (0-5); Hematocrit 24.5 % (40-54); Hemoglobin 8.1 g/dL (13.0-16.5); Lymphocyte # 0.58 X10^3/ul (0.83-4.51); Lymphocyte % 17.6 % (19-41); Mean Corp Hgb Conc 33.1 g/dL (32-36); Mean Corpuscular Hgb 29.1 pg (27.0-32.0); Mean Corpuscular Volume 88.1 fL (80-94); Mean Platelet Vol. 9.8 fl (6.2-12.0); Monocyte# 0.06 X10^3/uL; Monocyte% 1.8 % (0-10); NRBC Flagged by Analyzer 0 % (0-5); Neutrophil # 2.52 X10^3/uL (2.7-7.7); Neutrophil % 76.7 % (47-70); POSITIVE DIFFERENTIAL YES; POSITIVE MORPHOLOGY YES; Platelet Count 148 K/mm3 (150-450); RBC Distribution Width CV 19.4 % (11.6-14.6); RBC Distribution Width SD 62.7 fl (35.1-43.9); Red Blood Count 2.78 M/mm3 (4.6-6.2); White Blood Count 3.3 K/mm3 (4.4-11.0)
[2025-03-19 07:31] LABS: ALB/GLOB Ratio 1.1 RATIO (0.9-2.4); AST(SGOT) 48 U/L (<=37); Alanine Aminotransfer ALT/SGPT 84 U/L (<=46); Albumin, Serum 2.4 g/dL (3.4-4.8); Alkaline Phosphatase 168 U/L (40-129); Anion Gap 8 (5-15); BUN 10 mg/dL (4-19); BUN/Creat Ratio 14.1 RATIO (10-20); Calcium,Total 8.2 mg/dL (7.6-11.0); Carbon Dioxide 25.3 mmol/L (21.0-32.0); Chloride 98 mmol/L (98-108); EST Glomerular Filtration Rate 91 (>60); Estimated Creatinine Clearance 58.62 ml/min (50-250); Globulin 2.2 g/dL (2.2-4.2); Glucose 98 mg/dL (70-99); Potassium 3.8 mmol/L (3.3-5.1); Protein, Total 4.6 g/dL (5.9-8.4); Sodium Level 131 mmol/L (133-145); Total Bilirubin 0.61 mg/dL (0.00-1.30)
[2025-03-19 07:40] LABS: Differential Indicated SCAN CRITERIA MET
[2025-03-19] MEDS: Pantoprazole Sodium 40 MG Tablet PO (08:05)
[2025-03-19] MEDS: Metoprolol Tartrate 25 MG Tablet PO (08:05)
[2025-03-19] MEDS: Sertraline 100 MG Tablet PO (08:05)
[2025-03-19] MEDS: Doxycycline 100 MG CAPSULE PO ×2 (08:05)
[2025-03-19] MEDS: guaiFENesin/D-Methorphan TAB.SR.12H 1 TABLET PO (08:06)
[2025-03-19] MEDS: Finasteride 5 MG Tablet PO (08:06)
--- NOTE | 2025-03-19 08:55 | PCM.PN.HOSP ---
Reason for Visit Reason for Visit: Diagnoses Anemia, unspecified (03/17/25) Unspecified atrial fibrillation (03/17/25) Noninfective gastroenteritis and colitis, unspecified (03/17/25) Gastrointestinal hemorrhage, unspecified (03/17/25) Objective Data Objective Data Vital Signs: Vital Signs Temp Pulse Resp BP Pulse Ox O2 Del Method O2 Flow Rate 99.2 F H 84 24 H 138/63 H 93 High Flow 7 03/19/25 08:02 03/19/25 08:05 03/19/25 08:02 03/19/25 08:02 03/19/25 08:02 03/19/25 08:44 03/19/25 08:44 Oxygen Flow Rate (L/min) 7 Oxygen Delivery Method High Flow Weight: 130 lb 9.594 oz Body Mass Index (BMI) 20.4 Intake & Output: Intake and Output for Last 24 Hours 03/17/25 03/18/25 03/19/25 23:59 23:59 23:59 Intake Total 1520 / 1520 200 / 400 250 / 250 Output Total 250 / 250 200 / 200 300 / 300 Balance 1270 / 1270 0 / 200 -50 / -50 Medical Nutrition Assessment Dietitian: Malnutrition Criteria Met Start: 03/18/25 11:30 Freq: Status: Active Protocol: Document 03/18/25 11:30 SB (Rec: 03/18/25 11:30 SB [id number]) Nutrition Malnutrition Evidence of Yes Malnutrition Exists Malnutrition (severe Chronic ): Evidenced By Weight Loss (Severe),Physical Changes (Severe) Clinical Problem Chronic Disease or Condition Related Malnutrition Etiology severe related to inadequate energy intake and increased energy expenditure due to lung cancer Signs/Symptoms as evidenced by 14% unintentional weight loss x 4-5 months and severe muscle/fat wasting in clavicle and faith regions. Status Active Problem Recommendation Dietitian Continue regular diet. Recommendations/ Will increase 120ml EPHP TID with medpass to 4x daily. Changes Will order chocolate magic cup with breakfast and dinner. Will order chocolate milkshake with lunch. Will monitor weight trends. Lab / Micro Data 03/19/25 06:42 03/19/25 06:42 Labs: Laboratory Results - last 24 hr 03/18/25 06:10: Triglycerides 96, Cholesterol 76, LDL Cholesterol, Calc 37, VLDL Cholesterol 19, HDL Cholesterol 20 L, Cholesterol/HDL Ratio 3.78 03/19/25 06:42: WBC 3.3 L, RBC 2.78 L, Hgb 8.1 L, Hct 24.5 L, MCV 88.1, MCH 29.1, MCHC 33.1, RDW Std Deviation 62.7 H, RDW Coeff of Terell 19.4 H, Plt Count 148 L, MPV 9.8, Immature Gran % (Auto) 3.300 H, Neut % (Auto) 76.7 H, Lymph % (Auto) 17.6 L, [place] % (Auto) 1.8, Eos % (Auto) 0.6, Baso % (Auto) 0.0, Absolute Neuts (auto) 2.5, Absolute Lymphs (auto) 0.58 L, Nucleated RBC % 0, Sodium 131 L, Potassium 3.8, Chloride 98, Carbon Dioxide 25.3, Anion Gap 8, BUN 10, Creatinine 0.70, Estim Creat Clear Calc 58.62, Est GFR (MDRD) Non-Af 91, BUN/Creatinine Ratio 14.1, Glucose 98, Calcium 8.2, Total Bilirubin 0.61, AST 48 H, ALT 84 H, Alkaline Phosphatase 168 H, Total Protein 4.6 L, Albumin 2.4 L, Globulin 2.2, Albumin/Globulin Ratio 1.1 Micro: Microbiology 03/18/25 02:25 Urine, Clean Catch Legionella Antigen - Final 03/18/25 02:25 Urine, Clean Catch Streptococcus pneumoniae Antigen (M - Final 03/18/25 11:15 Nasal Secretion MRSA (PCR) - Final 03/18/25 11:15 Mucosa - Nasopharyngeal SARS-CoV-2, Influenza & RSV (PCR) - Final Radiography Diagnostic Testing: Radiology Impression Echocardiogram 03/17/25 18:42 Interpretation Summary Normal LV size. The left ventricular ejection fraction is 45 %. There is mild global hypokinesis of the left ventricle. Mild mitral valve prolapse. Mild-Moderate (1-2+) eccentric mitral valve insufficiency. Mild (1+) eccentric aortic valve insufficiency. The left atrium is moderately enlarged. Pulmonary artery systolic pressure is 60 mmHg. Ordering Physician: Lia Guaman Performed By: Ramin Segura RCS Physical Exam Narrative Patient is short of breath. Denies chest pain pressure tightness he denies palpitation. Coughing up clear sputum mixed with blood. Physical exam General: Alert, Oriented x3, Cooperative HEENT: Atraumatic, PERRLA, EOMI, Normocephalic Oral: No Gingival or Mucosal Lesions/ Ulcerations Neck: Supple, No JVD, Negative Carotid Bruits Chest wall/Lungs: Mediport at left upper chest wall. Air entry diminished in left lung base. Coarse crepitation Cardiovascular: Regular rate, Regular Rhythm, Normal S1, Normal S2, systolic Abdomen: Bowel Sounds Present, Soft, Non Tender, Non-Distended : No dysuria. No renal angle tenderness. No suprapubic tenderness. Extremities: No edema, Capillary Refill Less than 3 Seconds Skin: No rashes, No breakdown Musculoskeletal: No Tenderness to Palpation of Joints or Extremities Neurological: Cranial nerves II-XII grossly intact, DTR 2+/4. No acute focal neurological deficit. Psych/Mental Status: Flat affect Assessment & Plan Assessment/Plan (1) Atrial fibrillation with RVR: (2) Colitis: PLAN: Plan 84-year-old gentleman was admitted with chief complaint of abdominal pain and dark stool with recent hospitalization for the similar indication. Patient received chemotherapy last round for 03/05. Patient is also short of breath and coughing up clearish sputum mixed with some blood. # A-fib with RVR: Initial heart rate was low 100s to 120s. Optimize electrolytes. On metoprolol. Received IV diltiazem in ED. Xarelto on hold due to recent GI bleed. TSH within normal limit. 2D echo was done. On the fishing tackle repairer patient converted to sinus rhythm 03/19: Heart rate is controlled Acute on chronic hypoxic respiratory failure due to right lung base opacity due to lung cancer and possible pneumonia/pleural effusion: Chest x-ray initially reviewed and shows left lingula and lung base patchy opacity. On the above antibiotic. Speech therapy ordered. 03/19: Patient had fever, 101.2 Fahrenheit yesterday evening and was low-grade about 99.2 last evening. Cultures reviewed so far pending. MRSA nasal screen negative but since patient is immunocompromised with NSCLC with metastasis, and mildly low fever grade on Zosyn therefore started on IV vancomycin. ID consulted. On 7 L high flow oxygen # Right lower quadrant pain: CT abdomen/pelvis was reviewed individually. Mucosal thickening in the ascending colon consistent with colitis. Partially visualized bilateral pleural effusion more on the left with left lung base opacity. IV Zosyn converted to IV Unasyn # Recent GI bleed Patient multiple polyps removed and AVMs on colonoscopy on past Sunday. Patient did not had bright red blood but dark stool. 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 This was communicated to Dr. Rojo. Patient is very exhausted With multiple hospitalization and multiple comorbidities. If patient wants to pursue further he can follow-up with tertiary care colorectal surgeon H&H 8.4/25%. At discharge, it was 9.4/28.8% #Hypokalemia: Electrolyte corrected. Repeat 4.1 # Non-small cell lung lung cancer, CLL -Will need to continue follow with Dr. Chao on discharge #Hypothyroidism -Continue Synthroid #GERD -Continue PPI #Chronic BPH with obstruction -Continue home medications #Depression/anxiety -Continue home medications #DVT ppx: SCDs Living will/advanced directive/end of life care: Patient does have living will or advanced directive. His son is the power of regulatory attorney for after discussion of benefits/risks procedures involved with full code, DNR CC arrest and DNR CC, the patient opted for DNR CC arrest with no intubation or ventilator Patient doesn't want artificial life support including intubation, tube feed, ventilator and/chest compression, and DC shock if needed. Patient already has left upper chest Mediport and I think that can be utilized for vasopressor Total time spent in [id number] encounter in discussion of advanced directive 17 minutes. Clinical Impression(s) from Imaging Studies Abdomen/Pelvis CT 03/17/25 14:08 IMPRESSION: 1. Mucosal thickening in the ascending colon consistent with colitis. 2. Partially visualized bilateral pleural effusions, greater on the left. 3. Hepatomegaly with fatty infiltration. 4. Colonic diverticulosis without acute diverticulitis. Reading Location: [facility] Chest X-Ray 03/17/25 14:55 IMPRESSION: 1. Patchy airspace disease of the left lung field, likely multifocal pneumonia. 2. Left pleural effusion. Reading Location: [facility]
--- NOTE | 2025-03-19 10:37 | CON.PCM.ID_ITS ---
Assessment & Plan Assessment/Plan (1) Colitis: PLAN: Concern for pneumonia and new effusion as well. Plan is for home with hospice. Keep vanc/zosyn for now. If does go hospice, would do one week po augmentin 875mg bid. Will follow, thank you (2) Non-small cell lung cancer: (3) GI bleed: HPI Consult Data Date of Consult: 03/19/25 HPI Narrative Reason for Consultation: pneumonia HPI Narrative: KANG GREEN, is a 84 M with NSCLC on chemo via L chest port, recent admit with GI bleed, presented with RLQ pain. Pain with acute onset, cramping/dull, mild to moderate. Some dark stools. No fever or chills. No issues with port. Also with new dry cough, worsened O2. Is on O2 prn at home. Came to ED, admitted on vanc/zosyn/doxy. Meeting with hospice this AM. Full ROS performed and neg except as noted above. COUNTS INCLUDE 234 BEDS AT THE [facility] Medical History Non-small cell lung cancer (NSCLC) Fatigue Pneumonia Pleural effusion, left Paroxysmal atrial fibrillation Nonrheumatic mitral (valve) prolapse Persistent atrial fibrillation Right bundle branch block (RBBB) Lung nodule Iron deficiency anemia Thoracic aortic aneurysm Nonrheumatic aortic (valve) insufficiency Nonrheumatic mitral (valve) insufficiency Hyperlipidemia Essential (primary) hypertension Atrial fibrillation with RVR (01/29/18) Anxiety Benign prostatic hypertrophy Chronic lymphocytic leukemia Home Medications ?Medication ?Instructions ?Recorded ?Last Taken ?Type finasteride 5 mg tablet 5 mg PO DAILY PROSTATE 12/0803/16/25 History tamsulosin 0.4 mg capsule 0.8 mg PO DAILY PROSTATE 03/16/25 History metoprolol tartrate 25 mg tablet 25 mg PO BID HEART, B LOOD PRESSURE 01/28/18 03/17/25 History omeprazole 40 mg capsule,delayed 40 mg PO DAILY ACID R EFLUX 01/28/18 03/16/25 History release ferrous sulfate 325 mg (65 mg 325 mg PO BID 08/25/19 0 03/17/25 History iron) tablet trazodone 50 mg tablet 50 mg PO QHS 04/21/21 History rivaroxaban 20 mg tablet (Xarelto) 20 mg PO DAILY 03/2703/16/25 History levothyroxine 50 mcg tablet 50 mcg PO DAILY disorder o f 03/26/24 03/16/25 History thyroid gland sertraline 100 mg tablet 100 mg PO BID 11/07/2403/17 History atorvastatin 10 mg tablet 10 mg PO DAILY 01/01/2502/25 History alprazolam 0.25 mg tablet 0.25 mg PO TID PRN anxiety 0 02/12/25 02/12/25 History zolpidem 10 mg tablet (Ambien) 10 mg PO QHS 03/06/25 0 03/16/25 History Allergy/AdvReac Type Severity Reaction Status Date / Time codeine Allergy Rash Verified 03/12/25 11:14 ondansetron (From Zofran (as Allergy Unknown Verified 03/12/25 11:14 hydrochloride)) Family History Brother Heart disease CVA (cerebral vascular accident) Cancer Brother Heart disease Sister Cancer Surgical History H/O colonoscopy with polypectomy Social History housing: house Smoking Status: Former smoker Smokeless tobacco user: snuff alcohol intake: current Alcohol type: beer Physical Exam Const alert and no apparent distress General Appearance: cooperative HEENT normocephalic and head/scalp atraumatic Eyes PERRL and EOMs intact bilaterally Neck supple and No nodes Resp Auscultation: rales and rhonchi Cardio regular rate and regular rhythm GI soft to palpation and non-distended GI Narrative: mild RLQ tenderness Extremity General Extremity: Negative for edema Skin no rashes or lesions noted Skin Narrative: L chest port no inflammation Neuro CN's II-XII intact bilaterally Medical Records Data Medical Nutrition Assessment Dietitian: Malnutrition Criteria Met Start: 03/18/25 11:30 Freq: Status: Active Protocol: Document 03/18/25 11:30 SB (Rec: 03/18/25 11:30 SB [id number]) Nutrition Malnutrition Evidence of Yes Malnutrition Exists Malnutrition (severe Chronic ): Evidenced By Weight Loss (Severe),Physical Changes (Severe) Clinical Problem Chronic Disease or Condition Related Malnutrition Etiology severe related to inadequate energy intake and increased energy expenditure due to lung cancer Signs/Symptoms as evidenced by 14% unintentional weight loss x 4-5 months and severe muscle/fat wasting in clavicle and buddhist regions. Status Active Problem Recommendation Dietitian Continue regular diet. Recommendations/ Will increase 120ml EPHP TID with medpass to 4x daily. Changes Will order chocolate magic cup with breakfast and dinner. Will order chocolate milkshake with lunch. Will monitor weight trends. Lab / Micro Data Attestation: I reviewed the patient's lab results. 03/19/25 06:42 03/19/25 06:42 Labs: Laboratory Results - last 24 hr 03/19/25 06:42: WBC 3.3 L, RBC 2.78 L, Hgb 8.1 L, Hct 24.5 L, MCV 88.1, MCH 29.1, MCHC 33.1, RDW Std Deviation 62.7 H, RDW Coeff of Terell 19.4 H, Plt Count 148 L, MPV 9.8, Immature Gran % (Auto) 3.300 H, Neut % (Auto) 76.7 H, Lymph % (Auto) 17.6 L, [place] % (Auto) 1.8, Eos % (Auto) 0.6, Baso % (Auto) 0.0, Absolute Neuts (auto) 2.5, Absolute Lymphs (auto) 0.58 L, Nucleated RBC % 0, Differential Comment COMMENT, Sodium 131 L, Potassium 3.8, Chloride 98, Carbon Dioxide 25.3, Anion Gap 8, BUN 10, Creatinine 0.70, Estim Creat Clear Calc 58.62, Est GFR (MDRD) Non-Af 91, BUN/Creatinine Ratio 14.1, Glucose 98, Calcium 8.2, Total Bilirubin 0.61, AST 48 H, ALT 84 H, Alkaline Phosphatase 168 H, Total Protein 4.6 L, Albumin 2.4 L, Globulin 2.2, Albumin/Globulin Ratio 1.1 Micro: Microbiology 03/18/25 02:25 Urine, Clean Catch Legionella Antigen - Final 03/18/25 02:25 Urine, Clean Catch Streptococcus pneumoniae Antigen (M - Final 03/18/25 11:15 Nasal Secretion MRSA (PCR) - Final 03/18/25 11:15 Mucosa - Nasopharyngeal SARS-CoV-2, Influenza & RSV (PCR) - Final Imaging Radiology Impression Echocardiogram 03/17/25 18:42 Interpretation Summary Normal LV size. The left ventricular ejection fraction is 45 %. There is mild global hypokinesis of the left ventricle. Mild mitral valve prolapse. Mild-Moderate (1-2+) eccentric mitral valve insufficiency. Mild (1+) eccentric aortic valve insufficiency. The left atrium is moderately enlarged. Pulmonary artery systolic pressure is 60 mmHg. Ordering Physician: Lia Guaman Performed By: Ramin Segura RCS
[2025-03-19] MEDS: Lorazepam 2 MG/ML WCH Syringe 0.5 MG IV (10:59)
[2025-03-19] MEDS: 0.9% Saline Lock 10 ML Syringe IV (10:59)
--- NOTE | 2025-03-19 11:31 | DCINST_ITS ---
Discharge Instructions Diet Discharge Diet: No restrictions DC O2, CPAP, BIPAP needs Home O2 Discharge instructions: Yes Type of respiratory needs?: Oxygen Oxygen frequency: Continuous Continuous oxygen liters per minute: 7 Dressing / Incision Discharge Activity: Return to Normal Activity Weight Bearing Status: Weight bearing as tolerated Dressing / Incision Call your doctor if you observe: - (Home with home hospice. Follow-up with PCP) Follow Up Care When: IN 2 WEEKS Test Results: Test results from this visit will be discussed in further detail at your follow- up appointment, if applicable. Discharge Plan Admission Admit Date/Time: 03/17/25 17:57 Attending Provider: Festus Worley Primary Care Provider: Jay Junior Consulting Providers: Lia Guaman; Giovanny Byrne Discharge Orders/Prescriptions Prescriptions: New dextromethorphan-guaifenesin 60-1,200 mg tablet extended release 12 hr 1 tab PO BID 7 Days Qty: 14 0RF amoxicillin-pot clavulanate 875-125 mg tablet 1 tab PO BID 7 Days Qty: 14 0RF Continued ferrous sulfate 325 mg (65 mg iron) tablet 325 mg PO BID trazodone 50 mg tablet 50 mg PO QHS Xarelto 20 mg tablet 20 mg PO DAILY Rx Instructions: must administer with evening meal tamsulosin 0.4 MG capsule 0.8 mg PO DAILY finasteride 5 MG tablet 5 mg PO DAILY omeprazole 40 MG capsule,delayed release(DR/EC) 40 mg PO DAILY sertraline 100 mg tablet 100 mg PO BID atorvastatin 10 mg tablet 10 mg PO DAILY alprazolam 0.25 mg tablet 0.25 mg PO TID PRN (Reason: anxiety) Rx Instructions: TAKE 2-3 TIMES DAILY NEEDED levothyroxine 50 mcg tablet 50 mcg PO DAILY zolpidem [Ambien] 10 mg tablet 10 mg PO QHS Changed metoprolol tartrate 25 MG tablet 50 mg PO BID 30 Days Qty: 0 0RF Referrals / Follow Up: Jay Junior MD [Primary Care Provider] - Disposition Disposition (needs filled in before D/C Order can be placed): Hospice in Home
--- NOTE | 2025-03-19 11:46 | CASEMGMT ---
Patient and his son met with hospice. Patient francisco with hospice and will discharge home. Missy UGARTE
--- NOTE | 2025-03-19 13:15 | CHAPLAIN ---
Type of Pastoral Visit _x__ Initial Visit ___ Follow-up Visit ___ On-call Visit ___ General Patient Visit ___ Spiritual Assessment ___ Family Conference ___ Bereavement ___ Rapid Response ___ Code Blue ___ Other (describe below) Pastoral Care Referral From _x__ Patient _x__ Family ___ Nurse ___ Physician ___ Personnel Coordinator ___ Engineering Test Specialist ___ Other (describe below) Sacrament/Intervention _x__ Active listening ___ Anointing ___ Pentecostal ___ Bereavement ___ Communion _x__ Faviola exploration ___ ___ Life review _x__ Prayer ___ Reconciliation ___ Sacrament of Sick _x__ Supportive presence ___ Wedding ___ Other (describe below) Pastoral Comments patient and two sons are in the room; pt acknowledges that his body is having to attack too many illnesses to recover now; sons state that hospice will come to take the patient home this afternoon; pt coughs throughout this visit and has production into Kleenex throughout; 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; sons say that they have taken over the household needs and will care for the spouse/mother from here on; sons want their father to 'stop worrying about her care'; one son states with tears that he has never heard his father express personal salvation in [place] and to have the assurance of heaven; other son nods in agreement; pt says that he was raised in the baptism and sometimes attends baptism with his son but is not active in the faviola; this automated teller manager offers scriptures and references of faviola that gives peace and acknowledgement of the hope of eternal life; pt listens intently as sons agree; pt welcomes this automated teller manager to say an audible prayer for him; sons express great appreciation for the comments, spiritual care support, and the prayer
--- NOTE | 2025-03-19 13:56 | PCM.DC.SUM ---
Providers Date of Admission: 03/17/25 Date of Discharge: 03/19/25 Primary Care Physician: Dr. Jay Junior MD Consultations 03/19/25 08:55 Consult: Infectious Disease Routine Consulting Provider: Giovanny Byrne Reason for Consult: fever, pneumonia, NSCLC with mets, multiple colon polyps, dysplastic EMERGENT Consult: No MD Notified: Yes Date Notified: 03/19/25 Time Notified: 08:55 Method of Notification: Text Reason For Visit: A FIB RVR & COLITIS Diagnosis Discharge Diagnosis (1) Colitis: Status: Acute Code(s): K52.9 - Noninfective gastroenteritis and colitis, unspecified (2) Non-small cell lung cancer: Status: Acute Code(s): C34.90 - Malignant neoplasm of unspecified part of unspecified bronchus or lung (3) GI bleed: Status: Acute Code(s): K92.2 - Gastrointestinal hemorrhage, unspecified Plan 84-year-old gentleman was admitted with chief complaint of abdominal pain and dark stool with recent hospitalization for the similar indication. Patient received chemotherapy last round for 03/05. Patient is also short of breath and coughing up clearish sputum mixed with some blood. 1. A-fib with RVR: Initial heart rate was low 100s to 120s. Optimize electrolytes. On metoprolol. Received IV diltiazem in ED. Xarelto on hold due to recent GI bleed. TSH within normal limit. 2D echo was done. On the physician extender patient converted to sinus rhythm 03/19: Heart rate is controlled. 2. Acute on chronic hypoxic respiratory failure due to right lung base opacity due to lung cancer and possible pneumonia/pleural effusion: Chest x-ray initially reviewed and shows left lingula and lung base patchy opacity. On the above antibiotic. Speech therapy ordered. 03/19: Patient had fever, 101.2 Fahrenheit yesterday evening and was low-grade about 99.2 last evening. Cultures reviewed so far pending. MRSA nasal screen negative but since patient is immunocompromised with NSCLC with metastasis, and mildly low fever grade on Zosyn therefore started on IV vancomycin. ID consulted. On 7 L high flow oxygen. ID saw the patient and recommended to continue Vanco and Zosyn but the patient decided to go home with home hospice therefore Augmentin 875 mg p.o. twice daily for 1 week has per ID recommendation. Prescription for Augmentin given. food services manager to arrange oxygen # Right lower quadrant pain: CT abdomen/pelvis was reviewed individually. Mucosal thickening in the ascending colon consistent with colitis. Partially visualized bilateral pleural effusion more on the left with left lung base opacity. IV Zosyn converted to IV Unasyn # Recent GI bleed Patient multiple polyps removed and AVMs on colonoscopy on past Sunday. Patient did not had bright red blood but dark stool. 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 This was communicated to Dr. Rojo. Patient is very exhausted With multiple hospitalization and multiple comorbidities. If patient wants to pursue further he can follow-up with tertiary care colorectal surgeon H&H 8.4/25%. At discharge, it was 9.4/28.8% #Hypokalemia: Electrolyte corrected. Repeat 4.1 # Non-small cell lung lung cancer, CLL -Will need to continue follow with Dr. Chao on discharge #Hypothyroidism -Continue Synthroid #GERD -Continue PPI #Chronic BPH with obstruction -Continue home medications #Depression/anxiety -Continue home medications #DVT ppx: SCDs Living will/advanced directive/end of life care: Patient does have living will or advanced directive. His son is the power of trade mark attorney for after discussion of benefits/risks procedures involved with full code, DNR CC arrest and DNR CC, the patient opted for DNR CC arrest with no intubation or ventilator Patient doesn't want artificial life support including intubation, tube feed, ventilator and/chest compression, and DC shock if needed. Patient already has left upper chest Mediport and I think that can be utilized for vasopressor I have reviewed the oxygen testing, and this patient qualifies for the home equipment and portability. The patient is mobile in the home and the community. Clinical Impression(s) from Imaging Studies Abdomen/Pelvis CT 03/17/25 14:08 IMPRESSION: 1. Mucosal thickening in the ascending colon consistent with colitis. 2. Partially visualized bilateral pleural effusions, greater on the left. 3. Hepatomegaly with fatty infiltration. 4. Colonic diverticulosis without acute diverticulitis. Reading Location: [facility] Chest X-Ray 03/17/25 14:55 IMPRESSION: 1. Patchy airspace disease of the left lung field, likely multifocal pneumonia. 2. Left pleural effusion. Reading Location: [facility] Medications at Discharge Home Medications finasteride 5 mg tablet 5 mg PO DAILY PROSTATE 12/08/16 tamsulosin 0.4 mg capsule 0.8 mg PO DAILY PROSTATE 12/08/16 omeprazole 40 mg capsule,delayed release 40 mg PO DAILY ACID REFLUX 01/28/18 ferrous sulfate 325 mg (65 mg iron) tablet 325 mg PO BID 08/25/19 trazodone 50 mg tablet 50 mg PO QHS 04/21/21 rivaroxaban 20 mg tablet (Xarelto) 20 mg PO DAILY 04/19/22 levothyroxine 50 mcg tablet 50 mcg PO DAILY disorder of thyroid gland 03/26/24 sertraline 100 mg tablet 100 mg PO BID 11/07/24 atorvastatin 10 mg tablet 10 mg PO DAILY 01/01/25 alprazolam 0.25 mg tablet 0.25 mg PO TID PRN anxiety 02/12/25 zolpidem 10 mg tablet (Ambien) 10 mg PO QHS 03/06/25 amoxicillin 875 mg-potassium clavulanate 125 mg tablet 1 tab PO BID 1 week #14 tabs 03/19/25 dextromethorphan-guaifenesin ER 60 mg-1,200 mg tab,extend release,12hr 1 tab PO BID 7 days #14 tabs 03/19/25 metoprolol tartrate 25 mg tablet 50 mg (2 x 25 mg) PO BID HEART, BLOOD PRESSURE 30 days #0 tabs 03/19/25 Physical Exam Narrative Patient is short of breath. Denies chest pain pressure tightness he denies palpitation. Patient is coughing up. Consulted to [place] Physical exam General: Alert, Oriented x3, Cooperative HEENT: Atraumatic, PERRLA, EOMI, Normocephalic Oral: No Gingival or Mucosal Lesions/ Ulcerations Neck: Supple, No JVD, Negative Carotid Bruits Chest wall/Lungs: Mediport at left upper chest wall. Air entry diminished in left lung base. Coarse crepitation Cardiovascular: Regular rate, Regular Rhythm, Normal S1, Normal S2, systolic Abdomen: Bowel Sounds Present, Soft, mild LUQ tenderness better than yesterday. Non-Distended : No dysuria. No renal angle tenderness. No suprapubic tenderness. Extremities: No edema, Capillary Refill Less than 3 Seconds Skin: No rashes, No breakdown Musculoskeletal: No Tenderness to Palpation of Joints or Extremities Neurological: Cranial nerves II-XII grossly intact, DTR 2+/4. No acute focal neurological deficit. Psych/Mental Status: Flat affect Medical Records Data Medical Nutrition Assessment Dietitian: Malnutrition Criteria Met Start: 03/18/25 11:30 Freq: Status: Active Protocol: Document 03/18/25 11:30 SB (Rec: 03/18/25 11:30 SB [id number]) Nutrition Malnutrition Evidence of Yes Malnutrition Exists Malnutrition (severe Chronic ): Evidenced By Weight Loss (Severe),Physical Changes (Severe) Clinical Problem Chronic Disease or Condition Related Malnutrition Etiology severe related to inadequate energy intake and increased energy expenditure due to lung cancer Signs/Symptoms as evidenced by 14% unintentional weight loss x 4-5 months and severe muscle/fat wasting in clavicle and buddhist regions. Status Active Problem Recommendation Dietitian Continue regular diet. Recommendations/ Will increase 120ml EPHP TID with medpass to 4x daily. Changes Will order chocolate magic cup with breakfast and dinner. Will order chocolate milkshake with lunch. Will monitor weight trends. Weight / BMI Weight Weight: 130 lb 9.594 oz Body Mass Index (BMI) 20.4 ABG / Lab / Microbiology Data 03/19/25 06:42 03/19/25 06:42 Laboratory: Laboratory Results - last 24 hr 03/19/25 06:42: WBC 3.3 L, RBC 2.78 L, Hgb 8.1 L, Hct 24.5 L, MCV 88.1, MCH 29.1, MCHC 33.1, RDW Std Deviation 62.7 H, RDW Coeff of Terell 19.4 H, Plt Count 148 L, MPV 9.8, Immature Gran % (Auto) 3.300 H, Neut % (Auto) 76.7 H, Lymph % (Auto) 17.6 L, [place] % (Auto) 1.8, Eos % (Auto) 0.6, Baso % (Auto) 0.0, Absolute Neuts (auto) 2.5, Absolute Lymphs (auto) 0.58 L, Nucleated RBC % 0, Differential Comment COMMENT, Sodium 131 L, Potassium 3.8, Chloride 98, Carbon Dioxide 25.3, Anion Gap 8, BUN 10, Creatinine 0.70, Estim Creat Clear Calc 58.62, Est GFR (MDRD) Non-Af 91, BUN/Creatinine Ratio 14.1, Glucose 98, Calcium 8.2, Total Bilirubin 0.61, AST 48 H, ALT 84 H, Alkaline Phosphatase 168 H, Total Protein 4.6 L, Albumin 2.4 L, Globulin 2.2, Albumin/Globulin Ratio 1.1 Microbiology: Microbiology 03/17/25 15:15 Blood Culture (Wb) - Port Blood Culture - Preliminary No growth in 48 hours. 03/17/25 15:00 Blood Culture (Wb) - Port Blood Culture - Preliminary No growth in 48 hours. 03/18/25 02:25 Urine, Clean Catch Legionella Antigen - Final 03/18/25 02:25 Urine, Clean Catch Streptococcus pneumoniae Antigen (M - Final 03/18/25 11:15 Nasal Secretion MRSA (PCR) - Final 03/18/25 11:15 Mucosa - Nasopharyngeal SARS-CoV-2, Influenza & RSV (PCR) - Final D/C Instructions Discharge Diet: No restrictions Weight Bearing Status: Weight bearing as tolerated Call your doctor if you observe: - (Home with home hospice. Follow-up with PCP) DC O2, CPAP, BIPAP Needs Home O2 Discharge instructions: Yes Type of respiratory needs?: Oxygen Oxygen frequency: Continuous Continuous oxygen liters per minute: 7 DC home with Oxygen: Yes Home O2 MD Review: I have reviewed the oxygen testing, and the patient qualifies for home oxygen equipment and portability. The patient is mobile in the home and the community. When: IN 2 WEEKS Meaningful Use Info Meaningful Use Meaningful Use Diagnoses (Choose all that apply): None applicable Ischemic Stroke Statin Dosing Therapy Reference: STATIN DOSE THERAPY REFERENCE: * Patients > 75 years receive moderate or high dose statin therapy. * Patients 75 years or YOUNGER should receive HIGH intensity statin dose unless contraindicated. You will be required to document reason for non-treatment if statin daily dose does not meet guidelines. HIGH DOSE STATIN THERAPY DAILY Atorvastatin > than or = to 40 mg Rosuvastatin > than or = to 20 mg Amlodipine + Atorvastatin > than or = to 2.5/40 mg Ezetimibe + Simvastatin 10/80 mg Simvastatin 80mg Discharge Plan Admission Admit Date/Time: 03/17/25 17:57 Attending Provider: Festus Worley Primary Care Provider: Jay Junior Consulting Providers: Lia Guaman; Giovanny Byrne Discharge Orders/Prescriptions Prescriptions: New dextromethorphan-guaifenesin 60-1,200 mg tablet extended release 12 hr 1 tab PO BID 7 Days Qty: 14 0RF amoxicillin-pot clavulanate 875-125 mg tablet 1 tab PO BID 7 Days Qty: 14 0RF Continued ferrous sulfate 325 mg (65 mg iron) tablet 325 mg PO BID trazodone 50 mg tablet 50 mg PO QHS Xarelto 20 mg tablet 20 mg PO DAILY Rx Instructions: must administer with evening meal tamsulosin 0.4 MG capsule 0.8 mg PO DAILY finasteride 5 MG tablet 5 mg PO DAILY omeprazole 40 MG capsule,delayed release(DR/EC) 40 mg PO DAILY sertraline 100 mg tablet 100 mg PO BID atorvastatin 10 mg tablet 10 mg PO DAILY alprazolam 0.25 mg tablet 0.25 mg PO TID PRN (Reason: anxiety) Rx Instructions: TAKE 2-3 TIMES DAILY NEEDED levothyroxine 50 mcg tablet 50 mcg PO DAILY zolpidem [Ambien] 10 mg tablet 10 mg PO QHS Changed metoprolol tartrate 25 MG tablet 50 mg PO BID 30 Days Qty: 0 0RF Referrals / Follow Up: Jay Junior MD [Primary Care Provider] - Disposition Disposition (needs filled in before D/C Order can be placed): Hospice in Home Charges/Coding Visit Charges Inpatient E&M: 65208 Disch Hosp >30min
[2025-03-20 11:20] LABS: Pathologist Review Reviewed
== END 2025-03-19 14:18 | disposition hospice, home (50) | DRG 391 ==
LOC: ED 15:17 → PCU 18:09
PROVIDERS: Admitting Provider Internal Medicine; Emergency Provider Emergency Medicine; PCP Family Medicine; Visit Provider Internal Medicine
DX: K52.9 Noninfective gastroenteritis and colitis, unspecified (principal); J96.21 Acute and chronic respiratory failure with hypoxia; E43 Unspecified severe protein-calorie malnutrition; J18.9 Pneumonia, unspecified organism; K92.2 Gastrointestinal hemorrhage, unspecified; C34.90 Malignant neoplasm of unspecified part of unspecified bronchus or lung; C91.10 Chronic lymphocytic leukemia of B-cell type not having achieved remission; J90 Pleural effusion, not elsewhere classified; R04.2 Hemoptysis; N13.8 Other obstructive and reflux uropathy; D84.9 Immunodeficiency, unspecified; Z51.5 Encounter for palliative care; Z66 Do not resuscitate; I10 Essential (primary) hypertension; D50.9 Iron deficiency anemia, unspecified; E03.9 Hypothyroidism, unspecified; F32.A Depression, unspecified; I34.1 Nonrheumatic mitral (valve) prolapse; I48.0 Paroxysmal atrial fibrillation; E87.6 Hypokalemia; E78.5 Hyperlipidemia, unspecified; K63.5 Polyp of colon; K21.9 Gastro-esophageal reflux disease without esophagitis; I95.9 Hypotension, unspecified; K57.30 Diverticulosis of large intestine without perforation or abscess without bleeding; J98.4 Other disorders of lung; M62.50 Muscle wasting and atrophy, not elsewhere classified, unspecified site; F41.9 Anxiety disorder, unspecified; I45.10 Unspecified right bundle-branch block; I08.0 Rheumatic disorders of both mitral and aortic valves; F10.90 Alcohol use, unspecified, uncomplicated; R16.0 Hepatomegaly, not elsewhere classified; Z79.01 Long term (current) use of anticoagulants; Z87.891 Personal history of nicotine dependence; Z79.890 Hormone replacement therapy; N40.1 Benign prostatic hyperplasia with lower urinary tract symptoms; Z92.21 Personal history of antineoplastic chemotherapy; Z87.01 Personal history of pneumonia (recurrent)
CPT/HCPCS: 36415; 36591; 71045; 74177; 80048; 80053; 80061; 80076; 81001; 83605; 83690; 83735; 84484; 85025; 85610; 85730; 86850; 86900; 86901; 87040; 87449; 87631; 87641; 93005; 93306; 97162; 97802; 99285; Q9957; Q9967; A4216